=== PATIENT | female | born 1970 | race Caucasian/White ===

== ENCOUNTER → 2017-09-20 | Outpatient (CLI) | payer OTHER ==
[~2017-09-20] MED LIST: ACEBUTCAFT PO; ACET325 PO; ACYC400 PO; ADVACOR; ALBU90OI6 INH; ALPR.5 PO; ALUMAG30SU PO; ASPI81EC PO; ATEN25; ATOR10; AZIT250 PO; Aldactone25 MG; Aldactone50 MG PO; BASAGLAR K100 UNIT/1 SC; BUPR150T2; CIPR500 PO; COMBIVENT RESPIM4 GM INH; CREON DR 12,001 EACH PO; DEXT30SU PO; DIGO.125 PO; DOCU100 PO; DULO30; ENDOCET; ENDOCET PO; ESCI10; FAMO20 PO; FENO145 PO; FENO160; FENO54; FIRST-LANSO3 MG/1 ML PO; FURO20 PO; GLIM4; GUAPHELA PO; HYDACE5 PO; HYDCHL12.5; HYDGUAL120 PO; HYDMOR2 PO; HYDMOR4 PO; HYDPAM25 PO; Hydroxyzine HCl50 MG; IBUP200 PO; IBUP400 PO; INSLI100I SC; INSUASPI SC; INSUASPI SUBQ; INSULANI; INSULANI SC; INSULANI SQ; INSULANI SUBQ; INSULANPEN SC; Keflex500 MG PO; Kristalose20 GM PO; LANS30EC PO; LEVEMIR FL100 UNIT/1 SQ; LEVFLO500 PO; LEVO750 PO; LISI10 PO; LISI20 PO; LISI5 PO; MAGOXI400 PO; METF500; METF500 PO; METF500C; METO10 PO; METO25 PO; METO25ER PO; METO50 PO; METO5A PO; METR500 PO; MILK OF MAGNESIA CON PO; MIRT15 PO; MIRT30 PO; MORP15ER PO; MUPI1NAS; NAPR220; NAPR220 PO; NAPR550 PO; NITR100CA PO; Novolog100 UNIT/1 SC; OMEP10ER; OMEP20ER PO; OMEP40CA12 PO; ONDA4 PO; ONDA4ODT MM; ONDA4ODT PO; ONDA4ODT SL; ONDA8 PO; ONDA8ODT MM; OXYACE5T; OXYACE5T PO; OXYACE7.5T PO; OXYC10ER PO; OXYC10TA19 PO; OXYC1L PO; OXYC1TAB11 PO; OXYC5 PO; PANT20 PO; PANT40; PANT40 PO; PIOG15; POTCHL20ER; PRAV10 PO; PRAV20 PO; PROM25 PO; PROM25S PR; PROTONIX; Prednisone20 MG PO; Q-Tussin100 MG/5 M PO; RANI150 PO; RISE5; ROSU10TA; RXHYDGUAS PO; RXHYDMOR2 PO; RXNAPNA550 PO; RXONDA4ODT MM; RXOXYACE PO; SACC250C PO; SENN187 PO; SPIR25; SPIR50 PO; SUCR1 PO; TRAZ100 PO; TRAZ50 PO; TRESIBA FL100 UNIT/1 SQ; Tamiflu75 MG PO; VENL150ER PO; VENL75ER PO; WARF1 PO; XARELTO20 MG; ZENPEP DR 20,01 EACH PO; Zantac150 MG PO; Zofran Odt4 MG SL; Zofran Odt8 MG SL; [UNRECOGNIZED DRUG - OTHER]; [UNRECOGNIZED DRUG - OTHER]; [UNRECOGNIZED DRUG - REMARK]
[2017-09-20 17:20] LABS: U Amphetamine Screen Not Detected
[2017-09-20 17:21] LABS: U Barbituate Screen Not Detected; U Benzodiazapine Screen Not Detected; U Buprenorphine Screen Not Detected; U Cannabinoids Screen Not Detected; U Cocaine Screen Not Detected; U Methadone Screen Not Detected; U Methamphetamine Screen Not Detected; U Opiates Screen Not Detected; U Oxycodone Screen Not Detected; U Phencyclidine Screen Not Detected; U Propoxyphene Screen Not Detected
== END | disposition home or self-care (01) ==
LOC: LAB 12:30
PROVIDERS: Internal Medicine
DX: Z51.81 Encounter for therapeutic drug level monitoring (principal); Z79.899 Other long term (current) drug therapy

== ENCOUNTER 2018-01-08 14:28 | Emergency (ER) | payer OTHER ==
[~2018-01-08] VITALS: Ht 165.1 cm; Wt 63.5 kg
[~2018-01-08 14:28] MED LIST changes: -Aldactone50 MG PO; -BASAGLAR K100 UNIT/1 SC; -Hydroxyzine HCl50 MG; -Novolog100 UNIT/1 SC
[2018-01-08] MEDS ORDERED: METO100ER PO (14:41)
[2018-01-08] MEDS ORDERED: VENL75ER PO (14:41)
[2018-01-08] MEDS ORDERED: BASAGLAR K100 UNIT/1 SC (14:42)
[2018-01-08 15:06] LABS: BASOPHILS ABSOLUTE AUTO 0.02 K/mm3 (0.00-0.23); BASOPHILS PERCENT AUTO 0 % (0-2); EOSINOPHILS ABSOLUTE AUTO 0.22 K/mm3 (0.00-0.68); EOSINOPHILS PERCENT AUTO 3 % (0-6); Hematocrit 43.4 % (33.0-51.0); Hemoglobin 14.8 g/dL (11.5-16.0); IMMATURE GRAN ABSOLUTE AUTO 0.03 K/mm3 (0.00-0.10); IMMATURE GRAN PERCENT AUTO 0 % (0-1); LYMPHOCYTES ABSOLUTE AUTO 0.97 K/mm3 (0.84-5.20); LYMPHOCYTES PERCENT AUTO 11 % (21-46); MONOCYTES ABSOLUTE AUTO 0.82 K/mm3 (0.16-1.47); MONOCYTES PERCENT AUTO 9 % (4-13); Mean Corpuscular HGB Conc 34.1 g/dL (31.5-36.5); Mean Corpuscular Volume 85 fL (80-100); NEUTROPHILS ABSOLUTE AUTO 6.74 K/mm3 (1.96-9.15); NEUTROPHILS PERCENT AUTO 77 % (41-73); Platelet Count 98 K/mm3 (150-400); RDW Coefficient Variation 13.5 % (11.7-14.2); RDW Standard Deviation 42.2 fL (35.1-46.3); Red Blood Cell Count 5.11 M/mm3 (3.80-5.20)
[2018-01-08 15:33] LABS: Alanine Aminotransfer (ALT/SGP 20 U/L (12-78); Albumin, Blood 3.4 g/dL (3.4-5.0); Albumin/Globulin Ratio 0.8 (0.8-1.8); Alk Phos 124 U/L (50-136); Anion Gap 9 mmol/L (6-16); Aspartate Aminotrans (AST/SGOT 13 U/L (12-37); Blood Urea Nitrogen 16 mg/dL (8-24); Bun/Creatinine Ratio 45.3 (12.0-20.0); CO2, Blood 26 mmol/L (21-32); Calcium, Blood 9.8 mg/dL (8.5-10.1); Chloride, Blood 103 mmol/L (98-108); Creatinine, Blood 0.35 mg/dL (0.40-1.00); Globulin, Blood 4.4 g/dL (2.2-4.0); Glomerular Filtration Rate >60 (60-); Glucose, Blood 306 mg/dL (70-99); Magnesium, Blood 1.5 mg/dL (1.6-2.4); Potassium, Blood 4.2 mmol/L (3.5-5.5); Sodium, Blood 138 mmol/L (136-145); Total Protein, Blood 7.8 g/dL (6.4-8.2); Troponin I <0.015 ng/mL (0.000-0.040)
== END 2018-01-08 16:57 | disposition home or self-care (01) ==
LOC: ER 14:28
PROVIDERS: Emergency Medicine
DX: R07.9 Chest pain, unspecified (principal); E11.43 Type 2 diabetes mellitus with diabetic autonomic (poly)neuropathy; K31.84 Gastroparesis; I10 Essential (primary) hypertension; J45.909 Unspecified asthma, uncomplicated; I48.91 Unspecified atrial fibrillation; D64.9 Anemia, unspecified; Z79.899 Other long term (current) drug therapy; Z79.4 Long term (current) use of insulin
CPT/HCPCS: 36415; 71045; 80053; 83690; 83735; 84484; 85025; 93005; 93010; 96361; 96374; 96375; 99284; J1630; J2405; J7030

== ENCOUNTER 2018-05-25 12:28 | Observation (INO) | payer OTHER ==
[~2018-05-25] VITALS: Ht 165.1 cm; Wt 52.7 kg
[~2018-05-25 12:28] MED LIST changes: +BASAGLAR K100 UNIT/1 SC; +Novolog100 UNIT/1 SC
[2018-05-25 13:22] LABS: BASOPHILS ABSOLUTE AUTO 0.05 K/mm3 (0.00-0.23); BASOPHILS PERCENT AUTO 0 % (0-2); EOSINOPHILS ABSOLUTE AUTO 0.16 K/mm3 (0.00-0.68); EOSINOPHILS PERCENT AUTO 1 % (0-6); Hematocrit 47.5 % (33.0-51.0); Hemoglobin 15.8 g/dL (11.5-16.0); IMMATURE GRAN ABSOLUTE AUTO 0.05 K/mm3 (0.00-0.10); IMMATURE GRAN PERCENT AUTO 0 % (0-1); LYMPHOCYTES ABSOLUTE AUTO 2.62 K/mm3 (0.84-5.20); LYMPHOCYTES PERCENT AUTO 20 % (21-46); MONOCYTES PERCENT AUTO 11 % (4-13); Mean Corpuscular HGB 26.5 pg (26.0-34.0); Mean Corpuscular HGB Conc 33.3 g/dL (31.5-36.5); Mean Corpuscular Volume 80 fL (80-100); Mean Platelet Volume 10.7 fL (9.1-12.4); NEUTROPHILS ABSOLUTE AUTO 9.01 K/mm3 (1.96-9.15); NEUTROPHILS PERCENT AUTO 68 % (41-73); Platelet Count 184 K/mm3 (150-400); RDW Coefficient Variation 14.5 % (11.7-14.2); RDW Standard Deviation 41.7 fL (35.1-46.3); Red Blood Cell Count 5.96 M/mm3 (3.80-5.20); White Blood Cell Count 13.29 K/mm3 (4.00-11.30)
[2018-05-25 13:42] LABS: Alanine Aminotransfer (ALT/SGP 20 U/L (12-78); Albumin, Blood 3.2 g/dL (3.4-5.0); Albumin/Globulin Ratio 0.7 (0.8-1.8); Alk Phos 157 U/L (50-136); Anion Gap 15 mmol/L (6-16); Aspartate Aminotrans (AST/SGOT 14 U/L (12-37); Bilirubin, Total 1.2 mg/dL (0.1-1.0); Blood Urea Nitrogen 22 mg/dL (8-24); CO2, Blood 27 mmol/L (21-32); Calcium, Blood 9.2 mg/dL (8.5-10.1); Chloride, Blood 94 mmol/L (98-108); Creatinine, Blood 0.58 mg/dL (0.40-1.00); Globulin, Blood 4.3 g/dL (2.2-4.0); Glomerular Filtration Rate >60 (60-); Glucose, Blood 352 mg/dL (70-99); Potassium, Blood 3.8 mmol/L (3.5-5.5); Sodium, Blood 136 mmol/L (136-145); Total Protein, Blood 7.5 g/dL (6.4-8.2); Troponin I 0.019 ng/mL (0.000-0.040)
[2018-05-25 15:28] LABS: Free Thyroxine 1.54 ng/dL (0.70-1.60)
[2018-05-25 15:30] LABS: Thyroid Stimulating Hormone 2.31 uIU/mL (0.360-4.800); Triiodothyronine, Free 3.22 pg/mL (2.18-3.98)
[2018-05-25 23:48] LABS: Hematocrit 43.8 % (33.0-51.0); Hemoglobin 14.4 g/dL (11.5-16.0)
[2018-05-25 23:52] LABS: Source, Urine Clean Catch
[2018-05-25 23:55] LABS: Bilirubin, Urine Neg (Neg); Blood, Urine 1+ (Neg); Glucose Qualitative, Urine 4+ (Neg); Ketones, Urine 4+ (Neg); Leukocyte Esterase, Urine Neg (Neg); Nitrite, Urine Neg (Neg); Protein, Urine 2+ (Neg); Specific Gravity, Urine 1.025 (1.003-1.022); Urobilinogen, Urine NORM (Normal)
[2018-05-26 00:01] LABS: International Normalized Ratio 1.28
[2018-05-26 00:02] LABS: Appearance, Urine Clear (Clear); Color, Urine Yellow (P-Yellow)
[2018-05-26 00:03] LABS: Amorphous Light (0-Heavy); Bacteria Mod /hpf; Mucus Light (0-Heavy); Red Blood Cells, Urine 0-2 /hpf (0-2); Squamous Epithelial Cells Mod /hpf (Few); White Blood Cells, Urine Rare /hpf (0-5)
[2018-05-26 00:15] LABS: U Amphetamine Screen Not Detected; U Barbituate Screen Not Detected; U Benzodiazapine Screen DETECTED; U Buprenorphine Screen Not Detected; U Cannabinoids Screen Not Detected; U Cocaine Screen Not Detected; U Methadone Screen Not Detected; U Methamphetamine Screen Not Detected; U Opiates Screen Not Detected; U Oxycodone Screen DETECTED; U Phencyclidine Screen Not Detected; U Propoxyphene Screen Not Detected
== END 2018-05-26 13:42 | disposition home or self-care (01) ==
LOC: ER 12:28 → PCU 12:29
PROVIDERS: Emergency Medicine; Family Medicine; Nurse Practitioner Acute Care
DX: I48.91 Unspecified atrial fibrillation (principal); M25.511 Pain in right shoulder; E11.43 Type 2 diabetes mellitus with diabetic autonomic (poly)neuropathy; K31.84 Gastroparesis; K29.70 Gastritis, unspecified, without bleeding; K92.0 Hematemesis; R19.5 Other fecal abnormalities; D72.829 Elevated white blood cell count, unspecified; Z79.4 Long term (current) use of insulin; Z79.899 Other long term (current) drug therapy; Z88.0 Allergy status to penicillin; Z88.1 Allergy status to other antibiotic agents; Z88.2 Allergy status to sulfonamides; Z88.8 Allergy status to other drugs, medicaments and biological substances
CPT/HCPCS: 36415; 71045; 80053; 81001; 82947; 83036; 83690; 83735; 84439; 84443; 84481; 84484; 85014; 85018; 85025; 85610; 87081; 87086; 93005; 93010; 93279; 93306; 96365; 96366; 96375; 96376; 99285-25; C1751; C9113; G0378; J1815; J2060; J2405; J7030

== ENCOUNTER 2018-06-28 19:10 | Observation (INO) | payer OTHER ==
[~2018-06-28] VITALS: Ht 165.1 cm; Wt 60.4 kg
[2018-06-28 22:19] LABS: BASOPHILS ABSOLUTE AUTO 0.02 K/mm3 (0.00-0.23); BASOPHILS PERCENT AUTO 0 % (0-2); EOSINOPHILS ABSOLUTE AUTO 0.08 K/mm3 (0.00-0.68); EOSINOPHILS PERCENT AUTO 1 % (0-6); Hematocrit 35.5 % (33.0-51.0); Hemoglobin 11.4 g/dL (11.5-16.0); IMMATURE GRAN ABSOLUTE AUTO 0.02 K/mm3 (0.00-0.10); IMMATURE GRAN PERCENT AUTO 0 % (0-1); LYMPHOCYTES ABSOLUTE AUTO 1.27 K/mm3 (0.84-5.20); LYMPHOCYTES PERCENT AUTO 13 % (21-46); MONOCYTES ABSOLUTE AUTO 0.73 K/mm3 (0.16-1.47); MONOCYTES PERCENT AUTO 7 % (4-13); Mean Corpuscular HGB 27.4 pg (26.0-34.0); Mean Corpuscular HGB Conc 32.1 g/dL (31.5-36.5); Mean Corpuscular Volume 85 fL (80-100); Mean Platelet Volume 10.1 fL (9.1-12.4); NEUTROPHILS ABSOLUTE AUTO 7.91 K/mm3 (1.96-9.15); NEUTROPHILS PERCENT AUTO 79 % (41-73); Platelet Count 178 K/mm3 (150-400); RDW Coefficient Variation 16.6 % (11.7-14.2); RDW Standard Deviation 50.5 fL (35.1-46.3); Red Blood Cell Count 4.16 M/mm3 (3.80-5.20); White Blood Cell Count 10.03 K/mm3 (4.00-11.30)
[2018-06-28 22:40] LABS: Alanine Aminotransfer (ALT/SGP 19 U/L (12-78); Albumin/Globulin Ratio 0.5 (0.8-1.8); Alk Phos 157 U/L (50-136); Anion Gap 11 mmol/L (6-16); Aspartate Aminotrans (AST/SGOT 20 U/L (12-37); Bilirubin, Total 0.7 mg/dL (0.1-1.0); Blood Urea Nitrogen 14 mg/dL (8-24); Bun/Creatinine Ratio 32.5 (12.0-20.0); CO2, Blood 31 mmol/L (21-32); Calcium, Blood 7.6 mg/dL (8.5-10.1); Chloride, Blood 93 mmol/L (98-108); Creatinine, Blood 0.43 mg/dL (0.40-1.00); Globulin, Blood 3.8 g/dL (2.2-4.0); Glomerular Filtration Rate >60 (60-); Glucose, Blood 333 mg/dL (70-99); Sodium, Blood 135 mmol/L (136-145); Total Protein, Blood 5.8 g/dL (6.4-8.2); Troponin I 0.023 ng/mL (0.000-0.040)
[2018-06-29 02:54] LABS: U Amphetamine Screen Not Detected; U Barbituate Screen Not Detected; U Benzodiazapine Screen DETECTED; U Buprenorphine Screen Not Detected; U Cannabinoids Screen Not Detected; U Cocaine Screen Not Detected; U Methadone Screen Not Detected; U Methamphetamine Screen Not Detected; U Opiates Screen Not Detected; U Oxycodone Screen DETECTED; U Phencyclidine Screen Not Detected; U Propoxyphene Screen Not Detected
[2018-06-29] MEDS ORDERED: ALPR.5 PO (03:18)
[2018-06-29 06:14] LABS: Magnesium, Blood 1.4 mg/dL (1.6-2.4)
[2018-06-29 06:19] LABS: Anion Gap 10 mmol/L (6-16); Blood Urea Nitrogen 15 mg/dL (8-24); Bun/Creatinine Ratio 36.4 (12.0-20.0); CO2, Blood 31 mmol/L (21-32); Calcium, Blood 7.2 mg/dL (8.5-10.1); Chloride, Blood 95 mmol/L (98-108); Creatinine, Blood 0.41 mg/dL (0.40-1.00); Glomerular Filtration Rate >60 (60-); Glucose, Blood 307 mg/dL (70-99); Potassium, Blood 3.3 mmol/L (3.5-5.5); Sodium, Blood 136 mmol/L (136-145)
[2018-06-30 06:56] LABS: Anion Gap 6 mmol/L (6-16); Blood Urea Nitrogen 13 mg/dL (8-24); Bun/Creatinine Ratio 26.2 (12.0-20.0); CO2, Blood 35 mmol/L (21-32); Calcium, Blood 7.6 mg/dL (8.5-10.1); Chloride, Blood 97 mmol/L (98-108); Glomerular Filtration Rate >60 (60-); Glucose, Blood 106 mg/dL (70-99); Magnesium, Blood 1.7 mg/dL (1.6-2.4); Potassium, Blood 2.7 mmol/L (3.5-5.5); Sodium, Blood 138 mmol/L (136-145)
[2018-07-01 04:51] LABS: BASOPHILS ABSOLUTE AUTO 0.03 K/mm3 (0.00-0.23); BASOPHILS PERCENT AUTO 1 % (0-2); EOSINOPHILS ABSOLUTE AUTO 0.19 K/mm3 (0.00-0.68); EOSINOPHILS PERCENT AUTO 3 % (0-6); Hematocrit 33.2 % (33.0-51.0); Hemoglobin 10.2 g/dL (11.5-16.0); IMMATURE GRAN ABSOLUTE AUTO 0.01 K/mm3 (0.00-0.10); IMMATURE GRAN PERCENT AUTO 0 % (0-1); LYMPHOCYTES ABSOLUTE AUTO 0.91 K/mm3 (0.84-5.20); LYMPHOCYTES PERCENT AUTO 15 % (21-46); MONOCYTES ABSOLUTE AUTO 0.88 K/mm3 (0.16-1.47); MONOCYTES PERCENT AUTO 15 % (4-13); Mean Corpuscular HGB 26.8 pg (26.0-34.0); Mean Corpuscular HGB Conc 30.7 g/dL (31.5-36.5); Mean Corpuscular Volume 87 fL (80-100); Mean Platelet Volume 9.9 fL (9.1-12.4); NEUTROPHILS ABSOLUTE AUTO 4.06 K/mm3 (1.96-9.15); NEUTROPHILS PERCENT AUTO 67 % (41-73); Platelet Count 198 K/mm3 (150-400); RDW Coefficient Variation 16.9 % (11.7-14.2); RDW Standard Deviation 53.5 fL (35.1-46.3); White Blood Cell Count 6.08 K/mm3 (4.00-11.30)
[2018-07-01 06:59] LABS: Alanine Aminotransfer (ALT/SGP 20 U/L (12-78); Albumin, Blood 1.7 g/dL (3.4-5.0); Albumin/Globulin Ratio 0.5 (0.8-1.8); Alk Phos 129 U/L (50-136); Anion Gap 7 mmol/L (6-16); Aspartate Aminotrans (AST/SGOT 34 U/L (12-37); Bilirubin, Total 0.4 mg/dL (0.1-1.0); Blood Urea Nitrogen 13 mg/dL (8-24); Bun/Creatinine Ratio 28.7 (12.0-20.0); CO2, Blood 30 mmol/L (21-32); Calcium, Blood 7.1 mg/dL (8.5-10.1); Chloride, Blood 105 mmol/L (98-108); Creatinine, Blood 0.45 mg/dL (0.40-1.00); Globulin, Blood 3.3 g/dL (2.2-4.0); Glomerular Filtration Rate >60 (60-); Glucose, Blood 62 mg/dL (70-99); Potassium, Blood 3.9 mmol/L (3.5-5.5); Sodium, Blood 142 mmol/L (136-145)
== END 2018-07-01 19:40 | disposition home or self-care (01) ==
LOC: ER 19:10 → MEDS 19:11
PROVIDERS: Emergency Medicine; Hospitalist; Internal Medicine
DX: I48.91 Unspecified atrial fibrillation (principal); E11.9 Type 2 diabetes mellitus without complications; E78.5 Hyperlipidemia, unspecified; K76.0 Fatty (change of) liver, not elsewhere classified; E11.43 Type 2 diabetes mellitus with diabetic autonomic (poly)neuropathy; K31.84 Gastroparesis; J45.20 Mild intermittent asthma, uncomplicated; K21.9 Gastro-esophageal reflux disease without esophagitis; F32.9 Major depressive disorder, single episode, unspecified; F17.210 Nicotine dependence, cigarettes, uncomplicated; E87.6 Hypokalemia; I95.89 Other hypotension; E83.42 Hypomagnesemia; I10 Essential (primary) hypertension; K56.609 Unspecified intestinal obstruction, unspecified as to partial versus complete obstruction; Z79.4 Long term (current) use of insulin; Z88.0 Allergy status to penicillin; Z88.2 Allergy status to sulfonamides; Z88.5 Allergy status to narcotic agent; Z88.8 Allergy status to other drugs, medicaments and biological substances; Z79.899 Other long term (current) drug therapy; Z59.0 Homelessness
CPT/HCPCS: 36415; 74176; 76705; 80048; 80053; 82947; 83735; 84484; 85025; 93005; 93010; 96361; 96365; 96366; 96367; 96372; 96374; 96375; 96376; 99285-25; C1751; C9113; G0378; J1650; J2405; J3010; J3475; J3480; J7030

== ENCOUNTER 2018-07-04 19:58 | Emergency (ER) | payer OTHER ==
[~2018-07-04] VITALS: Ht 165.1 cm; Wt 61.2 kg
[2018-07-04 20:31] LABS: BASOPHILS ABSOLUTE AUTO 0.04 K/mm3 (0.00-0.23); BASOPHILS PERCENT AUTO 0 % (0-2); EOSINOPHILS ABSOLUTE AUTO 0.08 K/mm3 (0.00-0.68); EOSINOPHILS PERCENT AUTO 1 % (0-6); Hematocrit 34.1 % (33.0-51.0); Hemoglobin 10.6 g/dL (11.5-16.0); IMMATURE GRAN ABSOLUTE AUTO 0.04 K/mm3 (0.00-0.10); IMMATURE GRAN PERCENT AUTO 0 % (0-1); LYMPHOCYTES ABSOLUTE AUTO 0.89 K/mm3 (0.84-5.20); LYMPHOCYTES PERCENT AUTO 10 % (21-46); MONOCYTES ABSOLUTE AUTO 0.76 K/mm3 (0.16-1.47); MONOCYTES PERCENT AUTO 8 % (4-13); Mean Corpuscular HGB 26.6 pg (26.0-34.0); Mean Corpuscular HGB Conc 31.1 g/dL (31.5-36.5); Mean Corpuscular Volume 86 fL (80-100); Mean Platelet Volume 9.1 fL (9.1-12.4); NEUTROPHILS ABSOLUTE AUTO 7.52 K/mm3 (1.96-9.15); NEUTROPHILS PERCENT AUTO 81 % (41-73); Platelet Count 142 K/mm3 (150-400); RDW Coefficient Variation 16.4 % (11.7-14.2); Red Blood Cell Count 3.99 M/mm3 (3.80-5.20); White Blood Cell Count 9.33 K/mm3 (4.00-11.30)
[2018-07-04 20:51] LABS: Alanine Aminotransfer (ALT/SGP 25 U/L (12-78); Albumin, Blood 1.8 g/dL (3.4-5.0); Albumin/Globulin Ratio 0.5 (0.8-1.8); Alk Phos 161 U/L (50-136); Anion Gap 9 mmol/L (6-16); Aspartate Aminotrans (AST/SGOT 28 U/L (12-37); Bilirubin, Total 0.5 mg/dL (0.1-1.0); Blood Urea Nitrogen 12 mg/dL (8-24); Bun/Creatinine Ratio 27.1 (12.0-20.0); CO2, Blood 25 mmol/L (21-32); Calcium, Blood 8.1 mg/dL (8.5-10.1); Chloride, Blood 102 mmol/L (98-108); Creatinine, Blood 0.44 mg/dL (0.40-1.00); Globulin, Blood 3.8 g/dL (2.2-4.0); Glomerular Filtration Rate >60 (60-); Glucose, Blood 269 mg/dL (70-99); Sodium, Blood 136 mmol/L (136-145); Total Protein, Blood 5.6 g/dL (6.4-8.2)
== END 2018-07-04 22:55 | disposition home or self-care (01) ==
LOC: ER 19:58
PROVIDERS: Emergency Medicine
DX: R11.2 Nausea with vomiting, unspecified (principal); R60.0 Localized edema; Z88.0 Allergy status to penicillin; Z88.2 Allergy status to sulfonamides; Z88.1 Allergy status to other antibiotic agents; Z91.040 Latex allergy status; Z88.8 Allergy status to other drugs, medicaments and biological substances; Z88.5 Allergy status to narcotic agent; Z79.899 Other long term (current) drug therapy; Z79.4 Long term (current) use of insulin; E11.9 Type 2 diabetes mellitus without complications; E78.5 Hyperlipidemia, unspecified; I10 Essential (primary) hypertension; J45.909 Unspecified asthma, uncomplicated; I48.91 Unspecified atrial fibrillation
CPT/HCPCS: 36415; 71046; 80053; 83690; 83880; 84484; 85025; 96374; 99284-25; J2405; J7030

== ENCOUNTER 2018-07-06 17:52 | Emergency (ER) | payer OTHER ==
[~2018-07-06] VITALS: Ht 160 cm; Wt 77.1 kg
[2018-07-06 19:40] LABS: BASOPHILS ABSOLUTE AUTO 0.01 K/mm3 (0.00-0.23); BASOPHILS PERCENT AUTO 0 % (0-2); EOSINOPHILS ABSOLUTE AUTO 0.11 K/mm3 (0.00-0.68); EOSINOPHILS PERCENT AUTO 2 % (0-6); Hematocrit 34.4 % (33.0-51.0); Hemoglobin 10.6 g/dL (11.5-16.0); IMMATURE GRAN ABSOLUTE AUTO 0.01 K/mm3 (0.00-0.10); IMMATURE GRAN PERCENT AUTO 0 % (0-1); LYMPHOCYTES ABSOLUTE AUTO 0.98 K/mm3 (0.84-5.20); LYMPHOCYTES PERCENT AUTO 17 % (21-46); MONOCYTES ABSOLUTE AUTO 0.63 K/mm3 (0.16-1.47); MONOCYTES PERCENT AUTO 11 % (4-13); Mean Corpuscular HGB 26.2 pg (26.0-34.0); Mean Corpuscular HGB Conc 30.8 g/dL (31.5-36.5); Mean Corpuscular Volume 85 fL (80-100); Mean Platelet Volume 10.3 fL (9.1-12.4); NEUTROPHILS ABSOLUTE AUTO 4.17 K/mm3 (1.96-9.15); NEUTROPHILS PERCENT AUTO 70 % (41-73); Platelet Count 132 K/mm3 (150-400); RDW Standard Deviation 49.9 fL (35.1-46.3); Red Blood Cell Count 4.04 M/mm3 (3.80-5.20); White Blood Cell Count 5.91 K/mm3 (4.00-11.30)
[2018-07-06 19:55] LABS: Alanine Aminotransfer (ALT/SGP 23 U/L (12-78); Albumin, Blood 1.8 g/dL (3.4-5.0); Albumin/Globulin Ratio 0.4 (0.8-1.8); Alk Phos 168 U/L (50-136); Anion Gap 10 mmol/L (6-16); Aspartate Aminotrans (AST/SGOT 24 U/L (12-37); Bilirubin, Total 0.4 mg/dL (0.1-1.0); Blood Urea Nitrogen 10 mg/dL (8-24); Bun/Creatinine Ratio 24.2 (12.0-20.0); CO2, Blood 29 mmol/L (21-32); Calcium, Blood 7.8 mg/dL (8.5-10.1); Chloride, Blood 98 mmol/L (98-108); Creatinine, Blood 0.41 mg/dL (0.40-1.00); Glomerular Filtration Rate >60 (60-); Glucose, Blood 315 mg/dL (70-99); Potassium, Blood 3.2 mmol/L (3.5-5.5); Sodium, Blood 137 mmol/L (136-145); Total Protein, Blood 5.8 g/dL (6.4-8.2)
[2018-07-06 21:17] LABS: Source, Urine Clean Catch
[2018-07-06 21:24] LABS: Appearance, Urine Hazy (Clear); Bilirubin, Urine Neg (Neg); Blood, Urine 1+ (Neg); Color, Urine Yellow (P-Yellow); Glucose Qualitative, Urine 4+ (Neg); Ketones, Urine 1+ (Neg); Leukocyte Esterase, Urine Neg (Neg); Nitrite, Urine Neg (Neg); Protein, Urine Neg (Neg); Urobilinogen, Urine NORM (Normal)
[2018-07-06 21:36] LABS: Amorphous Light (0-Heavy); Bacteria Few /hpf; Red Blood Cells, Urine 0-2 /hpf (0-2); Squamous Epithelial Cells Mod /hpf (Few); White Blood Cells, Urine 0-2 /hpf (0-5)
[2018-07-06] MEDS ORDERED: Aldactone50 MG PO (22:08)
== END 2018-07-06 22:24 | disposition home or self-care (01) ==
LOC: ER 17:52
PROVIDERS: Physician Assistant
DX: R10.84 Generalized abdominal pain (principal); E87.6 Hypokalemia; R60.0 Localized edema; R11.2 Nausea with vomiting, unspecified; E11.9 Type 2 diabetes mellitus without complications; E78.5 Hyperlipidemia, unspecified; I10 Essential (primary) hypertension; J45.909 Unspecified asthma, uncomplicated; I48.91 Unspecified atrial fibrillation; Z88.0 Allergy status to penicillin; Z88.2 Allergy status to sulfonamides; Z88.1 Allergy status to other antibiotic agents; Z91.040 Latex allergy status; Z88.8 Allergy status to other drugs, medicaments and biological substances; Z88.5 Allergy status to narcotic agent; Z79.899 Other long term (current) drug therapy; Z79.4 Long term (current) use of insulin
CPT/HCPCS: 36415; 71045; 80053; 81001; 83690; 85025; 93971; 99284-25

== ENCOUNTER → 2019-02-28 | Outpatient (CLI) | payer OTHER ==
[~2019-02-28] MED LIST changes: +Aldactone50 MG PO; +Hydroxyzine HCl50 MG
== END | disposition home or self-care (01) ==
LOC: LAB SHORT 15:39 → LAB 15:39 → EDSTATUS 02-24 16:20 → LAB FUT 02-24 16:20
DX: E78.5 Hyperlipidemia, unspecified (principal); K76.6 Portal hypertension; I81 Portal vein thrombosis; I48.1 Persistent atrial fibrillation; I10 Essential (primary) hypertension; E11.8 Type 2 diabetes mellitus with unspecified complications
CPT/HCPCS: 82043

== ENCOUNTER 2019-08-19 16:35 | Emergency (ER) | payer OTHER ==
[~2019-08-19] VITALS: Ht 165.1 cm; Wt 58.5 kg
[~2019-08-19 16:35] MED LIST changes: -Hydroxyzine HCl50 MG; +Hydroxyzine HCl50 MG PO
[2019-08-19] MEDS ORDERED: INSULANPEN SC (17:08)
[2019-08-19] MEDS ORDERED: ARIP10 PO (17:10)
[2019-08-19 17:11] LABS: BASOPHILS ABSOLUTE AUTO 0.02 K/mm3 (0.00-0.23); BASOPHILS PERCENT AUTO 1 % (0-2); EOSINOPHILS ABSOLUTE AUTO 0.17 K/mm3 (0.00-0.68); EOSINOPHILS PERCENT AUTO 5 % (0-6); Hematocrit 37.8 % (33.0-51.0); Hemoglobin 12.7 g/dL (11.5-16.0); IMMATURE GRAN ABSOLUTE AUTO 0.01 K/mm3 (0.00-0.10); IMMATURE GRAN PERCENT AUTO 0 % (0-1); LYMPHOCYTES ABSOLUTE AUTO 0.77 K/mm3 (0.84-5.20); LYMPHOCYTES PERCENT AUTO 21 % (21-46); MONOCYTES ABSOLUTE AUTO 0.28 K/mm3 (0.16-1.47); MONOCYTES PERCENT AUTO 8 % (4-13); Mean Corpuscular HGB Conc 33.6 g/dL (31.5-36.5); Mean Corpuscular Volume 86 fL (80-100); NEUTROPHILS ABSOLUTE AUTO 2.37 K/mm3 (1.96-9.15); NEUTROPHILS PERCENT AUTO 65 % (41-73); Platelet Count 73 K/mm3 (150-400); RDW Coefficient Variation 14.8 % (11.7-14.2); RDW Standard Deviation 47.2 fL (35.1-46.3); Red Blood Cell Count 4.38 M/mm3 (3.80-5.20); White Blood Cell Count 3.62 K/mm3 (4.00-11.30)
[2019-08-19] MEDS ORDERED: ZOLP5 PO (17:11)
[2019-08-19] MEDS ORDERED: VENL25 PO (17:11)
[2019-08-19] MEDS ORDERED: BUSP5 PO (17:11)
[2019-08-19 17:23] LABS: Source, Urine Clean Catch
[2019-08-19 17:34] LABS: Bilirubin, Urine Neg (Neg); Blood, Urine 1+ (Neg); Glucose Qualitative, Urine 4+ (Neg); Ketones, Urine 2+ (Neg); Leukocyte Esterase, Urine Neg (Neg); Nitrite, Urine Neg (Neg); Protein, Urine Neg (Neg); Urobilinogen, Urine NORM (Normal)
[2019-08-19 17:40] LABS: Alanine Aminotransfer (ALT/SGP 37 U/L (12-78); Albumin, Blood 3.2 g/dL (3.4-5.0); Albumin/Globulin Ratio 0.9 (0.8-1.8); Alk Phos 146 U/L (50-136); Anion Gap 7 mmol/L (6-16); Aspartate Aminotrans (AST/SGOT 26 U/L (12-37); Bilirubin, Total 1.1 mg/dL (0.1-1.0); Blood Urea Nitrogen 17 mg/dL (8-24); CO2, Blood 25 mmol/L (21-32); Calcium, Blood 8.6 mg/dL (8.5-10.1); Chloride, Blood 105 mmol/L (98-108); Creatinine, Blood 0.44 mg/dL (0.40-1.00); Globulin, Blood 3.6 g/dL (2.2-4.0); Glomerular Filtration Rate >60 (60-); Glucose, Blood 526 mg/dL (70-99); Potassium, Blood 3.8 mmol/L (3.5-5.5); Sodium, Blood 137 mmol/L (136-145); Total Protein, Blood 6.8 g/dL (6.4-8.2)
[2019-08-19 17:43] LABS: Base Excess Venous 0.7 mmol/L; Bicarbonate Venous 25.3 mmol/L (24.0-30.0); PCO2 Venous 34.2 mmHg (38-42); PO2 Venous 173 mmHg (38-42); pH Blood Venous 7.46 (7.34-7.37)
[2019-08-19 17:46] LABS: Beta-hydroxybutyrate 8.6 mg/dL (0.2-2.8)
[2019-08-19 17:48] LABS: Appearance, Urine Clear (Clear); Color, Urine Pale Yellow (P-Yellow)
[2019-08-19 17:49] LABS: Bacteria Rare /hpf; Red Blood Cells, Urine 0-2 /hpf (0-2); Squamous Epithelial Cells Rare /hpf (Few); White Blood Cells, Urine Not Seen /hpf (0-5)
[2019-08-19] MEDS ORDERED: Vibramycin100 MG PO (18:23)
== END 2019-08-19 19:16 | disposition home or self-care (01) ==
LOC: ER 16:35
PROVIDERS: Physician Assistant
DX: E11.65 Type 2 diabetes mellitus with hyperglycemia (principal); L03.012 Cellulitis of left finger; Z88.0 Allergy status to penicillin; Z88.2 Allergy status to sulfonamides; Z88.1 Allergy status to other antibiotic agents; Z88.8 Allergy status to other drugs, medicaments and biological substances; Z91.040 Latex allergy status; Z88.5 Allergy status to narcotic agent; Z88.6 Allergy status to analgesic agent; Z79.4 Long term (current) use of insulin; Z79.899 Other long term (current) drug therapy; E11.9 Type 2 diabetes mellitus without complications; E78.5 Hyperlipidemia, unspecified; I48.91 Unspecified atrial fibrillation; K21.9 Gastro-esophageal reflux disease without esophagitis; G43.909 Migraine, unspecified, not intractable, without status migrainosus; F32.9 Major depressive disorder, single episode, unspecified
CPT/HCPCS: 36415; 80053; 81001; 82010; 82803; 82947; 85025; 93005; 93010; 96360; 99283-25; J1815; J7030

== ENCOUNTER → 2019-09-13 | Outpatient (CLI) | payer OTHER ==
[~2019-09-13] MED LIST changes: +ARIP10 PO; +BUSP5 PO; +VENL25 PO; +Vibramycin100 MG PO; +ZOLP5 PO
[2019-09-13 14:39] LABS: U Amphetamine Screen Not Detected; U Barbituate Screen Not Detected; U Benzodiazapine Screen Not Detected; U Buprenorphine Screen Not Detected; U Cannabinoids Screen Not Detected; U Cocaine Screen Not Detected; U Methadone Screen Not Detected; U Methamphetamine Screen Not Detected; U Opiates Screen Not Detected; U Oxycodone Screen Not Detected; U Phencyclidine Screen Not Detected; U Propoxyphene Screen Not Detected
== END ==
LOC: LAB 12:21 → LAB SHORT 12:21
PROVIDERS: Nurse Practitioner Family
DX: Z51.81 Encounter for therapeutic drug level monitoring (principal); Z79.899 Other long term (current) drug therapy

== ENCOUNTER 2019-10-11 18:30 | Emergency (ER) | payer OTHER ==
[~2019-10-11] VITALS: Ht 162.6 cm; Wt 52.6 kg
[2019-10-11 19:22] LABS: BASOPHILS ABSOLUTE AUTO 0.02 K/mm3 (0.00-0.23); BASOPHILS PERCENT AUTO 0 % (0-2); EOSINOPHILS ABSOLUTE AUTO 0.08 K/mm3 (0.00-0.68); EOSINOPHILS PERCENT AUTO 1 % (0-6); Hematocrit 38.1 % (33.0-51.0); Hemoglobin 13.3 g/dL (11.5-16.0); IMMATURE GRAN ABSOLUTE AUTO 0.02 K/mm3 (0.00-0.10); IMMATURE GRAN PERCENT AUTO 0 % (0-1); LYMPHOCYTES ABSOLUTE AUTO 0.91 K/mm3 (0.84-5.20); LYMPHOCYTES PERCENT AUTO 16 % (21-46); MONOCYTES PERCENT AUTO 9 % (4-13); Mean Corpuscular HGB 30.2 pg (26.0-34.0); Mean Corpuscular HGB Conc 34.9 g/dL (31.5-36.5); Mean Corpuscular Volume 86 fL (80-100); Mean Platelet Volume 9.7 fL (9.1-12.4); NEUTROPHILS ABSOLUTE AUTO 4.35 K/mm3 (1.96-9.15); NEUTROPHILS PERCENT AUTO 74 % (41-73); Platelet Count 118 K/mm3 (150-400); RDW Coefficient Variation 15.2 % (11.7-14.2); RDW Standard Deviation 47.3 fL (35.1-46.3); Red Blood Cell Count 4.41 M/mm3 (3.80-5.20); White Blood Cell Count 5.88 K/mm3 (4.00-11.30)
[2019-10-11 19:51] LABS: Alanine Aminotransfer (ALT/SGP 64 U/L (12-78); Albumin, Blood 2.8 g/dL (3.4-5.0); Albumin/Globulin Ratio 0.8 (0.8-1.8); Alk Phos 150 U/L (50-136); Anion Gap 8 mmol/L (6-16); Aspartate Aminotrans (AST/SGOT 40 U/L (12-37); Bilirubin, Total 0.7 mg/dL (0.1-1.0); Blood Urea Nitrogen 15 mg/dL (8-24); Bun/Creatinine Ratio 36.9 (12.0-20.0); CO2, Blood 23 mmol/L (21-32); Calcium, Blood 8.5 mg/dL (8.5-10.1); Chloride, Blood 102 mmol/L (98-108); Creatinine, Blood 0.41 mg/dL (0.40-1.00); Globulin, Blood 3.6 g/dL (2.2-4.0); Glomerular Filtration Rate >60 (60-); Glucose, Blood 475 mg/dL (70-99); Potassium, Blood 4.3 mmol/L (3.5-5.5); Sodium, Blood 133 mmol/L (136-145); Total Protein, Blood 6.4 g/dL (6.4-8.2); Troponin I <0.015 ng/mL (0.000-0.040)
== END 2019-10-11 22:21 | disposition home or self-care (01) ==
LOC: ER 18:30
PROVIDERS: Physician Assistant
DX: J11.1 Influenza due to unidentified influenza virus with other respiratory manifestations (principal); I10 Essential (primary) hypertension; E11.43 Type 2 diabetes mellitus with diabetic autonomic (poly)neuropathy; K31.84 Gastroparesis; I48.91 Unspecified atrial fibrillation; E78.5 Hyperlipidemia, unspecified; J45.909 Unspecified asthma, uncomplicated; Z88.0 Allergy status to penicillin; Z88.2 Allergy status to sulfonamides; Z88.1 Allergy status to other antibiotic agents; Z91.040 Latex allergy status; Z88.8 Allergy status to other drugs, medicaments and biological substances; Z88.5 Allergy status to narcotic agent; Z79.899 Other long term (current) drug therapy; Z79.4 Long term (current) use of insulin
CPT/HCPCS: 36415; 71046; 80053; 82947; 84484; 85025; 93005; 93010; 96361; 96374; 99284-25; J2405; J7030

== ENCOUNTER 2019-10-29 16:01 | Observation (INO) | payer OTHER ==
[~2019-10-29] VITALS: Ht 162.6 cm; Wt 54.7 kg
[2019-10-29 17:08] LABS: Source, Urine Clean Catch
[2019-10-29] MEDS ORDERED: BASAGLAR K100 UNIT/2 SC (17:11)
[2019-10-29] MEDS ORDERED: MINIPRESS5 MG PO (17:12)
[2019-10-29 17:19] LABS: BASOPHILS ABSOLUTE AUTO 0.02 K/mm3 (0.00-0.23); BASOPHILS PERCENT AUTO 0 % (0-2); EOSINOPHILS ABSOLUTE AUTO 0.06 K/mm3 (0.00-0.68); EOSINOPHILS PERCENT AUTO 1 % (0-6); Hematocrit 41.2 % (33.0-51.0); Hemoglobin 13.4 g/dL (11.5-16.0); IMMATURE GRAN ABSOLUTE AUTO 0.01 K/mm3 (0.00-0.10); IMMATURE GRAN PERCENT AUTO 0 % (0-1); LYMPHOCYTES ABSOLUTE AUTO 0.78 K/mm3 (0.84-5.20); LYMPHOCYTES PERCENT AUTO 16 % (21-46); MONOCYTES ABSOLUTE AUTO 0.42 K/mm3 (0.16-1.47); MONOCYTES PERCENT AUTO 9 % (4-13); Mean Corpuscular HGB 30.1 pg (26.0-34.0); Mean Corpuscular HGB Conc 32.5 g/dL (31.5-36.5); Mean Corpuscular Volume 93 fL (80-100); Mean Platelet Volume 10.6 fL (9.1-12.4); NEUTROPHILS ABSOLUTE AUTO 3.59 K/mm3 (1.96-9.15); NEUTROPHILS PERCENT AUTO 74 % (41-73); RDW Standard Deviation 50.8 fL (35.1-46.3); Red Blood Cell Count 4.45 M/mm3 (3.80-5.20); White Blood Cell Count 4.88 K/mm3 (4.00-11.30)
[2019-10-29 17:20] LABS: Platelet Count 89 K/mm3 (150-400)
[2019-10-29 17:25] LABS: Base Excess Venous -9.6 mmol/L; Bicarbonate Venous 17.8 mmol/L (24.0-30.0); PCO2 Venous 31.5 mmHg (38-42); PO2 Venous 107 mmHg (38-42); pH Blood Venous 7.33 (7.34-7.37)
[2019-10-29 17:31] LABS: Troponin I <0.015 ng/mL (0.000-0.040)
[2019-10-29 17:32] LABS: Bilirubin, Urine Neg (Neg); Blood, Urine 1+ (Neg); Glucose Qualitative, Urine 4+ (Neg); Ketones, Urine 1+ (Neg); Leukocyte Esterase, Urine Neg (Neg); Nitrite, Urine Neg (Neg); Protein, Urine Neg (Neg); Urobilinogen, Urine NORM (Normal)
[2019-10-29 17:33] LABS: Alanine Aminotransfer (ALT/SGP 71 U/L (12-78); Albumin/Globulin Ratio 0.8 (0.8-1.8); Alk Phos 140 U/L (50-136); Anion Gap 14 mmol/L (6-16); Aspartate Aminotrans (AST/SGOT 48 U/L (12-37); Bilirubin, Total 0.8 mg/dL (0.1-1.0); Blood Urea Nitrogen 16 mg/dL (8-24); Bun/Creatinine Ratio 47.8 (12.0-20.0); CO2, Blood 17 mmol/L (21-32); Calcium, Blood 8.6 mg/dL (8.5-10.1); Chloride, Blood 98 mmol/L (98-108); Creatinine, Blood 0.34 mg/dL (0.40-1.00); Globulin, Blood 3.9 g/dL (2.2-4.0); Glomerular Filtration Rate >60 (60-); Potassium, Blood 4.7 mmol/L (3.5-5.5); Sodium, Blood 129 mmol/L (136-145); Total Protein, Blood 6.9 g/dL (6.4-8.2)
[2019-10-29 17:39] LABS: Appearance, Urine Clear (Clear); Color, Urine Yellow (P-Yellow)
[2019-10-29 17:46] LABS: Glucose, Blood 1012 mg/dL (70-99)
[2019-10-29 18:14] LABS: Bacteria Mod /hpf; Squamous Epithelial Cells Few /hpf (Few); White Blood Cells, Urine 0-2 /hpf (0-5)
[2019-10-29] MEDS ORDERED: BUSP5 PO (18:20)
[2019-10-29] MEDS ORDERED: PRAZ2 PO (18:20)
[2019-10-29] MEDS ORDERED: Venlafaxine HC150 MG PO (18:21)
[2019-10-29 18:33] LABS: Beta-hydroxybutyrate 4.3 mg/dL (0.2-2.8)
--- NOTE | 2019-10-29 20:30 | NUR ---
ADMIT: PT TRANSFERRED TO ICU 11 VIA GURNEY WITH HEART MONIOTR ATTACHED AND RN AT BEDSIDE. PT C/O ABD PAIN, BUT NO NAUSEA. STATES ABD PAIN IS CHRONIC. PT A&OX3. LS CLEAR T/O WITH BIOX 99% ON RA. HEART SOUNDS S1 AND S2 WITH S3 MURMUR NOTED. PT HAS A PACER/AICD L CHEST, HR 72 WITH MONITOR SHOWING NSR. SKIN PINK, WARM AND DRY. EDEMA TO BILAT LE'S; 1+ TO RLE, 2+ TO LLE. BILAT VENOUS STATSIS DISCOLORATION TO BILAT LE'S. R PEDAL AND PT PULSE 2+, L PEDAL AND PT 1+. 20G IV R FA WITH INSULIN AT 5UNITS/HR. 22G IV LAC WITH NS BOLUS RUNNING AT 500CC/HR AND KCL 20MEQ IVPB AT 50CC/HR. ABD R/S WITH HYPOACTIVE BT. ABD TENDER TO PALPATION. AMBULATED TO [facility] TO VOID WITH 800CC CLEAR YELLOW URINE OUT.
[2019-10-29] MEDS ORDERED: TYLECOD3 PO (20:57)
[2019-10-29 21:35] LABS: Anion Gap 8 mmol/L (6-16); Blood Urea Nitrogen 11 mg/dL (8-24); CO2, Blood 25 mmol/L (21-32); Calcium, Blood 8.4 mg/dL (8.5-10.1); Chloride, Blood 106 mmol/L (98-108); Creatinine, Blood 0.36 mg/dL (0.40-1.00); Glomerular Filtration Rate >60 (60-); Glucose, Blood 458 mg/dL (70-99); Potassium, Blood 3.7 mmol/L (3.5-5.5); Sodium, Blood 139 mmol/L (136-145)
[2019-10-30 00:55] LABS: Anion Gap 4 mmol/L (6-16); Blood Urea Nitrogen 9 mg/dL (8-24); Bun/Creatinine Ratio 23.3 (12.0-20.0); CO2, Blood 26 mmol/L (21-32); Calcium, Blood 7.6 mg/dL (8.5-10.1); Chloride, Blood 113 mmol/L (98-108); Creatinine, Blood 0.39 mg/dL (0.40-1.00); Glomerular Filtration Rate >60 (60-); Glucose, Blood 332 mg/dL (70-99); Potassium, Blood 4.1 mmol/L (3.5-5.5); Sodium, Blood 143 mmol/L (136-145)
[2019-10-30 04:53] LABS: BASOPHILS ABSOLUTE AUTO 0.01 K/mm3 (0.00-0.23); BASOPHILS PERCENT AUTO 0 % (0-2); EOSINOPHILS ABSOLUTE AUTO 0.08 K/mm3 (0.00-0.68); EOSINOPHILS PERCENT AUTO 2 % (0-6); Hematocrit 30.8 % (33.0-51.0); Hemoglobin 10.6 g/dL (11.5-16.0); IMMATURE GRAN PERCENT AUTO 0 % (0-1); LYMPHOCYTES ABSOLUTE AUTO 0.69 K/mm3 (0.84-5.20); LYMPHOCYTES PERCENT AUTO 21 % (21-46); MONOCYTES ABSOLUTE AUTO 0.34 K/mm3 (0.16-1.47); MONOCYTES PERCENT AUTO 10 % (4-13); Mean Corpuscular HGB 30.2 pg (26.0-34.0); Mean Corpuscular HGB Conc 34.4 g/dL (31.5-36.5); Mean Platelet Volume 10.8 fL (9.1-12.4); NEUTROPHILS ABSOLUTE AUTO 2.23 K/mm3 (1.96-9.15); NEUTROPHILS PERCENT AUTO 67 % (41-73); Platelet Count 54 K/mm3 (150-400); Red Blood Cell Count 3.51 M/mm3 (3.80-5.20); White Blood Cell Count 3.35 K/mm3 (4.00-11.30)
[2019-10-30 04:56] LABS: Mean Corpuscular Volume 88 fL (80-100)
[2019-10-30 05:08] LABS: Anion Gap 4 mmol/L (6-16); Blood Urea Nitrogen 11 mg/dL (8-24); Bun/Creatinine Ratio 26.1 (12.0-20.0); CO2, Blood 23 mmol/L (21-32); Calcium, Blood 7.4 mg/dL (8.5-10.1); Chloride, Blood 116 mmol/L (98-108); Creatinine, Blood 0.42 mg/dL (0.40-1.00); Glomerular Filtration Rate >60 (60-); Glucose, Blood 239 mg/dL (70-99); Potassium, Blood 3.7 mmol/L (3.5-5.5); Sodium, Blood 143 mmol/L (136-145)
--- NOTE | 2019-10-30 06:19 | NUR ---
SHIFT SUMMARY: PT HAS HAD 2 BOUTS OF NAUSEA T/O THE NIGHT AND WAS MEDICATED WITH ZOFRAN. INSULIN GTT AT 4UNITS/HR AND NS AT 150CC/HR. BS 250-280 RANGE AT THIS TIME. VSS
--- NOTE | 2019-10-30 07:15 | NUR ---
BEGINNING OF SHIFT Assumed care at 0700. Bedside report received from Luna ADAMS. Pt on 4 units/hr insulin. Pt reports mild nausea, states it is her baseline due to gastroparesis. Dr Persaud in to see pt at this time. Plan for switch to long acting insulin and discontinue insulin drip.
[2019-10-30 09:25] LABS: Anion Gap 4 mmol/L (6-16); Blood Urea Nitrogen 12 mg/dL (8-24); Bun/Creatinine Ratio 33.3 (12.0-20.0); CO2, Blood 24 mmol/L (21-32); Calcium, Blood 7.5 mg/dL (8.5-10.1); Chloride, Blood 116 mmol/L (98-108); Creatinine, Blood 0.36 mg/dL (0.40-1.00); Glomerular Filtration Rate >60 (60-); Glucose, Blood 281 mg/dL (70-99); Potassium, Blood 3.8 mmol/L (3.5-5.5); Sodium, Blood 144 mmol/L (136-145)
--- NOTE | 2019-10-30 12:17 | NUR ---
CALL PLACED TO DR HEALY Updated provider on pt condition. Pt is now medical floor status without telemetry.
--- NOTE | 2019-10-30 12:37 | NUR ---
TRANSFER Pt assigned to room 357. Telephone report given to Doyle ADAMS. Pt departing via wheelchair accompanied by MINOO Hannah.
--- NOTE | 2019-10-30 19:38 | NUR ---
SHIFT SUMMARY: PATIENT XFR FROM ICU-11 THIS SHIFT. PT A&O; CALM AND COOPERATIVE WITH CARE. NO C/O PAIN OR NAUSEA SINCE ARRIVAL ON MEDICAL FLOOR. CBG AC&HS; POC GLUCOSE 149 AT DINNER; HIGH SS-NO COVERAGE REQUIRED. EXPECTED D/C TO HOME 10/30. REPORT GIVEN TO ONCOMING RN.
--- NOTE | 2019-10-31 04:15 | NUR ---
SUMMARY PT HAS SLEPT T/O SHIFT. PT STATES SHE IS TIRED. PT GLUCOSE HAS BEEN CHECKED ORDERED. PT HAS SOME NOTED SWELLING IN BOTH ARMS THAT HAS IMPROVED SOME DURING SHIFT. PT DENIES SOB OR ABD PAIN. PT CURRENTLY SLEEPING AND BREATHING EASY. CALL LIGHT IN REACH [facility].
[2019-10-31 05:29] LABS: Anion Gap 5 mmol/L (6-16); Blood Urea Nitrogen 13 mg/dL (8-24); Bun/Creatinine Ratio 33.9 (12.0-20.0); CO2, Blood 24 mmol/L (21-32); Calcium, Blood 7.9 mg/dL (8.5-10.1); Chloride, Blood 115 mmol/L (98-108); Creatinine, Blood 0.38 mg/dL (0.40-1.00); Glomerular Filtration Rate >60 (60-); Glucose, Blood 134 mg/dL (70-99); Potassium, Blood 3.6 mmol/L (3.5-5.5); Sodium, Blood 144 mmol/L (136-145)
--- NOTE | 2019-10-31 19:49 | NUR ---
SHIFT SUMMARY: NO ACUTE CHANGES TO REPORT THIS SHIFT. PT A&O; FLAT AFFECT; COOPERATIVE WITH CARE. MEDICATED FOR PAIN PER EMAR. EXPECTED D/C TO HOME 10/31. REPORT GIVEN TO ONCOMING RN.
--- NOTE | 2019-11-01 07:38 | NUR ---
SHIFT SUMMARY PT LARGELY SLEPT THROUGH THE NIGHT. VSS. SHE HAS NO COMPLAINTS OF PAIN OR DISCOMFORT. DAUGHTER IN TO VISIT THIS EVENING. LAST CBG 236. AAOX4, RESP E/U ON ROOM AIR. NO ACUTE CHANGES NOTED. REPORT TO ONCOMING RN.
--- NOTE | 2019-11-01 11:14 | NUR ---
PT QUITE TIRED. LIES DOWN EYES CLOSED MOST OF DAY. C/O NAUSEA. PENDING D/C. SPOKE TO HER RE DRIVING. STATES IS DRIVING SELF. SAYS THINKS MAYBE OKAY TO MAKE IT AT LEAST PART WAY HOME. SPOKE TO CHARGE. [facility] TO PAY FOR CAB TO HOME.
[2019-11-01] MEDS ORDERED: METO25ER PO (11:25)
--- NOTE | 2019-11-01 11:49 | NUR ---
IV REMOVED INTACT X2. PT DO DRESS SELF. PENDING RIDE HOME WITH [facility]. MANOJ TO DO D/C.
== END 2019-11-01 11:37 | disposition home or self-care (01) ==
LOC: ER 16:01 → MEDS 18:42 → ICUW 18:42 → MEDS 10-30 12:40 → ENPENDDIS 11-01 11:00 → MEDS 11-01 11:37
PROVIDERS: Emergency Medicine; Hospitalist; Nurse Practitioner Acute Care; Physician Assistant; ADMIT Internal Medicine
DX: E11.10 Type 2 diabetes mellitus with ketoacidosis without coma (principal); R07.89 Other chest pain; I10 Essential (primary) hypertension; K21.9 Gastro-esophageal reflux disease without esophagitis; F32.9 Major depressive disorder, single episode, unspecified; I48.0 Paroxysmal atrial fibrillation; J45.909 Unspecified asthma, uncomplicated; Z88.1 Allergy status to other antibiotic agents; Z88.8 Allergy status to other drugs, medicaments and biological substances; Z88.0 Allergy status to penicillin; Z88.6 Allergy status to analgesic agent; Z88.2 Allergy status to sulfonamides; Z91.040 Latex allergy status; Z79.4 Long term (current) use of insulin; Z79.899 Other long term (current) drug therapy; Z79.01 Long term (current) use of anticoagulants
CPT/HCPCS: 36415; 71046; 80048; 80053; 81001; 82010; 82803; 82947; 83735; 84484; 85025; 87086; 93005; 93010; 96361; 96365; 96375; 99285-25; A9270; A9270-GY; J1815; J2405; J3480; J7030

== ENCOUNTER → 2019-12-20 | Outpatient (CLI) | payer OTHER ==
[~2019-12-20] MED LIST changes: +BASAGLAR K100 UNIT/2 SC; +CITA20; +MINIPRESS5 MG PO; +PRAZ2 PO; +TYLECOD3 PO; +Venlafaxine HC150 MG PO; +ZOLP10
[2019-12-20 19:49] LABS: U Amphetamine Screen Not Detected; U Barbituate Screen Not Detected; U Benzodiazapine Screen Not Detected; U Buprenorphine Screen Not Detected; U Cannabinoids Screen Not Detected; U Cocaine Screen Not Detected; U Methadone Screen Not Detected; U Methamphetamine Screen Not Detected; U Opiates Screen Not Detected; U Oxycodone Screen Not Detected; U Phencyclidine Screen Not Detected; U Propoxyphene Screen Not Detected
== END | disposition home or self-care (01) ==
LOC: LAB SHORT 17:06 → LAB 17:06
PROVIDERS: Nurse Practitioner Family
DX: Z51.81 Encounter for therapeutic drug level monitoring (principal); Z79.899 Other long term (current) drug therapy

== ENCOUNTER 2020-01-03 17:45 | Inpatient (IN) | payer OTHER ==
[~2020-01-03] VITALS: Ht 162.6 cm; Wt 60.7 kg
[~2020-01-03 17:45] MED LIST changes: -ARIP10 PO; -BASAGLAR K100 UNIT/2 SC; -BUSP5 PO; -Novolog100 UNIT/1 SC; -PRAZ2 PO; -Venlafaxine HC150 MG PO; -ZOLP10
[2020-01-03 18:45] LABS: BASOPHILS ABSOLUTE AUTO 0.02 K/mm3 (0.00-0.23); BASOPHILS PERCENT AUTO 1 % (0-2); EOSINOPHILS ABSOLUTE AUTO 0.12 K/mm3 (0.00-0.68); EOSINOPHILS PERCENT AUTO 3 % (0-6); Hematocrit 36.9 % (33.0-51.0); Hemoglobin 12.5 g/dL (11.5-16.0); IMMATURE GRAN ABSOLUTE AUTO 0.01 K/mm3 (0.00-0.10); IMMATURE GRAN PERCENT AUTO 0 % (0-1); LYMPHOCYTES ABSOLUTE AUTO 0.68 K/mm3 (0.84-5.20); LYMPHOCYTES PERCENT AUTO 19 % (21-46); MONOCYTES ABSOLUTE AUTO 0.33 K/mm3 (0.16-1.47); MONOCYTES PERCENT AUTO 9 % (4-13); Mean Corpuscular HGB 29.3 pg (26.0-34.0); Mean Corpuscular HGB Conc 33.9 g/dL (31.5-36.5); Mean Corpuscular Volume 87 fL (80-100); NEUTROPHILS ABSOLUTE AUTO 2.51 K/mm3 (1.96-9.15); NEUTROPHILS PERCENT AUTO 68 % (41-73); RDW Coefficient Variation 13.2 % (11.7-14.2); RDW Standard Deviation 41.2 fL (35.1-46.3); Red Blood Cell Count 4.26 M/mm3 (3.80-5.20); White Blood Cell Count 3.67 K/mm3 (4.00-11.30)
[2020-01-03 18:46] LABS: Platelet Count 70 K/mm3 (150-400)
[2020-01-03 19:59] LABS: Alanine Aminotransfer (ALT/SGP 58 U/L (12-78); Albumin, Blood 2.7 g/dL (3.4-5.0); Anion Gap 10 mmol/L (6-16); Aspartate Aminotrans (AST/SGOT 54 U/L (12-37); Blood Urea Nitrogen 16 mg/dL (8-24); CO2, Blood 23 mmol/L (21-32); Calcium, Blood 8.1 mg/dL (8.5-10.1); Chloride, Blood 98 mmol/L (98-108); Creatinine, Blood 0.38 mg/dL (0.40-1.00); Glomerular Filtration Rate >60 (60-); Magnesium, Blood 1.9 mg/dL (1.6-2.4); Potassium, Blood 4.2 mmol/L (3.5-5.5); Sodium, Blood 131 mmol/L (136-145)
[2020-01-03 20:04] LABS: Albumin/Globulin Ratio 0.8 (0.8-1.8); Alk Phos 179 U/L (50-136); Bilirubin, Total 0.7 mg/dL (0.1-1.0); Globulin, Blood 3.4 g/dL (2.2-4.0); Glucose, Blood 771 mg/dL (70-99); Total Protein, Blood 6.1 g/dL (6.4-8.2); Troponin I <0.015 ng/mL (0.000-0.040)
[2020-01-03 20:07] LABS: Beta-hydroxybutyrate 6.2 mg/dL (0.2-2.8)
[2020-01-03] MEDS ORDERED: NOVOLOG FL100 UNIT/1 SC (20:38)
[2020-01-03] MEDS ORDERED: ABILIFY MYCITE15 MG PO (20:39)
[2020-01-03] MEDS ORDERED: BUSP10 PO (20:40)
[2020-01-03] MEDS ORDERED: BASAGLAR K100 UNIT/2 SC (20:41)
[2020-01-03] MEDS ORDERED: PRAZ2 PO (20:42)
[2020-01-03] MEDS ORDERED: VENL75ER PO (20:43)
[2020-01-03] MEDS ORDERED: METO25ER PO (20:44)
[2020-01-03] MEDS ORDERED: ZOLP5 PO (20:45)
[2020-01-03] MEDS ORDERED: METFORMIN HCL500 M3 PO (20:47)
[2020-01-03] MEDS ORDERED: PANT20 PO (21:04)
--- NOTE | 2020-01-03 22:53 | NUR ---
2245 PT ADMITTED TO ROOM 336 PER WHEELCHAIR FROM ER; REPORT RECEIVED FROM BRYAN YIP
--- NOTE | 2020-01-04 04:04 | NUR ---
SHIFT SUMMARY: 49 Y/O SLENDER FEMALE RESTED COMFORTABLY ALL SHIFT; PTS CBG WAS 380 BEGINNING OF SHIFT WITH LANTUS 80 UNITS GIVEN WITH SUBSEQUENT CBG 462 AT 0130 (DR WEINBERG NOTIFIED WITH .9NS IV RATE INCREASED TO 125ML/HR; CBG AT 0330 WAS 381 (TRENDING DOWNWARD); C/O RLQ PAIN RATED 9/10 WITH DILAUDID 1MG IVP GIVEN WITH RELIEF FELT; TROPONIN AT 0100 WAS <.015; PT VOICED THAT SHE TENDS EAT POORLY AT HOME AND NOT FOLLOW DIABETIC DIET AT TIMES; BED LOW POSITION WITH CALL LIGHT AT SIDE.
[2020-01-04 07:28] LABS: BASOPHILS ABSOLUTE AUTO 0.01 K/mm3 (0.00-0.23); BASOPHILS PERCENT AUTO 0 % (0-2); EOSINOPHILS ABSOLUTE AUTO 0.13 K/mm3 (0.00-0.68); EOSINOPHILS PERCENT AUTO 5 % (0-6); Hematocrit 34.5 % (33.0-51.0); Hemoglobin 11.9 g/dL (11.5-16.0); IMMATURE GRAN ABSOLUTE AUTO 0.01 K/mm3 (0.00-0.10); IMMATURE GRAN PERCENT AUTO 0 % (0-1); LYMPHOCYTES ABSOLUTE AUTO 0.67 K/mm3 (0.84-5.20); LYMPHOCYTES PERCENT AUTO 26 % (21-46); MONOCYTES ABSOLUTE AUTO 0.29 K/mm3 (0.16-1.47); MONOCYTES PERCENT AUTO 11 % (4-13); Mean Corpuscular HGB 29.8 pg (26.0-34.0); Mean Corpuscular HGB Conc 34.5 g/dL (31.5-36.5); Mean Corpuscular Volume 87 fL (80-100); Mean Platelet Volume 10.3 fL (9.1-12.4); NEUTROPHILS ABSOLUTE AUTO 1.47 K/mm3 (1.96-9.15); NEUTROPHILS PERCENT AUTO 57 % (41-73); Platelet Count 63 K/mm3 (150-400); RDW Coefficient Variation 13.2 % (11.7-14.2); RDW Standard Deviation 41.1 fL (35.1-46.3); Red Blood Cell Count 3.99 M/mm3 (3.80-5.20); White Blood Cell Count 2.58 K/mm3 (4.00-11.30)
[2020-01-04 07:42] LABS: International Normalized Ratio 1.09; Prothrombin Time Results 11.6 Sec (9.7-11.5)
[2020-01-04 07:44] LABS: Magnesium, Blood 1.9 mg/dL (1.6-2.4)
[2020-01-04 07:49] LABS: Alanine Aminotransfer (ALT/SGP 144 U/L (12-78); Albumin, Blood 2.3 g/dL (3.4-5.0); Albumin/Globulin Ratio 0.7 (0.8-1.8); Alk Phos 202 U/L (50-136); Anion Gap 7 mmol/L (6-16); Aspartate Aminotrans (AST/SGOT 252 U/L (12-37); Bilirubin, Total 0.4 mg/dL (0.1-1.0); Blood Urea Nitrogen 11 mg/dL (8-24); Bun/Creatinine Ratio 32.9 (12.0-20.0); CO2, Blood 25 mmol/L (21-32); Calcium, Blood 7.8 mg/dL (8.5-10.1); Chloride, Blood 111 mmol/L (98-108); Creatinine, Blood 0.33 mg/dL (0.40-1.00); Globulin, Blood 3.2 g/dL (2.2-4.0); Glomerular Filtration Rate >60 (60-); Glucose, Blood 272 mg/dL (70-99); Potassium, Blood 3.4 mmol/L (3.5-5.5); Sodium, Blood 143 mmol/L (136-145); Total Protein, Blood 5.5 g/dL (6.4-8.2)
--- NOTE | 2020-01-04 08:20 | NUR ---
SPOKE TO DR JACOBS- PT C/O NOT BEING ABLE TO KEEP HER EYES OPEN. PT HAS BUSBAR FOR ANXIETY HOWEVER THIS CAN CAUSE SOME SEDATION. OK TO HOLD THE DOSE AT THIS TIME DR WILL REVIEW THE PT CHART, MAY NEED TO GIVE LATER.
--- NOTE | 2020-01-04 19:10 | NUR ---
ASSUMED CARE RECEIVED REPORT FROM BRYAN RUIZ. ASSUMED CARE OF PT. RESTING COMFORTABLY AT THIS TIME, NO S/S ACUTE DISTRESS. NOTED. DENIES NEEDS. CALL LIGHT, POSSESSIONS IN REACH, BED IN LOWEST POSITION WITH ALARM ON. WILL CONTINUE TO MONITOR.
--- NOTE | 2020-01-04 19:34 | NUR ---
SHIFT SUMMARY- PT HAS SLEPT THROUGH THE ENTIRE SHIFT. WAKING ONLY FOR MEALS AND EATING MINIMALLY. PT WAS ENCOURAGED BY STAFF TO ATTEMPT TO USE THE BATHROOM AND HAD A DOUBLE XL BM LATE IN THE SHIFT. PT BG SEEMS TO BE BETTER MANAGED LAST BG WAS 115 REQUIREING NO COVERAGE BEFORE DINNER. SPOKE TO DR JACOBS AND BG CHANGED FROM Q2 TO AC HS. PT CURRENTLY SLEEPING BUT DID WAKE FOR BEDSIDE REPORT WITH NIGHT BRYAN KITHCEN.
--- NOTE | 2020-01-04 21:00 | NUR ---
DR. ACRLISLE IN ROOM TO SEE PT. SPOKE TO PT REGARDING PLAN OF CARE AND DX TEST FINDINGS. ORDERS RECEIVED.
--- NOTE | 2020-01-04 23:35 | NUR ---
0012 SPOKE TO EMMY PEREZ REGARDING PT'S ORDER FOR 80 UNITS OF LANTUS. ORDERS RECEIVED.
--- NOTE | 2020-01-05 00:15 | NUR ---
0015 PT CBG OBTAINED, READING 80MG/DL. GIVEN A SNACK OF YOGURT AND MILK WITH CHUCK CRACKERS. WILL CONTINUE TO MONITOR AND REASSESS.
--- NOTE | 2020-01-05 01:53 | NUR ---
0153 PT CBG RECHECKED, UP TO 104 MG/DL. SPOKE TO DR. WEINBERG REGARDING PT'S LOWER CBG LEVELS. ORDERS RECEIVED.
[2020-01-05 04:26] LABS: Hematocrit 36.2 % (33.0-51.0); Hemoglobin 12.1 g/dL (11.5-16.0); Mean Corpuscular HGB 29.7 pg (26.0-34.0); Mean Corpuscular HGB Conc 33.4 g/dL (31.5-36.5); Mean Corpuscular Volume 89 fL (80-100); Mean Platelet Volume 10.7 fL (9.1-12.4); Platelet Count 62 K/mm3 (150-400); RDW Coefficient Variation 13.2 % (11.7-14.2); Red Blood Cell Count 4.07 M/mm3 (3.80-5.20); White Blood Cell Count 3.42 K/mm3 (4.00-11.30)
[2020-01-05 04:48] LABS: Alanine Aminotransfer (ALT/SGP 171 U/L (12-78); Albumin, Blood 2.3 g/dL (3.4-5.0); Albumin/Globulin Ratio 0.7 (0.8-1.8); Alk Phos 222 U/L (50-136); Anion Gap 6 mmol/L (6-16); Aspartate Aminotrans (AST/SGOT 230 U/L (12-37); Bilirubin, Total 0.6 mg/dL (0.1-1.0); Blood Urea Nitrogen 12 mg/dL (8-24); Bun/Creatinine Ratio 36.5 (12.0-20.0); CO2, Blood 25 mmol/L (21-32); Calcium, Blood 8.3 mg/dL (8.5-10.1); Chloride, Blood 112 mmol/L (98-108); Creatinine, Blood 0.33 mg/dL (0.40-1.00); Globulin, Blood 3.3 g/dL (2.2-4.0); Glomerular Filtration Rate >60 (60-); Glucose, Blood 162 mg/dL (70-99); Potassium, Blood 3.8 mmol/L (3.5-5.5); Sodium, Blood 143 mmol/L (136-145); Total Protein, Blood 5.6 g/dL (6.4-8.2)
--- NOTE | 2020-01-05 07:00 | NUR ---
SHIFT SUMMARY PT ASLEEP AT THIS TIME, NO S/S ACUTE DISTRESS NOTED. CBGS STABLE AT THIS POINT, PT ABLE TO EAT SNACKS T/O NIGHT TOLERATED. PT SLEPT T/O NIGHT, AROUSED EASILY. AMBULATED TO BATHROOM WITH SBA, MAKES NEEDS KNOWN APPROPRIATELY. DENIES NEEDS AT THIS TIME. CALL LIGHT, POSSESSIONS IN REACH, BED IN LOWEST POSITION WITH ALARM ON. REPORT GIVEN TO DAY SHIFT RN.
--- NOTE | 2020-01-05 07:23 | NUR ---
ASSUMED CARE OF PT- BEDSIDE REPORT COMPLETED WITH NIGHT BRYAN KITCHEN. PER REPORT PT BG WAS IN THE 140'S NIGHT MD WAS CONTACTED AND LANTUS AMOUNT WAS REDUCED TO 40 FROM 80. PT BG PRIOR TO ADMINISTRATION WAS DOWN TO THE 80'S SO LANTUS WAS HELD AND PT WAS PROVIDED SNACKS, WHICH SHE DID EAT. PT STILL VERY GROGGY THIS MORNING, ABDOMEN APPEARS LESS DISTENDED AND MUCH SOFTER, PER REPORT SHE HAD AN ADDITIONAL LARGE BM LAST NIGHT. PT IS CURRENTLY IN BED SLEEPING WITH HER CALL LIGHT IN REACH. NO S&S OF DISTRESS NOTED ON ROOM AIR RESP E/U.
--- NOTE | 2020-01-05 19:12 | NUR ---
SHIFT SUMMARY- PT ALERT AND ORIENTED TO SELF AND WAKES MORE EASILY TO STAFF VOICES THIS EVENING. PT HAS DENIED THE NEED FOR PAIN MEDICATION AFTER REPOSTIONING AND REST. THREE C/O ABD PAIN THAT LASTED 30 MINUTES OR SO BUT WENT AWAY WITHOUT MEDICATION. PT HAS HAD MULTIPLE LOOSE LIGHT BROWN STOOLS. MAG CITRATE GIVEN THIS MORNING ORDERED WITH THE MIRALAX. PT WAS UNABLE TO DRINK ALL OF THE MAG CITRATE, SHE DRANK HALF. THE STRONG LEMON FLAVOR MADE HER EXPERIENCE NAUSEA. DR CARLISLE AWARE OF THIS. BG HAS REQUIRED COVERAGE 2 OUT OF 3 MEALS TODAY. PT HAS SLEPT T/O THE DAY WAKING ONLY WHEN PROMPTED OR TO USE THE BATHROOM.
--- NOTE | 2020-01-06 00:46 | NUR ---
PT NPO AFTER MIDNIGHT PENDING POSSIBLE SURGERY IN AM.
--- NOTE | 2020-01-06 04:14 | NUR ---
SHIFT SUMMARY: 49 Y/O FEMALE RESTED COMFORTABLY ALL SHIFT; PT ABLE TO TRANSFER AND AMBULATE TO BATHROOM AND BACK WITH GAIT SLOW AND STEADY; PTS GLUCOSE WAS 271 LAST PM WITH ORDERED INSULIN GIVEN AND PATIENT GIVEN H.S. SNACK; PT EDUCATED ON NEED TO TAKE ALL ORDERED MEDS AND FOLLOW DIABETIC DIET WHEN DISCHARGED HOME PATIENT TENDS NOT TAKE MEDS OR EAT PROPERLY WITH [id number] NOTED; DENIES PAIN OR NAUSEA; BED LOW POSITION WITH CALL LIGHT AT SIDE.
[2020-01-06 05:25] LABS: BASOPHILS ABSOLUTE AUTO 0.01 K/mm3 (0.00-0.23); BASOPHILS PERCENT AUTO 0 % (0-2); EOSINOPHILS ABSOLUTE AUTO 0.15 K/mm3 (0.00-0.68); EOSINOPHILS PERCENT AUTO 5 % (0-6); Hematocrit 38.4 % (33.0-51.0); Hemoglobin 12.7 g/dL (11.5-16.0); IMMATURE GRAN ABSOLUTE AUTO 0.01 K/mm3 (0.00-0.10); IMMATURE GRAN PERCENT AUTO 0 % (0-1); LYMPHOCYTES ABSOLUTE AUTO 0.83 K/mm3 (0.84-5.20); LYMPHOCYTES PERCENT AUTO 27 % (21-46); MONOCYTES ABSOLUTE AUTO 0.44 K/mm3 (0.16-1.47); MONOCYTES PERCENT AUTO 14 % (4-13); Mean Corpuscular HGB 29.7 pg (26.0-34.0); Mean Corpuscular HGB Conc 33.1 g/dL (31.5-36.5); Mean Corpuscular Volume 90 fL (80-100); Mean Platelet Volume 10.8 fL (9.1-12.4); NEUTROPHILS ABSOLUTE AUTO 1.67 K/mm3 (1.96-9.15); NEUTROPHILS PERCENT AUTO 54 % (41-73); Platelet Count 63 K/mm3 (150-400); RDW Coefficient Variation 13.4 % (11.7-14.2); RDW Standard Deviation 43.9 fL (35.1-46.3); Red Blood Cell Count 4.28 M/mm3 (3.80-5.20); White Blood Cell Count 3.11 K/mm3 (4.00-11.30)
[2020-01-06 05:38] LABS: International Normalized Ratio 1.12; Prothrombin Time Results 11.9 Sec (9.7-11.5)
[2020-01-06 05:50] LABS: Albumin, Blood 2.3 g/dL (3.4-5.0); Albumin/Globulin Ratio 0.7 (0.8-1.8); Bilirubin, Direct 0.2 mg/dL (0.0-0.3); Bilirubin, Indirect 0.5 mg/dL (0.1-0.7); Bilirubin, Total 0.7 mg/dL (0.1-1.0); Globulin, Blood 3.5 g/dL (2.2-4.0); Total Protein, Blood 5.8 g/dL (6.4-8.2)
[2020-01-06] MEDS ORDERED: LACT10SY PO (11:48)
[2020-01-06] MEDS ORDERED: OXYC5 PO (11:48)
--- NOTE | 2020-01-06 13:39 | NUR ---
D/C NOTE: EDUCATION AND DISCHARGE INSTRUCTIONS GONE OVER WITH PT. PT DENIES ANY ADDITIONAL QUESTIONS. IV REMOVED INTACT. PT CALLED DAUGHTER FOR RIDE HOME. PT TAKEN TO DAUGHTER VIA W/C. DISCHARGED AT 1330.
== END 2020-01-06 13:31 | disposition home health service (06) | DRG 637 ==
LOC: ER 17:45 → MEDS 17:46
PROVIDERS: Emergency Medicine; Internal Medicine; Internal Medicine Gastroenterology; Nurse Practitioner Acute Care; ADMIT Family Medicine
DX: E11.65 Type 2 diabetes mellitus with hyperglycemia (principal); G92 Toxic encephalopathy; E87.1 Hypo-osmolality and hyponatremia; K76.6 Portal hypertension; D61.818 Other pancytopenia; I82.891 Chronic embolism and thrombosis of other specified veins; Z79.4 Long term (current) use of insulin; E87.6 Hypokalemia; K76.0 Fatty (change of) liver, not elsewhere classified; K72.90 Hepatic failure, unspecified without coma; I10 Essential (primary) hypertension; F41.8 Other specified anxiety disorders; Z85.41 Personal history of malignant neoplasm of cervix uteri; E78.5 Hyperlipidemia, unspecified; B00.9 Herpesviral infection, unspecified; I48.0 Paroxysmal atrial fibrillation; D69.6 Thrombocytopenia, unspecified; E86.0 Dehydration; K59.00 Constipation, unspecified
CPT/HCPCS: 36415; 71045; 74176; 80053; 80076; 82010; 82140; 82947; 83690; 83735; 84145; 84484; 85025; 85027; 85610; 93005; 93010; 93971; 96361; 96374; 96375; 97110; 97162; 99285-25; C9113; J1170; J1815; J2405; J7030

== ENCOUNTER 2020-04-25 05:32 | Day surgery (SDC) | payer OTHER ==
[~2020-04-25] VITALS: Ht 162.6 cm; Wt 48.0 kg
[~2020-04-25 05:32] MED LIST changes: +ABILIFY MYCITE15 MG PO; +BASAGLAR K100 UNIT/2 SC; +BUSP10 PO; +DOXY100 PO; +LACT10SY PO; +METFORMIN HCL500 M3 PO; +NOVOLOG FL100 UNIT/1 SC; +PRAZ2 PO
[2020-04-25 07:50] LABS: Glucose, Blood 516 mg/dL (70-99)
--- NOTE | 2020-04-25 08:35 | NUR ---
PT BLOOD SUGER 516. DR CORDON NOTIFIED. ANGIOGRAM CANCELED AND PT TAKEN TO ER FOR POSSIBLE ADMISSION.
== END 2020-04-25 08:52 | disposition home or self-care (01) ==
LOC: MHTC 05:32
PROVIDERS: Internal Medicine Cardiovascular Disease
DX: R07.9 Chest pain, unspecified (principal); Z53.8 Procedure and treatment not carried out for other reasons
CPT/HCPCS: 82947; J1644; J2250; J3010; J7030; J7040

== ENCOUNTER 2020-05-10 15:43 | Emergency (ER) | payer OTHER ==
[~2020-05-10] VITALS: Ht 162.6 cm; Wt 48.1 kg
[2020-05-10 16:21] LABS: BASOPHILS ABSOLUTE AUTO 0.02 K/mm3 (0.00-0.23); BASOPHILS PERCENT AUTO 1 % (0-2); EOSINOPHILS ABSOLUTE AUTO 0.06 K/mm3 (0.00-0.68); EOSINOPHILS PERCENT AUTO 2 % (0-6); Hematocrit 34.7 % (33.0-51.0); IMMATURE GRAN ABSOLUTE AUTO 0.01 K/mm3 (0.00-0.10); IMMATURE GRAN PERCENT AUTO 0 % (0-1); LYMPHOCYTES ABSOLUTE AUTO 0.78 K/mm3 (0.84-5.20); LYMPHOCYTES PERCENT AUTO 25 % (21-46); MONOCYTES ABSOLUTE AUTO 0.28 K/mm3 (0.16-1.47); MONOCYTES PERCENT AUTO 9 % (4-13); Mean Corpuscular HGB 30.6 pg (26.0-34.0); Mean Corpuscular HGB Conc 34.6 g/dL (31.5-36.5); Mean Corpuscular Volume 89 fL (80-100); Mean Platelet Volume 10.1 fL (9.1-12.4); NEUTROPHILS ABSOLUTE AUTO 2.01 K/mm3 (1.96-9.15); NEUTROPHILS PERCENT AUTO 64 % (41-73); Platelet Count 70 K/mm3 (150-400); RDW Coefficient Variation 13.8 % (11.7-14.2); RDW Standard Deviation 44.9 fL (35.1-46.3); Red Blood Cell Count 3.92 M/mm3 (3.80-5.20); White Blood Cell Count 3.16 K/mm3 (4.00-11.30)
[2020-05-10 16:50] LABS: Alanine Aminotransfer (ALT/SGP 80 U/L (12-78); Albumin, Blood 2.2 g/dL (3.4-5.0); Albumin/Globulin Ratio 0.8 (0.8-1.8); Alk Phos 144 U/L (50-136); Anion Gap 5 mmol/L (6-16); Aspartate Aminotrans (AST/SGOT 43 U/L (12-37); Bilirubin, Total 0.8 mg/dL (0.1-1.0); Blood Urea Nitrogen 8 mg/dL (8-24); Bun/Creatinine Ratio 19.3 (12.0-20.0); CO2, Blood 26 mmol/L (21-32); Calcium, Blood 7.5 mg/dL (8.5-10.1); Chloride, Blood 107 mmol/L (98-108); Creatinine, Blood 0.42 mg/dL (0.40-1.00); Globulin, Blood 2.9 g/dL (2.2-4.0); Glomerular Filtration Rate >60 (60-); Glucose, Blood 537 mg/dL (70-99); Potassium, Blood 4.4 mmol/L (3.5-5.5); Sodium, Blood 138 mmol/L (136-145); Total Protein, Blood 5.1 g/dL (6.4-8.2)
[2020-05-10 17:51] LABS: Source, Urine Clean Catch
[2020-05-10 17:56] LABS: Appearance, Urine Hazy (Clear); Bilirubin, Urine Neg (Neg); Blood, Urine 1+ (Neg); Color, Urine Yellow (P-Yellow); Glucose Qualitative, Urine 4+ (Neg); Ketones, Urine Neg (Neg); Leukocyte Esterase, Urine 2+ (Neg); Nitrite, Urine Neg (Neg); Protein, Urine Neg (Neg); Urobilinogen, Urine NORM (Normal)
[2020-05-10 18:02] LABS: Bacteria Many /hpf; Squamous Epithelial Cells Few /hpf (Few); White Blood Cells, Urine TNTC /hpf (0-5)
[2020-05-10] MEDS ORDERED: Macrobid 100 M100 MG PO (18:41)
== END 2020-05-10 19:27 | disposition home or self-care (01) ==
LOC: ER 15:43
PROVIDERS: Physician Assistant
DX: E11.65 Type 2 diabetes mellitus with hyperglycemia (principal); E11.40 Type 2 diabetes mellitus with diabetic neuropathy, unspecified; I10 Essential (primary) hypertension; I48.91 Unspecified atrial fibrillation; E78.5 Hyperlipidemia, unspecified; F32.9 Major depressive disorder, single episode, unspecified; Z88.0 Allergy status to penicillin; Z88.2 Allergy status to sulfonamides; Z88.1 Allergy status to other antibiotic agents; Z91.040 Latex allergy status; Z79.899 Other long term (current) drug therapy; Z79.4 Long term (current) use of insulin; Z88.5 Allergy status to narcotic agent; Z88.6 Allergy status to analgesic agent; Z95.0 Presence of cardiac pacemaker
CPT/HCPCS: 36415; 80053; 81001; 82947; 83690; 83735; 85025; 87077; 87086; 87186; 93005; 93010; 96360; 99284-25; J1815; J7030

== ENCOUNTER 2020-05-14 12:49 | Emergency (ER) | payer OTHER ==
[~2020-05-14] VITALS: Ht 162.6 cm; Wt 52.6 kg
[~2020-05-14 12:49] MED LIST changes: +Macrobid 100 M100 MG PO
[2020-05-14 14:12] LABS: BASOPHILS ABSOLUTE AUTO 0.02 K/mm3 (0.00-0.23); BASOPHILS PERCENT AUTO 1 % (0-2); EOSINOPHILS ABSOLUTE AUTO 0.11 K/mm3 (0.00-0.68); EOSINOPHILS PERCENT AUTO 3 % (0-6); Hematocrit 34.7 % (33.0-51.0); Hemoglobin 11.9 g/dL (11.5-16.0); IMMATURE GRAN ABSOLUTE AUTO 0.01 K/mm3 (0.00-0.10); IMMATURE GRAN PERCENT AUTO 0 % (0-1); LYMPHOCYTES ABSOLUTE AUTO 0.82 K/mm3 (0.84-5.20); LYMPHOCYTES PERCENT AUTO 22 % (21-46); MONOCYTES ABSOLUTE AUTO 0.46 K/mm3 (0.16-1.47); MONOCYTES PERCENT AUTO 13 % (4-13); Mean Corpuscular HGB 30.4 pg (26.0-34.0); Mean Corpuscular HGB Conc 34.3 g/dL (31.5-36.5); Mean Corpuscular Volume 89 fL (80-100); Mean Platelet Volume 9.8 fL (9.1-12.4); NEUTROPHILS ABSOLUTE AUTO 2.26 K/mm3 (1.96-9.15); NEUTROPHILS PERCENT AUTO 61 % (41-73); Platelet Count 92 K/mm3 (150-400); RDW Standard Deviation 45.1 fL (35.1-46.3); Red Blood Cell Count 3.91 M/mm3 (3.80-5.20); White Blood Cell Count 3.68 K/mm3 (4.00-11.30)
[2020-05-14 14:41] LABS: Alanine Aminotransfer (ALT/SGP 137 U/L (12-78); Albumin, Blood 2.2 g/dL (3.4-5.0); Albumin/Globulin Ratio 0.7 (0.8-1.8); Alk Phos 161 U/L (50-136); Anion Gap 4 mmol/L (6-16); Aspartate Aminotrans (AST/SGOT 132 U/L (12-37); Bilirubin, Total 0.7 mg/dL (0.1-1.0); Blood Urea Nitrogen 8 mg/dL (8-24); Bun/Creatinine Ratio 20.6 (12.0-20.0); CO2, Blood 28 mmol/L (21-32); Calcium, Blood 8.3 mg/dL (8.5-10.1); Chloride, Blood 109 mmol/L (98-108); Creatinine, Blood 0.39 mg/dL (0.40-1.00); Glomerular Filtration Rate >60 (60-); Glucose, Blood 330 mg/dL (70-99); Potassium, Blood 4.3 mmol/L (3.5-5.5); Sodium, Blood 141 mmol/L (136-145); Total Protein, Blood 5.2 g/dL (6.4-8.2)
[2020-05-14 18:28] LABS: Source, Urine Clean Catch
[2020-05-14 18:44] LABS: Appearance, Urine Clear (Clear); Bilirubin, Urine Neg (Neg); Blood, Urine 2+ (Neg); Color, Urine Yellow (P-Yellow); Glucose Qualitative, Urine 4+ (Neg); Ketones, Urine Neg (Neg); Leukocyte Esterase, Urine Neg (Neg); Nitrite, Urine Pos (Neg); Protein, Urine 1+ (Neg); Specific Gravity, Urine 1.025 (1.003-1.022); Urobilinogen, Urine NORM (Normal)
[2020-05-14 18:57] LABS: Bacteria Many /hpf; Squamous Epithelial Cells Rare /hpf (Few)
== END 2020-05-14 22:28 | disposition home or self-care (01) ==
LOC: ER 12:49
PROVIDERS: Emergency Medicine
DX: R11.2 Nausea with vomiting, unspecified (principal); R10.9 Unspecified abdominal pain; R53.1 Weakness; R31.9 Hematuria, unspecified; R19.7 Diarrhea, unspecified; E11.43 Type 2 diabetes mellitus with diabetic autonomic (poly)neuropathy; K31.84 Gastroparesis; I10 Essential (primary) hypertension; E78.5 Hyperlipidemia, unspecified; I48.0 Paroxysmal atrial fibrillation; F32.9 Major depressive disorder, single episode, unspecified; E11.40 Type 2 diabetes mellitus with diabetic neuropathy, unspecified; Z88.0 Allergy status to penicillin; Z88.2 Allergy status to sulfonamides; Z88.1 Allergy status to other antibiotic agents; Z88.8 Allergy status to other drugs, medicaments and biological substances; Z88.5 Allergy status to narcotic agent; Z88.4 Allergy status to anesthetic agent; Z79.4 Long term (current) use of insulin; Z79.899 Other long term (current) drug therapy; Z86.718 Personal history of other venous thrombosis and embolism; Z95.0 Presence of cardiac pacemaker
CPT/HCPCS: 36415; 70450; 74177; 80053; 81001; 82140; 82947; 83690; 85025; 87077; 87086; 87147; 87186; 93005; 93010; 96374-59; 96375; 99284-25; J1170; J2405; J7120; Q9967

== ENCOUNTER 2020-05-22 13:24 | Observation (INO) | payer OTHER ==
[~2020-05-22] VITALS: Ht 162.6 cm; Wt 50.4 kg
[~2020-05-22 13:24] MED LIST changes: -ABILIFY MYCITE15 MG PO; -BASAGLAR K100 UNIT/2 SC; -BUSP10 PO; -NOVOLOG FL100 UNIT/1 SC; -PRAZ2 PO
[2020-05-22 14:43] LABS: Source, Urine Clean Catch
[2020-05-22 14:48] LABS: Bilirubin, Urine Neg (Neg); Blood, Urine 1+ (Neg); Glucose Qualitative, Urine 4+ (Neg); Ketones, Urine Neg (Neg); Leukocyte Esterase, Urine Neg (Neg); Nitrite, Urine Neg (Neg); Protein, Urine Neg (Neg); Urobilinogen, Urine NORM (Normal)
[2020-05-22 14:54] LABS: Appearance, Urine Clear (Clear); Color, Urine Yellow (P-Yellow)
[2020-05-22 14:55] LABS: Bacteria Rare /hpf; Red Blood Cells, Urine 0-2 /hpf (0-2); Squamous Epithelial Cells Few /hpf (Few); White Blood Cells, Urine Not Seen /hpf (0-5)
[2020-05-22 15:24] LABS: BASOPHILS ABSOLUTE AUTO 0.02 K/mm3 (0.00-0.23); BASOPHILS PERCENT AUTO 1 % (0-2); EOSINOPHILS ABSOLUTE AUTO 0.06 K/mm3 (0.00-0.68); EOSINOPHILS PERCENT AUTO 2 % (0-6); Hematocrit 35.9 % (33.0-51.0); Hemoglobin 12.1 g/dL (11.5-16.0); IMMATURE GRAN ABSOLUTE AUTO 0.01 K/mm3 (0.00-0.10); IMMATURE GRAN PERCENT AUTO 0 % (0-1); LYMPHOCYTES ABSOLUTE AUTO 0.86 K/mm3 (0.84-5.20); LYMPHOCYTES PERCENT AUTO 24 % (21-46); MONOCYTES ABSOLUTE AUTO 0.34 K/mm3 (0.16-1.47); MONOCYTES PERCENT AUTO 10 % (4-13); Mean Corpuscular HGB 30.1 pg (26.0-34.0); Mean Corpuscular HGB Conc 33.7 g/dL (31.5-36.5); Mean Corpuscular Volume 89 fL (80-100); Mean Platelet Volume 10.3 fL (9.1-12.4); NEUTROPHILS ABSOLUTE AUTO 2.25 K/mm3 (1.96-9.15); NEUTROPHILS PERCENT AUTO 64 % (41-73); Platelet Count 85 K/mm3 (150-400); RDW Coefficient Variation 13.3 % (11.7-14.2); Red Blood Cell Count 4.02 M/mm3 (3.80-5.20); White Blood Cell Count 3.54 K/mm3 (4.00-11.30)
[2020-05-22 15:44] LABS: Alanine Aminotransfer (ALT/SGP 182 U/L (12-78); Albumin, Blood 2.5 g/dL (3.4-5.0); Albumin/Globulin Ratio 0.8 (0.8-1.8); Alk Phos 201 U/L (50-136); Anion Gap 8 mmol/L (6-16); Aspartate Aminotrans (AST/SGOT 124 U/L (12-37); Bilirubin, Total 0.7 mg/dL (0.1-1.0); Blood Urea Nitrogen 16 mg/dL (8-24); Bun/Creatinine Ratio 38.7 (12.0-20.0); CO2, Blood 21 mmol/L (21-32); Calcium, Blood 8.1 mg/dL (8.5-10.1); Chloride, Blood 109 mmol/L (98-108); Creatinine, Blood 0.41 mg/dL (0.40-1.00); Globulin, Blood 3.2 g/dL (2.2-4.0); Glomerular Filtration Rate >60 (60-); Glucose, Blood 677 mg/dL (70-99); Potassium, Blood 4.3 mmol/L (3.5-5.5); Sodium, Blood 138 mmol/L (136-145); Total Protein, Blood 5.7 g/dL (6.4-8.2)
[2020-05-22] MEDS ORDERED: OXYC5 PO (17:52)
[2020-05-22] MEDS ORDERED: BACLOFEN10 M1 PO (17:53)
[2020-05-22] MEDS ORDERED: ABILIFY MYCITE15 MG PO (17:54)
[2020-05-22] MEDS ORDERED: SUMA25 PO (17:54)
[2020-05-22] MEDS ORDERED: CONSTULOSE10 GM/152 PO (17:55)
[2020-05-22] MEDS ORDERED: BASAGLAR K100 UNIT/5 SC (17:57)
[2020-05-22] MEDS ORDERED: HUMALOG KW100 UNIT/1 SC (17:58)
[2020-05-22] MEDS ORDERED: BUSP10 PO (18:44)
[2020-05-22] MEDS ORDERED: PRAZ2 PO (18:45)
[2020-05-22] MEDS ORDERED: Buspirone HCl10 MG PO (18:45)
[2020-05-22] MEDS ORDERED: VENL75ER PO (18:46)
--- NOTE | 2020-05-22 23:38 | NUR ---
PATIENT IS A NEW ADMIT FROM THE ED. ONE ASSIST TRANSFER FROM [facility] TO BED. AXO X 4 AND ON ROOM AIR. CBG 423 AFTER ADMIT. TELEMETRY PLACED AND TECH REPORTS NSR 61. EDEMA BILATERAL LOWER EXTREMITIES. PATIENT REPORTS LEGS PAINFUL. PATIENT ORIENTED TO ROOM AND CALL LIGHT SYSTEM. PATIENT WATCHING TV AND ON PHONE AFTER ADMIT. CALL LIGHT IN REACH.
--- NOTE | 2020-05-23 00:30 | NUR ---
CBG 423 AND 18 UNITS OF HUMALOG GIVEN. CBG Q2 CHECKS. CBG 336 ON RECHECK AND 12 UNITS OF HUMALOG GIVEN.
--- NOTE | 2020-05-23 03:21 | NUR ---
RECHECK CBG AT 336 FROM 336. NO CHANGE.
--- NOTE | 2020-05-23 04:38 | NUR ---
CBG 263 DOWN FROM CBG 336
--- NOTE | 2020-05-23 04:42 | NUR ---
SHIFT SUMMARY PATIENT HAD NO ACUTE CHANGES OBSERVED. CBG 423 ON ADMIT AND DOWN TO CBG 263. AXO X4 AND INDEPENDENT IN THE ROOM. PIV REMAINS INTACT. CLAIM TRAINEE REPORTS NSR 61. NAUSEOUS X ONE AND IV ZOFRAN GIVEN PER EMAR. PATIENT REPORTS IF CBG DROPS APPROX 100 POINTS SHE GET NAUSEOUS AND SWEATS WHICH SHE DID. VSS/AFEBRILE. REPORTED LEG PAIN X ONE AND HOSPITAIST ORDERED IV DILAUDID 0.5 MG X ONE. NPO. CALL LIGHT IN REACH. BED IN LOWEST POSITION. WILL CONTINUE TO MONITOR UNTIL DAY SHIFT NURSE ASSUMES CARE.
[2020-05-23 05:47] LABS: Anion Gap 6 mmol/L (6-16); Blood Urea Nitrogen 15 mg/dL (8-24); Bun/Creatinine Ratio 41.1 (12.0-20.0); CO2, Blood 26 mmol/L (21-32); Calcium, Blood 8.7 mg/dL (8.5-10.1); Chloride, Blood 111 mmol/L (98-108); Creatinine, Blood 0.37 mg/dL (0.40-1.00); Glomerular Filtration Rate >60 (60-); Glucose, Blood 263 mg/dL (70-99); Potassium, Blood 3.2 mmol/L (3.5-5.5); Sodium, Blood 143 mmol/L (136-145)
[2020-05-23] MEDS ORDERED: FURO40 PO (13:29)
[2020-05-23] MEDS ORDERED: POTA10T PO (13:30)
--- NOTE | 2020-05-23 14:55 | NUR ---
PT DISCHARGED PT DISCHARGED WITH A BLOOD SUGAR OF 215. PT EDUCATED ON DC INSTRUCTIONS AND FOLLOW UP APPOINTMENT INFORMATION. NEW PT PACKET FOR [employer] SENT WITH PT. PT VS REVIEWED. PT DENIES FUTHER NEED FOR INSTRUCTION PRIOR TO DC. PT WHEELED OUT BY THIS RN. PICKED UP BY [facility] TO BE TAKEN HOME. PT FAMILY AWARE OF DC PER PT.
== END 2020-05-23 15:57 | disposition home or self-care (01) ==
LOC: ER 13:24 → MEDS 13:25 → ENPENDDIS 05-23 11:34 → MEDS 05-23 15:57
PROVIDERS: Emergency Medicine; ADMIT Internal Medicine
DX: E11.65 Type 2 diabetes mellitus with hyperglycemia (principal); R60.1 Generalized edema; F41.8 Other specified anxiety disorders; K76.0 Fatty (change of) liver, not elsewhere classified; I48.0 Paroxysmal atrial fibrillation; D61.818 Other pancytopenia; I81 Portal vein thrombosis; Z88.1 Allergy status to other antibiotic agents; Z88.5 Allergy status to narcotic agent; Z88.8 Allergy status to other drugs, medicaments and biological substances; Z91.040 Latex allergy status; Z88.0 Allergy status to penicillin; Z88.2 Allergy status to sulfonamides; Z79.4 Long term (current) use of insulin; Z79.899 Other long term (current) drug therapy; J45.20 Mild intermittent asthma, uncomplicated
CPT/HCPCS: 36415; 71045; 80048; 80053; 81001; 82947; 83880; 85025; 96374; 96375; 96376; 99285-25; A9270; A9270-GY; C9113; G0378; J1170; J1815; J1940; J2405

== ENCOUNTER 2020-07-11 15:43 | Emergency (ER) | payer OTHER ==
[~2020-07-11] VITALS: Ht 162.6 cm; Wt 48.1 kg
[~2020-07-11 15:43] MED LIST changes: +ABILIFY MYCITE15 MG PO; +BACLOFEN10 M1 PO; +BASAGLAR K100 UNIT/5 SC; +BUSP10 PO; +Buspirone HCl10 MG PO; +CONSTULOSE10 GM/152 PO; +FURO40 PO; +HUMALOG KW100 UNIT/1 SC; +POTA10T PO; +PRAZ2 PO; +SUMA25 PO
[2020-07-11 16:05] LABS: Source, Urine Clean Catch
[2020-07-11 16:09] LABS: Bilirubin, Urine Neg (Neg); Blood, Urine Neg (Neg); Glucose Qualitative, Urine 4+ (Neg); Ketones, Urine Neg (Neg); Leukocyte Esterase, Urine Neg (Neg); Nitrite, Urine Neg (Neg); Protein, Urine Neg (Neg); Urobilinogen, Urine NORM (Normal); pH, Urine 6.5 (5.0-8.0)
[2020-07-11 16:33] LABS: Appearance, Urine Clear (Clear); Color, Urine Pale Yellow (P-Yellow)
[2020-07-11 16:35] LABS: BASOPHILS ABSOLUTE AUTO 0.02 K/mm3 (0.00-0.23); BASOPHILS PERCENT AUTO 1 % (0-2); EOSINOPHILS ABSOLUTE AUTO 0.08 K/mm3 (0.00-0.68); EOSINOPHILS PERCENT AUTO 3 % (0-6); Hematocrit 38.1 % (33.0-51.0); Hemoglobin 12.8 g/dL (11.5-16.0); IMMATURE GRAN PERCENT AUTO 0 % (0-1); LYMPHOCYTES ABSOLUTE AUTO 0.94 K/mm3 (0.84-5.20); LYMPHOCYTES PERCENT AUTO 29 % (21-46); MONOCYTES ABSOLUTE AUTO 0.33 K/mm3 (0.16-1.47); MONOCYTES PERCENT AUTO 10 % (4-13); Mean Corpuscular HGB 28.3 pg (26.0-34.0); Mean Corpuscular HGB Conc 33.6 g/dL (31.5-36.5); Mean Corpuscular Volume 84 fL (80-100); Mean Platelet Volume 10.9 fL (9.1-12.4); NEUTROPHILS ABSOLUTE AUTO 1.89 K/mm3 (1.96-9.15); NEUTROPHILS PERCENT AUTO 58 % (41-73); Platelet Count 101 K/mm3 (150-400); RDW Coefficient Variation 13.3 % (11.7-14.2); RDW Standard Deviation 40.5 fL (35.1-46.3); Red Blood Cell Count 4.53 M/mm3 (3.80-5.20); White Blood Cell Count 3.26 K/mm3 (4.00-11.30)
[2020-07-11 16:55] LABS: Alanine Aminotransfer (ALT/SGP 175 U/L (12-78); Albumin, Blood 2.7 g/dL (3.4-5.0); Albumin/Globulin Ratio 0.8 (0.8-1.8); Alk Phos 235 U/L (50-136); Anion Gap 7 mmol/L (6-16); Aspartate Aminotrans (AST/SGOT 223 U/L (12-37); Bilirubin, Total 1.1 mg/dL (0.1-1.0); Blood Urea Nitrogen 18 mg/dL (8-24); Bun/Creatinine Ratio 37.5 (12.0-20.0); CO2, Blood 27 mmol/L (21-32); Calcium, Blood 8.4 mg/dL (8.5-10.1); Chloride, Blood 107 mmol/L (98-108); Creatinine, Blood 0.48 mg/dL (0.40-1.00); Globulin, Blood 3.2 g/dL (2.2-4.0); Glomerular Filtration Rate >60 (60-); Glucose, Blood 552 mg/dL (70-99); Potassium, Blood 4.2 mmol/L (3.5-5.5); Sodium, Blood 141 mmol/L (136-145); Total Protein, Blood 5.9 g/dL (6.4-8.2); Troponin I <0.015 ng/mL (0.000-0.040)
[2020-07-11] MEDS ORDERED: SPIRONOLACTONE50 MG PO (20:59)
[2020-07-11] MEDS ORDERED: FUROSEMIDE40 MG PO (20:59)
[2020-07-11] MEDS ORDERED: Dilaudid 2 mg Ta2 MG (20:59)
== END 2020-07-11 23:26 | disposition home or self-care (01) ==
LOC: ER 15:43
PROVIDERS: Emergency Medicine
DX: R53.1 Weakness (principal); Z88.0 Allergy status to penicillin; Z88.2 Allergy status to sulfonamides; Z88.8 Allergy status to other drugs, medicaments and biological substances; Z91.040 Latex allergy status; Z88.1 Allergy status to other antibiotic agents; Z88.5 Allergy status to narcotic agent
CPT/HCPCS: 36415; 80053; 81003; 84484; 85025; 93005; 93010; 96374; 99284-25; J2405

== ENCOUNTER 2020-07-19 15:57 | Emergency (ER) | payer OTHER ==
[~2020-07-19] VITALS: Ht 162.6 cm; Wt 48.5 kg
[~2020-07-19 15:57] MED LIST changes: -BASAGLAR K100 UNIT/5 SC; +Dilaudid 2 mg Ta2 MG; -FURO40 PO; +FUROSEMIDE40 MG PO; -HUMALOG KW100 UNIT/1 SC; -POTA10T PO
[2020-07-19 16:47] LABS: BASOPHILS ABSOLUTE AUTO 0.02 K/mm3 (0.00-0.23); BASOPHILS PERCENT AUTO 1 % (0-2); EOSINOPHILS ABSOLUTE AUTO 0.09 K/mm3 (0.00-0.68); EOSINOPHILS PERCENT AUTO 3 % (0-6); Hematocrit 39.9 % (33.0-51.0); Hemoglobin 13.3 g/dL (11.5-16.0); IMMATURE GRAN ABSOLUTE AUTO 0.01 K/mm3 (0.00-0.10); IMMATURE GRAN PERCENT AUTO 0 % (0-1); LYMPHOCYTES PERCENT AUTO 30 % (21-46); MONOCYTES ABSOLUTE AUTO 0.27 K/mm3 (0.16-1.47); MONOCYTES PERCENT AUTO 10 % (4-13); Mean Corpuscular HGB 28.8 pg (26.0-34.0); Mean Corpuscular HGB Conc 33.3 g/dL (31.5-36.5); Mean Corpuscular Volume 86 fL (80-100); Mean Platelet Volume 10.8 fL (9.1-12.4); NEUTROPHILS ABSOLUTE AUTO 1.46 K/mm3 (1.96-9.15); NEUTROPHILS PERCENT AUTO 55 % (41-73); Platelet Count 81 K/mm3 (150-400); RDW Coefficient Variation 14.2 % (11.7-14.2); RDW Standard Deviation 42.5 fL (35.1-46.3); Red Blood Cell Count 4.62 M/mm3 (3.80-5.20); White Blood Cell Count 2.65 K/mm3 (4.00-11.30)
[2020-07-19 17:03] LABS: Alanine Aminotransfer (ALT/SGP 216 U/L (12-78); Albumin, Blood 2.7 g/dL (3.4-5.0); Albumin/Globulin Ratio 0.8 (0.8-1.8); Alk Phos 226 U/L (50-136); Anion Gap 9 mmol/L (6-16); Aspartate Aminotrans (AST/SGOT 367 U/L (12-37); Bilirubin, Total 1.3 mg/dL (0.1-1.0); Blood Urea Nitrogen 8 mg/dL (8-24); Bun/Creatinine Ratio 16.2 (12.0-20.0); CO2, Blood 25 mmol/L (21-32); Calcium, Blood 8.5 mg/dL (8.5-10.1); Chloride, Blood 105 mmol/L (98-108); Creatinine, Blood 0.49 mg/dL (0.40-1.00); Globulin, Blood 3.2 g/dL (2.2-4.0); Glomerular Filtration Rate >60 (60-); Glucose, Blood 527 mg/dL (70-99); Potassium, Blood 3.3 mmol/L (3.5-5.5); Sodium, Blood 139 mmol/L (136-145); Total Protein, Blood 5.9 g/dL (6.4-8.2)
[2020-07-19 17:20] LABS: BAND PERCENT MAN 2 % (0-8); BASOPHILS ABSOLUTE MAN 0.02 K/mm3 (0.00-0.23); BASOPHILS PERCENT MAN 1 % (0-2); EOSINOPHILS PERCENT MAN 4 % (0-6); LYMPHOCYTES ABSOLUTE MAN 0.68 K/mm3 (0.84-5.20); LYMPHOCYTES PERCENT MAN 26 % (21-46); MONOCYTES ABSOLUTE MAN 0.07 K/mm3 (0.16-1.47); MONOCYTES PERCENT MAN 3 % (4-13); NEUTROPHILS ABSOLUTE MAN 1.74 K/mm3 (1.96-9.15); SEG NEUTROPHILS PERCENT MAN 64 % (41-73); TOTAL CELLS COUNTED 100
[2020-07-19] MEDS ORDERED: PANTOPRAZOLE SO40 M2 PO (20:32)
[2020-07-19] MEDS ORDERED: FURO40 PO (20:32)
[2020-07-19] MEDS ORDERED: POTA10T PO (20:33)
[2020-07-19] MEDS ORDERED: SPIRONOLACTONE50 MG PO (20:33)
[2020-07-19] MEDS ORDERED: BASAGLAR K100 UNIT/6 SC (20:37)
[2020-07-19] MEDS ORDERED: HUMALOG KW100 UNIT/1 SC (20:37)
== END 2020-07-19 21:00 | disposition home or self-care (01) ==
LOC: ER 15:57
PROVIDERS: Physician Assistant
DX: K92.0 Hematemesis (principal); Z79.899 Other long term (current) drug therapy
CPT/HCPCS: 80053; 83690; 85025; 86850; 86900; 86901; 93005; 93010; 96374; 96375; 99285-25; C9113; J1170; J2405

== ENCOUNTER 2020-07-30 17:12 | Observation (INO) | payer OTHER ==
[~2020-07-30] VITALS: Ht 162.6 cm; Wt 49.9 kg
[~2020-07-30 17:12] MED LIST changes: +FURO40 PO; +HUMALOG KW100 UNIT/1 SC; +PANTOPRAZOLE SO40 M2 PO; +POTA10T PO; +SPIRONOLACTONE50 MG PO
[2020-07-30 18:08] LABS: Source, Urine Clean Catch
[2020-07-30 18:15] LABS: BASOPHILS ABSOLUTE AUTO 0.01 K/mm3 (0.00-0.23); BASOPHILS PERCENT AUTO 0 % (0-2); EOSINOPHILS ABSOLUTE AUTO 0.05 K/mm3 (0.00-0.68); EOSINOPHILS PERCENT AUTO 2 % (0-6); Hematocrit 42.4 % (33.0-51.0); Hemoglobin 13.9 g/dL (11.5-16.0); IMMATURE GRAN ABSOLUTE AUTO 0.01 K/mm3 (0.00-0.10); IMMATURE GRAN PERCENT AUTO 0 % (0-1); LYMPHOCYTES ABSOLUTE AUTO 0.66 K/mm3 (0.84-5.20); LYMPHOCYTES PERCENT AUTO 22 % (21-46); MONOCYTES ABSOLUTE AUTO 0.25 K/mm3 (0.16-1.47); MONOCYTES PERCENT AUTO 8 % (4-13); Mean Corpuscular HGB 28.7 pg (26.0-34.0); Mean Corpuscular HGB Conc 32.8 g/dL (31.5-36.5); Mean Corpuscular Volume 88 fL (80-100); Mean Platelet Volume 10.8 fL (9.1-12.4); NEUTROPHILS PERCENT AUTO 67 % (41-73); Platelet Count 88 K/mm3 (150-400); RDW Coefficient Variation 14.8 % (11.7-14.2); RDW Standard Deviation 46.5 fL (35.1-46.3); Red Blood Cell Count 4.84 M/mm3 (3.80-5.20); White Blood Cell Count 2.98 K/mm3 (4.00-11.30)
[2020-07-30 18:19] LABS: Appearance, Urine Clear (Clear); Bilirubin, Urine Neg (Neg); Blood, Urine 3+ (Neg); Glucose Qualitative, Urine 4+ (Neg); Ketones, Urine Neg (Neg); Leukocyte Esterase, Urine Neg (Neg); Nitrite, Urine Neg (Neg); Protein, Urine Neg (Neg); Urobilinogen, Urine NORM (Normal)
[2020-07-30 18:38] LABS: Color, Urine Pale Yellow (P-Yellow)
[2020-07-30 18:39] LABS: Bacteria Rare /hpf; Red Blood Cells, Urine 0-2 /hpf (0-2); Squamous Epithelial Cells Rare /hpf (Few); White Blood Cells, Urine 0-2 /hpf (0-5)
[2020-07-30 18:40] LABS: U Amphetamine Screen Not Detected; U Barbituate Screen Not Detected; U Benzodiazapine Screen Not Detected; U Buprenorphine Screen Not Detected; U Cannabinoids Screen Not Detected; U Cocaine Screen Not Detected; U Methadone Screen Not Detected; U Methamphetamine Screen Not Detected; U Opiates Screen Not Detected; U Oxycodone Screen Not Detected; U Phencyclidine Screen Not Detected; U Propoxyphene Screen Not Detected
[2020-07-30 18:44] LABS: Acetaminophen, Random <2.0 ug/mL (10.0-30.0); Salicylate <1.7 mg/dL (2.8-20.0)
[2020-07-30 19:00] LABS: Alanine Aminotransfer (ALT/SGP 115 U/L (12-78); Albumin, Blood 2.8 g/dL (3.4-5.0); Albumin/Globulin Ratio 0.8 (0.8-1.8); Alk Phos 244 U/L (50-136); Anion Gap 11 mmol/L (6-16); Aspartate Aminotrans (AST/SGOT 80 U/L (12-37); Bilirubin, Total 0.6 mg/dL (0.1-1.0); Blood Urea Nitrogen 12 mg/dL (8-24); CO2, Blood 22 mmol/L (21-32); Calcium, Blood 8.2 mg/dL (8.5-10.1); Chloride, Blood 101 mmol/L (98-108); Creatinine, Blood 0.32 mg/dL (0.40-1.00); Ethanol (Alcohol), Blood, Med <3 mg/dL; Globulin, Blood 3.7 g/dL (2.2-4.0); Glomerular Filtration Rate >60 (60-); Glucose, Blood 986 mg/dL (70-99); Potassium, Blood 3.9 mmol/L (3.5-5.5); Sodium, Blood 134 mmol/L (136-145); Total Protein, Blood 6.5 g/dL (6.4-8.2)
[2020-07-30] MEDS ORDERED: Dilaudid 2 mg Ta2 MG PO (21:28)
[2020-07-30 22:54] LABS: Glucose, Blood 543 mg/dL (70-99)
[2020-07-31] MEDS ORDERED: ABILIFY MYCITE10 MG PO (00:06)
[2020-07-31] MEDS ORDERED: BUSP10 PO (00:08)
[2020-07-31] MEDS ORDERED: MINIPRESS1 MG (00:10)
--- NOTE | 2020-07-31 01:28 | NUR ---
[facility] ORDER OF SEMGLEE 80 UNITS PT TAKES DOSE AT HOME. PT HAS HAD A SIGNIFICANT DROP IN HER BLOOD SUGAR FROM 986 TO 387 AFTER RECEIVING 10 UNITS OF NOVOLOG IN ER. PT IS ALSO NPO AND HAS NOT EATEN SINCE YESTERDAY AFTERNOON 07/30/[address] SALDIVAR CALLED AND NOTIFIED AND TO CLARIFY ORDER. RECEIVED ORDER FOR SEMGLEE 30 UNITS AND TO ADVANCE DIET.
[2020-07-31 04:42] LABS: BASOPHILS ABSOLUTE AUTO 0.02 K/mm3 (0.00-0.23); BASOPHILS PERCENT AUTO 1 % (0-2); EOSINOPHILS ABSOLUTE AUTO 0.11 K/mm3 (0.00-0.68); EOSINOPHILS PERCENT AUTO 4 % (0-6); Hematocrit 31.9 % (33.0-51.0); Hemoglobin 10.7 g/dL (11.5-16.0); IMMATURE GRAN ABSOLUTE AUTO 0.01 K/mm3 (0.00-0.10); IMMATURE GRAN PERCENT AUTO 0 % (0-1); LYMPHOCYTES ABSOLUTE AUTO 0.92 K/mm3 (0.84-5.20); LYMPHOCYTES PERCENT AUTO 32 % (21-46); MONOCYTES ABSOLUTE AUTO 0.33 K/mm3 (0.16-1.47); MONOCYTES PERCENT AUTO 12 % (4-13); Mean Corpuscular HGB 28.2 pg (26.0-34.0); Mean Corpuscular HGB Conc 33.5 g/dL (31.5-36.5); Mean Corpuscular Volume 84 fL (80-100); Mean Platelet Volume 10.1 fL (9.1-12.4); NEUTROPHILS ABSOLUTE AUTO 1.49 K/mm3 (1.96-9.15); NEUTROPHILS PERCENT AUTO 52 % (41-73); Platelet Count 67 K/mm3 (150-400); RDW Coefficient Variation 14.7 % (11.7-14.2); RDW Standard Deviation 44.6 fL (35.1-46.3); Red Blood Cell Count 3.79 M/mm3 (3.80-5.20); White Blood Cell Count 2.88 K/mm3 (4.00-11.30)
[2020-07-31 05:11] LABS: Alanine Aminotransfer (ALT/SGP 70 U/L (12-78); Albumin, Blood 1.8 g/dL (3.4-5.0); Albumin/Globulin Ratio 0.8 (0.8-1.8); Alk Phos 154 U/L (50-136); Aspartate Aminotrans (AST/SGOT 44 U/L (12-37); Bilirubin, Total 0.5 mg/dL (0.1-1.0); Blood Urea Nitrogen 8 mg/dL (8-24); Bun/Creatinine Ratio 35.9 (12.0-20.0); CO2, Blood 27 mmol/L (21-32); Calcium, Blood 7.8 mg/dL (8.5-10.1); Chloride, Blood 116 mmol/L (98-108); Creatinine, Blood 0.22 mg/dL (0.40-1.00); Globulin, Blood 2.3 g/dL (2.2-4.0); Glomerular Filtration Rate >60 (60-); Glucose, Blood 288 mg/dL (70-99); Potassium, Blood 3.6 mmol/L (3.5-5.5)
[2020-07-31 05:13] LABS: Anion Gap 3 mmol/L (6-16); Sodium, Blood 146 mmol/L (136-145); Total Protein, Blood 4.1 g/dL (6.4-8.2)
--- NOTE | 2020-07-31 05:14 | NUR ---
SHIFT SUMMARY PT ER ADMIT THIS SHIFT FOR HYPERGLYCEMIA AND SI. PT BG 986 WHILE IN ER, WAS TREATED WITN INSULIN BY ER STAFF WITH 10 UNITS OF NOVOLOG AND BG TRENDED DOWN TO THE 500'S MAKING HER APPROPRIATE FOR MEDICAL FLOOR ADMISSION. PT BG CONTINUES TO TREND DOWN WITH REPEATED CHECKS AND WITH ADMINISTRATION OF LONG ACTING INSULIN. PT BG 279 THIS AM. PT ON SI PRECAUTIONS FOR ACTIVE SUICIDAL IDEATION. MODERATE PRECAUTIONS. ROOM HAS BEEN MODIFIED FOR SI PER UNIT PROTOCOL. PT HAS REMAINED SAFE AND FREE FROM HARM. SHE HAS CHRONIC ABD PAIN AND NAUSEA. MEDICATED X1 FOR PAIN WITH EFFECT. NPO UPON ADMISSION, ADVANCING DIET TOLERATED PER ORDERS. NO ACUTE CHANGES TO REPORT SINCE ADMISSION. VITALS STABLE, BED IN LOWEST POSITION, CALL LIGHT WITHIN REACH.
[2020-07-31 07:48] LABS: Glucose, Blood 346 mg/dL (70-99)
--- NOTE | 2020-07-31 16:54 | NUR ---
Mary told me she was "too tired to talk" today. I offered prayer and listening. I will remain available.
--- NOTE | 2020-07-31 17:28 | NUR ---
SHIFT SUMMARY- PT HAS BEEN VERY COOPERATIVE WITH CARE; SHE HAS HAD SOME UPS AND DOWNS IN HER EMOTIONS T/O THE DAY. CALLED PASTORAL CARE AND MICHELE CAME TO SEE THE PT. PT SEEMS TO BE VERY SAD ABOUT PAST, PRESENT AND POSSIBLE FUTURE EVENTS PT SCORES MODERATE ON THE SUICIDE RISK SEVERITY SCALE. PLAN IS FOR PT TO DISCHARGE TO IN PSYCH FACILITY. PT AWARE. PT CONVEYED HER DESIRE TO PROVIDE HER DAUGHTER WITH HER EBT CARD BUT DETERMINED IT WOULD BE EASIER FOR ALL INVOLVED IF SHE ASKED HER DAUGHTER TO COME TOMORROW. PT IS CURRENTLY MESSAGING HER DAUGHTER. CELL PHONE IS REMAINING LOCKED UP EXCEPT WITH SUPERVISION. PT IS VERY UNDERSTANDING OF THE CONCERN FOR HER SAFETY AND IS WILLING TO DO ASKED BY STAFF. CALLED DR MCDONOUGH THIS EVENING PT IS ON BID LASIX AND RECIEVING IVF. PT HAS RECIEVED NEARLY 2 L THIS SHIFT. VERBAL ORDER TO DC IVF. PT SL AT THIS TIME.
--- NOTE | 2020-07-31 23:55 | NUR ---
2030 PT ATE H.S. SNACK TWO PUDDINGS.
--- NOTE | 2020-08-01 02:55 | NUR ---
SHIFT SUMMARY: 49 Y/O SLENDER FEMALE RESTED COMFORTABLY ALL SHIFT; PT VERY QUIET AND WITHDRAWN ALL SHIFT; PTS CBG CHECKED Q4H WITH COVERAGE PROVIDED VIA SLIDING SCALE; SUICIDAL PRECAUTIONS MAINTAINED WITH REMOTE CAMERA OBSERVATION; DENIES PAIN OR NAUSEA; BED LOW POSITION WITH CALL LIGHT AT SIDE.
--- NOTE | 2020-08-01 16:24 | NUR ---
CALLED DR MCDONOUGH- PT STILL REMAINS GROGGY. PT WAS VERY SWEATY AND NOTABLY SHAKEY. PRN BBG CHECK SHOWS PG 54 CALLED FOR INSTRUCTIONS. PT EATING CRACKERS AND DRINKING JUICE AND WHOLE MILK. ORDERED 1 FULL AMP D50 IV NOW AND CONTINUE FEEDING THE PT. PLAN IS FOR THE PT TO TRANSFER TO IN PT PSYCH FACILITY.
--- NOTE | 2020-08-01 19:34 | NUR ---
SHIFT SUMMARY- PT ALERT AND ORIENTED THIS EVENING BEDSIDE REPORT COMPLETED WITH NIGHT RN. LAST BG CHECK WAS IN THE 190'S. CALLED REPORT TO IN PT PSYCH FACILITY, PT TO TRANSFER LATER TONIGHT FAMILY IS AWARE. PT STATED SHE IS HAVING SOME ABDOMINAL PAIN (CHRONIC) THIS EVENING AND REQUESTED PAIN MEDICATION AT SHIFT CHANGE NIGHT RN TO MEDICATE. PT AWARE OF PLAN FOR TRANSFER. REPORT GIVEN TO NIGHT RN RADHA ABOUT TRANSFER PLANS. PASSED ON TO NIGHT RN THAT THE IV IS DC'D AT THE TIME OF PT TRANSFER.
--- NOTE | 2020-08-01 20:00 | NUR ---
CALLED DR MCDONOUGH TO CONFIRM THE PT IS TRANSFERING TO IN PSYCH FACILITY TODAY. SHE STATED THE PT HAS BEEN ACCEPTED SHE SPOKE TO THE DR. THIS RN HAS GIVEN REPORT. [place] TRANSFER ORDER IS IN NO FURTHER ORDERS ARE NEEDED. CALLED NIGHT TIME CLOCK INSPECTOR LISA AND SHE IS AWARE OF THE NEED TO ARRANGE TRANSPORT.
--- NOTE | 2020-08-02 00:21 | NUR ---
0015 discharged PT HAS BEEN PICKED UP BY SECURE TRANSPORT AT 0015. MEDS AND VITALS REVIEWED WITH TRANSPORT PRIOR TO DC.
--- NOTE | 2020-08-02 00:40 | NUR ---
08/02/20 Pt was escorted with security gaurjunie to transport vehicle and assisted into car with all belongings. Pt is alert and appropriate, a little sleepy but easily arousable.
--- NOTE | 2020-08-02 03:36 | NUR ---
PT DISCHARGED TO [facility] VIA SECURE TRANSPORT. PT HAD CBG CHECKED PRIOR TO LEAVING AND IT WAS 107. ORANGE JUICE JUICE WAS GIVEN BY SALES/MARKETING. PT WAS ABLE TO TRANSFER FROM ED TO WHEELCHAIR UNASSISTED AND WAS ESCORTED TO TRANSPORT BY SECURITY.
--- NOTE | 2020-08-02 07:15 | NUR ---
After discharge, called asking for more documentation at 0645 on 08/02/2020.
== END 2020-08-02 00:18 | disposition short-term general hospital (02) ==
LOC: ER 17:12 → MEDS 17:13
PROVIDERS: Emergency Medicine; Nurse Practitioner Acute Care; Physician Assistant; ADMIT Internal Medicine
DX: E11.65 Type 2 diabetes mellitus with hyperglycemia (principal); F33.2 Major depressive disorder, recurrent severe without psychotic features; R45.851 Suicidal ideations; E11.40 Type 2 diabetes mellitus with diabetic neuropathy, unspecified; E11.43 Type 2 diabetes mellitus with diabetic autonomic (poly)neuropathy; K31.84 Gastroparesis; E78.5 Hyperlipidemia, unspecified; I10 Essential (primary) hypertension; I48.0 Paroxysmal atrial fibrillation; G43.909 Migraine, unspecified, not intractable, without status migrainosus; K74.60 Unspecified cirrhosis of liver; K21.9 Gastro-esophageal reflux disease without esophagitis; F10.10 Alcohol abuse, uncomplicated; J45.20 Mild intermittent asthma, uncomplicated; D61.818 Other pancytopenia; E43 Unspecified severe protein-calorie malnutrition; Z68.1 Body mass index [BMI] 19.9 or less, adult; Z79.4 Long term (current) use of insulin; Z79.899 Other long term (current) drug therapy; Z88.0 Allergy status to penicillin; Z88.1 Allergy status to other antibiotic agents; Z88.2 Allergy status to sulfonamides; Z88.5 Allergy status to narcotic agent; Z88.8 Allergy status to other drugs, medicaments and biological substances; Z91.040 Latex allergy status; Z23 Encounter for immunization; Y90.0 Blood alcohol level of less than 20 mg/100 ml
CPT/HCPCS: 36415; 80053; 81001; 82947; 83690; 85025; 96361; 96374; 96375; 96376; 99285-25; A9270; A9270-GY; G0378; G0480; J1815; J2405; J3480; J7030; Q3014

== ENCOUNTER 2020-09-24 15:24 | Inpatient (IN) | payer OTHER ==
[~2020-09-24] VITALS: Ht 162.6 cm; Wt 49.9 kg
[~2020-09-24 15:24] MED LIST changes: +ABILIFY MYCITE10 MG PO; +Dilaudid 2 mg Ta2 MG PO; +MINIPRESS1 MG
[2020-09-24 16:37] LABS: BASOPHILS ABSOLUTE AUTO 0.02 K/mm3 (0.00-0.23); BASOPHILS PERCENT AUTO 1 % (0-2); EOSINOPHILS ABSOLUTE AUTO 0.11 K/mm3 (0.00-0.68); EOSINOPHILS PERCENT AUTO 3 % (0-6); Hematocrit 41.8 % (33.0-51.0); Hemoglobin 13.6 g/dL (11.5-16.0); IMMATURE GRAN ABSOLUTE AUTO 0.01 K/mm3 (0.00-0.10); IMMATURE GRAN PERCENT AUTO 0 % (0-1); LYMPHOCYTES ABSOLUTE AUTO 0.87 K/mm3 (0.84-5.20); LYMPHOCYTES PERCENT AUTO 22 % (21-46); MONOCYTES ABSOLUTE AUTO 0.37 K/mm3 (0.16-1.47); MONOCYTES PERCENT AUTO 9 % (4-13); Mean Corpuscular HGB 28.2 pg (26.0-34.0); Mean Corpuscular HGB Conc 32.5 g/dL (31.5-36.5); Mean Corpuscular Volume 87 fL (80-100); Mean Platelet Volume 10.7 fL (9.1-12.4); NEUTROPHILS PERCENT AUTO 65 % (41-73); Platelet Count 107 K/mm3 (150-400); RDW Coefficient Variation 14.1 % (11.7-14.2); RDW Standard Deviation 44.9 fL (35.1-46.3); Red Blood Cell Count 4.82 M/mm3 (3.80-5.20); White Blood Cell Count 3.98 K/mm3 (4.00-11.30)
[2020-09-24 16:51] LABS: International Normalized Ratio 1.12; Prothrombin Time Results 11.9 Sec (9.7-11.5)
[2020-09-24 17:17] LABS: Alanine Aminotransfer (ALT/SGP 93 U/L (12-78); Albumin, Blood 2.8 g/dL (3.4-5.0); Albumin/Globulin Ratio 0.8 (0.8-1.8); Alk Phos 266 U/L (50-136); Anion Gap 10 mmol/L (6-16); Aspartate Aminotrans (AST/SGOT 85 U/L (12-37); Bilirubin, Total 0.7 mg/dL (0.1-1.0); Blood Urea Nitrogen 14 mg/dL (8-24); Bun/Creatinine Ratio 31.3 (12.0-20.0); CO2, Blood 22 mmol/L (21-32); Calcium, Blood 8.2 mg/dL (8.5-10.1); Chloride, Blood 105 mmol/L (98-108); Creatinine, Blood 0.45 mg/dL (0.40-1.00); Globulin, Blood 3.5 g/dL (2.2-4.0); Glomerular Filtration Rate >60 (60-); Glucose, Blood 796 mg/dL (70-99); Sodium, Blood 137 mmol/L (136-145); Total Protein, Blood 6.3 g/dL (6.4-8.2)
[2020-09-24] MEDS ORDERED: GABA300 PO (19:01)
[2020-09-24] MEDS ORDERED: BASAGLAR K100 UNIT/7 SC (19:04)
[2020-09-24 20:24] LABS: Source, Urine Clean Catch
[2020-09-24 20:28] LABS: Appearance, Urine Clear (Clear); Bilirubin, Urine Neg (Neg); Blood, Urine Neg (Neg); Color, Urine Yellow (P-Yellow); Glucose Qualitative, Urine 4+ (Neg); Ketones, Urine Neg (Neg); Leukocyte Esterase, Urine Neg (Neg); Nitrite, Urine Neg (Neg); Protein, Urine Neg (Neg); Urobilinogen, Urine NORM (Normal)
[2020-09-24] MEDS ORDERED: PRAZ2 PO (20:29)
[2020-09-24] MEDS ORDERED: TRAZ50 PO (20:29)
[2020-09-24] MEDS ORDERED: Buspirone HCl15 MG PO (20:29)
[2020-09-24] MEDS ORDERED: Venlafaxine HC150 MG PO (20:30)
[2020-09-24] MEDS ORDERED: XIFAXAN550 MG PO (20:31)
[2020-09-24] MEDS ORDERED: ONDA4ODT SL (20:32)
[2020-09-24] MEDS ORDERED: BUSP5 PO (20:42)
[2020-09-25 02:28] LABS: BASOPHILS ABSOLUTE AUTO 0.02 K/mm3 (0.00-0.23); BASOPHILS PERCENT AUTO 1 % (0-2); EOSINOPHILS ABSOLUTE AUTO 0.17 K/mm3 (0.00-0.68); EOSINOPHILS PERCENT AUTO 6 % (0-6); Hematocrit 33.8 % (33.0-51.0); Hemoglobin 11.5 g/dL (11.5-16.0); IMMATURE GRAN PERCENT AUTO 0 % (0-1); LYMPHOCYTES ABSOLUTE AUTO 0.86 K/mm3 (0.84-5.20); LYMPHOCYTES PERCENT AUTO 28 % (21-46); MONOCYTES ABSOLUTE AUTO 0.36 K/mm3 (0.16-1.47); MONOCYTES PERCENT AUTO 12 % (4-13); Mean Corpuscular HGB 28.7 pg (26.0-34.0); Mean Corpuscular Volume 84 fL (80-100); Mean Platelet Volume 10.5 fL (9.1-12.4); NEUTROPHILS ABSOLUTE AUTO 1.67 K/mm3 (1.96-9.15); NEUTROPHILS PERCENT AUTO 54 % (41-73); Platelet Count 69 K/mm3 (150-400); Red Blood Cell Count 4.01 M/mm3 (3.80-5.20); White Blood Cell Count 3.08 K/mm3 (4.00-11.30)
[2020-09-25 02:45] LABS: Alanine Aminotransfer (ALT/SGP 75 U/L (12-78); Albumin, Blood 2.3 g/dL (3.4-5.0); Albumin/Globulin Ratio 0.8 (0.8-1.8); Alk Phos 204 U/L (50-136); Anion Gap 6 mmol/L (6-16); Aspartate Aminotrans (AST/SGOT 65 U/L (12-37); Bilirubin, Total 0.6 mg/dL (0.1-1.0); Blood Urea Nitrogen 11 mg/dL (8-24); Bun/Creatinine Ratio 34.1 (12.0-20.0); CO2, Blood 25 mmol/L (21-32); Calcium, Blood 7.8 mg/dL (8.5-10.1); Chloride, Blood 114 mmol/L (98-108); Creatinine, Blood 0.32 mg/dL (0.40-1.00); Globulin, Blood 2.8 g/dL (2.2-4.0); Glomerular Filtration Rate >60 (60-); Glucose, Blood 324 mg/dL (70-99); Potassium, Blood 3.5 mmol/L (3.5-5.5); Sodium, Blood 145 mmol/L (136-145); Total Protein, Blood 5.1 g/dL (6.4-8.2)
--- NOTE | 2020-09-25 06:29 | NUR ---
SHIFT SUMMARY PT WAS A NEW ADMIT DURING THE NIGHT, ARRIVING ON THE FLOOR AT 0150. SHE WAS ADMITTED FOR GASTROPARESIS AFTER A FALL AT HOME AND HITTING HER ABD WITH HER ELBOW. PT REPORTED ABD PAIN AND NAUSEA ON ARRIVAL TO THE FLOOR, BUT ALSO REQUESTED FOOD "I HAVENT EATEN ANYTHING ALL DAY". PT WAS GIVEN SNACKS AND WATER WITH NO ISSUE. NO EMESIS NOTED. PT WAS MEDICATED ONCE WITH PRN MORPHINE PER HOSPITALIST DR SALDIVAR FOR ABD PAIN. NO C/O SOB. VITAL SIGNS STABLE. PT CURRENTLY ON NS @ 75 ML/HR, CONTINUOUS PROTONIX AND SANDOSTATIN DRIP. NO OTHER ACUTE CHANGES IN PT CONDITION NOTED. WILL CONTINUE TO MONITOR AND TREAT PER EMAR UNTIL HAND OFF TO DAY SHIFT RN.
[2020-09-25 08:45] LABS: Hematocrit 34.1 % (33.0-51.0); Hemoglobin 11.4 g/dL (11.5-16.0)
[2020-09-25 14:29] LABS: Hemoglobin 12.4 g/dL (11.5-16.0)
--- NOTE | 2020-09-25 18:49 | NUR ---
SHIFT SUMMARY A/O X4 AND TEARFUL AT TIMES DUE TO PAIN AND NAUSEA. PT HAS NOT HAD ANY EMESIS THIS SHIFT. HAD ONE LARGE BM THAT DID NOT CONTAIN ANY BLOOD. PT HAS A COMPLEX PAST MEDICAL/GI HISTORY. TREATED PER EMR FOR PAIN AND NAUSEA X2 THIS SHIFT. PT IS A SBA TO THE BSC. DR. TELLEZ CONSULTED TODAY. VSS; WILL REPORT TO ONCOMING RN.
[2020-09-25 20:48] LABS: Hematocrit 39.1 % (33.0-51.0); Hemoglobin 12.8 g/dL (11.5-16.0)
--- NOTE | 2020-09-25 22:00 | NUR ---
PHYSICIAN NOTIFY SPOT WELDER LINE PROVIDER NOTIFIED EVENING DOSE OF SEMGLEE HELD. CBG 91, CLEAR LIQUID DIET AND NO APPETITE AT THIS TIME. NEW ORDERS TO CHANGE HIGH SS TO MEDIUM.
--- NOTE | 2020-09-26 04:18 | NUR ---
PROGRAM EVALUATION CONSULTANT SUMMARY A/OX4, SBA TO BSC. APPEARED TO SLEEP T/O THE NIGHT. DENIES N/V AT THIS TIME. RAPID COVID ORDERED FOR PROCEDURE TODAY. VSS. NO ACUTE CHANGES NOTED. BED IN LOWEST POSITION WITH CALL LIGHT IN REACH. WILL CONTINUE TO MONITOR AND REPORT TO ONCOMING RN.
[2020-09-26 04:55] LABS: BASOPHILS ABSOLUTE AUTO 0.01 K/mm3 (0.00-0.23); BASOPHILS PERCENT AUTO 0 % (0-2); EOSINOPHILS ABSOLUTE AUTO 0.05 K/mm3 (0.00-0.68); EOSINOPHILS PERCENT AUTO 2 % (0-6); Hematocrit 32.4 % (33.0-51.0); Hemoglobin 10.7 g/dL (11.5-16.0); IMMATURE GRAN PERCENT AUTO 0 % (0-1); LYMPHOCYTES ABSOLUTE AUTO 0.47 K/mm3 (0.84-5.20); LYMPHOCYTES PERCENT AUTO 18 % (21-46); MONOCYTES ABSOLUTE AUTO 0.27 K/mm3 (0.16-1.47); MONOCYTES PERCENT AUTO 11 % (4-13); Mean Corpuscular HGB 28.5 pg (26.0-34.0); Mean Corpuscular Volume 86 fL (80-100); Mean Platelet Volume 10.6 fL (9.1-12.4); NEUTROPHILS ABSOLUTE AUTO 1.75 K/mm3 (1.96-9.15); NEUTROPHILS PERCENT AUTO 69 % (41-73); Platelet Count 61 K/mm3 (150-400); RDW Coefficient Variation 14.1 % (11.7-14.2); Red Blood Cell Count 3.76 M/mm3 (3.80-5.20); White Blood Cell Count 2.55 K/mm3 (4.00-11.30)
[2020-09-26 05:10] LABS: Alanine Aminotransfer (ALT/SGP 62 U/L (12-78); Albumin/Globulin Ratio 0.9 (0.8-1.8); Alk Phos 168 U/L (50-136); Anion Gap 4 mmol/L (6-16); Aspartate Aminotrans (AST/SGOT 46 U/L (12-37); Bilirubin, Total 0.6 mg/dL (0.1-1.0); Blood Urea Nitrogen 9 mg/dL (8-24); Bun/Creatinine Ratio 21.5 (12.0-20.0); CO2, Blood 26 mmol/L (21-32); Calcium, Blood 7.8 mg/dL (8.5-10.1); Chloride, Blood 117 mmol/L (98-108); Creatinine, Blood 0.42 mg/dL (0.40-1.00); Globulin, Blood 2.3 g/dL (2.2-4.0); Glomerular Filtration Rate >60 (60-); Glucose, Blood 57 mg/dL (70-99); Magnesium, Blood 1.8 mg/dL (1.6-2.4); Phosphorus, Blood 3.7 mg/dL (2.5-4.9); Potassium, Blood 3.5 mmol/L (3.5-5.5); Sodium, Blood 147 mmol/L (136-145); Total Protein, Blood 4.3 g/dL (6.4-8.2)
--- NOTE | 2020-09-26 05:42 | NUR ---
PT'S GLUCOSE WAS 57 DURING AM LABS. CURRENTLY ON CLEAR LIQUID DIET. APPLE JUICE WITH SUGAR GIVEN. WILL CONTINUE TO MONITOR
[2020-09-26 06:11] LABS: Influenza A, PCR Negative (NEGATIVE); Influenza B, PCR Negative (NEGATIVE); Resp Syncytial Virus, PCR Negative (NEGATIVE); SARS-Cov-2 (COVID-19) PCR, MMC Negative (NEGATIVE)
--- NOTE | 2020-09-26 12:48 | NUR ---
09/26/20 1248 Rufina Graves History, Chart, Medications and Allergies reviewed before start of procedure.PATIENT DETERMINED TO BE ASA APPROPRIATE FOR PROPOFOL SEDATION PRIOR TO START OF PROCEDURE BY .MONITOR INTACT WITH CONTINUOUS PULSE OXIMETRY AND INTERMITTENT BP.3-LEAD EKG REVIEWED WITH PHYSICIAN PRIOR TO START OF PROCEDURE.O2 VIA N/C INTACT THROUGHOUT SEDATION/PROCEDURE.
--- NOTE | 2020-09-26 16:56 | NUR ---
PT AOX4 AND COOPERATIVE OF CARE. PT HAS BEEN VERY TIRED AND WAS TREATED FOR PAIN PER EMAR. PT ABLE TO BE A ONE PERSON TRANSER TO BEDSIDE COMMODE. PT WAS ABLE TO COMPLETE HER EGD AND TOLERATED WELL. DIET ORDERS WERE ADA TOLERATED PER DR TELLEZ. PT RESTING IN BED AT THIS TIME WILL CONTINUE TO MONITOR.
--- NOTE | 2020-09-27 03:50 | NUR ---
DISC PAD PLATE FILLER SUMMARY A/OX4, SBA TO BSC. C/O PAIN IN ABD, MEDICATED PER EMAR X1. APPETITE APPEARS TO BE IMPROVING. DENIES N/V/D. VSS. NO ACUTE CHANGES AT THIS TIME. BED IN LOWEST POSITION WITH CALL LIGHT IN REACH. WILL CONTINUE TO MONITOR AND REPORT TO ONCOMING RN.
[2020-09-27 05:19] LABS: BASOPHILS ABSOLUTE AUTO 0.02 K/mm3 (0.00-0.23); BASOPHILS PERCENT AUTO 1 % (0-2); EOSINOPHILS ABSOLUTE AUTO 0.11 K/mm3 (0.00-0.68); EOSINOPHILS PERCENT AUTO 4 % (0-6); Hematocrit 32.2 % (33.0-51.0); Hemoglobin 10.7 g/dL (11.5-16.0); IMMATURE GRAN ABSOLUTE AUTO 0.03 K/mm3 (0.00-0.10); IMMATURE GRAN PERCENT AUTO 1 % (0-1); LYMPHOCYTES ABSOLUTE AUTO 0.73 K/mm3 (0.84-5.20); LYMPHOCYTES PERCENT AUTO 27 % (21-46); MONOCYTES ABSOLUTE AUTO 0.32 K/mm3 (0.16-1.47); MONOCYTES PERCENT AUTO 12 % (4-13); Mean Corpuscular HGB 28.2 pg (26.0-34.0); Mean Corpuscular HGB Conc 33.2 g/dL (31.5-36.5); Mean Corpuscular Volume 85 fL (80-100); Mean Platelet Volume 10.2 fL (9.1-12.4); NEUTROPHILS ABSOLUTE AUTO 1.54 K/mm3 (1.96-9.15); NEUTROPHILS PERCENT AUTO 56 % (41-73); Platelet Count 57 K/mm3 (150-400); RDW Coefficient Variation 13.9 % (11.7-14.2); RDW Standard Deviation 42.8 fL (35.1-46.3); White Blood Cell Count 2.75 K/mm3 (4.00-11.30)
[2020-09-27 05:39] LABS: Alanine Aminotransfer (ALT/SGP 50 U/L (12-78); Albumin, Blood 1.8 g/dL (3.4-5.0); Albumin/Globulin Ratio 0.8 (0.8-1.8); Alk Phos 154 U/L (50-136); Anion Gap 4 mmol/L (6-16); Aspartate Aminotrans (AST/SGOT 43 U/L (12-37); Bilirubin, Total 0.4 mg/dL (0.1-1.0); Blood Urea Nitrogen 10 mg/dL (8-24); Bun/Creatinine Ratio 24.4 (12.0-20.0); CO2, Blood 23 mmol/L (21-32); Calcium, Blood 7.4 mg/dL (8.5-10.1); Chloride, Blood 117 mmol/L (98-108); Creatinine, Blood 0.41 mg/dL (0.40-1.00); Globulin, Blood 2.4 g/dL (2.2-4.0); Glomerular Filtration Rate >60 (60-); Glucose, Blood 200 mg/dL (70-99); Magnesium, Blood 1.5 mg/dL (1.6-2.4); Phosphorus, Blood 2.9 mg/dL (2.5-4.9); Sodium, Blood 144 mmol/L (136-145); Thyroid Stimulating Hormone 0.478 uIU/mL (0.360-4.800); Total Protein, Blood 4.2 g/dL (6.4-8.2)
--- NOTE | 2020-09-27 17:19 | NUR ---
SHIFT SUMMARY PT WOKE FOR SHIFT REPORT THIS AM. DENIED NEEDS. NO C/O. PT ADMITTED FOR GASTROPARESIS WITH N/V. RECTAL BLEEDING AND BLOODY EMESIS PER REPORT; NOW RESOLVED. NO N/V OR BLOODY STOOLS TO PRESENT. DR DUCKWORTHTRATE IN TO SEE PT TODAY. NEW ORDERS RECEIVED. DIET TO BE ADVANCED AND PT TO D/C IN AM. IV MORPHINE CHANGED TO PO NORCO. PT MEDICATED X1 TO PRESENT THIS SHIFT FOR PAIN TO ABD AND TAIL BONE. TOLERATING PO INTAKE. UP WALKING HALLS WITH P/T TODAY. PT REMAINS 1P SBA IN RM TO BTHRM OR BSC. A&O, ABLE TO MAKE NEEDS KNOWN. CALL LT IN REACH.
[2020-09-28 05:24] LABS: BASOPHILS ABSOLUTE AUTO 0.02 K/mm3 (0.00-0.23); BASOPHILS PERCENT AUTO 1 % (0-2); EOSINOPHILS ABSOLUTE AUTO 0.11 K/mm3 (0.00-0.68); EOSINOPHILS PERCENT AUTO 4 % (0-6); Hematocrit 33.2 % (33.0-51.0); IMMATURE GRAN PERCENT AUTO 0 % (0-1); LYMPHOCYTES ABSOLUTE AUTO 0.75 K/mm3 (0.84-5.20); LYMPHOCYTES PERCENT AUTO 28 % (21-46); MONOCYTES ABSOLUTE AUTO 0.34 K/mm3 (0.16-1.47); MONOCYTES PERCENT AUTO 13 % (4-13); Mean Corpuscular HGB 28.3 pg (26.0-34.0); Mean Corpuscular HGB Conc 33.1 g/dL (31.5-36.5); Mean Corpuscular Volume 85 fL (80-100); NEUTROPHILS ABSOLUTE AUTO 1.43 K/mm3 (1.96-9.15); NEUTROPHILS PERCENT AUTO 54 % (41-73); Platelet Count 59 K/mm3 (150-400); RDW Coefficient Variation 13.6 % (11.7-14.2); RDW Standard Deviation 42.5 fL (35.1-46.3); Red Blood Cell Count 3.89 M/mm3 (3.80-5.20); White Blood Cell Count 2.65 K/mm3 (4.00-11.30)
[2020-09-28 05:50] LABS: Alanine Aminotransfer (ALT/SGP 47 U/L (12-78); Albumin/Globulin Ratio 0.8 (0.8-1.8); Alk Phos 152 U/L (50-136); Anion Gap 4 mmol/L (6-16); Aspartate Aminotrans (AST/SGOT 32 U/L (12-37); Bilirubin, Total 0.5 mg/dL (0.1-1.0); Blood Urea Nitrogen 11 mg/dL (8-24); Bun/Creatinine Ratio 28.8 (12.0-20.0); CO2, Blood 29 mmol/L (21-32); Calcium, Blood 7.9 mg/dL (8.5-10.1); Chloride, Blood 114 mmol/L (98-108); Creatinine, Blood 0.38 mg/dL (0.40-1.00); Globulin, Blood 2.5 g/dL (2.2-4.0); Glomerular Filtration Rate >60 (60-); Glucose, Blood 125 mg/dL (70-99); Magnesium, Blood 1.8 mg/dL (1.6-2.4); Potassium, Blood 3.8 mmol/L (3.5-5.5); Sodium, Blood 147 mmol/L (136-145); Total Protein, Blood 4.5 g/dL (6.4-8.2)
--- NOTE | 2020-09-28 05:53 | NUR ---
SHIFT SUMMARY PT IS A 50 Y/O FEMALE, ADMITTED FOR GASTROPARESIS. SHE IS A&O X 4, ANXIOUS AT TIMES, SBA TO THE BSC. PT WAS MEDICATED TWICE FOR ABD PAIN WITH PRN HYDROCODONE. NO C/O NAUSEA OR SOB. VITAL SIGNS STABLE. NO BLOODY STOOLS NOTED. PT SLEPT WELL THROUGH THE NIGHT. NO ACUTE CHANGES IN PT CONDITION NOTED. WILL CONTINUE TO MONITOR AND TREAT PER EMAR UNTIL HAND OFF TO DAY SHIFT RN.
[2020-09-28] MEDS ORDERED: BISA10S PR (12:41)
[2020-09-28] MEDS ORDERED: BACL10 PO (12:41)
[2020-09-28] MEDS ORDERED: DOCU100 PO (12:42)
[2020-09-28] MEDS ORDERED: DULCOLAX400 MG/5 M PO (12:42)
[2020-09-28] MEDS ORDERED: HYDR1TAB94 PO (12:42)
[2020-09-28] MEDS ORDERED: PANT40 PO (12:43)
[2020-09-28] MEDS ORDERED: IMITREX50 MG PO (12:43)
[2020-09-28] MEDS ORDERED: SENN187 PO (12:43)
[2020-09-28] MEDS ORDERED: VISBIOME 112.51 EACH PO (12:44)
--- NOTE | 2020-09-28 14:03 | NUR ---
DISCHARGE DISCHARGE MEDICATIONS AND INSTRUCTIONS EXPLAINED TO PATIENT. PATIENT STATED UNDERSTANDING. PATIENT TO SCHEDULE PCP FOLLOW UP ON WEDNESDAY. IV REMOVED WITHOUT DIFFICULTY. BELONGINGS WITH PATIENT. PATIENT TRANSFERED TO [facility] VIA WHEELCHAIR.
[2020-11-14] MEDS ORDERED: PROAIR DIGIHAL90 MCG INH (12:39)
[2020-11-14] MEDS ORDERED: ABILIFY MYCITE15 MG PO (12:39)
[2020-11-14] MEDS ORDERED: BACL10 PO (12:40)
[2020-11-14] MEDS ORDERED: B-12500 MC2 PO (12:41)
[2020-11-14] MEDS ORDERED: DOXY100 PO (12:41)
[2020-11-14] MEDS ORDERED: GABA100 PO (12:42)
[2020-11-14] MEDS ORDERED: LACT10SY PO (12:43)
[2020-11-14] MEDS ORDERED: PERTZYE PO (12:43)
[2020-11-14] MEDS ORDERED: MAGNESIUM OXID500 MG PO (12:44)
[2020-11-14] MEDS ORDERED: NITRO-DUR TOP (12:45)
[2020-11-14] MEDS ORDERED: OXYC5 PO (12:46)
[2020-11-14] MEDS ORDERED: NITRO-DUR TD (12:46)
[2020-11-14] MEDS ORDERED: ONDA4ODT MM (12:46)
[2020-11-14] MEDS ORDERED: RIFA550T2 PO (12:47)
[2020-11-14] MEDS ORDERED: SUMA25 PO (12:48)
[2020-11-14] MEDS ORDERED: ZOMIG2.5 MG (12:49)
== END 2020-09-28 13:50 | disposition home or self-care (01) | DRG 74 ==
LOC: ER 15:24 → MEDS 09-25 01:25
PROVIDERS: Emergency Medicine; Family Medicine; Internal Medicine Gastroenterology; Physician Assistant; ADMIT Internal Medicine
PROC: 0DB68ZX Excision of Stomach, Via Natural or Artificial Opening Endoscopic, Diagnostic (ICD-10-PCS; 2020-09-26)
PROC: 0DBA8ZX Excision of Jejunum, Via Natural or Artificial Opening Endoscopic, Diagnostic (ICD-10-PCS; 2020-09-26)
PROC: 0DB48ZX Excision of Esophagogastric Junction, Via Natural or Artificial Opening Endoscopic, Diagnostic (ICD-10-PCS; principal; 2020-09-26 17:00)
DX: E11.43 Type 2 diabetes mellitus with diabetic autonomic (poly)neuropathy (principal); E44.0 Moderate protein-calorie malnutrition; Z68.1 Body mass index [BMI] 19.9 or less, adult; D61.818 Other pancytopenia; K86.1 Other chronic pancreatitis; K76.6 Portal hypertension; K31.5 Obstruction of duodenum; K55.1 Chronic vascular disorders of intestine; K92.0 Hematemesis; K31.84 Gastroparesis; E11.65 Type 2 diabetes mellitus with hyperglycemia; Z20.822 Contact with and (suspected) exposure to COVID-19; E78.5 Hyperlipidemia, unspecified; K74.60 Unspecified cirrhosis of liver; I10 Essential (primary) hypertension; J45.20 Mild intermittent asthma, uncomplicated; I48.0 Paroxysmal atrial fibrillation; F41.8 Other specified anxiety disorders; K59.09 Other constipation; D63.8 Anemia in other chronic diseases classified elsewhere; G43.909 Migraine, unspecified, not intractable, without status migrainosus; G89.4 Chronic pain syndrome; K44.9 Diaphragmatic hernia without obstruction or gangrene; K22.70 Barrett's esophagus without dysplasia; I86.4 Gastric varices; I49.5 Sick sinus syndrome; M62.81 Muscle weakness (generalized); R25.2 Cramp and spasm; Z95.0 Presence of cardiac pacemaker; Z79.899 Other long term (current) drug therapy; Z79.4 Long term (current) use of insulin; Z79.891 Long term (current) use of opiate analgesic; Z88.0 Allergy status to penicillin; Z88.2 Allergy status to sulfonamides; Z88.8 Allergy status to other drugs, medicaments and biological substances; Z88.5 Allergy status to narcotic agent; Z88.1 Allergy status to other antibiotic agents; Z91.040 Latex allergy status; Z87.11 Personal history of peptic ulcer disease; Z85.41 Personal history of malignant neoplasm of cervix uteri
CPT/HCPCS: 0241U; 36415; 74177; 80053; 81003; 82140; 82947; 83690; 83735; 84100; 84443; 85014; 85018; 85025; 85610; 88305; 88342; 93971; 93975; 96361; 96374-59; 96375; 97110; 97116; 97162; 99285-25; A9270; C9113; J1170; J2270; J2354; J2405; J2704; J7030; J7050; J7120; Q9967

== ENCOUNTER 2020-10-15 18:55 | Emergency (ER) | payer OTHER ==
[~2020-10-15] VITALS: Ht 162.6 cm; Wt 47.6 kg
[~2020-10-15 18:55] MED LIST changes: +BACL10 PO; +BASAGLAR K100 UNIT/7 SC; +BISA10S PR; +BUSP5 PO; +Buspirone HCl15 MG PO; +DULCOLAX400 MG/5 M PO; +GABA300 PO; +HYDR1TAB94 PO; +IMITREX50 MG PO; +VISBIOME 112.51 EACH PO; +Venlafaxine HC150 MG PO; +XIFAXAN550 MG PO
[2020-10-15 20:34] LABS: BASOPHILS ABSOLUTE AUTO 0.03 K/mm3 (0.00-0.23); BASOPHILS PERCENT AUTO 1 % (0-2); EOSINOPHILS ABSOLUTE AUTO 0.15 K/mm3 (0.00-0.68); EOSINOPHILS PERCENT AUTO 3 % (0-6); Hematocrit 35.7 % (33.0-51.0); Hemoglobin 12.7 g/dL (11.5-16.0); IMMATURE GRAN ABSOLUTE AUTO 0.02 K/mm3 (0.00-0.10); IMMATURE GRAN PERCENT AUTO 0 % (0-1); LYMPHOCYTES ABSOLUTE AUTO 1.03 K/mm3 (0.84-5.20); LYMPHOCYTES PERCENT AUTO 20 % (21-46); MONOCYTES ABSOLUTE AUTO 0.57 K/mm3 (0.16-1.47); MONOCYTES PERCENT AUTO 11 % (4-13); Mean Corpuscular HGB 29.1 pg (26.0-34.0); Mean Corpuscular HGB Conc 35.6 g/dL (31.5-36.5); Mean Corpuscular Volume 82 fL (80-100); Mean Platelet Volume 9.8 fL (9.1-12.4); NEUTROPHILS ABSOLUTE AUTO 3.49 K/mm3 (1.96-9.15); NEUTROPHILS PERCENT AUTO 66 % (41-73); Platelet Count 87 K/mm3 (150-400); RDW Coefficient Variation 13.9 % (11.7-14.2); RDW Standard Deviation 40.8 fL (35.1-46.3); Red Blood Cell Count 4.37 M/mm3 (3.80-5.20); White Blood Cell Count 5.29 K/mm3 (4.00-11.30)
[2020-10-15 20:41] LABS: Base Excess Venous -0.5 mmol/L; Bicarbonate Venous 24.2 mmol/L (24.0-30.0); PCO2 Venous 36.3 mmHg (38-42); PO2 Venous 71.5 mmHg (38-42); pH Blood Venous 7.42 (7.34-7.37)
[2020-10-15 20:56] LABS: Alanine Aminotransfer (ALT/SGP 99 U/L (12-78); Albumin, Blood 2.7 g/dL (3.4-5.0); Albumin/Globulin Ratio 0.9 (0.8-1.8); Alk Phos 222 U/L (50-136); Anion Gap 6 mmol/L (6-16); Aspartate Aminotrans (AST/SGOT 55 U/L (12-37); Bilirubin, Total 0.9 mg/dL (0.1-1.0); Blood Urea Nitrogen 11 mg/dL (8-24); Bun/Creatinine Ratio 31.6 (12.0-20.0); CO2, Blood 25 mmol/L (21-32); Calcium, Blood 8.2 mg/dL (8.5-10.1); Chloride, Blood 104 mmol/L (98-108); Creatinine, Blood 0.35 mg/dL (0.40-1.00); Globulin, Blood 3.1 g/dL (2.2-4.0); Glomerular Filtration Rate >60 (60-); Glucose, Blood 565 mg/dL (70-99); Potassium, Blood 4.1 mmol/L (3.5-5.5); Sodium, Blood 135 mmol/L (136-145); Total Protein, Blood 5.8 g/dL (6.4-8.2)
[2020-10-15] MEDS ORDERED: Levaquin750 MG PO (23:04)
[2020-11-14] MEDS ORDERED: ABILIFY MYCITE15 MG PO (12:39)
[2020-11-14] MEDS ORDERED: PROAIR DIGIHAL90 MCG INH (12:39)
[2020-11-14] MEDS ORDERED: BACL10 PO (12:40)
[2020-11-14] MEDS ORDERED: DOXY100 PO (12:41)
[2020-11-14] MEDS ORDERED: B-12500 MC2 PO (12:41)
[2020-11-14] MEDS ORDERED: GABA100 PO (12:42)
[2020-11-14] MEDS ORDERED: PERTZYE PO (12:43)
[2020-11-14] MEDS ORDERED: LACT10SY PO (12:43)
[2020-11-14] MEDS ORDERED: MAGNESIUM OXID500 MG PO (12:44)
[2020-11-14] MEDS ORDERED: NITRO-DUR TOP (12:45)
[2020-11-14] MEDS ORDERED: NITRO-DUR TD (12:46)
[2020-11-14] MEDS ORDERED: ONDA4ODT MM (12:46)
[2020-11-14] MEDS ORDERED: OXYC5 PO (12:46)
[2020-11-14] MEDS ORDERED: RIFA550T2 PO (12:47)
[2020-11-14] MEDS ORDERED: SUMA25 PO (12:48)
[2020-11-14] MEDS ORDERED: ZOMIG2.5 MG (12:49)
== END 2020-10-15 23:29 | disposition home or self-care (01) ==
LOC: ER 18:55
PROVIDERS: Emergency Medicine
DX: J18.9 Pneumonia, unspecified organism (principal); E11.9 Type 2 diabetes mellitus without complications; E78.5 Hyperlipidemia, unspecified; I10 Essential (primary) hypertension; E11.40 Type 2 diabetes mellitus with diabetic neuropathy, unspecified; Z79.4 Long term (current) use of insulin; Z88.0 Allergy status to penicillin; Z88.2 Allergy status to sulfonamides; Z91.040 Latex allergy status; Z79.899 Other long term (current) drug therapy; Z86.718 Personal history of other venous thrombosis and embolism
CPT/HCPCS: 80053; 82803; 85025; 93005; 93010; 96361; 96374; 96375; 99285-25; A9270; J2270; J2405; J7030

== ENCOUNTER 2020-10-28 19:11 | Emergency (ER) | payer OTHER ==
[~2020-10-28] VITALS: Ht 162.6 cm; Wt 48.1 kg
[~2020-10-28 19:11] MED LIST changes: +Levaquin750 MG PO
[2020-10-28 20:51] LABS: BASOPHILS ABSOLUTE AUTO 0.02 K/mm3 (0.00-0.23); BASOPHILS PERCENT AUTO 0 % (0-2); EOSINOPHILS ABSOLUTE AUTO 0.06 K/mm3 (0.00-0.68); EOSINOPHILS PERCENT AUTO 1 % (0-6); Hematocrit 36.8 % (33.0-51.0); Hemoglobin 12.5 g/dL (11.5-16.0); IMMATURE GRAN ABSOLUTE AUTO 0.01 K/mm3 (0.00-0.10); IMMATURE GRAN PERCENT AUTO 0 % (0-1); LYMPHOCYTES ABSOLUTE AUTO 0.91 K/mm3 (0.84-5.20); LYMPHOCYTES PERCENT AUTO 18 % (21-46); MONOCYTES ABSOLUTE AUTO 0.39 K/mm3 (0.16-1.47); MONOCYTES PERCENT AUTO 8 % (4-13); Mean Corpuscular HGB 28.9 pg (26.0-34.0); Mean Corpuscular Volume 85 fL (80-100); Mean Platelet Volume 10.3 fL (9.1-12.4); NEUTROPHILS PERCENT AUTO 72 % (41-73); Platelet Count 132 K/mm3 (150-400); RDW Coefficient Variation 14.4 % (11.7-14.2); RDW Standard Deviation 44.9 fL (35.1-46.3); Red Blood Cell Count 4.32 M/mm3 (3.80-5.20); White Blood Cell Count 4.99 K/mm3 (4.00-11.30)
[2020-10-28 21:08] LABS: Troponin I <0.015 ng/mL (0.000-0.040)
[2020-10-28 21:10] LABS: Alanine Aminotransfer (ALT/SGP 102 U/L (12-78); Albumin, Blood 2.5 g/dL (3.4-5.0); Albumin/Globulin Ratio 0.9 (0.8-1.8); Alk Phos 214 U/L (50-136); Anion Gap 8 mmol/L (6-16); Aspartate Aminotrans (AST/SGOT 91 U/L (12-37); Bilirubin, Total 0.6 mg/dL (0.1-1.0); Blood Urea Nitrogen 13 mg/dL (8-24); CO2, Blood 21 mmol/L (21-32); Calcium, Blood 7.5 mg/dL (8.5-10.1); Chloride, Blood 105 mmol/L (98-108); Creatinine, Blood 0.34 mg/dL (0.40-1.00); Globulin, Blood 2.9 g/dL (2.2-4.0); Glomerular Filtration Rate >60 (60-); Glucose, Blood 727 mg/dL (70-99); Potassium, Blood 4.3 mmol/L (3.5-5.5); Sodium, Blood 134 mmol/L (136-145); Total Protein, Blood 5.4 g/dL (6.4-8.2)
[2020-11-14] MEDS ORDERED: PROAIR DIGIHAL90 MCG INH (12:39)
[2020-11-14] MEDS ORDERED: ABILIFY MYCITE15 MG PO (12:39)
[2020-11-14] MEDS ORDERED: BACL10 PO (12:40)
[2020-11-14] MEDS ORDERED: B-12500 MC2 PO (12:41)
[2020-11-14] MEDS ORDERED: DOXY100 PO (12:41)
[2020-11-14] MEDS ORDERED: GABA100 PO (12:42)
[2020-11-14] MEDS ORDERED: PERTZYE PO (12:43)
[2020-11-14] MEDS ORDERED: LACT10SY PO (12:43)
[2020-11-14] MEDS ORDERED: MAGNESIUM OXID500 MG PO (12:44)
[2020-11-14] MEDS ORDERED: NITRO-DUR TOP (12:45)
[2020-11-14] MEDS ORDERED: ONDA4ODT MM (12:46)
[2020-11-14] MEDS ORDERED: NITRO-DUR TD (12:46)
[2020-11-14] MEDS ORDERED: OXYC5 PO (12:46)
[2020-11-14] MEDS ORDERED: RIFA550T2 PO (12:47)
[2020-11-14] MEDS ORDERED: SUMA25 PO (12:48)
[2020-11-14] MEDS ORDERED: ZOMIG2.5 MG (12:49)
== END 2020-10-29 02:21 | disposition home or self-care (01) ==
LOC: ER 19:11
PROVIDERS: Emergency Medicine
DX: R55 Syncope and collapse (principal); R07.9 Chest pain, unspecified; E11.65 Type 2 diabetes mellitus with hyperglycemia
CPT/HCPCS: 36415; 71045; 71260; 80053; 82947; 83690; 83880; 84484; 85025; 93005; 93010; 96361; 96374; 99285-25; A9270; J1815; J7030; Q9967

== ENCOUNTER 2020-11-11 16:18 | Observation (INO) | payer OTHER ==
[~2020-11-11] VITALS: Ht 162.6 cm; Wt 56.5 kg
[2020-11-11 17:21] LABS: BASOPHILS ABSOLUTE AUTO 0.03 K/mm3 (0.00-0.23); BASOPHILS PERCENT AUTO 1 % (0-2); EOSINOPHILS PERCENT AUTO 2 % (0-6); Hematocrit 36.4 % (33.0-51.0); Hemoglobin 12.7 g/dL (11.5-16.0); IMMATURE GRAN ABSOLUTE AUTO 0.01 K/mm3 (0.00-0.10); IMMATURE GRAN PERCENT AUTO 0 % (0-1); LYMPHOCYTES ABSOLUTE AUTO 0.87 K/mm3 (0.84-5.20); LYMPHOCYTES PERCENT AUTO 18 % (21-46); MONOCYTES ABSOLUTE AUTO 0.42 K/mm3 (0.16-1.47); MONOCYTES PERCENT AUTO 9 % (4-13); Mean Corpuscular HGB 28.6 pg (26.0-34.0); Mean Corpuscular HGB Conc 34.9 g/dL (31.5-36.5); Mean Corpuscular Volume 82 fL (80-100); Mean Platelet Volume 10.6 fL (9.1-12.4); NEUTROPHILS ABSOLUTE AUTO 3.33 K/mm3 (1.96-9.15); NEUTROPHILS PERCENT AUTO 70 % (41-73); Platelet Count 103 K/mm3 (150-400); RDW Coefficient Variation 14.6 % (11.7-14.2); RDW Standard Deviation 43.2 fL (35.1-46.3); Red Blood Cell Count 4.44 M/mm3 (3.80-5.20); White Blood Cell Count 4.76 K/mm3 (4.00-11.30)
[2020-11-11 17:44] LABS: Alanine Aminotransfer (ALT/SGP 117 U/L (12-78); Albumin, Blood 2.2 g/dL (3.4-5.0); Albumin/Globulin Ratio 0.8 (0.8-1.8); Alk Phos 207 U/L (50-136); Anion Gap 9 mmol/L (6-16); Aspartate Aminotrans (AST/SGOT 88 U/L (12-37); Bilirubin, Total 0.7 mg/dL (0.1-1.0); Blood Urea Nitrogen 9 mg/dL (8-24); Bun/Creatinine Ratio 22.9 (12.0-20.0); CO2, Blood 22 mmol/L (21-32); Calcium, Blood 7.8 mg/dL (8.5-10.1); Chloride, Blood 104 mmol/L (98-108); Creatinine, Blood 0.39 mg/dL (0.40-1.00); Globulin, Blood 2.9 g/dL (2.2-4.0); Glomerular Filtration Rate >60 (60-); Glucose, Blood 708 mg/dL (70-99); Potassium, Blood 3.9 mmol/L (3.5-5.5); Sodium, Blood 135 mmol/L (136-145); Total Protein, Blood 5.1 g/dL (6.4-8.2)
--- NOTE | 2020-11-12 01:45 | NUR ---
ADMISSION: PATIENT IS RECIEVED VIA STRETCHER FROM ER. ABLE TO AMB. WITH SBA TO THE BED. PATIENT IS ORIENTED TO ROOM AND CALL CORDOBA. RATING PAIN IN ABD. 9/10.
[2020-11-12 05:22] LABS: BASOPHILS ABSOLUTE AUTO 0.02 K/mm3 (0.00-0.23); BASOPHILS PERCENT AUTO 0 % (0-2); EOSINOPHILS ABSOLUTE AUTO 0.16 K/mm3 (0.00-0.68); EOSINOPHILS PERCENT AUTO 3 % (0-6); Hematocrit 35.5 % (33.0-51.0); Hemoglobin 12.6 g/dL (11.5-16.0); IMMATURE GRAN ABSOLUTE AUTO 0.01 K/mm3 (0.00-0.10); IMMATURE GRAN PERCENT AUTO 0 % (0-1); LYMPHOCYTES ABSOLUTE AUTO 0.93 K/mm3 (0.84-5.20); LYMPHOCYTES PERCENT AUTO 15 % (21-46); MONOCYTES PERCENT AUTO 8 % (4-13); Mean Corpuscular HGB Conc 35.5 g/dL (31.5-36.5); Mean Corpuscular Volume 82 fL (80-100); Mean Platelet Volume 10.4 fL (9.1-12.4); NEUTROPHILS ABSOLUTE AUTO 4.65 K/mm3 (1.96-9.15); NEUTROPHILS PERCENT AUTO 74 % (41-73); Platelet Count 89 K/mm3 (150-400); RDW Coefficient Variation 14.5 % (11.7-14.2); RDW Standard Deviation 42.3 fL (35.1-46.3); Red Blood Cell Count 4.35 M/mm3 (3.80-5.20); White Blood Cell Count 6.27 K/mm3 (4.00-11.30)
[2020-11-12 05:29] LABS: International Normalized Ratio 1.07; Prothrombin Time Results 11.4 Sec (9.7-11.5)
[2020-11-12 06:02] LABS: Alanine Aminotransfer (ALT/SGP 106 U/L (12-78); Albumin/Globulin Ratio 0.7 (0.8-1.8); Alk Phos 181 U/L (50-136); Anion Gap 8 mmol/L (6-16); Aspartate Aminotrans (AST/SGOT 64 U/L (12-37); Bilirubin, Total 0.8 mg/dL (0.1-1.0); Blood Urea Nitrogen 8 mg/dL (8-24); Bun/Creatinine Ratio 27.3 (12.0-20.0); CO2, Blood 24 mmol/L (21-32); Chloride, Blood 109 mmol/L (98-108); Creatinine, Blood 0.29 mg/dL (0.40-1.00); Globulin, Blood 2.7 g/dL (2.2-4.0); Glomerular Filtration Rate >60 (60-); Glucose, Blood 226 mg/dL (70-99); Potassium, Blood 3.3 mmol/L (3.5-5.5); Sodium, Blood 141 mmol/L (136-145); Total Protein, Blood 4.7 g/dL (6.4-8.2)
--- NOTE | 2020-11-12 06:26 | NUR ---
SHIFT SUMMARY: A&OX4, VSS, NPO FOR US TODAY. RREPORTED HEAD ACHE AND ABD. PAIN UPON ARRIVAL TO THE UNIT. DR SALDIVAR IS CALL FOR IV PAIN MEDICATION DUR TO NPO STATUS. FENTANYL 25-50 MCQ IS OBTAINED AND 50 MCG WAS GIVEN WITH GOOD EFFECT. IMETREX WAS GIVEN FOR HEADACHE WITH GOOD EFFECT. BLOOD GLUCOSE AT 0400 WAS 246, DR SALDIVAR WAS NOTIFIED AND ORDER TO HOLD COVERAGE WAS OBTAINED.
--- NOTE | 2020-11-12 17:44 | NUR ---
Mary is a 50 year old woman who appears older than her stated age. She is pleasant and cooperative with this visit, lying back in hospital bed. She states her general pain is a 4 at this time. She came into the ED with pain, nausea and vomiting. She is currently here with: has portal vein thrombosis, abdominal distention, lower extremity edema, hx DM, pancreatitis, DVT. She talked about her life leading up to the [facility]. She states she has been homeless, and had multiple surgeries while homeless last year. Because of this, her daughter is now letting her stay in her home with he boyfried. Mary talks about "being tired of being tired all the time", but does not want to discuss future plans at this time, beyond returning home to her daughter and son-in-laws home. Hoping to make more of a connection at next visit.
--- NOTE | 2020-11-12 19:13 | NUR ---
SHIFT SUMMARY: NO ACUTE CHAGNES TO REPORT THIS SHIFT. PT A&O; FLAT; CALM AND COOPERATIVE WITH CARE. MEDICATED FOR ABD PAIN & NAUSEA PER EMAR. ABD ULTRASOUND THIS SHIFT; SMALL VOLUME ASCITES; PT REGULARLY GETS FLUID TAP Q WEEK. DIET ADVANCED THIS SHIFT; PT TOLERATING WELL. REPORT GIVEN TO ONCOMING RN.
--- NOTE | 2020-11-13 00:37 | NUR ---
ENDOCRINE: PATIENT IS NPO, BLOOD GLUCOSE WAS 89. NS IS INFUSING AT 75ML/HR. CALL IS PLACED TO DR SALDIVAR START HYPOGLYCEMIA PROTOCOL ORDERS AND GIVE A 1/2 AMP OF DEXTROSE NOW.
[2020-11-13 05:22] LABS: BASOPHILS ABSOLUTE AUTO 0.02 K/mm3 (0.00-0.23); BASOPHILS PERCENT AUTO 1 % (0-2); EOSINOPHILS ABSOLUTE AUTO 0.11 K/mm3 (0.00-0.68); EOSINOPHILS PERCENT AUTO 3 % (0-6); Hematocrit 34.1 % (33.0-51.0); Hemoglobin 11.9 g/dL (11.5-16.0); IMMATURE GRAN ABSOLUTE AUTO 0.01 K/mm3 (0.00-0.10); IMMATURE GRAN PERCENT AUTO 0 % (0-1); LYMPHOCYTES ABSOLUTE AUTO 0.85 K/mm3 (0.84-5.20); LYMPHOCYTES PERCENT AUTO 20 % (21-46); MONOCYTES ABSOLUTE AUTO 0.36 K/mm3 (0.16-1.47); MONOCYTES PERCENT AUTO 9 % (4-13); Mean Corpuscular HGB 28.6 pg (26.0-34.0); Mean Corpuscular HGB Conc 34.9 g/dL (31.5-36.5); Mean Corpuscular Volume 82 fL (80-100); Mean Platelet Volume 10.2 fL (9.1-12.4); NEUTROPHILS ABSOLUTE AUTO 2.84 K/mm3 (1.96-9.15); NEUTROPHILS PERCENT AUTO 68 % (41-73); Platelet Count 103 K/mm3 (150-400); RDW Coefficient Variation 14.8 % (11.7-14.2); RDW Standard Deviation 43.3 fL (35.1-46.3); Red Blood Cell Count 4.16 M/mm3 (3.80-5.20); White Blood Cell Count 4.19 K/mm3 (4.00-11.30)
[2020-11-13 05:42] LABS: Alanine Aminotransfer (ALT/SGP 81 U/L (12-78); Albumin, Blood 1.8 g/dL (3.4-5.0); Albumin/Globulin Ratio 0.7 (0.8-1.8); Alk Phos 156 U/L (50-136); Anion Gap 3 mmol/L (6-16); Aspartate Aminotrans (AST/SGOT 46 U/L (12-37); Bilirubin, Total 0.6 mg/dL (0.1-1.0); Blood Urea Nitrogen 10 mg/dL (8-24); CO2, Blood 28 mmol/L (21-32); Calcium, Blood 8.1 mg/dL (8.5-10.1); Chloride, Blood 109 mmol/L (98-108); Creatinine, Blood 0.36 mg/dL (0.40-1.00); Globulin, Blood 2.7 g/dL (2.2-4.0); Glomerular Filtration Rate >60 (60-); Glucose, Blood 177 mg/dL (70-99); Potassium, Blood 4.1 mmol/L (3.5-5.5); Sodium, Blood 140 mmol/L (136-145); Total Protein, Blood 4.5 g/dL (6.4-8.2)
--- NOTE | 2020-11-13 07:37 | NUR ---
SHIFT SUMMARY: PATIENT IS TOLERATING DIET WELL. ATE 100% OF DINNER AND HS SNACK. BLOOD GLUCOSE AT 2000 WAS 297, LONG ACTING AND COVERAGE PER SCALE WAS GIVEN. PATIENT ASKE FOR ANOTHER SNACK. EDUCATION WAS GIVEN ON RELATIONSHIP OF DIET AND BLOOD GLUCOSE LEVELS. BLOOD GLUCOSE AT 0400 WAS 192. PATIENT REPORTS ABD. PAIN 8-9/10. IV MORPHINE WAS GIVEN X1 WITH GOOD EFFECT, PATIENT SLEPT WELL THROUGH THE NIGHT.
--- NOTE | 2020-11-13 11:41 | NUR ---
PT STATES FEELS NOT PREPARED TO GO HOME, STATES FEELS LEGS QUITE WEAK, AND ABD SWELLING NOT IMPROVED. CALLED DR MCDONOUGH. HOLD D/CHG FOR FEW HOURS. PT/OT EVAL AND TREAT. ADVISE STATUS
[2020-11-13] MEDS ORDERED: PROP10 PO (11:57)
[2020-11-13] MEDS ORDERED: SPIR25 PO (11:58)
[2020-11-13] MEDS ORDERED: FURO40 PO (11:58)
--- NOTE | 2020-11-13 12:27 | NUR ---
DISCUSSED D/C AND PT/OT POSS DELAY. DR WILL WAIT FOR RESULT. D/C MORPHINE PENDING D/C TO HOME
--- NOTE | 2020-11-13 15:18 | NUR ---
PT AND OT DISCUSSED PLAN. RECOMMENDATION IS HOME WITH C. PT STATES DAMIEN DOES NOT WANT ANY ADDL PERSONS TO HOUSE. PT REFUSING ASSISTANCE. CALLED DR MCDONOUGH. SHE OKAY DISCHARGING WITHOUT HHC. ALTHOUGH PT SOME HESITANT ABOUT LEAVING. STATES MIGHT FEEL BETTER STAYING ADDITIONAL DAY. DR DHALIWAL PT STABLE AND SAFE TO D/C. PT TO BE DISCHARGED. DISCHARGE REVIEWED WITH PT. SHE VERBALIZED UNDERSTANDING MEDS AND INST. PT WAS HANDED PHYSICAL RX FOR NARCOTICS. IV PULLED INTACT. NO TELE. PT WHEELED TO DOOR AT 5806
[2020-11-14] MEDS ORDERED: PROAIR DIGIHAL90 MCG INH (12:39)
[2020-11-14] MEDS ORDERED: ABILIFY MYCITE15 MG PO (12:39)
[2020-11-14] MEDS ORDERED: BACL10 PO (12:40)
[2020-11-14] MEDS ORDERED: B-12500 MC2 PO (12:41)
[2020-11-14] MEDS ORDERED: DOXY100 PO (12:41)
[2020-11-14] MEDS ORDERED: GABA100 PO (12:42)
[2020-11-14] MEDS ORDERED: PERTZYE PO (12:43)
[2020-11-14] MEDS ORDERED: LACT10SY PO (12:43)
[2020-11-14] MEDS ORDERED: MAGNESIUM OXID500 MG PO (12:44)
[2020-11-14] MEDS ORDERED: NITRO-DUR TOP (12:45)
[2020-11-14] MEDS ORDERED: NITRO-DUR TD (12:46)
[2020-11-14] MEDS ORDERED: ONDA4ODT MM (12:46)
[2020-11-14] MEDS ORDERED: OXYC5 PO (12:46)
[2020-11-14] MEDS ORDERED: RIFA550T2 PO (12:47)
[2020-11-14] MEDS ORDERED: SUMA25 PO (12:48)
[2020-11-14] MEDS ORDERED: ZOMIG2.5 MG (12:49)
== END 2020-11-13 15:16 | disposition home or self-care (01) ==
LOC: ER 16:18 → ERHOLD 16:19 → MEDS 16:19
PROVIDERS: Family Medicine; Nurse Practitioner Acute Care; Physician Assistant; ADMIT Internal Medicine
DX: I81 Portal vein thrombosis (principal); R60.0 Localized edema; K76.6 Portal hypertension; I85.00 Esophageal varices without bleeding; K74.60 Unspecified cirrhosis of liver; B37.3 Candidiasis of vulva and vagina; I10 Essential (primary) hypertension; E11.43 Type 2 diabetes mellitus with diabetic autonomic (poly)neuropathy; K31.84 Gastroparesis; J45.20 Mild intermittent asthma, uncomplicated; I48.0 Paroxysmal atrial fibrillation; G43.909 Migraine, unspecified, not intractable, without status migrainosus; E11.65 Type 2 diabetes mellitus with hyperglycemia; F41.8 Other specified anxiety disorders; K21.9 Gastro-esophageal reflux disease without esophagitis; Z79.4 Long term (current) use of insulin; Z88.5 Allergy status to narcotic agent; Z88.0 Allergy status to penicillin; Z88.2 Allergy status to sulfonamides; Z88.8 Allergy status to other drugs, medicaments and biological substances; Z88.6 Allergy status to analgesic agent; Z88.1 Allergy status to other antibiotic agents; Z91.040 Latex allergy status; Z85.41 Personal history of malignant neoplasm of cervix uteri; Z86.718 Personal history of other venous thrombosis and embolism; Z95.0 Presence of cardiac pacemaker; Z96.89 Presence of other specified functional implants
CPT/HCPCS: 36415; 76705; 80053; 82947; 83690; 85025; 85610; 85730; 93306; 93970; 93975; 96374; 96375; 96376; 97116; 97161; 97165; 97530; 97535; 99285-25; A9270; G0378; J1815; J2270; J2405; J3010

== ENCOUNTER 2020-11-22 05:46 | Day surgery (SDC) | payer OTHER ==
[~2020-11-22] VITALS: Ht 162.6 cm; Wt 56.9 kg
[~2020-11-22 05:46] MED LIST changes: +B-12500 MC2 PO; +GABA100 PO; +MAGNESIUM OXID500 MG PO; +NITRO-DUR TD; +NITRO-DUR TOP; +PERTZYE PO; +PROAIR DIGIHAL90 MCG INH; +PROP10 PO; +RIFA550T2 PO; +SPIR25 PO; +ZOMIG2.5 MG
[2020-11-22] MEDS ORDERED: Percocet 5-3251 EACH PO (06:51)
--- NOTE | 2020-11-22 07:44 | NUR ---
11/22/20 0744 [facility] FOR [facility] SEDATION FOR ANESTHESIA.
--- NOTE | 2020-11-22 10:12 | NUR ---
DISCHARGE SUMMARY PT A&OX4, VSS, DEISY PO H2O, Patient up to Ambulate independently. Gait steady. Discharge instructions reviewed with patient. Patient verbalizes understanding. Copy given to patient to take home. TAKEN OUT BY WC WITH VOLUNTEER TO MEET TRANSPORT FOR RIDE HOME. IV DC'D.
== END 2020-11-22 10:02 | disposition home or self-care (01) ==
LOC: ORSCMMR 05:46 → ORD 07:30 → ORSCMMR 07:30
PROVIDERS: Internal Medicine Gastroenterology
PROC: 0DB58ZX Excision of Esophagus, Via Natural or Artificial Opening Endoscopic, Diagnostic (ICD-10-PCS; principal; 2020-11-22 07:30)
DX: K22.70 Barrett's esophagus without dysplasia (principal); K21.9 Gastro-esophageal reflux disease without esophagitis; R10.13 Epigastric pain; K31.5 Obstruction of duodenum; K44.9 Diaphragmatic hernia without obstruction or gangrene; I48.91 Unspecified atrial fibrillation; Z79.01 Long term (current) use of anticoagulants; Z95.0 Presence of cardiac pacemaker; I10 Essential (primary) hypertension; N18.9 Chronic kidney disease, unspecified; E11.9 Type 2 diabetes mellitus without complications; Z79.4 Long term (current) use of insulin; Z79.899 Other long term (current) drug therapy
CPT/HCPCS: 82947; 88305; 88312; J2704; J7120

== ENCOUNTER 2020-12-04 10:22 | Emergency (ER) | payer OTHER ==
[~2020-12-04] VITALS: Ht 162.6 cm; Wt 50.8 kg
[~2020-12-04 10:22] MED LIST changes: +BASAGLAR K100 UNIT/8 SC; +NOVOLOG FL100 UNIT/3; +Percocet 5-3251 EACH PO; +TOPROL XL25 MG PO
[2020-12-04 11:10] LABS: BASOPHILS ABSOLUTE AUTO 0.02 K/mm3 (0.00-0.23); BASOPHILS PERCENT AUTO 1 % (0-2); EOSINOPHILS ABSOLUTE AUTO 0.06 K/mm3 (0.00-0.68); EOSINOPHILS PERCENT AUTO 2 % (0-6); Hematocrit 33.5 % (33.0-51.0); Hemoglobin 11.4 g/dL (11.5-16.0); IMMATURE GRAN ABSOLUTE AUTO 0.01 K/mm3 (0.00-0.10); IMMATURE GRAN PERCENT AUTO 0 % (0-1); LYMPHOCYTES ABSOLUTE AUTO 0.65 K/mm3 (0.84-5.20); LYMPHOCYTES PERCENT AUTO 19 % (21-46); MONOCYTES ABSOLUTE AUTO 0.48 K/mm3 (0.16-1.47); MONOCYTES PERCENT AUTO 14 % (4-13); Mean Corpuscular HGB 28.4 pg (26.0-34.0); Mean Corpuscular Volume 84 fL (80-100); Mean Platelet Volume 10.1 fL (9.1-12.4); NEUTROPHILS ABSOLUTE AUTO 2.22 K/mm3 (1.96-9.15); NEUTROPHILS PERCENT AUTO 65 % (41-73); Platelet Count 116 K/mm3 (150-400); RDW Standard Deviation 45.9 fL (35.1-46.3); Red Blood Cell Count 4.01 M/mm3 (3.80-5.20); White Blood Cell Count 3.44 K/mm3 (4.00-11.30)
[2020-12-04 11:26] LABS: International Normalized Ratio 1.1; Prothrombin Time Results 11.7 Sec (9.7-11.5)
[2020-12-04 11:38] LABS: Alanine Aminotransfer (ALT/SGP 88 U/L (12-78); Albumin/Globulin Ratio 0.6 (0.8-1.8); Alk Phos 208 U/L (50-136); Anion Gap 6 mmol/L (6-16); Aspartate Aminotrans (AST/SGOT 84 U/L (12-37); Bilirubin, Total 0.6 mg/dL (0.1-1.0); Blood Urea Nitrogen 10 mg/dL (8-24); Bun/Creatinine Ratio 23.3 (12.0-20.0); CO2, Blood 28 mmol/L (21-32); Calcium, Blood 7.8 mg/dL (8.5-10.1); Chloride, Blood 103 mmol/L (98-108); Creatinine, Blood 0.43 mg/dL (0.40-1.00); Globulin, Blood 3.2 g/dL (2.2-4.0); Glomerular Filtration Rate >60 (60-); Glucose, Blood 650 mg/dL (70-99); Sodium, Blood 137 mmol/L (136-145); Total Protein, Blood 5.2 g/dL (6.4-8.2)
[2020-12-04 12:45] LABS: Automated BF WBC Count 0.092 K/mm3 (0-999); Body Fluid WBC Count 92 /mm3 (0-999)
[2020-12-04 13:07] LABS: RBC Count, Body Fluid 115 /mm3 (0-0)
[2020-12-04 13:36] LABS: Color, Body Fluid L Yellow (None-Yellow); Total Cell Count, Body Fluid 100
[2020-12-04 13:37] LABS: Appearance, Body Fluid Hazy (Clear)
== END 2020-12-04 15:35 | disposition home or self-care (01) ==
LOC: ER 10:22
PROVIDERS: Emergency Medicine
DX: K76.9 Liver disease, unspecified (principal); R18.8 Other ascites; E11.65 Type 2 diabetes mellitus with hyperglycemia; E11.40 Type 2 diabetes mellitus with diabetic neuropathy, unspecified; Z86.718 Personal history of other venous thrombosis and embolism; Z88.0 Allergy status to penicillin; Z88.2 Allergy status to sulfonamides; Z91.040 Latex allergy status; Z88.1 Allergy status to other antibiotic agents; Z88.8 Allergy status to other drugs, medicaments and biological substances; Z88.5 Allergy status to narcotic agent; Z79.4 Long term (current) use of insulin; Z79.899 Other long term (current) drug therapy
CPT/HCPCS: 36415; 49083; 80053; 82947; 85025; 85610; 87070; 87205; 89051; 96374; 99284-25; A9270; J1815; J2405

== ENCOUNTER 2020-12-06 14:51 | Day surgery (SDC) | payer OTHER ==
[~2020-12-06 14:51] MED LIST changes: -BASAGLAR K100 UNIT/8 SC; -NOVOLOG FL100 UNIT/3; -TOPROL XL25 MG PO
== END 2020-12-06 23:01 | disposition home or self-care (01) ==
LOC: US 14:51
DX: R18.8 Other ascites (principal)
CPT/HCPCS: 49083

== ENCOUNTER 2020-12-13 00:28 | Day surgery (SDC) | payer OTHER | END 2020-12-13 12:00 | disposition home or self-care (01) | LOC: US 00:28 → ATC 00:28 → US 10:00 → EDSTATUS 10:00 → ATC 12:00 | DX: R18.8 Other ascites (principal); K22.70 Barrett's esophagus without dysplasia; K75.81 Nonalcoholic steatohepatitis (NASH); K21.9 Gastro-esophageal reflux disease without esophagitis; R10.13 Epigastric pain; K31.5 Obstruction of duodenum; K44.9 Diaphragmatic hernia without obstruction or gangrene; I48.0 Paroxysmal atrial fibrillation; K76.6 Portal hypertension; E11.65 Type 2 diabetes mellitus with hyperglycemia; I10 Essential (primary) hypertension; K74.60 Unspecified cirrhosis of liver; B37.3 Candidiasis of vulva and vagina; E11.43 Type 2 diabetes mellitus with diabetic autonomic (poly)neuropathy; K31.84 Gastroparesis; J45.20 Mild intermittent asthma, uncomplicated; G43.909 Migraine, unspecified, not intractable, without status migrainosus; D61.818 Other pancytopenia; Z79.01 Long term (current) use of anticoagulants; Z95.0 Presence of cardiac pacemaker; Z79.4 Long term (current) use of insulin; Z79.899 Other long term (current) drug therapy | CPT/HCPCS: 49083; 96365; P9046 ==

== ENCOUNTER 2020-12-18 14:34 | Day surgery (SDC) | payer OTHER ==
[~2020-12-18 14:34] MED LIST changes: +BASAGLAR K100 UNIT/8 SC; +NOVOLOG FL100 UNIT/3; +TOPROL XL25 MG PO
== END 2020-12-18 22:50 | disposition home or self-care (01) ==
LOC: US 14:34
DX: R18.8 Other ascites (principal)
CPT/HCPCS: 49083

== ENCOUNTER 2020-12-25 01:08 | Day surgery (SDC) | payer OTHER ==
--- NOTE | 2020-12-25 16:29 | NUR ---
PT ARRIVES TO [facility]. NO US PARACENTESIS TODAY. PT HAD A PARACENTESIS AT [facility] IN [facility] ER LAST EVENING. SPOKE WITH DR. REYNA WHO STATES PT IS NOT TO GET ALBUMIN TODAY. NEXT PARACENTESIS IN NO LONGER THAN 1 WEEK. SPOKE WITH [employer] STAFF, THEY WILL HAVE MOST OFFICE CALL TO SCHEDULE MORE US APPOINTMENTS FOR [facility]. [facility] UPDATED AND WILL CONTACT MOST OFFICE IN A COUPLE DAYS IF SHE DOESN'T HERE FROM THEM FIRST.
== END 2020-12-25 23:26 | disposition home or self-care (01) ==
LOC: US 01:08 → ATC 01:08 → US 15:00 → ATC 23:26
DX: R18.8 Other ascites (principal); K75.81 Nonalcoholic steatohepatitis (NASH); K22.70 Barrett's esophagus without dysplasia; D61.818 Other pancytopenia; K83.1 Obstruction of bile duct; K86.1 Other chronic pancreatitis; K52.9 Noninfective gastroenteritis and colitis, unspecified; K55.059 Acute (reversible) ischemia of intestine, part and extent unspecified; I81 Portal vein thrombosis; R16.1 Splenomegaly, not elsewhere classified; M85.80 Other specified disorders of bone density and structure, unspecified site; E44.1 Mild protein-calorie malnutrition; I48.19 Other persistent atrial fibrillation; K21.9 Gastro-esophageal reflux disease without esophagitis; E11.43 Type 2 diabetes mellitus with diabetic autonomic (poly)neuropathy; E11.42 Type 2 diabetes mellitus with diabetic polyneuropathy; E11.00 Type 2 diabetes mellitus with hyperosmolarity without nonketotic hyperglycemic-hyperosmolar coma (NKHHC); E11.65 Type 2 diabetes mellitus with hyperglycemia; K31.84 Gastroparesis; I82.622 Acute embolism and thrombosis of deep veins of left upper extremity; E78.1 Pure hyperglyceridemia; J45.909 Unspecified asthma, uncomplicated; Z79.4 Long term (current) use of insulin; Z93.1 Gastrostomy status; Z79.01 Long term (current) use of anticoagulants; Z95.0 Presence of cardiac pacemaker
CPT/HCPCS: 76705

== ENCOUNTER 2021-01-01 14:23 | Day surgery (SDC) | payer OTHER ==
[~2021-01-01 14:23] MED LIST changes: -BASAGLAR K100 UNIT/8 SC; -NOVOLOG FL100 UNIT/3; -TOPROL XL25 MG PO
== END 2021-01-01 23:14 | disposition home or self-care (01) ==
LOC: US 14:23
DX: R18.8 Other ascites (principal)
CPT/HCPCS: 49083

== ENCOUNTER 2021-01-07 20:00 | Inpatient (IN) | payer OTHER ==
[~2021-01-07] VITALS: Ht 162.6 cm; Wt 63.5 kg
[2021-01-07 21:05] LABS: Base Excess Venous 0.7 mmol/L; Bicarbonate Venous 25.1 mmol/L (24.0-30.0); PCO2 Venous 37.1 mmHg (38-42); PO2 Venous 154 mmHg (38-42); pH Blood Venous 7.44 (7.34-7.37)
[2021-01-07 21:06] LABS: Hematocrit 36.2 % (33.0-51.0); Mean Corpuscular HGB 27.1 pg (26.0-34.0); Mean Corpuscular HGB Conc 33.1 g/dL (31.5-36.5); Mean Corpuscular Volume 82 fL (80-100); Mean Platelet Volume 10.4 fL (9.1-12.4); Platelet Count 123 K/mm3 (150-400); RDW Coefficient Variation 14.2 % (11.7-14.2); RDW Standard Deviation 42.3 fL (35.1-46.3); Red Blood Cell Count 4.42 M/mm3 (3.80-5.20); White Blood Cell Count 10.18 K/mm3 (4.00-11.30)
[2021-01-07 21:23] LABS: Alanine Aminotransfer (ALT/SGP 24 U/L (12-78); Albumin, Blood 1.2 g/dL (3.4-5.0); Albumin/Globulin Ratio 0.3 (0.8-1.8); Alk Phos 200 U/L (50-136); Anion Gap 5 mmol/L (6-16); Aspartate Aminotrans (AST/SGOT 19 U/L (12-37); Bilirubin, Total 0.5 mg/dL (0.1-1.0); Blood Urea Nitrogen 15 mg/dL (8-24); Bun/Creatinine Ratio 36.7 (12.0-20.0); CO2, Blood 25 mmol/L (21-32); Calcium, Blood 7.4 mg/dL (8.5-10.1); Chloride, Blood 101 mmol/L (98-108); Creatinine, Blood 0.41 mg/dL (0.40-1.00); Globulin, Blood 4.4 g/dL (2.2-4.0); Glomerular Filtration Rate >60 (60-); Glucose, Blood 505 mg/dL (70-99); Potassium, Blood 4.5 mmol/L (3.5-5.5); Sodium, Blood 131 mmol/L (136-145); Total Protein, Blood 5.6 g/dL (6.4-8.2)
[2021-01-07 21:28] LABS: Source, Urine Clean Catch
[2021-01-07 21:30] LABS: Bilirubin, Urine Neg (Neg); Blood, Urine 1+ (Neg); Glucose Qualitative, Urine 4+ (Neg); Ketones, Urine Neg (Neg); Leukocyte Esterase, Urine Neg (Neg); Nitrite, Urine Neg (Neg); Protein, Urine Neg (Neg); Urobilinogen, Urine NORM (Normal); pH, Urine 6.5 (5.0-8.0)
[2021-01-07 21:33] LABS: BAND PERCENT MAN 16 % (0-8); BASOPHILS PERCENT MAN 0 % (0-2); EOSINOPHILS PERCENT MAN 2 % (0-6); LYMPHOCYTES PERCENT MAN 2 % (21-46); MONOCYTES PERCENT MAN 2 % (4-13); NEUTROPHILS ABSOLUTE MAN 9.56 K/mm3 (1.96-9.15); SEG NEUTROPHILS PERCENT MAN 78 % (41-73); TOTAL CELLS COUNTED 100
[2021-01-07 21:56] LABS: Appearance, Urine Hazy (Clear); Color, Urine Yellow (P-Yellow)
[2021-01-07 21:57] LABS: Bacteria Not Seen /hpf; Red Blood Cells, Urine Not Seen /hpf (0-2); Squamous Epithelial Cells Not Seen /hpf (Few); White Blood Cells, Urine Rare /hpf (0-5); Yeast/Fungi Urine Many /hpf
[2021-01-07] MEDS ORDERED: FURO80 PO ×2 (22:10→23:21)
[2021-01-07] MEDS ORDERED: METO5 PO (22:11)
[2021-01-07] MEDS ORDERED: OXYC5 PO (22:12)
[2021-01-07] MEDS ORDERED: SPIR25 PO (22:15)
[2021-01-07] MEDS ORDERED: VENLAFAXINE HC225 MG PO (22:16)
[2021-01-07] MEDS ORDERED: BASAGLAR K100 UNIT/8 SC (22:16)
[2021-01-07] MEDS ORDERED: NOVOLOG FL100 UNIT/3 SC (22:17)
[2021-01-07 23:00] LABS: Calcium, Ionized (POC) 1.08 mmol/L (1.10-1.46); Chloride (POC) 96 mmol/L (98-108); Creatinine (POC) 0.3 mg/dL (0.6-1.0); Glucose (ISTAT POC) 443 mg/dL (70-99); Hemoglobin (POC) 8.8 g/dL (12.0-16.0); Potassium (POC) 4.4 mmol/L (3.5-5.5); Sodium (POC) 130 mmol/L (135-148); Total CO2 (POC) 25 mmol/L (21-32)
[2021-01-07] MEDS ORDERED: PRAZ2 PO (23:25)
[2021-01-07] MEDS ORDERED: Buspirone HCl15 MG PO (23:25)
[2021-01-07] MEDS ORDERED: TRAZ50 PO (23:26)
[2021-01-07] MEDS ORDERED: BUSPIRONE HCL5 M2 PO (23:27)
[2021-01-07] MEDS ORDERED: PANT20 PO (23:29)
[2021-01-07] MEDS ORDERED: TOPROL XL25 MG PO (23:29)
[2021-01-07 23:52] LABS: SARS-Cov-2 (COVID-19) PCR, MMC NEGATIVE (NEGATIVE)
--- NOTE | 2021-01-08 00:55 | NUR ---
PT ARRIVES TO ICU 10 VIA [facility], SEE PAPER CHARTING FOR [facility]
--- NOTE | 2021-01-08 02:55 | NUR ---
PT DOES RESPOND TO LOUDLY STATED NAME, MINIMALLY FOLLOWS COMMANDS AND THEN APPEARS TO RETURN TO SLEEP, OPA REMOVED AND PT MAINTAINS AIRWAY, COUGH AND SWALLOW REFLEX ARE CONTINUED TO BE OBSERVED HOWEVER NO GAG WITH OPA IN PLACE. PT DOES CONTINUE TO MAINTAIN AIRWAY ON REMOVAL AND IS ABLE TO STATE THAT SHE IS IN [facility]. WILL CONT TO MONITOR.
[2021-01-08 06:23] LABS: Automated BF WBC Count 0.461 K/mm3 (0-999); Body Fluid WBC Count 461 /mm3 (0-999)
[2021-01-08 06:39] LABS: RBC Count, Body Fluid 146 /mm3 (0-0); Total Cell Count, Body Fluid 100
[2021-01-08 06:41] LABS: Appearance, Body Fluid Hazy (Clear); Color, Body Fluid No color (None-Yellow)
[2021-01-08 06:52] LABS: Hematocrit 26.8 % (33.0-51.0); Hemoglobin 8.7 g/dL (11.5-16.0); Mean Corpuscular HGB 27.1 pg (26.0-34.0); Mean Corpuscular HGB Conc 32.5 g/dL (31.5-36.5); Mean Corpuscular Volume 84 fL (80-100); Mean Platelet Volume 9.7 fL (9.1-12.4); Platelet Count 118 K/mm3 (150-400); RDW Coefficient Variation 14.1 % (11.7-14.2); RDW Standard Deviation 43.4 fL (35.1-46.3); Red Blood Cell Count 3.21 M/mm3 (3.80-5.20); White Blood Cell Count 10.42 K/mm3 (4.00-11.30)
[2021-01-08 06:57] LABS: BAND PERCENT MAN 27 % (0-8); SEG NEUTROPHILS PERCENT MAN 69 % (41-73)
[2021-01-08 06:58] LABS: LYMPHOCYTES PERCENT MAN 1 % (21-46)
[2021-01-08 07:04] LABS: Alanine Aminotransfer (ALT/SGP 24 U/L (12-78); Albumin, Blood 1.2 g/dL (3.4-5.0); Albumin/Globulin Ratio 0.3 (0.8-1.8); Alk Phos 184 U/L (50-136); Anion Gap 7 mmol/L (6-16); Aspartate Aminotrans (AST/SGOT 39 U/L (12-37); Bilirubin, Total 0.5 mg/dL (0.1-1.0); Blood Urea Nitrogen 14 mg/dL (8-24); Bun/Creatinine Ratio 33.3 (12.0-20.0); CO2, Blood 23 mmol/L (21-32); Calcium, Blood 6.9 mg/dL (8.5-10.1); Chloride, Blood 102 mmol/L (98-108); Creatinine, Blood 0.42 mg/dL (0.40-1.00); Globulin, Blood 3.5 g/dL (2.2-4.0); Glomerular Filtration Rate >60 (60-); Glucose, Blood 354 mg/dL (70-99); Potassium, Blood 4.3 mmol/L (3.5-5.5); Sodium, Blood 132 mmol/L (136-145); Total Protein, Blood 4.7 g/dL (6.4-8.2)
--- NOTE | 2021-01-08 07:55 | NUR ---
PT NEW ADMIT THIS SHIFT FROM ER TO OR FOR PERFED BOWEL, DR CADENA SUTURED PERFORATION AND PT IS PLANNED TO BE ICU OVERNOC FOR MONITORING. PT MENTATION HAS IMPROVED, SHE DOES REQUEST REPOSITIONING ON INCREASED AWARENESS R/T "MY TAILBONE HURTS" SHE HAS MAINTAINED SATS WELL WITH OXYGEN TITRATED DOWN SHIFT PROGRESSED, TOLERATING NASAL CANNULA AT 3 L/MIN LUNGS REMAIN CLEAR. PT DOES STATE THAT THERE ARE NO CHANGES TO HER MEDICAL HISTORY SINCE PREV ADMIT IN OCTOBER. HYPOACTIVE BOWEL TONES CONTINUE, ABD TENDER TO PALP, LAPRASCOPIC INCISIONS WITH WOUND GLUE WITH SOME SMALL AMOUNT OF BRUISING HOWEVER NO REDNESS, SWELLING, OR DRAINAGE. COCCYX REDDENED HOWEVER DOES JENNIE, PLAN IS FOR MEPILEX SACRAL PROTECTOR FOR PREVENTION OF SHEARING INJURY WITH REPOSITIONING.
--- NOTE | 2021-01-08 08:20 | NUR ---
ASSESSMENT- PT AWAKE, ALERT, COOPERATIVE. ABLE TO ANSWER QUESTIONS. C/O ABDOMINAL PAIN, RATES 9.5 ON SCALE. REPOSITIONED, RX GIVEN WITH IMPROVEMENT-NOW ABLE TO REST, NO GRIMACING. COLOR PALE, SKIN CLAMMY, WET. BATH DONE. REDDENED COCCYX-DRESSING ON. REPOSITIONING TO REDUCE PRESSURE. LUNGS WITH RHONCHI AND EXP WHEEZES THROUGHOUT. DENIES SOB. SATURATIONS STABLE WITH NASAL CANNULA. ABDOMEN LARGE, SOFT WITH BOWEL SOUNDS. C/O HUNGER AND NAUSEA. RX GIVEN, ORAL CARE DONE. PUNCTURE SITES ABDOMEN DI. UO VIA GARZON. EDEMATOUS-ANASARCA, ESPECIALLY FEET AND LABIA. SCDS ON. NS AT 100 CC/HR VIA PIV LAC INTACT. RIGHT PIV PAINFUL, NO BLOOD RETURN-SITE D/C. ABLE TO USE CALL LIGHT.
--- NOTE | 2021-01-08 08:40 | NUR ---
PHYSICIAN- DR. HEALY, DR REYNA HERE-UPDATED.
--- NOTE | 2021-01-08 09:00 | NUR ---
SOCIAL SITUATION- PT STATES ONLY ABLE TO TAKE MEDICATION "IF THEY ARE ON THE BED FOR ME". STATES MEDICATIONS ARE SCATTERED THROUGHOUT HER ROOM AND SHE CANNOT MANAGE THEM SO DOES NOT CONSISTENTLY TAKE THEM. PT STATES [facility] (A RELATIVE) WILL NOT LET HER RETURN HOME UNLESS SHE IS INDEPENDENT AND CAN CARE FOR HERSELF. DIRECTOR ADVANCED PIA ADAMS HERE. UPDATE TO DR. REYNA
--- NOTE | 2021-01-08 10:16 | NUR ---
DR. CADENA HERE-UDPATED. OK FOR CLEAR LIQUIDS, INCENTIVE SPIROMETER. STATES OK FOR TRANSFER IF HOSPITALIST AGREE. VSS. TEACHING WITH PT REGARDING C/DB AND INCENTIVE SPIROMETER-ABLE TO RETURN DEMONSTRATE
--- NOTE | 2021-01-08 10:45 | NUR ---
GAVE PATIENT INCENTIVE SPIROMETER (IS). REVIEWED USE OF IS. INSTUCTED PATIENT TO SPLINT ABD WHILE COUGHING AND DEEP BREATHING. WHILE USING IS PATIENT BEGAN TO CRY. PATIENT STATED THAT SHE HAS NO HOME TO GO TO BECAUSE [facility] DOES NOT WANT HER TO RETURN UNLESS SHE IS FULLY INDEPENDENT. PATIENT STATED THAT [facility] STATED THAT NO ONE HAS TIME TO HELP HER ON AND OFF THE TOILET. PATIENT STATED SHE LIVES WITH DAUGHTERS, BUT THAT DAUGHTERS ARE BUSY CARING FOR CHILDREN. 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 PATIENT STATED THAT DAUGHTERS DO NOT COOK FOR HER. LISTEND TO PATIENT CRY AND EXPRESS CONCERNS. PROVIDED EMOTIONAL SUPPORT.
--- NOTE | 2021-01-08 11:33 | NUR ---
PT DRAINING CLEAR YELLOW FLUID FROM PARACENTESIS SITE-DRAINAGE BAG PLACED TO SITE. REPOSITIONED. GOOD EFFORT WITH INCENTIVE SPIROMETER. DOES MOVE VERY SLOWLY, DECONDITIONED, GENERALIZED WEAKNESS
--- NOTE | 2021-01-08 11:47 | NUR ---
UPDATE TO DR. REYNA. KEEP ICU STATUS TODAY. NO PARACENTESIS TODAY
--- NOTE | 2021-01-08 12:51 | NUR ---
COLLECTION BAG WITH YELLOW FLUID. PT AWAKE, ALERT, TEARFUL AT TIMES, TALKATIVE ABOUT HER HOME SITUATION. TAKING CLEAR LIQUIDS.
--- NOTE | 2021-01-08 14:24 | NUR ---
CALLED DR. MONTILLA WITH POSITIVE BLOOD CULTURE AND LOW URINE OUTPUT. WILL REVIEW.
--- NOTE | 2021-01-08 15:34 | NUR ---
DR. MONTILLA HERE-UPDATED. BLADDER SCAN < 40 CC FLUID OVER BLADDER. UO MINIMAL VIA GARZON. FLUID BOLUS STARTED. LABS DRAWN. POWER GLIDE PLACED BY RIOS ADAMS RIGHT UPPER ARM INTACT.
[2021-01-08 15:55] LABS: Anion Gap 6 mmol/L (6-16); Blood Urea Nitrogen 14 mg/dL (8-24); Bun/Creatinine Ratio 34.7 (12.0-20.0); CO2, Blood 21 mmol/L (21-32); Calcium, Blood 6.5 mg/dL (8.5-10.1); Chloride, Blood 107 mmol/L (98-108); Glomerular Filtration Rate >60 (60-); Glucose, Blood 223 mg/dL (70-99); Sodium, Blood 134 mmol/L (136-145)
--- NOTE | 2021-01-08 17:30 | NUR ---
DR. CADENA HERE-UDPATED. UO 20 CC. ALBUMIN ORDERED. DRAINING FROM PARACENTESIS SITE. ABLE TO MOVE MORE IN BED, ENCOURAGED TO MOVE SELF. GOOD APPETITE, ADVANCED TO FULL LIQUID. NO NAUSEA. BOLUS INFUSED. REPOSITIONED.
--- NOTE | 2021-01-08 18:50 | NUR ---
PT YELLING OUT, DISTRESSED, AGITATED. REASSURANCE INEFFECTIVE. ATIVAN GIVEN, NOW SLEEPING, HEARTRATE 120'S, RESP RATE 36 BPM, OXYGEN NASAL CANNULA ON FOR LOW SATURATIONS WITH IMPROVEMENT TO 94%. POSITIONED WITH HOB, BED ALARM, FALL RISK.
--- NOTE | 2021-01-08 22:22 | NUR ---
CARE ASSUMPTION PT A/OX4, CALM, TEARFUL AT TIMES. VSS. MON SR 70S. SPO2 >90% ON RA. PT PAIN LEVEL AT A 7/10. PT RECEIVED PAIN MED PER EMAR AND LEVEL STAYED AT 7/10. GARZON OUTPUT CONTINUES TO BE MINIMAL. SURGICAL SITES ARE WITHIN NORMAL LIMITS. L ABD SITE HAS NO REDDNESS AND WOUND GLUE IS INTACT. R ABD SITE HAS OSTOMY BAG IN PLACE TO COLLECT SMALL CLEAR DRAINAGE FROM PARACENTESIS.
--- NOTE | 2021-01-09 04:33 | NUR ---
SHIFT SUMMARY PT A/0 X4. PT CALM AND TEARFUL. VSS. SPO2 >90% ON RA. MONITOR SB TO SR HR 50S-60S. LOW URINE OUTPUT T/O SHIFT. R ABD PARACENTESIS SITE WITH CLEAR DRAINAGE THIS SHIFT. L ABD SURGICAL SITES WITH NO REDNESS AND WOUND GLUE IN PLACE. NO ACUTE EVENTS THIS SHIFT. WILL CONTINUE TO MONITOR AND PROVIDE CARE UNTIL HAND OFF WITH DAY SHIFT.
[2021-01-09 04:56] LABS: Hematocrit 26.5 % (33.0-51.0); Hemoglobin 8.5 g/dL (11.5-16.0); Mean Corpuscular HGB 26.7 pg (26.0-34.0); Mean Corpuscular HGB Conc 32.1 g/dL (31.5-36.5); Mean Corpuscular Volume 83 fL (80-100); Mean Platelet Volume 10.1 fL (9.1-12.4); Platelet Count 129 K/mm3 (150-400); RDW Standard Deviation 42.5 fL (35.1-46.3); Red Blood Cell Count 3.18 M/mm3 (3.80-5.20); White Blood Cell Count 9.85 K/mm3 (4.00-11.30)
[2021-01-09 05:13] LABS: Albumin, Blood 1.6 g/dL (3.4-5.0); Anion Gap 6 mmol/L (6-16); Blood Urea Nitrogen 19 mg/dL (8-24); Bun/Creatinine Ratio 37.9 (12.0-20.0); CO2, Blood 22 mmol/L (21-32); Calcium, Blood 6.9 mg/dL (8.5-10.1); Chloride, Blood 102 mmol/L (98-108); Glomerular Filtration Rate >60 (60-); Glucose, Blood 469 mg/dL (70-99); Phosphorus, Blood 2.8 mg/dL (2.5-4.9); Potassium, Blood 5.4 mmol/L (3.5-5.5); Sodium, Blood 130 mmol/L (136-145)
[2021-01-09 06:14] LABS: BAND PERCENT MAN 5 % (0-8); BASOPHILS PERCENT MAN 0 % (0-2); EOSINOPHILS PERCENT MAN 0 % (0-6); LYMPHOCYTES ABSOLUTE MAN 0.09 K/mm3 (0.84-5.20); LYMPHOCYTES PERCENT MAN 1 % (21-46); MONOCYTES ABSOLUTE MAN 0.29 K/mm3 (0.16-1.47); MONOCYTES PERCENT MAN 3 % (4-13); NEUTROPHILS ABSOLUTE MAN 9.45 K/mm3 (1.96-9.15); SEG NEUTROPHILS PERCENT MAN 91 % (41-73); TOTAL CELLS COUNTED 100
--- NOTE | 2021-01-09 08:39 | NUR ---
ASSUMED CARE REOPRT FROM CATINA/MEGAN RN AT 0700. PT RESTING IN BED. A&OX4. ANSWERS QUESTIONS APPROPRIATELY, FOLLOWS COMMANDS. STATES PAIN 7/10, GENERALIZED ABD PAIN. ABD DISTENDED, SOFT, TENDER THROUGHOUT. HYPERACTIVE BT X 4. LAP INCISIONS C/D. NO DRAINAGE NOTED. PUNCTURE SITE FROM PARACENTESIS TO RIGHT ABD DRAINING SEROUS FLUID, OSTOMY BAG IN PLACE. EDEMA TO ALL EXTREMITIES, 4+. PT ABLE TO SHIFT AND REPOSITION SELF IN BED. TOLERATING CLEAR LIQUID DIET WELL. SOUP AND OATMEAL OK'D BY DR REYNA. GARZON PATENT, DRAINING CLOUDY YELLOW URINE TO GRAVITY. BP STABLE. STATUS CHANGED TO JOHN c TELE THIS AM. WILL CONTINUE TO MONITOR.
--- NOTE | 2021-01-09 12:55 | NUR ---
TRANSFER TO SURGICAL c TELE. REPORT TO DEVANTE ADAMS. PT TOLERATING PO WELL. NO BM, HYPERACTIVE BT. CONTINUES TO HAVE SEROUS DRAINAGE FROM PUNCTURE SITE TO RIGHT ABD. ABLE TO STAND AT BEDSIDE c PT. REPOSITIONS SELF IN BED. VSS. ALL BELONGINGS c PT.
[2021-01-09 13:10] LABS: Glucose, Blood 511 mg/dL (70-99)
--- NOTE | 2021-01-09 13:10 | NUR ---
ARRIVAL TO SURGICAL UNIT PT ARRIVES & IS TRANSFERRED VIA 4 PERSON ASSIST TO BED. ALERT & ORIENTED. LUNGS CLEAR BUT DIM IN BASES. ABD DISTENDED W/ LAP SITES THAT HAVE WOUND GLUE. REPORTS TOLERATING DIET WELL. OSTOMY APPLIANCE OVER AN AREA PUTTING OUT CLEAR LQ.
[2021-01-09 15:18] LABS: Anion Gap 6 mmol/L (6-16); Blood Urea Nitrogen 18 mg/dL (8-24); Bun/Creatinine Ratio 34.5 (12.0-20.0); CO2, Blood 23 mmol/L (21-32); Calcium, Blood 7.5 mg/dL (8.5-10.1); Chloride, Blood 102 mmol/L (98-108); Creatinine, Blood 0.52 mg/dL (0.40-1.00); Glomerular Filtration Rate >60 (60-); Glucose, Blood 477 mg/dL (70-99); Potassium, Blood 5.1 mmol/L (3.5-5.5); Sodium, Blood 131 mmol/L (136-145)
--- NOTE | 2021-01-09 17:47 | NUR ---
SHIFT SUMMARY SINCE ARRIVAL TO UNIT PT HAS BEEN PLEASANT. WORKED WELL W/ OT. PAIN MANAGED. EATING WELL.
--- NOTE | 2021-01-09 21:23 | NUR ---
PT AGREES TO STUDENT PARTICIPATING IN CARE
--- NOTE | 2021-01-09 22:58 | NUR ---
HYPERGLYCEMIA ELEVATED BLOOD SUGARS CONTINUE THIS PM, MD AWARE PER DAY SHIFT RN + ORDERS PER DAY SHIFT MD. WILL CONTINUE TO MONITOR.
--- NOTE | 2021-01-10 04:49 | NUR ---
SHIFT SUMMARY: POD#3 BOWEL PERF/EXPLORATORY LAP PT IS A&OX4 DEPRESSED AFFECT WITH GOOD EYE CONTACT, TELE NS T/O SHIFT, 3 SITES W/GLUE C/D/I, PARACENTSIS PUNCTURE SITE DRAINING CLEAR YELLOW WITH OSTOMY DRESSING, GARZON DRAIING CLEAR YELLOW AND MEDPLEX DRESSING TO COXYX AREA C/D/I. PT HAS 3/4+ PITTING EDEMA TO EXTREMITIES W/ABDOMINAL ASCITES,LUNGS ARE CLEAR IN UPPER LOBES DIMINISHED IN THE LOWER W/O CRACKLES.ORIENTATED TO ROOM HOB ELEVATED @30 CALL LIGHT WITHIN REACH.
[2021-01-10 06:50] LABS: BASOPHILS ABSOLUTE AUTO 0.01 K/mm3 (0.00-0.23); BASOPHILS PERCENT AUTO 0 % (0-2); EOSINOPHILS ABSOLUTE AUTO 0.09 K/mm3 (0.00-0.68); EOSINOPHILS PERCENT AUTO 1 % (0-6); Hematocrit 28.9 % (33.0-51.0); Hemoglobin 9.4 g/dL (11.5-16.0); IMMATURE GRAN ABSOLUTE AUTO 0.14 K/mm3 (0.00-0.10); IMMATURE GRAN PERCENT AUTO 2 % (0-1); LYMPHOCYTES ABSOLUTE AUTO 0.35 K/mm3 (0.84-5.20); LYMPHOCYTES PERCENT AUTO 5 % (21-46); MONOCYTES ABSOLUTE AUTO 0.35 K/mm3 (0.16-1.47); MONOCYTES PERCENT AUTO 5 % (4-13); Mean Corpuscular HGB 26.6 pg (26.0-34.0); Mean Corpuscular HGB Conc 32.5 g/dL (31.5-36.5); Mean Corpuscular Volume 82 fL (80-100); Mean Platelet Volume 9.3 fL (9.1-12.4); NEUTROPHILS ABSOLUTE AUTO 6.26 K/mm3 (1.96-9.15); NEUTROPHILS PERCENT AUTO 87 % (41-73); Platelet Count 165 K/mm3 (150-400); RDW Coefficient Variation 14.1 % (11.7-14.2); RDW Standard Deviation 41.7 fL (35.1-46.3); Red Blood Cell Count 3.53 M/mm3 (3.80-5.20)
[2021-01-10 07:14] LABS: Anion Gap 4 mmol/L (6-16); Blood Urea Nitrogen 16 mg/dL (8-24); Bun/Creatinine Ratio 34.9 (12.0-20.0); CO2, Blood 25 mmol/L (21-32); Calcium, Blood 7.1 mg/dL (8.5-10.1); Chloride, Blood 105 mmol/L (98-108); Creatinine, Blood 0.46 mg/dL (0.40-1.00); Glomerular Filtration Rate >60 (60-); Glucose, Blood 345 mg/dL (70-99); Potassium, Blood 4.7 mmol/L (3.5-5.5); Sodium, Blood 134 mmol/L (136-145)
--- NOTE | 2021-01-10 18:47 | NUR ---
SHIFT SUMMARY PT A/OX4 AND PLEASANT; BUT PAINFUL TODAY. VERY EDEMATOUS ALL OVER. ABD VERY TENDER AND MEDICATED PER EMR FOR PAIN. LABIA VERY SWOLLEN AND GARZON LEFT IN AT THIS TIME FOR THAT REASON. MEPILEX ON COCCYX. PT HAD SEVERAL SOFT BM'S TODAY. VSS. WILL REPORT TO STEVAN ADAMS.
--- NOTE | 2021-01-11 05:08 | NUR ---
SUMMARY PT PAIN TX PER EMAR W/ RELIEF. PT HAS BEEN RESTING WELL. PT CONTINUES TO HAVE NOTED EDEMA T/OUT. PT CONTINUES TO HAVE NOTED LOOSE STOOL. PERICENTISIS SITE HAS NOTED DRAINAGE. PT REPOSITIONED FREQUENTLY. PT KURT AREA IS NOTABLY SWOLLEN. PT ABD DISTENSION HAS INCREASED DURING SHIFT. GARZON CATH DRAINING TO GRAVITY. CALL LIGHT IN REACH.
--- NOTE | 2021-01-11 16:25 | NUR ---
SHIFT SUMMARY PT A/O X4 AND COOPERATIVE WITH CARE BUT VERY TEARFUL. PT REPORTS PAIN AND DISCOMFORT IN ABD. TREATED PER EMR FOR PAIN. PT EXPRESSED CONCERN OVER CURRENT PAIN CONTROL REGIMEN AND PHYSICIAN NOTIFIED. SMALL AMOUNT OF DRAINAGE NOTED AT THE PUNCTURE SITE. SIGNIFICANT EDEMA NOTED T/O THE BODY. ABD SEEMS MORE DISTENDED ANYWAYS AND ORBITAL EDEMA NOTED. WAS ABLE TO STAND WITH PHYSICAL THERAPY TODAY. VSS.
--- NOTE | 2021-01-12 06:19 | NUR ---
SHIFT SUMMARY LYING IN SEMI FOWLERS WITH EYES OPEN AFTER BEING REPOSITIONED FOR COMFORT. PAIN BETTER MANAGED WITH PO OXY AT HOME DOSE PER EMAR. ANASARCA REMAINS UNCHANGED SINCE START OF SHIFT. NO FURTHER CHANGES NOTED THIS SHIFT. RIGHT UPPER ARM POWERGLIDE WITH TKO IVF FLUSHES WITH EASE. BLOOD DRAWN FROM POWERGLIDE SENT TO LAB. HAS BEEN ABLE TO MANAGE SIPS OF WATER, BITES OF APPLE SAUCE AND PUDDING. GARZON CATH DRAINING CLEAR YELLOW URINE TO GRAVITY. DENIES FURTHER NEEDS OR WANTS AT THIS TIME. SAFETY MEASURES IN PLACE. WILL CONTINUE TO MONITOR AND ADDRESS CHANGES AND NEEDS THEY OCCUR. WILL GIVE HAND OFF TO ONCOMING SHIFT USING SBAR DURING BEDSIDE REPORT.
[2021-01-12 07:04] LABS: Anion Gap 3 mmol/L (6-16); Blood Urea Nitrogen 6 mg/dL (8-24); Bun/Creatinine Ratio 13.2 (12.0-20.0); CO2, Blood 28 mmol/L (21-32); Calcium, Blood 6.8 mg/dL (8.5-10.1); Chloride, Blood 111 mmol/L (98-108); Creatinine, Blood 0.46 mg/dL (0.40-1.00); Glomerular Filtration Rate >60 (60-); Glucose, Blood 128 mg/dL (70-99); Potassium, Blood 3.7 mmol/L (3.5-5.5); Sodium, Blood 142 mmol/L (136-145)
--- NOTE | 2021-01-12 18:27 | NUR ---
SHIFT SUMMARY PT AXO, PLEASANT AND COOPERATIVE WITH CARE THOUGH WEEPY AT TIMES WHEN ASKING FOR PAIN MEDICATION. MEDICATED PER EMAR THOUGH WHEN PATIENT HAD NO OTHER OPTIONS FOR PAIN CONTROL, SHE UTILIZED NON-PHARM INTERVENTIONS SUCH K-PAD TO ABDOMEN AND SHE REPORTED GREATER RELIEF. REPOSITIONING ENCOURAGED BUT PATIENT RETURNED TO HER BACK. MEPILEX TO COCCYX, PT REPORTS SORE BOTTOM. 1800 ML CLEAR YELLOW URINE OUT THIS SHIFT. PT ORBITAL SWELLING DECREASING. PT HAD ONE INCONTINENT BM THIS SHIFT. NO OTHER CHANGES. BED IN LOW POSITION, CALL LIGHT WITHIN REACH.
[2021-01-13 05:29] LABS: BASOPHILS ABSOLUTE AUTO 0.02 K/mm3 (0.00-0.23); BASOPHILS PERCENT AUTO 0 % (0-2); EOSINOPHILS ABSOLUTE AUTO 0.11 K/mm3 (0.00-0.68); EOSINOPHILS PERCENT AUTO 2 % (0-6); Hematocrit 29.8 % (33.0-51.0); Hemoglobin 9.5 g/dL (11.5-16.0); IMMATURE GRAN ABSOLUTE AUTO 0.31 K/mm3 (0.00-0.10); IMMATURE GRAN PERCENT AUTO 4 % (0-1); LYMPHOCYTES ABSOLUTE AUTO 0.62 K/mm3 (0.84-5.20); LYMPHOCYTES PERCENT AUTO 9 % (21-46); MONOCYTES ABSOLUTE AUTO 0.64 K/mm3 (0.16-1.47); MONOCYTES PERCENT AUTO 9 % (4-13); Mean Corpuscular HGB Conc 31.9 g/dL (31.5-36.5); Mean Corpuscular Volume 85 fL (80-100); Mean Platelet Volume 9.4 fL (9.1-12.4); NEUTROPHILS ABSOLUTE AUTO 5.41 K/mm3 (1.96-9.15); NEUTROPHILS PERCENT AUTO 76 % (41-73); Platelet Count 227 K/mm3 (150-400); RDW Coefficient Variation 14.6 % (11.7-14.2); RDW Standard Deviation 44.9 fL (35.1-46.3); Red Blood Cell Count 3.52 M/mm3 (3.80-5.20); White Blood Cell Count 7.11 K/mm3 (4.00-11.30)
[2021-01-13 05:50] LABS: Anion Gap 2 mmol/L (6-16); Blood Urea Nitrogen 7 mg/dL (8-24); Bun/Creatinine Ratio 12.9 (12.0-20.0); CO2, Blood 29 mmol/L (21-32); Calcium, Blood 7.1 mg/dL (8.5-10.1); Chloride, Blood 107 mmol/L (98-108); Creatinine, Blood 0.54 mg/dL (0.40-1.00); Glomerular Filtration Rate >60 (60-); Glucose, Blood 161 mg/dL (70-99); Potassium, Blood 4.4 mmol/L (3.5-5.5); Sodium, Blood 138 mmol/L (136-145)
--- NOTE | 2021-01-13 06:55 | NUR ---
SUMMARY PT NEEDS MUCH ENC FOR REPOSITIONING, PULMONARY TOILET.PT NEEDS HELP WITH MOTIVATION. HAS REQUESTED AND RECEIVED BOTH IV AND PO PAIN MEDS TONIGHT WITH VERBAL ADEQUATE EFFECT.
--- NOTE | 2021-01-13 12:19 | NUR ---
PT REFUSING LOVENOX INJECTIONS SHE STATES THEY "CAUSE TO MUCH BRUISING AND PAIN" ALSO REFUSING SCD'S DUE TO PAIN IN BLE R/T SWELLING. PT EDUCATED ON DVT PROPHYLAXIS, PT VERBALIZED UNDERSTANDING. DR REYNA NOTIFIED
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
--- NOTE | 2021-01-13 19:05 | NUR ---
SHIFT SUMMARY PT CONTINUED TO HAVE ABD/BLE PAIN T/O SHIFT, MEDICATED PER EMAR. PT DID WORK WITH PT/OT, STOOD AT SIDE OF BED AND SAT UP ON SIDE OF BED FOR LUNCH, TOLERATED WELL. RYANN HAMPTON'D, PT INCONTINENT OF URINE/STOOL, ATTENDS IN PLACE.INCREASED PO INTAKE T/O SHIFT. SCANT AMT SEROUS DRAINAGE OUT IN OSTOMY BAG FROM DRAIN SITE. PLAN TO DC TO SNF.
--- NOTE | 2021-01-14 04:35 | NUR ---
SHIFT SUMMARY PT IS A/O X4. Q2 TURN AND ATTENS CHECK/CHANGE OVERNIGHT. PT HAS EDEMA BLE AND IN ABD. LAP SITES X3 ON ABD WITH WOUND GLUE AND NO DRAINAGE. OSTOMY BAG IS IN PLACE AT PUNCTURE SITE; NO DRAINAGE OVERNIGHT. PT IS HAVING LARGE INCONTINENT VOIDS. PAIN MANAGED WITH OXYCODONE AND MORPHINE 2MG PER EMAR. NO ACUTE CHANGES THIS SHIFT. PT RESTING IN BED AT THIS TIME.
[2021-01-14 04:49] LABS: BASOPHILS ABSOLUTE AUTO 0.04 K/mm3 (0.00-0.23); BASOPHILS PERCENT AUTO 0 % (0-2); EOSINOPHILS PERCENT AUTO 2 % (0-6); Hemoglobin 9.7 g/dL (11.5-16.0); IMMATURE GRAN ABSOLUTE AUTO 0.39 K/mm3 (0.00-0.10); IMMATURE GRAN PERCENT AUTO 4 % (0-1); LYMPHOCYTES ABSOLUTE AUTO 1.58 K/mm3 (0.84-5.20); LYMPHOCYTES PERCENT AUTO 15 % (21-46); MONOCYTES ABSOLUTE AUTO 1.11 K/mm3 (0.16-1.47); MONOCYTES PERCENT AUTO 11 % (4-13); Mean Corpuscular HGB 26.6 pg (26.0-34.0); Mean Corpuscular HGB Conc 31.3 g/dL (31.5-36.5); Mean Corpuscular Volume 85 fL (80-100); NEUTROPHILS ABSOLUTE AUTO 7.02 K/mm3 (1.96-9.15); NEUTROPHILS PERCENT AUTO 68 % (41-73); Platelet Count 304 K/mm3 (150-400); RDW Coefficient Variation 14.6 % (11.7-14.2); RDW Standard Deviation 45.4 fL (35.1-46.3); Red Blood Cell Count 3.65 M/mm3 (3.80-5.20); White Blood Cell Count 10.34 K/mm3 (4.00-11.30)
[2021-01-14 05:13] LABS: Anion Gap 4 mmol/L (6-16); Blood Urea Nitrogen 8 mg/dL (8-24); Bun/Creatinine Ratio 15.9 (12.0-20.0); CO2, Blood 27 mmol/L (21-32); Calcium, Blood 7.5 mg/dL (8.5-10.1); Chloride, Blood 106 mmol/L (98-108); Glomerular Filtration Rate >60 (60-); Glucose, Blood 56 mg/dL (70-99); Potassium, Blood 3.9 mmol/L (3.5-5.5); Sodium, Blood 137 mmol/L (136-145)
--- NOTE | 2021-01-14 05:46 | NUR ---
GLUCOSE 56 WITH MORNING LABS. PT IS ALERT, ASYMPTOMATIC. GIVEN APPLE JUICE AND PUDDING.
--- NOTE | 2021-01-14 17:17 | NUR ---
SHIFT SUMMARY PT VITAL SIGNS STABLE THROUGHOUT THE SHIFT, COVERAGE NOT INDICATED FOR INSULIN. VOIDING AND STOOLING WELL. PT REPORTS PAIN 6-7/10 PAIN AND BEING TREATED PER EMAR FOR PAIN. WORKED WITH PHYSICAL THERAPY TODAY, PLAN FOR SNF WHEN A BED BECOMES AVAILABLE. ANTIBIOTICS DISCONTINUED PER ORDER. WILL REPORT TO ONCOMING RN.
--- NOTE | 2021-01-15 04:37 | NUR ---
SHIFT SUMMARY A/OX4. VSS ON RA. SR ON TELE. DENIES CP. C/O ABDOMINAL PAIN, MANAGED WELL W/ IV MORPHINE. BLOOD SUGAR AT 101, PT REFUSED SEMGLEE W/ 2100 MEDS. INCONTINENT OF URINE. REPOSTIONED Q2HR. SLEEPING B/W CARE.
[2021-01-15 04:58] LABS: Anion Gap 2 mmol/L (6-16); Blood Urea Nitrogen 9 mg/dL (8-24); Bun/Creatinine Ratio 14.8 (12.0-20.0); CO2, Blood 31 mmol/L (21-32); Chloride, Blood 103 mmol/L (98-108); Creatinine, Blood 0.61 mg/dL (0.40-1.00); Glomerular Filtration Rate >60 (60-); Glucose, Blood 232 mg/dL (70-99); Potassium, Blood 4.4 mmol/L (3.5-5.5); Sodium, Blood 136 mmol/L (136-145)
--- NOTE | 2021-01-15 17:54 | NUR ---
RECTAL PROLAPSE: AT ABOUT 1010 THIS RN RECEIVED A CALL FROM FRENCH SUAREZ, UPON ENTERING ROOM PT IS STANDING IN FRONT OF THE TOILET. PT HAD HAD BLOODY BM WITH LARGE FORMED STOOL AND WHAT APPEARED TO BE RECTAL PROLAPSE. PT HELPED TO BED AND VS TAKEN WHICH WERE WNL, PT DENIED DIZZINESS. PT DENIES HX OF PROLAPSE. PT REPORTS SMALL AMT PAIN AT RECTUM. DR. CADENA NOTIFIED OF THIS AT 1018. SEE NEW ORDERS.
--- NOTE | 2021-01-15 18:04 | NUR ---
SUMMARY: PT IS POD8 FOR LAPAROSCOPY WITH PERF BOWEL REPAIR. SEE PREVIOUS NOTE, OTHERWISE NO ACUTE CHANGE TODAY. VSS, A/0. TELE WNL. OLD PARACENTESIS SITE COVERED WITH GAUZE, CDI. MIDLINE LAP SITE DRAINING SMALL AMT OF SEROUS FLUID DUE TO ASCITES, COVERED WITH GAUZE. DR. CADENA MADE AWARE. OTHERWISE SURGICAL SITES WNL, CDI. PT TO HAVE PARACENTESIS TOMORROW MORNING. PT HAS REFUSED SCD'S AND LOVENOX TODAY, DR. MONTILLA IS AWARE. PT REPORTS THAT LEGS ARE TOO PAINFUL TO HAVE SCD'S AND THAT LOVENOX CAUSES "TOO MUCH BRUISING". PT ABD PAINFUL, MEDICATED PER EMAR. PT WORKED WITH THERAPY TODAY, WEAKNESS WITH MOBILITY, UP WITH SBA AND FWW. NO ACUTE SAFETY CONCERNS AT THIS TIME, WILL CTM AND REPORT TO NOC RN
--- NOTE | 2021-01-16 05:08 | NUR ---
SHIFT SUMMARY LYING IN SEMI FOWLERS WITH EYES CLOSED. HAS RESTED OFF AND ON THIS SHIFT. ANASARKA HAS IMPROVED FROM LAST TIME NURSING CARED FOR PT. RIGHT UPPER ARM SL POWERGLIDE REMAINS PATENT, PT STATES THAT IT IS UNCOMFORTABLE AT TIMES. STATES NO ONE HAS BEEN ABLE TO DRAW FROM IT FOR A FEW DAYS. HAS PATENT SL PIV TO LEFT AC. INCONTINENT OF BOWEL AND BLADDER, WEARS ATTENDS. COMPLETED LINEN AND GOWN CHANGE COMPLETED X2 THIS SHIFT. UNABLE TO GET US GUIDED PARACENTISIS YESTERDAY., IS SCHEDULED FOR TODAY. DENIES FURTHER NEEDS OR WANTS AT THIS TIME. SAFETY MEASURES IN PLACE. WILL CONTINUE TO MONITOR AND ADDRESS CHANGES AND NEEDS THEY OCCUR. WILL GIVE HAND OFF TO ONCOMING SHIFT USING SBAR DURING BEDSIDE REPORT.
--- NOTE | 2021-01-16 10:05 | NUR ---
PT TO IMAGING FOR PARACENTESIS AT 0955
--- NOTE | 2021-01-16 13:04 | NUR ---
PT BACK FROM PARACENTESIS AT ABOUT 1130
--- NOTE | 2021-01-16 16:10 | NUR ---
MIDLINE LAP SITE DRAINING LARGE AMT OF CLEAR FLUID FOLLOWING PARACENTESIS. DR. CADENA AWARE AND TO SUTURE LAP SITE TONIGHT AFTER CLINIC. SITE STABLE CURRENTLY, EXUDRY DRESSING PLACED AND SECURED WITH TAPE. WILL CTM
--- NOTE | 2021-01-16 16:13 | NUR ---
SUMMARY: NO ACUTE CHANGE TODAY. VSS, A/O. PT REPORTS DECREASED PAIN FOLLOWING PARACENTESIS, 2.3 L DRAINED. OXYCODONE 5MG Q4 SEEMS TO BE MANAGING PAIN WELL. THIS RN DISCUSSED THE NEED TO TAPER OFF MORPHINE USE. NO RECTAL PROLAPSE NOTED TODAY, PT REPORTS BM'S ARE SOFT. PT ABLE TO MOVE ABOUT ROOM WELL WITH SBA AND FWW. THERAPY ATTEMPTED TO SEE PT, BUT PT WAS DRAINING LARGE AMT FLUID FROM LAP SITE. THERAPY PLANS TO SEE PT TOMORROW. AWAITING PLACEMENT AT SNF, NO ACUTE CONCERNS.
--- NOTE | 2021-01-17 04:34 | NUR ---
SHIFT SUMMARY LYING IN SEMI FOWLERS WITH EYES OPEN, HAS NOT RESTED WELL THIS SHIFT. RIGHT UPPER ARM SL POWERGLIDE REMAINS PATENT, PT STATES THAT IT IS STILL UNCOMFORTABLE AT TIMES. HAS PATENT SL PIV TO LEFT AC. HAS GOTTEN OOB AND AMBULATED TO COMMODE TO URINATE WITH FWW/GB AMD SBA. DENIES FURTHER NEEDS OR WANTS AT THIS TIME. SAFETY MEASURES IN PLACE. WILL CONTINUE TO MONITOR AND ADDRESS CHANGES AND NEEDS THEY OCCUR. WILL GIVE HAND OFF TO ONCOMING SHIFT USING SBAR DURING BEDSIDE REPORT.
[2021-01-17 05:24] LABS: Alanine Aminotransfer (ALT/SGP 12 U/L (12-78); Albumin, Blood 1.4 g/dL (3.4-5.0); Albumin/Globulin Ratio 0.4 (0.8-1.8); Alk Phos 168 U/L (50-136); Anion Gap 3 mmol/L (6-16); Aspartate Aminotrans (AST/SGOT 23 U/L (12-37); Bilirubin, Total 0.2 mg/dL (0.1-1.0); Blood Urea Nitrogen 10 mg/dL (8-24); Bun/Creatinine Ratio 17.3 (12.0-20.0); CO2, Blood 30 mmol/L (21-32); Calcium, Blood 7.4 mg/dL (8.5-10.1); Chloride, Blood 102 mmol/L (98-108); Creatinine, Blood 0.58 mg/dL (0.40-1.00); Globulin, Blood 3.4 g/dL (2.2-4.0); Glomerular Filtration Rate >60 (60-); Glucose, Blood 236 mg/dL (70-99); Sodium, Blood 135 mmol/L (136-145); Total Protein, Blood 4.8 g/dL (6.4-8.2)
--- NOTE | 2021-01-17 11:39 | NUR ---
DR MCDONOUGH AND DR REYNA IN TO SEE PT.
--- NOTE | 2021-01-17 14:16 | NUR ---
PHIL ADAMS, ASSUMING CARE OF PT. REPORT GIVEN.
--- NOTE | 2021-01-17 17:21 | NUR ---
PT SITTING UP ON EDGE OF THE BED REPORTED NAUSEA REQ BRANDANSTEVEN STATED WITH HER LOW BS THAT SHE GETS NAUSEA WILL ALSO HOLD HER 10 UNITS OF INSULIN WITH MEAL PO PAIN MEDS ALSO GIVEN PER PT REQ
--- NOTE | 2021-01-17 18:05 | NUR ---
ASKED PT AGAIN IF SHE WOULD LIKE TO BE CHECKED FOR HER SUGAR STILL WORKING ON EATING HER MEAL WILL CONT TO HOLD THE INSULIN
--- NOTE | 2021-01-18 05:23 | NUR ---
SHIFT SUMMARY PT IS A/O X4, SBA UP TO BSC WITH FWW. PAIN MANAGED WITH OXY X1 Q4 OVERNIGHT. TOLERATING PO INTAKE, VOIDING, AND HAVING BM'S. CBG HAS BEEN ELEVATED OVERNIGHT. PT DID REFUSE HUMALOG BUT TOOK SEMGLEE WITH NOC MEDS. NO ACUTE CHANGES THIS SHIFT. PT RESTING, CALL LIGHT IN REACH.
--- NOTE | 2021-01-18 18:09 | NUR ---
SHIFT SUMMARY PATIENT ALERT AND ORIENTED THROUGHOUT SHIFT. TOLERATING ADA DIET AND FLUIDS. BG COVERED WITH SS INSULIN. PAIN CONTROLLED WITH PO PAIN MEDS. MODERATE ABD PAIN, LAP SITES X3 PLUS PUNCTURE WOUND SITE FROM PARACENTESIS. AMBULATING WELL WITH PHYSICAL THERAPY. PLANNING TO DISCHARGE TO SNF WHEN BED AVAILABLE.
--- NOTE | 2021-01-19 06:16 | NUR ---
A/OX4. VSS ON RA. DENIES SOB, CP, N/V. ABDOMINAL PAIN MANAGED WELL W/ ROXICODONE. PT APPEARS RESTING B/W CARE, DECLINED MELATONIN. UP TO BSC W/ FWW. USING CALL LIGHT TO MAKE NEEDS KNOWN.
--- NOTE | 2021-01-19 09:49 | NUR ---
PHYSICIAN IN TO SEE PATIENT. PATIENT BLOOD SUGAR HIGH THIS AM. PT ADMITS TO HAVE BEEN SNACKING T/O THE NIGHT. WITH MEAL INSULIN DOSE CHANGED. 5 UNITS GIVEN TO EQUAL TOTAL OF 10 UNITS THIS AM. PT REMINDED TO HAVE SUGAR FREE SNACKS.
--- NOTE | 2021-01-19 15:51 | NUR ---
PT HAS BEEN RUNNING LOW GRADE FEVERS THIS SHIFT, LAST 100.3. PT GIVEN SPIROMETRY AND ENCOURAGED TO USE.
--- NOTE | 2021-01-19 18:34 | NUR ---
PT HAS BEEN STABLE THIS SHIFT. PT HAS BEEN OUT OF BED WITH MIN ASSIST. VOIDING WELL ON COMMODE. HAD LARGE BM TODAY. PT HAS SWELLING TO BLE AND BUE. ASCITES NOTED ON ABDOMEN. PT REPORTS HIGH LEVELS OF PAIN. PAIN MEDS EFFECTIVE. PT HAS LAP SITES X3 WITH NO ACTIVE DRAINAGE. PT HAS HAD HIGH BLOOD SUGARS, MODIFIED DIET AND CHANGED INSULIN THIS SHIFT WEITH IMPROVEMENT. PT AWAITING SNF PLACEMENT.
--- NOTE | 2021-01-20 04:58 | NUR ---
PATIENT A/OX4. VSS ON RA. LOW GRADE FEVER AT 99.6 EARLY AM, INCENTIVE SPIROMETER ENCOURAGED. TEARFUL THIS EVENING WHEN DECLINED EXTRA SNACKS W/ SUGAR. PT ALSO UPSET OVER NOT HAVING BUSBAR AND PROTONIX NOT SCHEDULED. AS400 ANALYST ORDERED 1X DOSE OF ATIVAN AND IV PROTONIX FOR UPSET STOMACH. MEDS EFFECTIVE. OXYCODONE GIVEN FOR ABDOMINAL AND LEG PAIN. REPOSTIONED Q2HR. UP TO BSC W/ FWW, DECLINED GAIT BELT. USING CALL LIGHT TO MAKE NEEDS KNOWN.
--- NOTE | 2021-01-20 08:03 | NUR ---
LOW BLOOD GLUCOSE BLOOD GLUCOSE OF 65. PT ASYMPTOMATIC. SHE WAS TREATED PER PROTOCOL. DR. REYNA NOTIFIED AND BASE DOSE OF 10 UNITS HUMALOG HELD FOR BREAKFAST, PLAN FOR REASSESSMENT AT LUNCH TIME PER DR. REYNA.
--- NOTE | 2021-01-20 15:53 | NUR ---
LOW BLOOD GLUCOSE DR. REYNA CONTACTED REGARDING LOW BLOOD GLUCOSE. PT REPORTED FEELING SHAKEY AND HOT BUT IS ALERT AND ORIENTED. BLOOD GLUCOSE WAS CHECKED AT FOUND TO BE 42. PT WAS TREATED WITH 8OZ APPLE JUICE PER PROTOCOL. PLAN TO HOLD SLINDING SCAL AT DINNER AND TO HOLD HUMALOG TID WITH MEALS IF BLOOD GLUCOSE IS <[address] REYNA. HUMALOG TID WITH MEALS DECREASED FROM [address] REYNA. WILL CONTINUE TO MONITOR.
--- NOTE | 2021-01-20 17:24 | NUR ---
SHIFT SUMMARY PT HAS BEEN A SBA WHEN OOB TODAY. PT CONTINUES TO RATE PAIN AT 7-9/10, ALTHOUGH SHE IS ABLE TO SLEEP AND APPEARS COMFORTABLE BETWEEN DOSES OF PAIN MEDICATION. PT HAS HAD LOW BLOOD GLUCOSE X2 (SEE NOTE). VSS. WILL MONITOR UNTIL REPORT TO NOC RN.
--- NOTE | 2021-01-20 17:44 | NUR ---
ASSUMED CARE OF PT FROM PEBBLES Riggs RN. PT REPORTED "DON'T FEEL GOOD" STATING FEELS LIKE "I'M GOING IN AND OUT" AND PAIN "EVERYWHERE". CHECKED CBG, REC'D READING OF 97. ENCOURAGED PT TO DRINK MILK AND EAT DINNER. PROVIDED K PAD FOR COMFORT. CALL LIGHT IN REACH.
--- NOTE | 2021-01-21 00:04 | NUR ---
INITIAL HS CBG 94,HELD HS DAVON AND PT HAD SNACK INCLUDING MILK AND CHUCK CRACKERS.NOW CBG 149.NOTIFIED DR SALDIVAR.
--- NOTE | 2021-01-21 06:39 | NUR ---
SUMMARY PT HS RECENTLY HAD LOW GRADE TEMPS. TONIGHT PT REACHED 101.0 HOWEVER, HAD HEATING PAD ON,HEAT TURNED UP IN ROOM AND EXTRA BLANKETS ON. WHEN ALL OF THESE THINGS CORRECTED, PT TEMP 100.2. ENC PULMONARY TOILET AND REPOSITIONING.
[2021-01-21 08:46] LABS: BASOPHILS ABSOLUTE AUTO 0.01 K/mm3 (0.00-0.23); BASOPHILS PERCENT AUTO 0 % (0-2); EOSINOPHILS ABSOLUTE AUTO 0.01 K/mm3 (0.00-0.68); EOSINOPHILS PERCENT AUTO 0 % (0-6); Hematocrit 24.7 % (33.0-51.0); Hemoglobin 7.9 g/dL (11.5-16.0); IMMATURE GRAN PERCENT AUTO 0 % (0-1); LYMPHOCYTES ABSOLUTE AUTO 0.72 K/mm3 (0.84-5.20); LYMPHOCYTES PERCENT AUTO 32 % (21-46); MONOCYTES ABSOLUTE AUTO 0.34 K/mm3 (0.16-1.47); MONOCYTES PERCENT AUTO 15 % (4-13); Mean Corpuscular HGB 26.7 pg (26.0-34.0); Mean Corpuscular Volume 83 fL (80-100); Mean Platelet Volume 10.1 fL (9.1-12.4); NEUTROPHILS ABSOLUTE AUTO 1.18 K/mm3 (1.96-9.15); NEUTROPHILS PERCENT AUTO 52 % (41-73); Platelet Count 98 K/mm3 (150-400); RDW Coefficient Variation 15.1 % (11.7-14.2); RDW Standard Deviation 45.2 fL (35.1-46.3); Red Blood Cell Count 2.96 M/mm3 (3.80-5.20); White Blood Cell Count 2.26 K/mm3 (4.00-11.30)
[2021-01-21 09:00] LABS: Anion Gap 2 mmol/L (6-16); Blood Urea Nitrogen 13 mg/dL (8-24); Bun/Creatinine Ratio 23.7 (12.0-20.0); CO2, Blood 31 mmol/L (21-32); Calcium, Blood 7.1 mg/dL (8.5-10.1); Chloride, Blood 100 mmol/L (98-108); Creatinine, Blood 0.55 mg/dL (0.40-1.00); Glomerular Filtration Rate >60 (60-); Glucose, Blood 184 mg/dL (70-99); Sodium, Blood 133 mmol/L (136-145)
[2021-01-21 11:48] LABS: Source, Urine Clean Catch
[2021-01-21 11:52] LABS: Bilirubin, Urine Neg (Neg); Blood, Urine Neg (Neg); Glucose Qualitative, Urine Neg (Neg); Ketones, Urine Neg (Neg); Leukocyte Esterase, Urine Neg (Neg); Nitrite, Urine Neg (Neg); Protein, Urine Neg (Neg); Urobilinogen, Urine NORM (Normal)
[2021-01-21 11:55] LABS: Appearance, Urine Clear (Clear); Color, Urine Yellow (P-Yellow)
--- NOTE | 2021-01-21 15:49 | NUR ---
US IN TO SEE PT.
--- NOTE | 2021-01-21 17:33 | NUR ---
SHIFT SUMMARY: POD14 LAP PERF VISCUS REPAIR. A&OX4. PT EXPERIENCING LOW-GRADE FEVER BEGINNING OF SHIFT, GIVEN PRN ACETAMIPHEN PER EMAR. AFEBRILE REMAINDER OF SHIFT. REPORTED MIGRAINE, GIVEN IMITREX PRN PER EMAR. PAIN MEDS PRN PER EMAR. CBG'S STABLE T/O SHIFT. TOLLERATING ADA DIET. SBA W/FWW WHEN AMBULATING TO BATHROOM. PT HAD 4 BM. CONGESTIVE COUGH NOTED TOWARDS END OF SHIFT. PT RESTING IN HOSPITAL BED. CALL LIGHT IN REACH.
[2021-01-22 05:10] LABS: BASOPHILS ABSOLUTE AUTO 0.01 K/mm3 (0.00-0.23); BASOPHILS PERCENT AUTO 1 % (0-2); EOSINOPHILS ABSOLUTE AUTO 0.01 K/mm3 (0.00-0.68); EOSINOPHILS PERCENT AUTO 1 % (0-6); Hematocrit 23.7 % (33.0-51.0); Hemoglobin 7.5 g/dL (11.5-16.0); IMMATURE GRAN ABSOLUTE AUTO 0.01 K/mm3 (0.00-0.10); IMMATURE GRAN PERCENT AUTO 1 % (0-1); LYMPHOCYTES ABSOLUTE AUTO 0.52 K/mm3 (0.84-5.20); LYMPHOCYTES PERCENT AUTO 35 % (21-46); MONOCYTES ABSOLUTE AUTO 0.22 K/mm3 (0.16-1.47); MONOCYTES PERCENT AUTO 15 % (4-13); Mean Corpuscular HGB 26.8 pg (26.0-34.0); Mean Corpuscular HGB Conc 31.6 g/dL (31.5-36.5); Mean Corpuscular Volume 85 fL (80-100); Mean Platelet Volume 9.2 fL (9.1-12.4); NEUTROPHILS PERCENT AUTO 48 % (41-73); Platelet Count 82 K/mm3 (150-400); RDW Coefficient Variation 14.8 % (11.7-14.2); RDW Standard Deviation 45.7 fL (35.1-46.3); White Blood Cell Count 1.47 K/mm3 (4.00-11.30)
[2021-01-22 05:32] LABS: Albumin, Blood 1.5 g/dL (3.4-5.0); Anion Gap 2 mmol/L (6-16); Blood Urea Nitrogen 15 mg/dL (8-24); Bun/Creatinine Ratio 27.3 (12.0-20.0); CO2, Blood 30 mmol/L (21-32); Chloride, Blood 103 mmol/L (98-108); Creatinine, Blood 0.55 mg/dL (0.40-1.00); Glomerular Filtration Rate >60 (60-); Glucose, Blood 217 mg/dL (70-99); Phosphorus, Blood 3.6 mg/dL (2.5-4.9); Potassium, Blood 4.1 mmol/L (3.5-5.5); Sodium, Blood 135 mmol/L (136-145)
--- NOTE | 2021-01-22 06:46 | NUR ---
PT REMANED AFEBRILE T/O NIGHT; OTHER VSS. INCISIONS CDI. NO CHANGES TO EDEMA, BLE ELEVATED IN BED. NOC INSULIN HELD PER PT REQ R/T CBG 109, BLOOD SUGAR ELEVATED THIS AM, ALTHOUGH PT DID HAVE SEVERAL SNACKS DURING NIGHT, REP FEAR BS WOULD BE LOW IN THE AM IS NO SNACKS. PT HAVING LOOSE BM, RECTAL PROLAPSE NOTED THIS AM. PAIN MGD PER EMAR. PT UP W/FWW+SBA, IS WEAK, BUT REP STRENGTH/TOLERANCE IMPROVING.
[2021-01-22 07:56] LABS: Hematocrit 23.4 % (33.0-51.0); Hemoglobin 7.5 g/dL (11.5-16.0); Mean Corpuscular HGB 26.9 pg (26.0-34.0); Mean Corpuscular HGB Conc 32.1 g/dL (31.5-36.5); Mean Corpuscular Volume 84 fL (80-100); Mean Platelet Volume 10.3 fL (9.1-12.4); Platelet Count 82 K/mm3 (150-400); RDW Coefficient Variation 14.9 % (11.7-14.2); RDW Standard Deviation 45.1 fL (35.1-46.3); Red Blood Cell Count 2.79 M/mm3 (3.80-5.20); White Blood Cell Count 1.54 K/mm3 (4.00-11.30)
[2021-01-22 08:47] LABS: BAND PERCENT MAN 3 % (0-8); BASOPHILS PERCENT MAN 0 % (0-2); EOSINOPHILS ABSOLUTE MAN 0.01 K/mm3 (0.00-0.68); EOSINOPHILS PERCENT MAN 1 % (0-6); LYMPHOCYTES ABSOLUTE MAN 0.56 K/mm3 (0.84-5.20); LYMPHOCYTES PERCENT MAN 37 % (21-46); MONOCYTES PERCENT MAN 7 % (4-13); NEUTROPHILS ABSOLUTE MAN 0.84 K/mm3 (1.96-9.15); SEG NEUTROPHILS PERCENT MAN 52 % (41-73); TOTAL CELLS COUNTED 100
[2021-01-22 10:10] LABS: Albumin, Blood 1.5 g/dL (3.4-5.0)
--- NOTE | 2021-01-22 14:06 | NUR ---
pt transported via gurney to ct for paracentesis
--- NOTE | 2021-01-22 14:44 | NUR ---
PT RETURNED TO ROOM FROM PROCEDURE AT APPROX 1435.
[2021-01-22 15:15] LABS: Automated BF WBC Count 0.183 K/mm3 (0-999); Body Fluid WBC Count 183 /mm3 (0-999)
[2021-01-22 15:28] LABS: Glucose, Body Fluid 259 mg/dL; Lactate Dehydrogenase, Body Fl 64 U/L
[2021-01-22 15:34] LABS: pH, Body Fluid 7.9
[2021-01-22 15:42] LABS: Protein, Body Fluid 1.4 g/dL
[2021-01-22 15:43] LABS: RBC Count, Body Fluid 827 /mm3 (0-0)
[2021-01-22 15:44] LABS: Albumin, Body Fluid 0.5 g/dL
[2021-01-22 15:46] LABS: Triglycerides, Body Fluid 61 mg/dL
[2021-01-22 15:49] LABS: Total Cell Count, Body Fluid 100
[2021-01-22 15:50] LABS: Appearance, Body Fluid Hazy (Clear); Color, Body Fluid L Yellow (None-Yellow)
--- NOTE | 2021-01-22 18:14 | NUR ---
SHIFT SUMMARY PT REPORTS THAT EDEMA IS IMPROVING. PER DR ORDER SHORT ACTING INSULIN HAS BEEN TITRATED TO ONLY BE GIVEN PER SLIDING SCALE, LONG ACTING STILL THE SAME AT THIS TIME. PT REPORTS NO NAUSEA/VOMITING. SEVERAL LOOSE BOWEL MOVEMENTS, VOIDING WELL. B/P HAS BEEN ON THE LOWER SIDE TODAY, AND ALDACTONE WAS HELD THIS AM DUE TO LOW B/P, BUT WAS GIVEN THIS AFTERNOON. PT BEING TREATED FOR PAIN PER EMAR, AND ALSO BEING TREATED FOR MIGRAINE PER EMAR. PT WENT FOR PARACENTESIS TODAY FOR DIAGNOSTICS, SITE COVERED WITH BANDAGE WITH SCANT AMOUNT OF RED DRAINAGE. PTS MOBILITY IS IMPROVING AND SHE WAS ABLE TO GET THE THE BATHROOM SEVERAL TIMES TODAY. WILL REPORT TO ONCOMING RN.
[2021-01-23 04:58] LABS: BASOPHILS ABSOLUTE AUTO 0.01 K/mm3 (0.00-0.23); BASOPHILS PERCENT AUTO 1 % (0-2); EOSINOPHILS ABSOLUTE AUTO 0.03 K/mm3 (0.00-0.68); EOSINOPHILS PERCENT AUTO 2 % (0-6); Hematocrit 24.7 % (33.0-51.0); IMMATURE GRAN ABSOLUTE AUTO 0.01 K/mm3 (0.00-0.10); IMMATURE GRAN PERCENT AUTO 1 % (0-1); LYMPHOCYTES ABSOLUTE AUTO 0.68 K/mm3 (0.84-5.20); LYMPHOCYTES PERCENT AUTO 45 % (21-46); MONOCYTES ABSOLUTE AUTO 0.14 K/mm3 (0.16-1.47); MONOCYTES PERCENT AUTO 9 % (4-13); Mean Corpuscular HGB 26.9 pg (26.0-34.0); Mean Corpuscular HGB Conc 32.4 g/dL (31.5-36.5); Mean Corpuscular Volume 83 fL (80-100); Mean Platelet Volume 10.3 fL (9.1-12.4); NEUTROPHILS ABSOLUTE AUTO 0.63 K/mm3 (1.96-9.15); NEUTROPHILS PERCENT AUTO 42 % (41-73); Platelet Count 78 K/mm3 (150-400); RDW Coefficient Variation 14.7 % (11.7-14.2); RDW Standard Deviation 44.9 fL (35.1-46.3); Red Blood Cell Count 2.97 M/mm3 (3.80-5.20)
[2021-01-23 05:11] LABS: Anion Gap 3 mmol/L (6-16); Blood Urea Nitrogen 12 mg/dL (8-24); Bun/Creatinine Ratio 23.7 (12.0-20.0); CO2, Blood 29 mmol/L (21-32); Calcium, Blood 7.2 mg/dL (8.5-10.1); Chloride, Blood 106 mmol/L (98-108); Creatinine, Blood 0.51 mg/dL (0.40-1.00); Glomerular Filtration Rate >60 (60-); Glucose, Blood 82 mg/dL (70-99); Potassium, Blood 3.7 mmol/L (3.5-5.5); Sodium, Blood 138 mmol/L (136-145)
--- NOTE | 2021-01-23 07:53 | NUR ---
SHIFT SUMMARY: TONJA IS A&OX4. VSS, NO ACUTE EVENTS OVERNIGHT. SHE IS TOLERATING PO INTAKE WELL AND CONTINUES TO REQUEST SNACKS FREQUENTLY. APPROPRIATE BLOOD SUGAR RANGE AND CONTROL EDUCATION PROVIDED WELL THE IMPORTANCE OF BLOOD SUGAR CONTROL IN THE SETTING OF INFECTION; PT VERBALIZED UNDERSTANDING. SHE IS A STANDBY ASSIST TO THE BATHROOM. SHE HAS COMPLAINED OF A HEADACHE FOR WHICH IMITREX HAS NOT BEEN EFFECTIVE. SHE REPORTS MINIMAL PAIN CONTROL WITH ONE TABLET OF OXYCODONE. SHE IS ABLE TO MAKE HER NEEDS KNOWN. SHE IS LYING IN BED WITH THE CALL LIGHT IN REACH, REPORT GIVEN TO DAY SHIFT RN.
--- NOTE | 2021-01-23 08:42 | NUR ---
SPOKE WITH PROVIDER REGARDING BP AND CBG. PER PROVIDER, HOLD ZAROXOLYN THIS AM, GIVE ALDACTONE AND LASIX. ALSO ORDER OBTAINED FOR IV FLUIDS. PER PROVIDER, CHECK CBG AT 1000 AND GIVE SEMGLEE IF CBG IS OVER 110.
--- NOTE | 2021-01-23 10:29 | NUR ---
PT HYPOTENSIVE, STATES SHE FEELS LIGHTHEADED. SEE VS. DIURETICS HELD AT THIS TIME. IVF STARTED. DISCUSSED WITH BREEDER HEN SERVICE TECHNICIAN.
--- NOTE | 2021-01-23 10:55 | NUR ---
DR. ARNAV REYNA NOTIFIED OF BP'S IN 80'S. PROVIDER ORDERED FOR ALDACTONE AND LASIX TO BE GIVEN DESPITE CURRENT BP.
--- NOTE | 2021-01-23 14:30 | NUR ---
PT HAS BEEN A/O X4. SBA WITH FWW UP TO BATHROOM. PT HAS BEEN VOIDING AND HAD LARGE BM THIS AFTERNOON. TOLERATING PO INTAKE W/O NAUSEA. PT DOES C/O HEADACHE AND IS RECEIVING IMITREX PRN PER ORDER. IV FLUIDS INFUSING X1L PER ORDER. BP HAS BEEN IN 80'S-90'S MOST OF THE DAY; PROVIDER AWARE. PT IS RESTING IN BED AT THIS TIME, CALL LIGHT IN REACH. REPORT GIVEN TO BRYAN BARROS.
--- NOTE | 2021-01-23 14:35 | NUR ---
ASSUMED CARE OF PATIENT. PT EATING CRACKERS, [facility] CONTINUES TO HAVE A MIGRAINE- AWAITING ARRIVAL OF IMITREX FROM PHARMACY
--- NOTE | 2021-01-23 17:21 | NUR ---
SUMMARY PT REPORTS MIGRAINE HEADACHE HAS LESSENED AFTER IMITREX GIVEN. PT AMBULATES TO RESTROOM INDEPENDENTLY. PT REPORTS FEELING HUNGRY ALL DAY AND IS FREQUENTLY REQUESTING SNACKS. PT TELLS ME SHE DOES NOT FOLLOW ANY DIETARY RESTRICTIONS AT HOME
--- NOTE | 2021-01-24 04:12 | NUR ---
SHIFT SUMMARY: PT S/P LAP REPAIR WITH COLOTOMY SECOND TO A BOWEL PERFORATION. LAP SITES C/D/I WITH BANDAIDS IN PLACE. PAIN BEING MANAGED WITH 2 CHLOÉ PER EMAR. PT CONTINUES TO C/O OF HEADACHE AND MEDICATED WITH IMITREX. PT SBA TO BATHROOM W/FWW. PT HAD A SMALL BM THIS SHIFT. REPORTS PASSING FLATUS. DENIES N/V AND TOLERATING PO. PT REMAINS HYPOTENSIVE. PROVIDER AWARE. PT GIVEN SCHEDULED DIURETICS PER ORDERS PT HAS PITTING EDEMA T/O. AWAITING SNF PLACEMENT.
--- NOTE | 2021-01-24 08:17 | NUR ---
AFTER PATIENT'S BLOOD SUGAR CAME BACK 30. THE SURVEILLANCE OPERATOR AND THIS NURSE CAME AND GAVE HER ORANGE JUICE WITH CRACKERS. SHE DENIED SYMPTOMS OF HYPOGLYCEMIA. SHE IS ALERT AND ORIENTED X4. PATIENT IS CURRENTLY EATING BREAKFAST AT BEDSIDE. WILL CHECK BLOOD SUGAR AGAIN AFTER BREAKFAST. CALL LIGHT WITHIN REACH.
--- NOTE | 2021-01-24 09:49 | NUR ---
CHECKED PATIENTS GLUCOSE AFTER BREAKFAST AND WAS IN THE 80'S. PATIENT REPORTS FEELING GOOD AND IS CONTINUING TO EAT SNACKS. WILL CONTINUE TO MONITOR BLOOD GLUCOSE. CALL LIGHT WITHIN REACH.
--- NOTE | 2021-01-24 14:51 | NUR ---
SHIFT SUMMARY: PARACENTESIS POD 8 PATIENT IS ALERT AND ORIENTED X4. VS ARE WNL AND IS ON RA. PAIN IS MANAGED WITH 2 TABS OF OXY'S AND HAS RECIEVED METAMUCIL FOR INTERMITTENT MIGRAINES. HER ABD HAS OLD SCARS FROM FIRST SURGERY ON THE . THEY ARE D/C/I. SHE DENIES NUMBNESS AND TINGLING IN ALL EXTREMITIES. SHE IS TOLERATING PO INTAKE AND IS VOIDING. SHE HAS BEEN WORKING WITH PT/OT TODAY AND HAS EVEN WALKED THE HALLS. PATIENT IS CURRENTLY LAYING IN BED RESTING. CALL LIGHT WITHIN REACH. THE PLAN IS TO CONTINUE TO WORK WITH PT/OT AND BE DISCHARGED TO A SNF WHEN AVAILABLE.
--- NOTE | 2021-01-25 05:08 | NUR ---
SHIFT SUMMARY POD9 PARACENTESIS. PT AOX4. AMBULATING WITH SBA, INDEPENDENTLY MOVING AROUND WITH WALKER. PT REPORTS ABD AND LEG PAIN. PAIN MANAGED WITH 2 OXY. PT REPORTS MIGRAINE, ADMINSTERED IMITREX X1. PT REPORTS CHRONIC N/T ON BLE. BLE REMAIN SWOLLEN AND RED. TOLERATING PO. DENIES N/V. VOIDING WITHOUT COMPLAINS. PT HAD A MED BOWEL MOV'T. PT SLEPT GOOD T/O THE NIGHT. CALL LIGHT WITHIN REACH. WILL PROVIDE REPORT TO ONCOMING NURSE.
--- NOTE | 2021-01-25 15:33 | NUR ---
SUMMARY: NO ACUTE CHANGE TODAY. VSS, A/O. PT INDEP IN ROOM WITH FWW. SURGICAL SITES WNL. PT HAVING BM'S AND PASSING GAS, VOIDING AND TOLERATING DIET. PT REPORTS FATIGUE AND PAIN IN LEGS AFTER AMBULATING IN THE HALLS, MEDICATION GIVEN. LEGS ARE SWOLLEN AND RED WITH BASELINE N/T. PT IS DECONDITIONED. AWAITING SNF PLACEMENT, NO SAFETY CONCERNS AT THIS TIME.
--- NOTE | 2021-01-26 05:56 | NUR ---
SHIFT SUMMARY POD19 BOWEL PERF REPAIR, A/O X4, VSS, CRITICAL LOW GLUCOSE AT HS CBG CHECK, TREATED W/ APPLE JUICE AND 1 VIAL D50 PER ORDER, 1 HR RECHECK AT 187, PER DR NOTES PT GOAL GLUCOSE IS 120-180, RECHECK THIS AM @ 88, PT APPEARS STABLE AT TIME OF RECHECK OTHER THAN BEING GROGGY WHICH WAS SIMILAR TO HOW SHE PRESENTED AT TIME OF CRITICAL LOW. AMBULATING, VOIDING, BM'S, PAIN WELL MANAGED (SEE EMAR). NO OTHER ACUTE EVENTS THIS SHIFT, WILL CTM AND REPORT TO DAY RN.
[2021-01-26 08:45] LABS: BASOPHILS PERCENT AUTO 0 % (0-2); EOSINOPHILS PERCENT AUTO 0 % (0-6); Hematocrit 26.3 % (33.0-51.0); Hemoglobin 8.4 g/dL (11.5-16.0); IMMATURE GRAN ABSOLUTE AUTO 0.01 K/mm3 (0.00-0.10); IMMATURE GRAN PERCENT AUTO 0 % (0-1); LYMPHOCYTES ABSOLUTE AUTO 0.66 K/mm3 (0.84-5.20); LYMPHOCYTES PERCENT AUTO 24 % (21-46); MONOCYTES ABSOLUTE AUTO 0.16 K/mm3 (0.16-1.47); MONOCYTES PERCENT AUTO 6 % (4-13); Mean Corpuscular HGB 26.3 pg (26.0-34.0); Mean Corpuscular HGB Conc 31.9 g/dL (31.5-36.5); Mean Corpuscular Volume 82 fL (80-100); Mean Platelet Volume 11.3 fL (9.1-12.4); NEUTROPHILS ABSOLUTE AUTO 1.98 K/mm3 (1.96-9.15); NEUTROPHILS PERCENT AUTO 70 % (41-73); Platelet Count 57 K/mm3 (150-400); RDW Coefficient Variation 15.1 % (11.7-14.2); RDW Standard Deviation 45.2 fL (35.1-46.3); Red Blood Cell Count 3.19 M/mm3 (3.80-5.20); White Blood Cell Count 2.81 K/mm3 (4.00-11.30)
[2021-01-26 08:55] LABS: Albumin, Blood 1.9 g/dL (3.4-5.0); Anion Gap 4 mmol/L (6-16); Blood Urea Nitrogen 12 mg/dL (8-24); Bun/Creatinine Ratio 21.8 (12.0-20.0); CO2, Blood 31 mmol/L (21-32); Calcium, Blood 7.4 mg/dL (8.5-10.1); Chloride, Blood 103 mmol/L (98-108); Creatinine, Blood 0.55 mg/dL (0.40-1.00); Glomerular Filtration Rate >60 (60-); Glucose, Blood 107 mg/dL (70-99); Phosphorus, Blood 3.6 mg/dL (2.5-4.9); Sodium, Blood 138 mmol/L (136-145)
--- NOTE | 2021-01-26 13:20 | NUR ---
HELD MEALTIME 3 UNITS OF HUMALOG. PT HAS NOT EATEN 50% OF MEAL AND REPORTED TO SN "KEEP DOZING OFF." CBG PRIOR TO MEAL 73. CALL LIGHT IN REACH.
--- NOTE | 2021-01-26 17:37 | NUR ---
SHIFT SUMMARY POD 18 FOR PERFORATED VISCUS REPAIR. A&OX4. UTILIZES 1 PERSON ASSIST W/ GAITBELT AND FWW FOR TRANSFERS AND AMBULATION. CBG'S DID NOT REQUIRE SLIDING SCALE COVERAGE. HELD LUNCH MEAL COVERAGE DUE TO PT EATING LESS THAN 50% PER ORDERS. PT CURRENTLY EATING DINNER. PT WITHDRAWN AND SLEEPING THROUGHOUT SHIFT. REPORTS OF HEADACHE TREATED W/IMITREX PER EMAR. PAIN TREATED PRN PER EMAR. CALL LIGHT WITHIN REACH.
--- NOTE | 2021-01-26 18:44 | NUR ---
CBG 39 PT FOUND TO BE VERY LETHARGIC, SLOW TO ANSWER AND FOLLOW DIRECTIONS. CBG RECHECKED AND FOUND TO BE 39. PROVIDED APPLE JUICE THAT PT DRANK W/A LOT OF COACHING. CALLED DR MONTILLA AND OBTAINED ORDERS. 5O ML D5O GIVEN PER ORDERS. PT SITTING UP ON SIDE OF BED, EATING HOT CHOCOLATE. PT HAS TEMP OF 102.2. ACETAMINOPHEN BEING ADMINISTERED PER ORDERS. THERMOSTAT TURNED DOWN. PLAN TO RECHECK CBG IN 15 MINUTES.
--- NOTE | 2021-01-27 01:55 | NUR ---
GLUCOSE PT HS CBG WAS LOW, EDUCATED AND ENCOURAGED PT TO DRINK SWEETENED JUICE AND EAT SOMETHING W/ PROTEIN IN IT TO HELP BALANCE HER GLUCOSE LEVELS, PT REFUSED. RECHECKED CBG AND FOUND TO STILL BE LOW BUT NOT CRITICAL, REINFORCED EDUCATION ABOUT MAINTAINING SAFE GLUCOSE LEVELS, INCLUDED POSSIBILITY OF AN ADDITIONAL DOSE OF D50 IN WHICH PT AGREED TO DRINK SOME MORE JUICE AND EAT SOME SNACKS W/ PROTEIN IN IT, WILL RECHECK CBG AND ASSESS NEEDS AT THAT TIME
--- NOTE | 2021-01-27 05:41 | NUR ---
SHIFT SUMMARY POD20 LAP BOWEL PERF REPAIR, ORIENTED X4, ALERT BUT APPEARS GROGGY, CBG LOW AT START OF SHIFT, RECHECKS SHOW INCREASED TO TARGET LEVEL PER DR NOTES THOUGH PT DROPS AGAIN AT NEXT CHECK WHEN SHE STARTS APPEARING LESS ALERT THAN PRIOR ROUNDING, PT EDUCATED ON IMPORTANCE OF PROPER GLUCOSE CONTROL AND REGULATION (SEE NURSES NOTES). WILL RECHECK BEFORE END OF SHIFT AND ADDRESS ACCORDINGLY. PT AMBULATING/VOIDING/MULTIPLE BM'S, PAIN WELL MANAGED PER EMAR. NO OTHER EVENTS THIS SHIFT. CALL LIGHT IN REACH, WILL CTM AND REPORT TO ONCOMING DAY RN.
--- NOTE | 2021-01-27 06:12 | NUR ---
GLUCOSE PT GLUCOSE CHECK TO ENSURE IT WENT UP AFTER HER LAST SNACK, CURRENTLY @ 83. PT APPEARS TO BE A BIT MORE ALERT COMPARED TO WHEN IT WAS LOW, WILL CONTINUE TO MONITOR PT CONDITION.
--- NOTE | 2021-01-27 10:13 | NUR ---
SPOKE WITH PROVIDER REGARDING BLOOD GLUCOSE. AM SEMGLEE CHANGED TO 25 UNITS. PROVIDER ALSO ORDERED ULTRASOUND FOR LLE FOR DVT RULE OUT. NEW ORDER FOR PODIATRY CONSULT R/T FOOT PAIN AND TENDERNESS.
--- NOTE | 2021-01-27 10:28 | NUR ---
PODIATRY CONSULT LICENSED PSYCHOLOGIST MANAGER NOT IN OFFICE UNTIL January. OFFICE CALLED, MESSAGE LEFT. PROVIDER NOTIFIED.
--- NOTE | 2021-01-27 11:53 | NUR ---
PT UP TO BATHROOM, HAD SOME BLOOD IN URINE. CALL PLACED TO HOSPITALIST; MESSAGE LEFT. NO SIGNS OF ACTIVE BLEEDING AT THIS TIME.
--- NOTE | 2021-01-27 12:36 | NUR ---
SPOKE WITH PROVIDER ABOUT BLOOD IN URINE. ORDER FOR UA WITH CULTURE OBTAINED.
[2021-01-27 13:41] LABS: Source, Urine Clean Catch
[2021-01-27 13:46] LABS: Bilirubin, Urine Neg (Neg); Blood, Urine 1+ (Neg); Glucose Qualitative, Urine 2+ (Neg); Ketones, Urine Neg (Neg); Leukocyte Esterase, Urine Neg (Neg); Nitrite, Urine Neg (Neg); Protein, Urine Neg (Neg); Urobilinogen, Urine NORM (Normal)
[2021-01-27 13:53] LABS: Color, Urine Yellow (P-Yellow)
[2021-01-27 13:54] LABS: Appearance, Urine Hazy (Clear)
[2021-01-27 13:55] LABS: Bacteria Many /hpf; Red Blood Cells, Urine Not Seen /hpf (0-2); Squamous Epithelial Cells Few /hpf (Few); White Blood Cells, Urine 0-2 /hpf (0-5)
--- NOTE | 2021-01-27 15:15 | NUR ---
DR. HEALY AT BEDSIDE TO EVALUATE PT.
--- NOTE | 2021-01-27 16:22 | NUR ---
SHIFT SUMMARY PT HAS BEEN A/O X4, SBA UP TO BATHROOM. HAVING MULT BM'S AND VOIDING. TOLERATING PO INTAKE W/O NAUSEA; HAS HAD LOW PO INTAKE THIS SHIFT. PT HAD SHOWER TODAY. PAIN MANAGED WITH PO PAIN MED PER ORDERS. PT IS RESTING IN BED AT THIS TIME, CALL LIGHT IN REACH.
[2021-01-28 05:01] LABS: BASOPHILS PERCENT AUTO 0 % (0-2); EOSINOPHILS ABSOLUTE AUTO 0.01 K/mm3 (0.00-0.68); EOSINOPHILS PERCENT AUTO 1 % (0-6); Hematocrit 27.5 % (33.0-51.0); Hemoglobin 8.6 g/dL (11.5-16.0); IMMATURE GRAN ABSOLUTE AUTO 0.02 K/mm3 (0.00-0.10); IMMATURE GRAN PERCENT AUTO 1 % (0-1); LYMPHOCYTES ABSOLUTE AUTO 0.25 K/mm3 (0.84-5.20); LYMPHOCYTES PERCENT AUTO 12 % (21-46); MONOCYTES ABSOLUTE AUTO 0.25 K/mm3 (0.16-1.47); MONOCYTES PERCENT AUTO 12 % (4-13); Mean Corpuscular HGB 26.2 pg (26.0-34.0); Mean Corpuscular HGB Conc 31.3 g/dL (31.5-36.5); Mean Corpuscular Volume 84 fL (80-100); Mean Platelet Volume 10.1 fL (9.1-12.4); NEUTROPHILS ABSOLUTE AUTO 1.59 K/mm3 (1.96-9.15); NEUTROPHILS PERCENT AUTO 75 % (41-73); Platelet Count 76 K/mm3 (150-400); RDW Coefficient Variation 14.8 % (11.7-14.2); RDW Standard Deviation 45.1 fL (35.1-46.3); Red Blood Cell Count 3.28 M/mm3 (3.80-5.20); White Blood Cell Count 2.12 K/mm3 (4.00-11.30)
[2021-01-28 05:15] LABS: Anion Gap 3 mmol/L (6-16); Blood Urea Nitrogen 11 mg/dL (8-24); Bun/Creatinine Ratio 20.2 (12.0-20.0); CO2, Blood 30 mmol/L (21-32); Calcium, Blood 7.5 mg/dL (8.5-10.1); Chloride, Blood 100 mmol/L (98-108); Creatinine, Blood 0.54 mg/dL (0.40-1.00); Glomerular Filtration Rate >60 (60-); Glucose, Blood 74 mg/dL (70-99); Potassium, Blood 3.5 mmol/L (3.5-5.5); Sodium, Blood 133 mmol/L (136-145)
--- NOTE | 2021-01-28 05:39 | NUR ---
A/OX4. TMAX AT 99.6c. PT DECLINED TYLENOL. ENCOURAGED TO USE INCENTIVE SPIROMETER. PT C/O OF NONPRODUCTIVE, CONGESTED COUGH THAT STARTED A WEEK AGO. DENIES SOB. PT C/O ABDOMINAL AND FOOT PAIN, OXYCDONE GIVEN W/ GOOD EFFECT AROUND THE CLOCK. PT ELEVATED FEET PART OF NIGHT. SLEEPING B/W CARE. USING CALL LIGHT TO MAKE NEEDS K NOWN.
--- NOTE | 2021-01-28 10:13 | NUR ---
PT'S CBG CHECKED AT THIS TIME, RESULT OF 62. PT IS DROWSY, NEEDING REMINDERS TO TAKE BITES OF FOOD AND SIP ON LIQUIDS. PROVIDER NOTIFIED. PER PROVIDER, CHECK CBG Q3 TODAY AND ONLY GIVE 8 UNITS OF SEMGLEE THIS AM.
--- NOTE | 2021-01-28 12:48 | NUR ---
SPOKE WITH PROVIDER REGARDING ORAL TEMP OF 102.5. ORDER GIVEN FOR BLOOD CULTURES.
--- NOTE | 2021-01-28 17:54 | NUR ---
SHIFT SUMMARY PT VOIDING AND STOOLING WELL. PT HAS HAD ELEVATED TEMPURATURES TODAY HIGHEST BEING 102.5 ORALLY. OTHER VITAL SIGNS HAVE BEEN STABLE. CBG WERE LOW THIS MORNING AND INSULIN WAS ADJUSTED PER PROVIDER. XRAY FOR CHEST AND L LEG WERE DONE TODAY AND PROVIDER AWARE. PT STARTED ON LEVOQUIN PER DR ORDER FOR POTENTIAL INFECTION. SHE HAD POWERGLIDE PLACED IN L UPPER ARM. BLOOD CULTURES WERE ALSO DRAWN TODAY. PT LETHARGIC THIS AM DUE TO LOW CBGS. PROVIDER ORDERED THAT CBG CHECK BE DONE Q3H. WILL REPORT TO ONCOMING RN.
--- NOTE | 2021-01-28 18:30 | NUR ---
Spiritual care note: I attempted to meet with Ms. Schwartz to offer advanced care planning information. She was far too groggy for an in-depth conversation. She did tell me that her dtr knows "what to do." She appears quite frail. I will remaina available.
--- NOTE | 2021-01-29 02:55 | NUR ---
A/OX4. PT FEBRILE, TYLENOL GIVEN. IMITREX GIVEN FOR MIGRAINE. ABDOMINAL AND FEET PAIN MANAGED WELL W/ OXYCODONE. PT DENIES SOB. UNABLE TO DEEP BREATHE- INCENTIVE SPIROMETER REACHING 750 MAX. NONPRODUCTIVE, CONGESTED COUGH NOTED. PT UP TO TOILET W/ FWW. BP SOFT, SYSTOLIC BP IN 90S. PT DENIES CP. C/O MILD DIZZINESS W/ AMBULATING, FLUIDS ENCOURAGED. BP MONITORED CLOSELY. ADDIE ACTING INSULIN HELD PER PT REQUEST. SUGAR CHECKED Q3HR PER ORDER. SLEEPING B/W CARE. USING CALL LIGHT TO MAKE NEEDS KNOWN.
[2021-01-29 05:13] LABS: BASOPHILS PERCENT AUTO 0 % (0-2); EOSINOPHILS ABSOLUTE AUTO 0.02 K/mm3 (0.00-0.68); EOSINOPHILS PERCENT AUTO 1 % (0-6); Hematocrit 24.7 % (33.0-51.0); IMMATURE GRAN ABSOLUTE AUTO 0.01 K/mm3 (0.00-0.10); IMMATURE GRAN PERCENT AUTO 1 % (0-1); LYMPHOCYTES ABSOLUTE AUTO 0.44 K/mm3 (0.84-5.20); LYMPHOCYTES PERCENT AUTO 24 % (21-46); MONOCYTES ABSOLUTE AUTO 0.21 K/mm3 (0.16-1.47); MONOCYTES PERCENT AUTO 11 % (4-13); Mean Corpuscular HGB 26.4 pg (26.0-34.0); Mean Corpuscular HGB Conc 32.4 g/dL (31.5-36.5); Mean Corpuscular Volume 82 fL (80-100); Mean Platelet Volume 9.9 fL (9.1-12.4); NEUTROPHILS ABSOLUTE AUTO 1.19 K/mm3 (1.96-9.15); NEUTROPHILS PERCENT AUTO 64 % (41-73); Platelet Count 87 K/mm3 (150-400); RDW Standard Deviation 44.4 fL (35.1-46.3); RETICULOCYTE COUNT PERCENT 0.53 % (0.50-2.50); Red Blood Cell Count 3.03 M/mm3 (3.80-5.20); White Blood Cell Count 1.87 K/mm3 (4.00-11.30)
[2021-01-29 05:52] LABS: Alanine Aminotransfer (ALT/SGP 22 U/L (12-78); Albumin, Blood 1.6 g/dL (3.4-5.0); Albumin/Globulin Ratio 0.4 (0.8-1.8); Alk Phos 134 U/L (50-136); Anion Gap 4 mmol/L (6-16); Aspartate Aminotrans (AST/SGOT 31 U/L (12-37); Bilirubin, Total 0.2 mg/dL (0.1-1.0); Blood Urea Nitrogen 13 mg/dL (8-24); CO2, Blood 30 mmol/L (21-32); Calcium, Blood 7.3 mg/dL (8.5-10.1); Chloride, Blood 96 mmol/L (98-108); Creatinine, Blood 0.54 mg/dL (0.40-1.00); Glomerular Filtration Rate >60 (60-); Glucose, Blood 219 mg/dL (70-99); Iron Serum 10 ug/dL (50-170); Percent Saturation 4.9 % (15.0-50.0); Potassium, Blood 4.1 mmol/L (3.5-5.5); Sodium, Blood 130 mmol/L (136-145); Total Iron Binding Capacity 203 ug/dL (250-450); Total Protein, Blood 5.6 g/dL (6.4-8.2)
--- NOTE | 2021-01-29 07:17 | NUR ---
pt req pain meds po oxy given 2 tab pt stated that she has not felt well past two days due to fever discussed with pt using is/tcdb and went over the cxray with her
--- NOTE | 2021-01-29 11:00 | NUR ---
pt sitting up on the edge of the bed meds given as sched pt eating a late breakfast talked with ema for hematology consult
[2021-01-30 06:48] LABS: BASOPHILS PERCENT AUTO 0 % (0-2); EOSINOPHILS ABSOLUTE AUTO 0.01 K/mm3 (0.00-0.68); EOSINOPHILS PERCENT AUTO 1 % (0-6); Hemoglobin 8.1 g/dL (11.5-16.0); IMMATURE GRAN ABSOLUTE AUTO 0.01 K/mm3 (0.00-0.10); IMMATURE GRAN PERCENT AUTO 1 % (0-1); LYMPHOCYTES ABSOLUTE AUTO 0.55 K/mm3 (0.84-5.20); LYMPHOCYTES PERCENT AUTO 33 % (21-46); MONOCYTES PERCENT AUTO 12 % (4-13); Mean Corpuscular HGB 26.4 pg (26.0-34.0); Mean Corpuscular HGB Conc 32.4 g/dL (31.5-36.5); Mean Corpuscular Volume 81 fL (80-100); Mean Platelet Volume 10.1 fL (9.1-12.4); NEUTROPHILS ABSOLUTE AUTO 0.88 K/mm3 (1.96-9.15); NEUTROPHILS PERCENT AUTO 53 % (41-73); Platelet Count 93 K/mm3 (150-400); RDW Coefficient Variation 14.9 % (11.7-14.2); RDW Standard Deviation 44.3 fL (35.1-46.3); Red Blood Cell Count 3.07 M/mm3 (3.80-5.20); White Blood Cell Count 1.65 K/mm3 (4.00-11.30)
[2021-01-30 07:03] LABS: Anion Gap 4 mmol/L (6-16); Blood Urea Nitrogen 11 mg/dL (8-24); Bun/Creatinine Ratio 23.2 (12.0-20.0); CO2, Blood 30 mmol/L (21-32); Calcium, Blood 7.4 mg/dL (8.5-10.1); Chloride, Blood 97 mmol/L (98-108); Creatinine, Blood 0.47 mg/dL (0.40-1.00); Glomerular Filtration Rate >60 (60-); Glucose, Blood 280 mg/dL (70-99); Sodium, Blood 131 mmol/L (136-145)
--- NOTE | 2021-01-30 07:19 | NUR ---
SUMMARY PT GROGGY WITH REQUESTS FOR PAIN MEDS TONIGHT.W/A FOR MEDS ENC PULMONARY TOILET.CONT MONITORING BLOOD SUGARS.
--- NOTE | 2021-01-30 18:13 | NUR ---
SUMMARY: NO ACUTE CHANGE TODAY. VSS, A/O, PT APPEARED DEPRESSED TODAY. PT VOICED CONCERNS ABOUT SNF PLACEMENT AND BECAME TEARFUL. THERAPEUTIC COMMUNICATION USED. PT IS INDEP IN ROOM. HAS HAD SEVERAL UNMEASURED VOIDS AND BM'S. CONTINUES TO C/O PAIN IN LEGS AND ABD. MEDICATED PER EMAR. ENCOURAGED ELEVATION OF LEGS. I.S. ALSO ENCOURAGED, PT APPEARS UNMOTIVATED AND TIRED. IV ABX GIVEN. SNF PLACEMENT IS RECOMMENDED. SUTURES AT ABD LAP SITES REMOVED PER ORDER, SITES WNL. WILL CTM AND REPORT TO NOC RN.
[2021-01-31 05:19] LABS: BASOPHILS PERCENT AUTO 0 % (0-2); EOSINOPHILS ABSOLUTE AUTO 0.02 K/mm3 (0.00-0.68); EOSINOPHILS PERCENT AUTO 1 % (0-6); Hemoglobin 8.5 g/dL (11.5-16.0); IMMATURE GRAN ABSOLUTE AUTO 0.02 K/mm3 (0.00-0.10); IMMATURE GRAN PERCENT AUTO 1 % (0-1); LYMPHOCYTES ABSOLUTE AUTO 0.56 K/mm3 (0.84-5.20); LYMPHOCYTES PERCENT AUTO 39 % (21-46); MONOCYTES ABSOLUTE AUTO 0.22 K/mm3 (0.16-1.47); MONOCYTES PERCENT AUTO 15 % (4-13); Mean Corpuscular HGB 25.5 pg (26.0-34.0); Mean Corpuscular HGB Conc 31.5 g/dL (31.5-36.5); Mean Corpuscular Volume 81 fL (80-100); NEUTROPHILS ABSOLUTE AUTO 0.61 K/mm3 (1.96-9.15); NEUTROPHILS PERCENT AUTO 43 % (41-73); Platelet Count 113 K/mm3 (150-400); RDW Coefficient Variation 14.8 % (11.7-14.2); RDW Standard Deviation 43.5 fL (35.1-46.3); Red Blood Cell Count 3.33 M/mm3 (3.80-5.20); White Blood Cell Count 1.43 K/mm3 (4.00-11.30)
[2021-01-31 05:46] LABS: Alanine Aminotransfer (ALT/SGP 21 U/L (12-78); Albumin, Blood 1.8 g/dL (3.4-5.0); Albumin/Globulin Ratio 0.4 (0.8-1.8); Alk Phos 146 U/L (50-136); Anion Gap 2 mmol/L (6-16); Aspartate Aminotrans (AST/SGOT 25 U/L (12-37); Bilirubin, Total 0.2 mg/dL (0.1-1.0); Blood Urea Nitrogen 10 mg/dL (8-24); Bun/Creatinine Ratio 19.7 (12.0-20.0); CO2, Blood 32 mmol/L (21-32); Calcium, Blood 7.5 mg/dL (8.5-10.1); Chloride, Blood 101 mmol/L (98-108); Creatinine, Blood 0.51 mg/dL (0.40-1.00); Globulin, Blood 4.2 g/dL (2.2-4.0); Glomerular Filtration Rate >60 (60-); Glucose, Blood 198 mg/dL (70-99); Sodium, Blood 135 mmol/L (136-145)
--- NOTE | 2021-01-31 08:06 | NUR ---
SUMMARY LAB GLUCOSE 198 THIS AM.PT SLEPT OFF AND ON TONIGHT. AMBULATION STRONGER EACH SHIFT.
[2021-01-31 09:11] LABS: HIV SCREEN 4TH GENERATION WRFX Non Reactive (Non Reactive)
--- NOTE | 2021-01-31 15:15 | NUR ---
SHIFT SUMMARY: PATIENT IS ALERT AND ORIENTED X4. VS ARE WNL AND IS ON RA. PAIN IS MANAGED WITH PO CHLOÉ. PATIENT DENIES SOB. PATIENT HAS WALKED AROUND WITH PT TODAY. PATIENT IS VOIDING, TOLERATING PO INTAKE, AND HAVING BM'S. SHE USES A FWW WITH GAIT BELT WHEN MOVING. ENCOURAGING MORE AMBULATION AND FLUIDS. POWERGLIDE ISN'T WORKING AT THIS TIME BUT THIS NURSE IS WAITING FOR A CERTIFIED NURSE TO COME AND POSSIBLY PUT IN A NEW ON. PATIENT IS CURRENTLY SITTING IN THE CHAIR. CALL LIGHT WITHIN REACH. ENCOURAGING INCENTIVE SPIROMETER USE AND AMBULATION.
[2021-02-01 05:09] LABS: BASOPHILS PERCENT AUTO 0 % (0-2); EOSINOPHILS ABSOLUTE AUTO 0.03 K/mm3 (0.00-0.68); EOSINOPHILS PERCENT AUTO 2 % (0-6); Hematocrit 29.5 % (33.0-51.0); Hemoglobin 9.2 g/dL (11.5-16.0); IMMATURE GRAN ABSOLUTE AUTO 0.05 K/mm3 (0.00-0.10); IMMATURE GRAN PERCENT AUTO 3 % (0-1); LYMPHOCYTES ABSOLUTE AUTO 0.61 K/mm3 (0.84-5.20); LYMPHOCYTES PERCENT AUTO 31 % (21-46); MONOCYTES ABSOLUTE AUTO 0.24 K/mm3 (0.16-1.47); MONOCYTES PERCENT AUTO 12 % (4-13); Mean Corpuscular HGB 25.9 pg (26.0-34.0); Mean Corpuscular HGB Conc 31.2 g/dL (31.5-36.5); Mean Corpuscular Volume 83 fL (80-100); Mean Platelet Volume 10.5 fL (9.1-12.4); NEUTROPHILS ABSOLUTE AUTO 1.05 K/mm3 (1.96-9.15); NEUTROPHILS PERCENT AUTO 53 % (41-73); Platelet Count 135 K/mm3 (150-400); RDW Coefficient Variation 14.7 % (11.7-14.2); RDW Standard Deviation 45.1 fL (35.1-46.3); Red Blood Cell Count 3.55 M/mm3 (3.80-5.20); White Blood Cell Count 1.98 K/mm3 (4.00-11.30)
[2021-02-01 05:35] LABS: Anion Gap 2 mmol/L (6-16); Blood Urea Nitrogen 9 mg/dL (8-24); Bun/Creatinine Ratio 17.4 (12.0-20.0); CO2, Blood 32 mmol/L (21-32); Calcium, Blood 7.6 mg/dL (8.5-10.1); Chloride, Blood 102 mmol/L (98-108); Creatinine, Blood 0.52 mg/dL (0.40-1.00); Glomerular Filtration Rate >60 (60-); Glucose, Blood 148 mg/dL (70-99); Potassium, Blood 3.9 mmol/L (3.5-5.5); Sodium, Blood 136 mmol/L (136-145)
--- NOTE | 2021-02-01 07:44 | NUR ---
SHIFT SUMMARY NO ACUTE CHANGES OVERNIGHT. SLEPT GOOD LAS NIGHT. AMBULATING INDEPENDENTLY. ENC USE I/S. REPORTS PAIN, PAIN MANAGED WITH 2 OXY AND IMITREX FOR MIGRAINE. ABD LAP SITES REMAIN DRY, INTACT AND APPEARS HEALING. ABD STILL MILD DISTENDED. BLE SWELLING STILL NOTED. VOIDING ADEQUATELY. CBG MONITORED. PT TENDS TO REQUEST FOR SNACKS FREQUENTLY, PROVIDE EDUCATION WITH DM2, CONTROLLING WITH DIET. CALL LIGHT WITHIN REACH. WILL PROVIDE REPORT TO ONCOMING NURSE.
--- NOTE | 2021-02-01 17:56 | NUR ---
SHIFT SUMMARY PT HAS DONE WELL T/O SHIFT. PT DENIES SOB OR CP, AMBULATING INDEPENDENTLY IN HALLWAY AND ROOM WITH NO INCREASED WOB. PAIN MANAGED PER EMAR.
--- NOTE | 2021-02-02 05:28 | NUR ---
SHIFT SUMMARY PT RESTED WELL THIS NOC SHIFT. AAOX4. INDEPENDENT IN ROOM + AMBULATING IN HALLS X2 THIS SHIFT. GOOD PO INTAKE + URINE OUTPUT. CONTINUE TO ENCOURAGE + EDUCATE REGARDING ADA DIET. NO ACUTE CHNAGES OVER NIGHT. PT CURRENTLY SITTING UP IN BED WITH CALL LIGHT IN REACH.
[2021-02-02 09:37] LABS: BASOPHILS PERCENT AUTO 0 % (0-2); EOSINOPHILS ABSOLUTE AUTO 0.05 K/mm3 (0.00-0.68); EOSINOPHILS PERCENT AUTO 3 % (0-6); Hematocrit 28.1 % (33.0-51.0); Hemoglobin 8.6 g/dL (11.5-16.0); IMMATURE GRAN ABSOLUTE AUTO 0.05 K/mm3 (0.00-0.10); IMMATURE GRAN PERCENT AUTO 3 % (0-1); LYMPHOCYTES ABSOLUTE AUTO 0.71 K/mm3 (0.84-5.20); LYMPHOCYTES PERCENT AUTO 36 % (21-46); MONOCYTES ABSOLUTE AUTO 0.19 K/mm3 (0.16-1.47); MONOCYTES PERCENT AUTO 10 % (4-13); Mean Corpuscular HGB 25.6 pg (26.0-34.0); Mean Corpuscular HGB Conc 30.6 g/dL (31.5-36.5); Mean Corpuscular Volume 84 fL (80-100); Mean Platelet Volume 10.1 fL (9.1-12.4); NEUTROPHILS ABSOLUTE AUTO 0.96 K/mm3 (1.96-9.15); NEUTROPHILS PERCENT AUTO 49 % (41-73); Platelet Count 128 K/mm3 (150-400); RDW Standard Deviation 45.6 fL (35.1-46.3); Red Blood Cell Count 3.36 M/mm3 (3.80-5.20); White Blood Cell Count 1.96 K/mm3 (4.00-11.30)
[2021-02-02 09:46] LABS: Anion Gap 1 mmol/L (6-16); Blood Urea Nitrogen 11 mg/dL (8-24); Bun/Creatinine Ratio 23.8 (12.0-20.0); CO2, Blood 31 mmol/L (21-32); Calcium, Blood 7.8 mg/dL (8.5-10.1); Chloride, Blood 107 mmol/L (98-108); Creatinine, Blood 0.46 mg/dL (0.40-1.00); Glomerular Filtration Rate >60 (60-); Glucose, Blood 223 mg/dL (70-99); Potassium, Blood 4.1 mmol/L (3.5-5.5); Sodium, Blood 139 mmol/L (136-145)
--- NOTE | 2021-02-02 14:23 | NUR ---
ASSUMED CARE AT 1400. PT WALKING HALLWAY.
--- NOTE | 2021-02-02 17:25 | NUR ---
SHIFT SUMMARY ASSUMED CARE FROM BRYAN KWAN, THIS AFTERNOON. PT HAS BEEN A/O X4, IND IN ROOM, AMBULATING HALLWAYS. REPORTS VOIDING AND HAVING BM'S. PAIN MANAGED WITH OXY X2 PRN. PT EATING DINNER AT THIS TIME, CALL LIGHT IN REACH.
--- NOTE | 2021-02-02 19:18 | NUR ---
RECEIVED REPORT AND ASSMED CARE OF PT. HE IS AWAKE AND ALERT, SITTING UP IN BED ASKING ABOUT STARTING MEDICATION FOR DEPRESSION. HE STATES THAT HE HAS TAKEN SOMETHING IN THE PAST, BUT DOES NOT KNOW WHAT IT WAS, STATES THAT HIS IS WELL VERSED IN HIS MEDICATIONS.
--- NOTE | 2021-02-02 20:24 | NUR ---
1903: ASSUMED CARE OF PT FROM DAY SHIFT RN. PT SITTING UP IN BED AND GIVEN FRESH ICE WATER. PT REQUEST SMALL PEPSI LATER AND RN ADVISES POSSIBILITY WITH FURTHER DISCUSSION AFTER HS CBG CHECK AND MEDICATIONS; PT AGREEABLE TO PLAN. PT DEMONSTRATES INCENTIVE SPIROMETER USE X5 FOR RN WITH DRY NONPRODUCTIVE COUGH. CALL LIGHT IN REACH.
--- NOTE | 2021-02-02 21:52 | NUR ---
2132: PT HAS CONTINUOUS MOIST COUGH AFTER AMBULATING TO BATHROOM AND BACK INDEPENDENTLY. SCANT THIN YELLOW SPUTUM PRODUCTION. GIVEN SMALL YOGURT AND CHUCK CRACKERS FOR HS SNACK. PT STATES PROBIOTIC CAPSULE IS EASIEST TAKEN OPENED AND PUT IN PUDDING OR YOGURT; RN AGREEABLE TO YOGURT FOR MEDICATION AND SNACKS. CALL LIGHT IN REACH, PT SITTING ON SIDE OF BED.
--- NOTE | 2021-02-03 04:56 | NUR ---
SUMMARY: PT UP IND MULTIPLE TIMES IN ROOM USING FWW FOR BRP AND AMBULATES IN [place]; DENIES DIZZINESS WITH MOVEMENT OR AMBULATION. TOLERATING PO INTAKE OF FLUIDS AND SNACKS IN MODERATION WITH ADA DIET SUGGESTIONS FROM RN. VOIDING AND HAS 2 BM THIS SHIFT WITHOUT DIFFICULTY. GENERALIZED PAIN WELL CONTROLLED WITH 10MG ROXICODONE AT BEDTIME. ABD DISTENTION MILD AND SOFT TO TOUCH.
[2021-02-03 08:05] LABS: BASOPHILS PERCENT AUTO 0 % (0-2); EOSINOPHILS ABSOLUTE AUTO 0.06 K/mm3 (0.00-0.68); EOSINOPHILS PERCENT AUTO 2 % (0-6); Hematocrit 25.4 % (33.0-51.0); IMMATURE GRAN ABSOLUTE AUTO 0.09 K/mm3 (0.00-0.10); IMMATURE GRAN PERCENT AUTO 3 % (0-1); LYMPHOCYTES PERCENT AUTO 25 % (21-46); MONOCYTES ABSOLUTE AUTO 0.28 K/mm3 (0.16-1.47); MONOCYTES PERCENT AUTO 10 % (4-13); Mean Corpuscular HGB 26.1 pg (26.0-34.0); Mean Corpuscular HGB Conc 31.5 g/dL (31.5-36.5); Mean Corpuscular Volume 83 fL (80-100); Mean Platelet Volume 10.2 fL (9.1-12.4); NEUTROPHILS ABSOLUTE AUTO 1.64 K/mm3 (1.96-9.15); NEUTROPHILS PERCENT AUTO 59 % (41-73); Platelet Count 128 K/mm3 (150-400); RDW Coefficient Variation 14.8 % (11.7-14.2); RDW Standard Deviation 44.6 fL (35.1-46.3); Red Blood Cell Count 3.06 M/mm3 (3.80-5.20); White Blood Cell Count 2.77 K/mm3 (4.00-11.30)
[2021-02-03 08:23] LABS: Anion Gap 3 mmol/L (6-16); Blood Urea Nitrogen 10 mg/dL (8-24); Bun/Creatinine Ratio 23.6 (12.0-20.0); CO2, Blood 29 mmol/L (21-32); Calcium, Blood 7.5 mg/dL (8.5-10.1); Chloride, Blood 107 mmol/L (98-108); Creatinine, Blood 0.42 mg/dL (0.40-1.00); Glomerular Filtration Rate >60 (60-); Glucose, Blood 176 mg/dL (70-99); Sodium, Blood 139 mmol/L (136-145)
--- NOTE | 2021-02-03 15:15 | NUR ---
AMBULATING IN [place] W/THERAPY
--- NOTE | 2021-02-03 17:15 | NUR ---
SUMMARY NO ACUTE CHANGES T/O SHIFT. PT INDEPENDENT IN ROOM. WORKED W/THERAPY. MEDICATED PER ORDERS FOR PAIN. CALL LIGHT IN REACH.
--- NOTE | 2021-02-03 18:51 | NUR ---
report given to oncoming shift.
[2021-02-04 04:30] LABS: BASOPHILS ABSOLUTE AUTO 0.01 K/mm3 (0.00-0.23); BASOPHILS PERCENT AUTO 0 % (0-2); EOSINOPHILS ABSOLUTE AUTO 0.05 K/mm3 (0.00-0.68); EOSINOPHILS PERCENT AUTO 2 % (0-6); Hematocrit 25.7 % (33.0-51.0); Hemoglobin 7.9 g/dL (11.5-16.0); IMMATURE GRAN ABSOLUTE AUTO 0.08 K/mm3 (0.00-0.10); IMMATURE GRAN PERCENT AUTO 3 % (0-1); LYMPHOCYTES ABSOLUTE AUTO 0.72 K/mm3 (0.84-5.20); LYMPHOCYTES PERCENT AUTO 25 % (21-46); MONOCYTES ABSOLUTE AUTO 0.26 K/mm3 (0.16-1.47); MONOCYTES PERCENT AUTO 9 % (4-13); Mean Corpuscular HGB 25.2 pg (26.0-34.0); Mean Corpuscular HGB Conc 30.7 g/dL (31.5-36.5); Mean Corpuscular Volume 82 fL (80-100); Mean Platelet Volume 9.9 fL (9.1-12.4); NEUTROPHILS ABSOLUTE AUTO 1.75 K/mm3 (1.96-9.15); NEUTROPHILS PERCENT AUTO 61 % (41-73); Platelet Count 126 K/mm3 (150-400); RDW Coefficient Variation 14.9 % (11.7-14.2); RDW Standard Deviation 43.8 fL (35.1-46.3); Red Blood Cell Count 3.14 M/mm3 (3.80-5.20); White Blood Cell Count 2.87 K/mm3 (4.00-11.30)
[2021-02-04 04:52] LABS: Albumin, Blood 1.7 g/dL (3.4-5.0); Anion Gap 4 mmol/L (6-16); Blood Urea Nitrogen 10 mg/dL (8-24); Bun/Creatinine Ratio 18.6 (12.0-20.0); CO2, Blood 27 mmol/L (21-32); Calcium, Blood 7.5 mg/dL (8.5-10.1); Chloride, Blood 107 mmol/L (98-108); Creatinine, Blood 0.54 mg/dL (0.40-1.00); Glomerular Filtration Rate >60 (60-); Glucose, Blood 276 mg/dL (70-99); Phosphorus, Blood 3.9 mg/dL (2.5-4.9); Potassium, Blood 4.6 mmol/L (3.5-5.5); Sodium, Blood 138 mmol/L (136-145)
--- NOTE | 2021-02-04 16:58 | NUR ---
SUMMARY NO ACUTE CHANGES T/O SHIFT. PT INDEPENDENT IN ROOM AND AMBULATING IN HALLWAY W/FWW. MEDICATED PER ORDERS FOR PAIN. HAD INCONTINENT BM. TOLERATING DIET. CALL LIGHT IN REACH.
[2021-02-05 04:42] LABS: BASOPHILS PERCENT AUTO 0 % (0-2); EOSINOPHILS ABSOLUTE AUTO 0.06 K/mm3 (0.00-0.68); EOSINOPHILS PERCENT AUTO 2 % (0-6); Hematocrit 26.9 % (33.0-51.0); Hemoglobin 8.6 g/dL (11.5-16.0); IMMATURE GRAN ABSOLUTE AUTO 0.06 K/mm3 (0.00-0.10); IMMATURE GRAN PERCENT AUTO 2 % (0-1); LYMPHOCYTES ABSOLUTE AUTO 0.75 K/mm3 (0.84-5.20); LYMPHOCYTES PERCENT AUTO 19 % (21-46); MONOCYTES ABSOLUTE AUTO 0.31 K/mm3 (0.16-1.47); MONOCYTES PERCENT AUTO 8 % (4-13); Mean Corpuscular HGB 26.2 pg (26.0-34.0); Mean Corpuscular Volume 82 fL (80-100); Mean Platelet Volume 10.5 fL (9.1-12.4); NEUTROPHILS PERCENT AUTO 70 % (41-73); Platelet Count 158 K/mm3 (150-400); RDW Coefficient Variation 14.8 % (11.7-14.2); RDW Standard Deviation 43.8 fL (35.1-46.3); Red Blood Cell Count 3.28 M/mm3 (3.80-5.20); White Blood Cell Count 3.88 K/mm3 (4.00-11.30)
[2021-02-05 04:57] LABS: Albumin, Blood 1.9 g/dL (3.4-5.0); Anion Gap 3 mmol/L (6-16); Blood Urea Nitrogen 9 mg/dL (8-24); Bun/Creatinine Ratio 16.9 (12.0-20.0); CO2, Blood 29 mmol/L (21-32); Calcium, Blood 7.9 mg/dL (8.5-10.1); Chloride, Blood 107 mmol/L (98-108); Creatinine, Blood 0.53 mg/dL (0.40-1.00); Glomerular Filtration Rate >60 (60-); Glucose, Blood 132 mg/dL (70-99); Potassium, Blood 4.6 mmol/L (3.5-5.5); Sodium, Blood 139 mmol/L (136-145)
--- NOTE | 2021-02-05 06:30 | NUR ---
SHIFT SUMMARY LYING IN SEMI FOWLERS WITH EYES CLOSED. HAS BEEN UP AND DOWN ALL NIGHT WITH C/O DIARRHEA. SHE STATES THAT IT HAD BEEN DOING BETTER AND WAS ACTUALLY FORMED. BGL AT HS WAS 90, PT DEFERED TO TAKE HER SEMGLEE LATER AFTER CONSUMING SNACKS TO HELP MAINTAIN HER BGL. AFTER MN HER BGL WAS CHECKED AGAIN AND IT WAS 163. HS SEMGLEE WAS GIVEN PER MD ORDERS. NO IV ACCESS PER MD ORDERS. SHE IS INDEPENDENT IN THE ROOM, AMBULATES WITH FWW. PAIN MANAGED PER EMAR. DENEIS FURTHER NEEDS OR WANTS AT THIS TIME. SAFETY MEASURES IN PLACE. WILL CONTINUE TO MONITOR AND ADDRESS NEEDS THEY ARISE. WILL GIVE HAND OFF TO ONCOMING SHIFT USING SBAR DURING BEDSIDE REPORT.
--- NOTE | 2021-02-05 08:55 | NUR ---
meds given as sched pt eating breakfast pain meds given
--- NOTE | 2021-02-05 11:20 | NUR ---
dr campbell by to see pt
--- NOTE | 2021-02-05 13:11 | NUR ---
PT DONE EATING MEAL 3 UNITS ONLY GIVEN PER MEAL NO S/S COVERAGE MEDS GIVEN PER REQ FOR PAIN ALSO GAVE NEW INC DOSEAGE ON NEURONTIN 300 MG DISCUSSED WITH PT TO LET ME KNOW IF IT HELPS FOR THE PAIN
--- NOTE | 2021-02-05 14:44 | NUR ---
SS CALLED RE [facility] INTERVIEW WILL BE WITH THE ROUSTABOUT CREW PERFECTO AND HER DAUGHTER PITO ON WEDNESDAY AT 1300
--- NOTE | 2021-02-05 17:53 | NUR ---
BS 75 PT EATING FOOD EARLIER HAD A SNACK AND PEPSI
--- NOTE | 2021-02-06 05:24 | NUR ---
A/OX4. VSS ON RA. DENIES SOB/CP. PAIN MANAED WELL W/ OXYCODONE. BLOOD SUGAR AT 51 DURING RANDOM SPOT CHECK, ORANGE JUICE AND CRACKERS GIVEN. RECHECK BLOOD SUGAR AT 118. BLE EXTREMITIES ELEVATED ON PILLOWS ALL NIGHT. ZOFRAN GIVEN FOR NAUSEA W/ GOOD EFFECT. PT INDEPENDENT IN ROOM. USING CALL LIGHT TO MAKE NEEDS KNOWN.
--- NOTE | 2021-02-06 18:56 | NUR ---
SHIFT SUMMARY NO ACUTE CHANGES THIS SHIFT. PT TO HAVE MEETING TOMORROW WITH [facility]. C/O ABD PAIN AND TREATED PER EMR. ABD ULTRASOUND DONE TODAY. PT IND IN ROOM AND SLEPT FOR THE MAJORITY OF THE SHIFT. VSS
--- NOTE | 2021-02-07 05:08 | NUR ---
A/OX4. VSS ON RA. DENIES SOB AND CP. C/O ABDOMINAL AND FOOT PAIN, OXYCODONE GIVEN AND EFFECTIVE. EVENING SIMGLEE HELD. PT FREQUENTLY REQUESTING UNHEALTHY SNACKS, DM2 EDUCATION PROVIDED. PT SLEEPING B/W CARE. USING CALL LIGHT TO MAKE NEEDS KNOWN.
--- NOTE | 2021-02-07 17:04 | NUR ---
SHIFT SUMMARY NO ACUTE CHANGES THIS SHIFT. PT SEEMS TO BE IN GOOD SPIRITS TODAY. MEDICATED FOR PAIN PER EMR ORDERS. AMBULATING IND IN THE ROOM AND PERFORMING MORE ADL'S. WORKED WITH P.T. AND O.T. TODAY. [facility] CAME AND INTERVIEWED THE PATIENT. IT IS LIKELY THAT THEY WILL ACCEPT HER AND SHE CAN POSSIBLY MOVE IN MID NEXT WEEK. VSS.
[2021-02-07 22:55] LABS: Source, Urine Clean Catch
[2021-02-07 23:04] LABS: Bilirubin, Urine Neg (Neg); Blood, Urine Neg (Neg); Glucose Qualitative, Urine Neg (Neg); Ketones, Urine Neg (Neg); Leukocyte Esterase, Urine Neg (Neg); Nitrite, Urine Neg (Neg); Protein, Urine Neg (Neg); Urobilinogen, Urine NORM (Normal)
[2021-02-07 23:06] LABS: Appearance, Urine Clear (Clear); Color, Urine Yellow (P-Yellow)
--- NOTE | 2021-02-08 08:30 | NUR ---
SUMMARY NO ACUTE CHANGES.REQUIRED REINSTRUCT ON DIABETIC DIET .
--- NOTE | 2021-02-08 18:47 | NUR ---
SUMMARY: NO CHANGE TODAY. CBG LEVELS ARE BETTER. PT C/O ABD AND LEG PAIN, MEDICATED PER EMAR. ABLE TO TAKE WALK IN HALLS INDEPENDENTLY. NO CONCERNS, AWAITING [facility] PLACEMENT.
--- NOTE | 2021-02-09 06:16 | NUR ---
SHIFT SUMMARY LYING IN SEMI FOWLERS WITH EYES OPEN. HAS BEEN OOB TO COMMODE X2 WITH SOFT FORMED BM. NO IV ACCESS PER MD ORDERS. INDEPENDENT IN THE ROOM, AMBULATES WITH FWW. PAIN MANAGED PER EMAR. DENIES FURTHER NEEDS OR WANTS AT THIS TIME. SAFETY MEASURES IN PLACE. WILL CONTINUE TO MONITOR AND ADDRESS NEEDS THEY ARISE. WILL GIVE HAND OFF TO ONCOMING SHIFT USING SBAR DURING BEDSIDE REPORT.
--- NOTE | 2021-02-09 18:15 | NUR ---
PT HAS BEEN STABLE THIS SHIFT. PT HAS BEEN AMBULATING HALLWAYS INDEP. PAIN CONTROLLED WITH PRN MEDICATIONS. BLOOD SUGARS HAVE BEEN WELL CONTROLLED. PT DEISY DIET WELL AND WORKS WELL WITH STAFF TO PICK APPROPRIATE SNACKS AND LIMIT EXTRA SUGARS AND CARBS. PT VOIDING WELL. BM TODAY. PT DID OWN WASH UP IN SINK THIS MORNING , DECLINED SHOWER. LAP INCISIONS TO ABDOMEN HEALING. PT HAS SWELLING TO BLE WITH SKIN DISCOLORATION THAT HAS REMAINED STABLE T/O SHIFT. PT USES CALL LIGHT APPROPRIATELY NEEDED. PLAN FOR [facility] PLACEMENT AT DISCHARGE.
--- NOTE | 2021-02-10 04:31 | NUR ---
MOTOR BUILDER ASSEMBLER SUMMARY PT IS AXO X4 BUT HAS FLAT WITHDRAWN AFFECT. PT HAS C/O NCREASING PAIN IN ABDOMEN AND HAS REQUESTED PAIN MEDICATED X2 THIS SHIFT W LITTLE RELIEF. PT HAS BEEN AWAKE MOST OF SHIFT REQUESTING SNACKS THROUGHOUT THE SHIFT, CBG AT 2100 WAS 127 HOWEVER PT REQUESTED THAT HER BLOOD GLUCOSE BE CHECKED MID SHIFT SHE SAID SHE FELT "LOW". SPOT CHECK CBG SHOWED BLOOD GLUCOSE OF 160. BLOOD PRESSURES REMAIN SOFT 90'S/50'S. PT AFEBRILE THIS SHIFT W PEAK TEMP AT 98.8. PT CONTINUES TO HAVE WET COUGH, PT ENCOURAGED TO DEEP BREATH AND USE IS. PT IS INDEPENDENT IN RM AMBULATING WELL W FWW. PT HAD SOFT-BROWN BM THIS SHIFT. WILL REPORT TO ONCOMING RN.
--- NOTE | 2021-02-10 17:48 | NUR ---
SHIFT SUMMARY AA0X4, PT HAS BEEN IND IN ROOM. UP WALKING HALLS WELL, NO WEAKNESS. PAIN MANAGED PER EMAR. TOLERATING WELL. PT VOIDING AND REPORTS PASSING GAS/BM. TENDERNESS TO ABDOMEN ON PALPATION, PT REPORTS NORMAL WHEN SWELLING IN ABD INCREASES. EATING FREQUENTLY THIS AM. PLAN WILL BE TO DISCHARGE ON THE TO [facility].
--- NOTE | 2021-02-11 04:18 | NUR ---
SHIFT SUMMARY: TONJA IS A&OX4. VSS, NO ACUTE EVENTS OVERNIGHT. HER BLOOD SUGAR REMAINS ELEVATED. SHE WAS ENCOURAGED TO EAT THE ITEMS ON HER DIET, SHE CONTINUES TO REQUEST FOODS NOT CONSISTENT WITH CONSISTENT CARBOHYDRATES SUCH CHUCK CRACKERS AND MILK. SHE WAS EDUCATED ON THE IMPORTANCE OF GOOD BLOOD SUGAR CONTROL, AGAIN. SHE IS TOLERATING PO INTAKE WELL, URINATING WITHOUT DIFFICULTY, AND INDEPENDENT IN THE ROOM. SHE IS LYING IN BED WITH THE CALL LIGHT IN REACH. WILL REPORT TO DAY SHIFT RN.
--- NOTE | 2021-02-12 05:17 | NUR ---
SHIFT SUMMARY A/OX3, SBA WITH FWW. C/O PAIN TO BLE AND ABD, MEDICATED PER EMAR. BLE CONTINUE TO BE RED, SWOLLEN AND WARM TO THE TOUCH. VSS, NO ACUTE CHANGES AT THIS TIME. PLAN IS TO D/C TO [facility] FOLLOWING TELEPHONE ASSESSMENT TODAY. BED IN LOWEST POSITION WITH CALL LIGHT IN REACH. WILL CONTINUE TO MONITOR AND REPORT TO ONCOMING RN.
--- NOTE | 2021-02-12 18:22 | NUR ---
SUMMARY: NO CHANGE TODAY. VSS, A/O. AMBUALTING IN HALLS INDEPENDENTLY. MEDICATED FOR PAIN PER EMAR. SPOKE WITH MEMO PALACIO ANDROID ARCHITECT. PLAN IS FOR DC TO [facility] ON WEDNESDAY. PT IS AWARE. WILL CTM AND REPORT TO STEVAN RN.
--- NOTE | 2021-02-12 20:30 | NUR ---
PT CALLED FOR PAIN MED AND I WAS IN ANOTHER ROOM CALLING PHYSICIAN.I ASKED O AND M SUPERVISOR TO ADVISE HER OF THIS AND THAT I WOULD BE THERE SOON POSSIBLE.WHEN I ENTERED ROOM, PT WAS ASLEEP.I ADVISED O AND M SUPERVISOR THAT I WOULD MEDICATE PT WHEN SHE WAKES.
--- NOTE | 2021-02-12 21:09 | NUR ---
PT AWAKE.CALLED FOR PAIN MED. UPSET THAT I DID NOT WAKE HER FOR PAIN MEDS.I ADVISED THAT IS NOT THE USUAL TO WAKE PT FOR PRN MED AND HAD PLANS TO GIVE WHEN SHE WOKE OR AT LATEST,IF SHE NEEDED WOKE FOR CBG AND INSULIN.I ADVISED IF SHE REQUESTS TO BE WOKE FOR MEDS WHEN SHE HAS CALLED FOR THEM AND NURSE NOTES PT TO BE SLEEPING WHEN THEY ENTER ROOM, THEN I WILL NOTE IN CHART AND PASS THIS INFO IN REPORT WELL.PT ALSO C/O THAT SHE WAS NOT GIVEN DRINKS THAT SHE REQUESTED OF POLICE AIDE.PT ASKED TO HAVE A GLASS OF REGULAR COKE PRODUCT SHE STATES DR REYNA DOES NOT WANT HER TO DRINK DIET SODA.PT ALSO REQUESTED MILK.I ADVISED PT SHE WAS EATING SUGARY SNACKS OUT OF VENDING MACHINES DURING SHIFT CHANGE,I HAVE ALREADY POSTPONED CBG SLIGHTLY TO GET A MORE ACCURATE IDEA OF WHAT HER SUGARS ARE DOING,AND DO NOT WANT HER TAKING SUGARY DRINKS,OR SNACKS THIS CLOSE TO CBG FOR SAFETY RELATED TO INSULIN COVERAGE ORDERS AND GENERAL CARE OF HER DIABETES.PT VERB UNDERSTANDING.PT NOW REQUESTED ICE WATER.I BROUGHT ICE WATER AND PAIN MEDS WERE GIVEN IN ADDITION TO ROUTINE MEDS WITH PLANS TO RETURN FOR REPOSITIONING AND CBG,DIABETIC CARE.I TOLD PT AFTER WE HAVE OBTAINED CBG, THEN WE CAN DISCUSS FURTHER HER WISHES AND SAFTEY IN REGARDS TO HS SNACKS.
--- NOTE | 2021-02-12 23:24 | NUR ---
CBG BASIILA 77.HELD ROUTINE SEMGLEE AND COVERAGE IS NOT FOR HS. PT EATNG SNACK NOW,AND WILL F/U WITH [facility] EARLY AM FOR SAFETY.
--- NOTE | 2021-02-13 18:40 | NUR ---
SUMMARY NO ACUTE CHANGES T/O SHIFT. COVERED CBGS PER ORDERS. MEDICATED PER ORDERS FOR PAIN. INDEPENDENT IN ROOM. CALL LIGHT IN REACH.
--- NOTE | 2021-02-14 06:41 | NUR ---
SUMMARY PT INDEPENDANT WITH WALKER.TOLERATES PO AND VOIDING WITHOUT DIFF. PT IRRITABLE WHEN STAFF DOES NOT AGREE TO REGULAR SUGARED DIET DUE TO CBGS AND DX OF DIABETES EVEN THOUGH STAFF OFFER ACCEPTABLE ALTERNATIVES.PT VERB HER DISPLEASURE WITH THIS.DISCUSSED EACH SHIFT WITH PT IMPORTANCE OF COMPLIANCE WITH DIET AND DIABETIC CARE.ALSO PT SITS ON EDGE OF BED WTIH BARE FEET AND PICKS AT FEET WITH UNGLOVED HANDS.THIS IS SECOND DAY I HAVE SEEN PT DO THIS AND HAVE DISCUSSED WITH PT RISKS OF INFECTION BOTH TO HANDS AND FEET DUE TO THE THICKENED APPEARANCE OF HER TOENAILS AND POSSIBLE HX OF FUNGUS AND PARITICULARLY WITH HER DIABETES, THE RISK OF OPEN AREAS TO SKIN BECOMING INFECTED.AGAIN PT VERB HER DISPLEASURE WITH MY ATTEMPT TO EDUCATE HER FOR SAFETY AND GENERAL HYGIENE/HEALTH.
--- NOTE | 2021-02-14 08:29 | NUR ---
PATIENT HAD A BLOOD SUGAR OF 35 THIS MORNING. SHE DIDN'T REPORT SYMPTOMS AT THIS TIME. SHE IS ALERT AND ORIENTED X4. PATIENT WAS GIVEN APPLE JUICE AND SOME CRACKERS TO HELP BRING HER SUGARS UP. SHE IS ABLE TO HANDLE HER PO INTAKE. WILL RE-CHECK HER BLOOD SUGARS AFTER SHE FINISHES BREAKFAST.
--- NOTE | 2021-02-14 10:09 | NUR ---
THIS NURSE RE-CHECKED PATIENTS BLOOD GLUCOSE AND WAS 139. PATIENT IS ALERT AND ORIENTED X4. VS ARE WNL. SHE WAS ABLE TO FINISH HER BREAKFAST 100%. CALL LIGHT WITHIN REACH. WILL CONTINUE TO MONITOR BLOOD GLUCOSE.
--- NOTE | 2021-02-14 16:15 | NUR ---
SHIFT SUMMARY: ASCITES PATIENT IS ALERT AND ORIENTED X4. VS ARE WNL AND IS ON RA. PAIN IS MANAGED WITH 2 CHLOÉ'S. SHE IS AMBULATING IN THE HALLWAYS WITH GAIT BELT AND FWW A SBA. PATIENT IS TOLERATING PO INTAKE AND IS VOIDING/HAVING BM'S/PASSING GAS. SHE CALLS APPROPRIATELY. CALL LIGHT WITHIN REACH. PATIENT IS CURRENTLY LAYING IN BED WATCHING TV. THE PLAN IS TO BE DISCHARGED TO [facility] ONCE APPROVED. DISCHARGE [facility] IS AWAITING APPROVAL.
--- NOTE | 2021-02-15 03:41 | NUR ---
SHIFT SUMMARY NO ACUTE CHANGES OVERNIGHT. PT HAS BEEN DEMANDING SNACKS FREQUENTLY. EXPLAINED AND EDUCATED ABOUT DIABETIC DIET. TOLERATING PO INTAKE DENIES N/V. PT EXPRESSED SOME FRUSTRATIONS WITH HER DIET. PT AOX4. VSS. CBG T/O SHIFT AT 296 AND 255. PT HAS BEEN WALKING INSIDE HER ROOM. PT REPORTS CHRONIC PAIN, PAIN MANAGED WITH 2 CHLOÉ TWICE T/O SHIFT. CALL LIGHT WITHIN REACH. WILL PROVIDE REPORT TO ONCOMIN NURSE. PLAN: AWAITING FOR PLACEMENT TO [facility].
[2021-02-15 12:06] LABS: Anion Gap 3 mmol/L (6-16); Blood Urea Nitrogen 18 mg/dL (8-24); CO2, Blood 27 mmol/L (21-32); Calcium, Blood 7.7 mg/dL (8.5-10.1); Chloride, Blood 109 mmol/L (98-108); Creatinine, Blood 0.49 mg/dL (0.40-1.00); Glomerular Filtration Rate >60 (60-); Glucose, Blood 249 mg/dL (70-99); Potassium, Blood 4.4 mmol/L (3.5-5.5); Sodium, Blood 139 mmol/L (136-145)
--- NOTE | 2021-02-15 18:08 | NUR ---
SHIFT SUMMARY PT A&OX4, VSS, DEISY PO, AMBULATED IN ROOM TO BRP/BED/HALLWAY, PAIN MANAGED WITH 10 MG OXY, CBGS REQUIRED COVERAGE EXCEPT LATE AFTERNOON WHEN PT BLOOD SUGAR WAS LOW, SNACK GIVEN. VOIDING WELL. WILL REPORT TO ONCOMING NOC RN.
--- NOTE | 2021-02-16 04:20 | NUR ---
SHIFT SUMMARY NO ACUTE CHANGES OVERNIGHT. PT AMBULATING IN THE HALLWAY ONCE. VSS. CBG LAST NIGHT WAS 355 (2028) AND 134 (232) THIS MORNING. PT HAD A TURKEY MEAT AND A SLICE OF CHEESE IN BETWEEN. SHE ALSO REQUESTED FOR SOME SNACK AT 232. VSS. PROVIDE EDUCATION ABOUT DIABETIC MANAGEMENT. PT DENIES N/V. ABD PAIN MANAGED WITH 2 TAB OF OXY BEFORE BED. CALL LIGHT WITHIN REACH. WILL PROVIDE REPORT TO ONCOMING NURSE.
--- NOTE | 2021-02-16 15:36 | NUR ---
SHIFT SUMMARY PT A&OX4, VSS, CBGS AC/HS, UNSTABLE DM2. ABD INCISIONS WOOL GROWER D/I HEALING WELL. PAIN MANAGED WITH 10 MG OXY PRN. DEISY PO, DISCUSSED EATING 3 MEALS/DAY W/O SNACKING. AMBULATES INDEPENDENT W/FWW TO BRP, UP IN ROOM, REPOSITIONS SELF WELL IN BED. VOIDING WELL, BM TODAY. WILL REPORT TO NEXT RN.
--- NOTE | 2021-02-16 19:40 | NUR ---
RECEIVED REPORT AND ASSUMED CARE OF PT. SHE IS SITTING AT THE BEDSIDE READING A MAGAZINE. REPORTS PAIN 04/08, WILL MEDICATE PER OCT. SHE REQUESTED MILK, DISCUSSED BLOOD SUGAR CONTROL, WILL MONITOR AND TREAT PER ORDERS. CALL LIGHT IN REACH. GABBY.
--- NOTE | 2021-02-17 05:47 | NUR ---
SHIFT SUMMARY: TONJA IS A&OX4. VSS, NO ACUTE EVENTS OVERNIGHT. SHE CONTINUES TO REQUEST MULTIPLE SNACKS DURING THE NIGHT, DIABETIC DIET EDUCATION PROVIDED. PT BECAME TEARFUL STATING THAT SHE WAS "SO SICK" OF THE PROVIDED DIABETIC SNACKS. SHE IS INDEPENDENT IN THE ROOM, USES THE CALL LIGHT APPROPRIATELY. SHE REPORTS MINIMAL PAIN CONTROL WITH TWO TABLETS OF ROXICODONE. SHE IS URINATING WITHOUT DIFFICULTY. SHE IS LYING IN BED WITH THE CALL LIGHT IN REACH.
[2021-02-17] MEDS ORDERED: FURO20 PO ×2 (14:21→14:23)
[2021-02-17] MEDS ORDERED: INSULANPEN SC ×2 (14:26→16:03)
[2021-02-17] MEDS ORDERED: Acetaminophen650 M1 PO (14:30)
[2021-02-17] MEDS ORDERED: FERSU300 PO (14:31)
[2021-02-17] MEDS ORDERED: GABA400 PO (14:32)
[2021-02-17] MEDS ORDERED: ONDA4 PO (14:34)
[2021-02-17] MEDS ORDERED: PSYSENPA PO (14:37)
[2021-02-17] MEDS ORDERED: ALDACTONE25 MG PO (14:38)
[2021-02-17] MEDS ORDERED: VISBIOME 112.51 EACH PO (14:41)
[2021-02-17] MEDS ORDERED: NOVOLIN N100 UNIT/2 SC (14:53)
[2021-02-17] MEDS ORDERED: HUMALOG KW100 UNIT/1 SC (15:07)
--- NOTE | 2021-02-17 17:13 | NUR ---
called prescriptions into [facility] per pt request.
--- NOTE | 2021-02-17 18:27 | NUR ---
DISCHARGED CALLED PRESCRIPTIONS INTO [facility] PER PT REQUEST. REVIEWED DC INSTRUCTIONS W/PT; VERBALIZED UNDERSTANDING. PT LEFT UNIT IN WC, ACCOMPANIED BY TRANSPORT W/POSSESSIONS AND DC PAPERWORK IN HAND.
== END 2021-02-17 18:15 | disposition home health service (06) | DRG 853 ==
LOC: ER 20:00 → SURS 22:14 → ICUW 22:14 → SURS 01-09 13:05
PROVIDERS: Emergency Medicine; Family Medicine; Hospitalist; Internal Medicine; Student in an Organized Health Care Education/Training Program; Surgery; ADMIT Family Medicine
PROC: 0W9G3ZX Drainage of Peritoneal Cavity, Percutaneous Approach, Diagnostic (ICD-10-PCS; 2021-01-07)
PROC: 0DQH4ZZ Repair Cecum, Percutaneous Endoscopic Approach (ICD-10-PCS; principal; 2021-01-07 21:00)
PROC: 0W9G3ZZ Drainage of Peritoneal Cavity, Percutaneous Approach (ICD-10-PCS; 2021-01-16)
PROC: 0W9G3ZX Drainage of Peritoneal Cavity, Percutaneous Approach, Diagnostic (ICD-10-PCS; 2021-01-22)
DX: A41.9 Sepsis, unspecified organism (principal); E43 Unspecified severe protein-calorie malnutrition; J18.9 Pneumonia, unspecified organism; K65.2 Spontaneous bacterial peritonitis; K91.71 Accidental puncture and laceration of a digestive system organ or structure during a digestive system procedure; R18.8 Other ascites; D61.818 Other pancytopenia; K76.6 Portal hypertension; E87.1 Hypo-osmolality and hyponatremia; N39.0 Urinary tract infection, site not specified; N17.9 Acute kidney failure, unspecified; Z20.822 Contact with and (suspected) exposure to COVID-19; E11.65 Type 2 diabetes mellitus with hyperglycemia; I95.9 Hypotension, unspecified; D69.6 Thrombocytopenia, unspecified; K74.60 Unspecified cirrhosis of liver; Z68.25 Body mass index [BMI] 25.0-25.9, adult; R00.1 Bradycardia, unspecified; I48.0 Paroxysmal atrial fibrillation; K62.3 Rectal prolapse; E78.5 Hyperlipidemia, unspecified; J45.909 Unspecified asthma, uncomplicated; B96.1 Klebsiella pneumoniae [K. pneumoniae] as the cause of diseases classified elsewhere; R31.9 Hematuria, unspecified; B96.89 Other specified bacterial agents as the cause of diseases classified elsewhere; B95.4 Other streptococcus as the cause of diseases classified elsewhere; R22.42 Localized swelling, mass and lump, left lower limb; E11.649 Type 2 diabetes mellitus with hypoglycemia without coma; E83.51 Hypocalcemia; R51.9 Headache, unspecified; R65.20 Severe sepsis without septic shock; E11.43 Type 2 diabetes mellitus with diabetic autonomic (poly)neuropathy; F32.9 Major depressive disorder, single episode, unspecified; K31.84 Gastroparesis; E11.42 Type 2 diabetes mellitus with diabetic polyneuropathy; Z79.4 Long term (current) use of insulin; Z90.49 Acquired absence of other specified parts of digestive tract; Z98.890 Other specified postprocedural states; Z95.0 Presence of cardiac pacemaker; Z90.710 Acquired absence of both cervix and uterus; Z88.2 Allergy status to sulfonamides; Z88.1 Allergy status to other antibiotic agents; Z88.8 Allergy status to other drugs, medicaments and biological substances; Z88.0 Allergy status to penicillin; Z88.5 Allergy status to narcotic agent; Z91.040 Latex allergy status; Z85.41 Personal history of malignant neoplasm of cervix uteri; Y95 Nosocomial condition
CPT/HCPCS: 36415; 49083; 71046; 73590; 76700; 76705; 80047; 80048; 80053; 80069; 81001; 81003; 82040; 82042; 82607; 82746; 82803; 82945; 82947; 83540; 83550; 83605; 83615; 83690; 83735; 83986; 84145; 84157; 84478; 85007; 85014; 85025; 85027; 85045; 85060; 85730; 87040; 87070; 87075; 87077; 87086; 87186; 87205; 87389; 88108; 89051; 92610; 93005; 93010; 93970; 93971; 94762; 96365-59; 96375-59; 96376-59; 97110; 97116; 97162; 97166; 97530; 97535; 97535-CO; 99285-25; A9270; C1751; C9113; J0744; J1100; J1170; J1650; J1815; J1940; J1956; J2060; J2250; J2270; J2370; J2405; J2704; J3010; J7030; J7040; P9045; P9046; U0004

== ENCOUNTER 2021-06-09 12:16 | Inpatient (IN) | payer OTHER ==
[~2021-06-09] VITALS: Ht 162.6 cm; Wt 41.4 kg
[~2021-06-09 12:16] MED LIST changes: +ALDACTONE25 MG PO; +Acetaminophen650 M1 PO; +BASAGLAR K100 UNIT/8 SC; +BUSPIRONE HCL5 M2 PO; +FERSU300 PO; +FURO80 PO; +GABA400 PO; +METO5 PO; +NOVOLIN N100 UNIT/2 SC; +NOVOLOG FL100 UNIT/3 SC; +PSYSENPA PO; +TOPROL XL25 MG PO; +VENLAFAXINE HC225 MG PO
[2021-06-09 13:29] LABS: BASOPHILS ABSOLUTE AUTO 0.04 K/mm3 (0.00-0.23); BASOPHILS PERCENT AUTO 1 % (0-2); EOSINOPHILS ABSOLUTE AUTO 0.08 K/mm3 (0.00-0.68); EOSINOPHILS PERCENT AUTO 2 % (0-6); Hematocrit 41.4 % (33.0-51.0); Hemoglobin 13.5 g/dL (11.5-16.0); IMMATURE GRAN ABSOLUTE AUTO 0.02 K/mm3 (0.00-0.10); IMMATURE GRAN PERCENT AUTO 1 % (0-1); LYMPHOCYTES ABSOLUTE AUTO 0.87 K/mm3 (0.84-5.20); LYMPHOCYTES PERCENT AUTO 25 % (21-46); MONOCYTES ABSOLUTE AUTO 0.27 K/mm3 (0.16-1.47); MONOCYTES PERCENT AUTO 8 % (4-13); Mean Corpuscular HGB Conc 32.6 g/dL (31.5-36.5); Mean Corpuscular Volume 86 fL (80-100); NEUTROPHILS ABSOLUTE AUTO 2.27 K/mm3 (1.96-9.15); NEUTROPHILS PERCENT AUTO 64 % (41-73); RDW Coefficient Variation 14.9 % (11.7-14.2); RDW Standard Deviation 46.7 fL (35.1-46.3); Red Blood Cell Count 4.83 M/mm3 (3.80-5.20); White Blood Cell Count 3.55 K/mm3 (4.00-11.30)
[2021-06-09 13:41] LABS: Alanine Aminotransfer (ALT/SGP 159 U/L (12-78); Albumin, Blood 2.5 g/dL (3.4-5.0); Albumin/Globulin Ratio 0.7 (0.8-1.8); Alk Phos 257 U/L (50-136); Anion Gap 12 mmol/L (6-16); Aspartate Aminotrans (AST/SGOT 406 U/L (12-37); Bilirubin, Total 0.9 mg/dL (0.1-1.0); Blood Urea Nitrogen 16 mg/dL (8-24); Bun/Creatinine Ratio 38.7 (12.0-20.0); CO2, Blood 18 mmol/L (21-32); Calcium, Blood 8.2 mg/dL (8.5-10.1); Chloride, Blood 104 mmol/L (98-108); Creatinine, Blood 0.41 mg/dL (0.40-1.00); Globulin, Blood 3.6 g/dL (2.2-4.0); Glomerular Filtration Rate >60 (60-); Glucose, Blood 887 mg/dL (70-99); Potassium, Blood 4.1 mmol/L (3.5-5.5); Sodium, Blood 134 mmol/L (136-145); Total Protein, Blood 6.1 g/dL (6.4-8.2)
[2021-06-09 13:56] LABS: Mean Platelet Volume 10.9 fL (9.1-12.4); Platelet Count 81 K/mm3 (150-400)
[2021-06-09 16:00] LABS: Source, Urine Clean Catch
[2021-06-09 16:11] LABS: Appearance, Urine Clear (Clear); Bilirubin, Urine Neg (Neg); Blood, Urine 3+ (Neg); Color, Urine Yellow (P-Yellow); Glucose Qualitative, Urine 4+ (Neg); Ketones, Urine Neg (Neg); Leukocyte Esterase, Urine Neg (Neg); Nitrite, Urine Neg (Neg); Protein, Urine Neg (Neg); Urobilinogen, Urine NORM (Normal)
[2021-06-09 16:19] LABS: White Blood Cells, Urine 0-2 /hpf (0-5)
[2021-06-09 16:20] LABS: Bacteria Rare /hpf; Squamous Epithelial Cells Few /hpf (Few); Yeast/Fungi Urine Rare /hpf
[2021-06-09 16:48] LABS: SARS-Cov-2 (COVID-19) PCR, MMC NEGATIVE (NEGATIVE)
[2021-06-09] MEDS ORDERED: REMERON PO (17:51)
[2021-06-09] MEDS ORDERED: PRAZ2 PO (17:51)
[2021-06-09] MEDS ORDERED: VENLAFAXINE HC225 MG PO (17:52)
[2021-06-09] MEDS ORDERED: GABAPENTIN600 MG PO (17:52)
[2021-06-09] MEDS ORDERED: TRAZ50 PO (17:52)
[2021-06-09] MEDS ORDERED: Buspirone HCl15 MG PO (17:52)
[2021-06-09] MEDS ORDERED: KLOR-CON 1010 ME4 PO (17:53)
[2021-06-09] MEDS ORDERED: FUROSEMIDE20 MG PO (17:53)
[2021-06-09] MEDS ORDERED: INSULIN LI100 UNIT/6 SC (17:54)
[2021-06-09] MEDS ORDERED: SEMGLEE PE100 UNIT/1 SC (17:54)
[2021-06-09] MEDS ORDERED: FURO20 PO (17:54)
--- NOTE | 2021-06-09 18:34 | NUR ---
ADMIT PT ARRIVED TO ICU 15 VIA ER BED AT 1800. PT IS AWAKE AND ALERT, BUT DROWSEY. PT ANSWERS QUESTIONS APPROPRIATELY. FORGETFUL AT TIMES. VITAL SIGNS STABLE. IV'S SALINE LOCKED. PT APPEARS FRAIL AND MALNOURISHED. WILL CONTINUE TO MONITOR AND REPORT OFF TO ONCOMING RN.
[2021-06-09 19:07] LABS: Source, Urine Catheter
[2021-06-09 19:17] LABS: Appearance, Urine Hazy (Clear); Bilirubin, Urine Neg (Neg); Blood, Urine 2+ (Neg); Color, Urine Yellow (P-Yellow); Glucose Qualitative, Urine 4+ (Neg); Ketones, Urine Neg (Neg); Leukocyte Esterase, Urine Neg (Neg); Nitrite, Urine Neg (Neg); Protein, Urine 1+ (Neg); Urobilinogen, Urine NORM (Normal)
[2021-06-09 19:27] LABS: Bacteria Rare /hpf; Squamous Epithelial Cells Rare /hpf (Few); White Blood Cells, Urine 0-2 /hpf (0-5)
[2021-06-09 19:28] LABS: Amorphous Light (0-Heavy)
--- NOTE | 2021-06-09 19:30 | NUR ---
ASSUMED CARE PATIENT LYING IN BED COVERING FACE W/ HANDS. NO FAMILY AT BEDSIDE; PERSONAL CLOTHING SET IN CHAIR BESIDE BED. PATIENT TRACKS SOUND UPON ENTERING ROOM, BUT DOES NOT MAKE COVNERSATION W/ STAFF. INSULIN GTT AT BEDSIDE BUT NOT RUNNING AT THIS TIME DUE TO BLOOD SUGAR DECREASING FROM 800'S TO 300'S.
[2021-06-09 21:01] LABS: Hematocrit 35.1 % (33.0-51.0); Hemoglobin 12.3 g/dL (11.5-16.0); Mean Corpuscular HGB 28.3 pg (26.0-34.0); Mean Platelet Volume 10.2 fL (9.1-12.4); Platelet Count 113 K/mm3 (150-400); RDW Coefficient Variation 14.8 % (11.7-14.2); RDW Standard Deviation 43.1 fL (35.1-46.3); Red Blood Cell Count 4.35 M/mm3 (3.80-5.20)
[2021-06-09 21:02] LABS: Mean Corpuscular Volume 81 fL (80-100)
[2021-06-09 21:16] LABS: Anion Gap 6 mmol/L (6-16); Blood Urea Nitrogen 11 mg/dL (8-24); Bun/Creatinine Ratio 25.6 (12.0-20.0); CO2, Blood 24 mmol/L (21-32); Calcium, Blood 7.9 mg/dL (8.5-10.1); Chloride, Blood 110 mmol/L (98-108); Creatinine, Blood 0.43 mg/dL (0.40-1.00); Glomerular Filtration Rate >60 (60-); Glucose, Blood 276 mg/dL (70-99); Potassium, Blood 3.3 mmol/L (3.5-5.5); Sodium, Blood 140 mmol/L (136-145)
[2021-06-09 23:56] LABS: Stool Occult Blood Guaiac 1 Neg (Neg)
[2021-06-10 03:58] LABS: Hematocrit 32.8 % (33.0-51.0); Hemoglobin 11.4 g/dL (11.5-16.0); Mean Corpuscular HGB 27.9 pg (26.0-34.0); Mean Corpuscular HGB Conc 34.8 g/dL (31.5-36.5); Mean Corpuscular Volume 80 fL (80-100); Mean Platelet Volume 10.2 fL (9.1-12.4); Platelet Count 81 K/mm3 (150-400); RDW Coefficient Variation 14.6 % (11.7-14.2); RDW Standard Deviation 42.9 fL (35.1-46.3); Red Blood Cell Count 4.08 M/mm3 (3.80-5.20); White Blood Cell Count 3.54 K/mm3 (4.00-11.30)
[2021-06-10 04:25] LABS: Alanine Aminotransfer (ALT/SGP 108 U/L (12-78); Albumin, Blood 2.1 g/dL (3.4-5.0); Albumin/Globulin Ratio 0.8 (0.8-1.8); Alk Phos 202 U/L (50-136); Anion Gap 2 mmol/L (6-16); Aspartate Aminotrans (AST/SGOT 95 U/L (12-37); Bilirubin, Total 0.9 mg/dL (0.1-1.0); Blood Urea Nitrogen 11 mg/dL (8-24); Bun/Creatinine Ratio 24.9 (12.0-20.0); CO2, Blood 26 mmol/L (21-32); Calcium, Blood 7.7 mg/dL (8.5-10.1); Chloride, Blood 118 mmol/L (98-108); Creatinine, Blood 0.44 mg/dL (0.40-1.00); Globulin, Blood 2.7 g/dL (2.2-4.0); Glomerular Filtration Rate >60 (60-); Glucose, Blood 226 mg/dL (70-99); Magnesium, Blood 1.8 mg/dL (1.6-2.4); Phosphorus, Blood 2.9 mg/dL (2.5-4.9); Potassium, Blood 3.8 mmol/L (3.5-5.5); Sodium, Blood 146 mmol/L (136-145); Total Protein, Blood 4.8 g/dL (6.4-8.2)
--- NOTE | 2021-06-10 06:40 | NUR ---
SHIFT SUMMARY PATIENT SLEPT THROUGHOUT SHIFT, REPOSITIONING SELF FREQUENTLY FROM SIDE TO SIDE. PATIENT IS INCONTINENT OF STOOL AND DOES NOT NOTIFY STAFF TO NEEDS; FREQUENT ATTENDS CHECKS REQUIRED. PATIENT IS CONFUSED AND BELIEVES THE YEAR IS 1988. AT ONE POINT SHE DID STATE THAT SHE IS AT [facility], BUT LATER WHEN REASSESSED SHE WOULD NOT ANSWER THE QUESTIONS AND INSTEAD WOULD REPEAT "1988". GARZON REMAINED PATENT AND DRAINED OUT OVER 2L URINE. INSULIN GTT NOT STARTED DUE TO BLOOD GLUCOSE CONTINUING TO LOWER W/ FLUID INF. GLUCOSE STAYED IN 200'S. ORDERS FOR CBG CHANGED TO Q2H W/ AC LOW SLIDING SCALE HUMALOG.
--- NOTE | 2021-06-10 17:15 | NUR ---
TRANSFER FROM ICU 50 Y F TRANSFERRED FROM ICU WITH ADMIT DX OF HYPEROSMOLAR, AND HYPERGLYCEMIA. REPORT RECIEVED FROM [facility]. PT ARRIVED VIA W/C AND WAS A SBA TRANSFER TO BED. PT APPEARS VERY FRAILE AND WEEK. PT HAS HX OF DM, CIRRHOSIS, CKD, A-FIB, RECTAL LAND UTERINE PROLAPSE. PT REPORTEDLY LIVES AT HOME WITH HER DAUGHTERS. PT WAS ORIENTED TO ROOM, CALL LIGHT SYSTEM, PHONE AND FALL PRECAUTIONS. PT RESTING IN BED, CALL LIGHT IN REACH
--- NOTE | 2021-06-10 18:58 | NUR ---
PCP- AT [facility], PAIN MGMT- CHUY PENNY AT [facility] PAIN MGMT
[2021-06-11 04:40] LABS: Hematocrit 34.2 % (33.0-51.0); Hemoglobin 11.7 g/dL (11.5-16.0); Mean Corpuscular HGB 27.9 pg (26.0-34.0); Mean Corpuscular HGB Conc 34.2 g/dL (31.5-36.5); Mean Corpuscular Volume 81 fL (80-100); Mean Platelet Volume 10.3 fL (9.1-12.4); Platelet Count 59 K/mm3 (150-400); RDW Coefficient Variation 14.8 % (11.7-14.2); RDW Standard Deviation 42.9 fL (35.1-46.3); White Blood Cell Count 2.23 K/mm3 (4.00-11.30)
--- NOTE | 2021-06-11 04:48 | NUR ---
PT SLETP THROUGH THE NIGHT WITH INTERRUPTION. MEDICATED FOR NAUSEA AND PAIN. ONE EPISODE OF LARGE BROWN SOFT STOOL. ABD DISCOMFORT WITH FOOD BUT NO VOMITTING. ADLS PROVIDED. MEDS GIVEN. CALL LIGHT WITHIN REACH. BED ALARM EXIT ON.
[2021-06-11 05:01] LABS: Anion Gap 7 mmol/L (6-16); Blood Urea Nitrogen 6 mg/dL (8-24); Bun/Creatinine Ratio 16.5 (12.0-20.0); CO2, Blood 20 mmol/L (21-32); Calcium, Blood 7.7 mg/dL (8.5-10.1); Chloride, Blood 113 mmol/L (98-108); Creatinine, Blood 0.36 mg/dL (0.40-1.00); Glomerular Filtration Rate >60 (60-); Glucose, Blood 326 mg/dL (70-99); Magnesium, Blood 1.6 mg/dL (1.6-2.4); Potassium, Blood 3.2 mmol/L (3.5-5.5); Sodium, Blood 140 mmol/L (136-145)
[2021-06-11] MEDS ORDERED: LACT10SY PO (11:25)
--- NOTE | 2021-06-11 15:22 | NUR ---
Discharge Summary, The patient is A/OX4 to person, place, time and event. The patient was pleasent and cooperative with care. The patient did ask some of the same questions to the nurse and provider about not remembering how she came to the hospital and the nurse explained that her condition could cause memory and cognitive defficits. The patient stated she understood. The patient was able to use the BSC and get dressed without assistance. The patient called her daughter and the daughter was waiting for her to be discharged. The patient was given verbal and written discharge instruction about medications and when to follow up with her PCP or seek medical attention. The patient gave verbal understanding of the orders. She was escorted off the floor in a wheelchair to the front of the hospital and was helped into the daughters car.
== END 2021-06-11 13:39 | disposition home health service (06) | DRG 638 ==
LOC: ER 12:16 → ICUW 16:51 → MEDS 06-10 17:15
PROVIDERS: Emergency Medicine; Physician Assistant; ADMIT Internal Medicine
DX: E11.00 Type 2 diabetes mellitus with hyperosmolarity without nonketotic hyperglycemic-hyperosmolar coma (NKHHC) (principal); D61.818 Other pancytopenia; E46 Unspecified protein-calorie malnutrition; Z68.1 Body mass index [BMI] 19.9 or less, adult; N13.30 Unspecified hydronephrosis; Z20.822 Contact with and (suspected) exposure to COVID-19; E78.5 Hyperlipidemia, unspecified; I10 Essential (primary) hypertension; K74.60 Unspecified cirrhosis of liver; F32.A Depression, unspecified; E11.42 Type 2 diabetes mellitus with diabetic polyneuropathy; I48.0 Paroxysmal atrial fibrillation; G43.909 Migraine, unspecified, not intractable, without status migrainosus; J45.20 Mild intermittent asthma, uncomplicated; Z88.0 Allergy status to penicillin; Z79.4 Long term (current) use of insulin; Z79.899 Other long term (current) drug therapy; Z91.040 Latex allergy status; Z88.1 Allergy status to other antibiotic agents; Z88.2 Allergy status to sulfonamides; Z88.8 Allergy status to other drugs, medicaments and biological substances; Z86.718 Personal history of other venous thrombosis and embolism; Z90.710 Acquired absence of both cervix and uterus; Z90.49 Acquired absence of other specified parts of digestive tract; Z95.0 Presence of cardiac pacemaker; Z98.890 Other specified postprocedural states; Z85.41 Personal history of malignant neoplasm of cervix uteri; Z90.722 Acquired absence of ovaries, bilateral
CPT/HCPCS: 36415; 51702; 71046; 74177; 80048; 80053; 81001; 82140; 82272; 82947; 83036; 83605; 83735; 84100; 84443; 85025; 85027; 87040; 96361; 96374; 97166; 97535; 99285-25; A9270; J1815; J1956; J2405; J7030; Q9967; U0004

== ENCOUNTER 2021-07-02 18:32 | Emergency (ER) | payer OTHER ==
[~2021-07-02] VITALS: Ht 162.6 cm; Wt 38.6 kg
[~2021-07-02 18:32] MED LIST changes: +FUROSEMIDE20 MG PO; +GABAPENTIN600 MG PO; +INSULIN LI100 UNIT/6 SC; +KLOR-CON 1010 ME4 PO; +REMERON PO; +SEMGLEE PE100 UNIT/1 SC
[2021-07-02 19:16] LABS: BASOPHILS ABSOLUTE AUTO 0.02 K/mm3 (0.00-0.23); BASOPHILS PERCENT AUTO 1 % (0-2); EOSINOPHILS ABSOLUTE AUTO 0.13 K/mm3 (0.00-0.68); EOSINOPHILS PERCENT AUTO 4 % (0-6); Hemoglobin 11.9 g/dL (11.5-16.0); IMMATURE GRAN ABSOLUTE AUTO 0.01 K/mm3 (0.00-0.10); IMMATURE GRAN PERCENT AUTO 0 % (0-1); LYMPHOCYTES ABSOLUTE AUTO 0.72 K/mm3 (0.84-5.20); LYMPHOCYTES PERCENT AUTO 20 % (21-46); MONOCYTES ABSOLUTE AUTO 0.33 K/mm3 (0.16-1.47); MONOCYTES PERCENT AUTO 9 % (4-13); Mean Corpuscular HGB 28.1 pg (26.0-34.0); Mean Corpuscular HGB Conc 33.1 g/dL (31.5-36.5); Mean Corpuscular Volume 85 fL (80-100); Mean Platelet Volume 10.3 fL (9.1-12.4); NEUTROPHILS ABSOLUTE AUTO 2.49 K/mm3 (1.96-9.15); NEUTROPHILS PERCENT AUTO 67 % (41-73); Platelet Count 129 K/mm3 (150-400); RDW Standard Deviation 42.8 fL (35.1-46.3); Red Blood Cell Count 4.24 M/mm3 (3.80-5.20)
[2021-07-02 19:46] LABS: Alanine Aminotransfer (ALT/SGP 83 U/L (12-78); Albumin, Blood 2.2 g/dL (3.4-5.0); Albumin/Globulin Ratio 0.7 (0.8-1.8); Alk Phos 189 U/L (50-136); Anion Gap 6 mmol/L (6-16); Aspartate Aminotrans (AST/SGOT 52 U/L (12-37); Bilirubin, Total 0.5 mg/dL (0.1-1.0); Blood Urea Nitrogen 11 mg/dL (8-24); Bun/Creatinine Ratio 25.6 (12.0-20.0); CO2, Blood 26 mmol/L (21-32); Calcium, Blood 7.8 mg/dL (8.5-10.1); Chloride, Blood 102 mmol/L (98-108); Creatinine, Blood 0.43 mg/dL (0.40-1.00); Globulin, Blood 3.3 g/dL (2.2-4.0); Glomerular Filtration Rate >60 (60-); Glucose, Blood 596 mg/dL (70-99); Potassium, Blood 3.8 mmol/L (3.5-5.5); Sodium, Blood 134 mmol/L (136-145); Total Protein, Blood 5.5 g/dL (6.4-8.2)
== END 2021-07-02 23:48 | disposition home or self-care (01) ==
LOC: ER 18:32
PROVIDERS: Physician Assistant
DX: K52.9 Noninfective gastroenteritis and colitis, unspecified (principal); K64.4 Residual hemorrhoidal skin tags; E11.65 Type 2 diabetes mellitus with hyperglycemia; E78.5 Hyperlipidemia, unspecified; I10 Essential (primary) hypertension; G43.909 Migraine, unspecified, not intractable, without status migrainosus; Z88.0 Allergy status to penicillin; Z88.2 Allergy status to sulfonamides; Z88.1 Allergy status to other antibiotic agents; Z88.8 Allergy status to other drugs, medicaments and biological substances; Z79.899 Other long term (current) drug therapy
CPT/HCPCS: 36415; 74177; 80053; 83735; 85025; 86850; 86900; 86901; 96374; 99284-25; J1815; J3010; J7030; Q9967

== ENCOUNTER 2021-08-04 20:50 | Observation (INO) | payer OTHER ==
[~2021-08-04] VITALS: Ht 162.6 cm; Wt 38.6 kg
[2021-08-04 23:09] LABS: Alanine Aminotransfer (ALT/SGP 113 U/L (12-78); Albumin, Blood 2.1 g/dL (3.4-5.0); Albumin/Globulin Ratio 0.7 (0.8-1.8); Alk Phos 235 U/L (50-136); Anion Gap 6 mmol/L (6-16); Aspartate Aminotrans (AST/SGOT 99 U/L (12-37); Bilirubin, Total 0.5 mg/dL (0.1-1.0); Blood Urea Nitrogen 14 mg/dL (8-24); Bun/Creatinine Ratio 25.2 (12.0-20.0); CO2, Blood 25 mmol/L (21-32); Calcium, Blood 7.4 mg/dL (8.5-10.1); Chloride, Blood 105 mmol/L (98-108); Creatinine, Blood 0.56 mg/dL (0.40-1.00); Globulin, Blood 2.9 g/dL (2.2-4.0); Glomerular Filtration Rate >60 (60-); Glucose, Blood 766 mg/dL (70-99); Potassium, Blood 4.8 mmol/L (3.5-5.5); Sodium, Blood 136 mmol/L (136-145)
[2021-08-05 00:19] LABS: Source, Urine Catheter
[2021-08-05 00:21] LABS: Bilirubin, Urine Neg (Neg); Blood, Urine 1+ (Neg); Glucose Qualitative, Urine 4+ (Neg); Ketones, Urine Neg (Neg); Leukocyte Esterase, Urine Neg (Neg); Nitrite, Urine Neg (Neg); Protein, Urine Neg (Neg); Urobilinogen, Urine NORM (Normal)
[2021-08-05 00:25] LABS: Appearance, Urine Clear (Clear); Color, Urine Yellow (P-Yellow)
[2021-08-05 00:36] LABS: U Amphetamine Screen Not Detected; U Barbituate Screen Not Detected; U Benzodiazapine Screen Not Detected; U Buprenorphine Screen Not Detected; U Cannabinoids Screen Not Detected; U Cocaine Screen Not Detected; U Methadone Screen Not Detected; U Methamphetamine Screen Not Detected; U Opiates Screen Not Detected; U Oxycodone Screen DETECTED; U Phencyclidine Screen Not Detected; U Propoxyphene Screen Not Detected
[2021-08-05 00:38] LABS: Bacteria Not Seen /hpf; Red Blood Cells, Urine 0-2 /hpf (0-2); Squamous Epithelial Cells Rare /hpf (Few); White Blood Cells, Urine Rare /hpf (0-5)
[2021-08-05 00:51] LABS: BASOPHILS ABSOLUTE AUTO 0.03 K/mm3 (0.00-0.23); BASOPHILS PERCENT AUTO 1 % (0-2); EOSINOPHILS ABSOLUTE AUTO 0.09 K/mm3 (0.00-0.68); EOSINOPHILS PERCENT AUTO 2 % (0-6); Hematocrit 36.1 % (33.0-51.0); Hemoglobin 12.2 g/dL (11.5-16.0); IMMATURE GRAN ABSOLUTE AUTO 0.01 K/mm3 (0.00-0.10); IMMATURE GRAN PERCENT AUTO 0 % (0-1); LYMPHOCYTES PERCENT AUTO 21 % (21-46); MONOCYTES ABSOLUTE AUTO 0.45 K/mm3 (0.16-1.47); MONOCYTES PERCENT AUTO 10 % (4-13); Mean Corpuscular HGB 27.5 pg (26.0-34.0); Mean Corpuscular HGB Conc 33.8 g/dL (31.5-36.5); Mean Corpuscular Volume 82 fL (80-100); Mean Platelet Volume 10.5 fL (9.1-12.4); NEUTROPHILS ABSOLUTE AUTO 2.88 K/mm3 (1.96-9.15); NEUTROPHILS PERCENT AUTO 66 % (41-73); Platelet Count 101 K/mm3 (150-400); RDW Coefficient Variation 14.9 % (11.7-14.2); Red Blood Cell Count 4.43 M/mm3 (3.80-5.20); White Blood Cell Count 4.36 K/mm3 (4.00-11.30)
[2021-08-05 01:02] LABS: International Normalized Ratio 1.17; Prothrombin Time Results 12.2 Sec (9.7-11.5)
[2021-08-05 01:11] LABS: Acetaminophen, Random 3.8 ug/mL (10.0-30.0); Ethanol (Alcohol), Blood, Med <3 mg/dL; Salicylate <1.7 mg/dL (2.8-20.0)
[2021-08-05 06:36] LABS: Free Thyroxine 0.93 ng/dL (0.70-1.60)
[2021-08-05 07:17] LABS: Influenza A, PCR NEGATIVE (NEGATIVE); Influenza B, PCR NEGATIVE (NEGATIVE); Resp Syncytial Virus, PCR NEGATIVE (NEGATIVE); SARS-Cov-2 (COVID-19) PCR, MMC NEGATIVE (NEGATIVE)
== END 2021-08-07 19:31 ==
LOC: ER 20:50 → EOR 20:51
PROVIDERS: Physician Assistant; ADMIT Student in an Organized Health Care Education/Training Program
DX: F33.3 Major depressive disorder, recurrent, severe with psychotic symptoms (principal); F41.9 Anxiety disorder, unspecified; F43.10 Post-traumatic stress disorder, unspecified; R19.7 Diarrhea, unspecified; E78.5 Hyperlipidemia, unspecified; I10 Essential (primary) hypertension; K85.90 Acute pancreatitis without necrosis or infection, unspecified; E11.43 Type 2 diabetes mellitus with diabetic autonomic (poly)neuropathy; K31.84 Gastroparesis; I48.0 Paroxysmal atrial fibrillation; Z91.14 Patient's other noncompliance with medication regimen; Z20.822 Contact with and (suspected) exposure to COVID-19
CPT/HCPCS: 0241U; 36415; 71045; 80053; 81001; 82140; 82947; 83690; 84439; 84443; 85025; 85610; 93005; 93010; 99285-25; A9270; G0378; G0480; J1815; J2405; J7030; Q3014

== ENCOUNTER 2021-09-16 17:01 | Emergency (ER) | payer OTHER ==
[~2021-09-16] VITALS: Ht 162.6 cm; Wt 47.2 kg
[2021-09-16 18:28] LABS: BASOPHILS ABSOLUTE AUTO 0.01 K/mm3 (0.00-0.23); BASOPHILS PERCENT AUTO 0 % (0-2); EOSINOPHILS PERCENT AUTO 3 % (0-6); Hematocrit 31.7 % (33.0-51.0); Hemoglobin 10.5 g/dL (11.5-16.0); IMMATURE GRAN ABSOLUTE AUTO 0.01 K/mm3 (0.00-0.10); IMMATURE GRAN PERCENT AUTO 0 % (0-1); LYMPHOCYTES ABSOLUTE AUTO 0.56 K/mm3 (0.84-5.20); LYMPHOCYTES PERCENT AUTO 16 % (21-46); MONOCYTES ABSOLUTE AUTO 0.32 K/mm3 (0.16-1.47); MONOCYTES PERCENT AUTO 9 % (4-13); Mean Corpuscular HGB 27.1 pg (26.0-34.0); Mean Corpuscular HGB Conc 33.1 g/dL (31.5-36.5); Mean Corpuscular Volume 82 fL (80-100); Mean Platelet Volume 10.8 fL (9.1-12.4); NEUTROPHILS ABSOLUTE AUTO 2.55 K/mm3 (1.96-9.15); NEUTROPHILS PERCENT AUTO 72 % (41-73); Platelet Count 72 K/mm3 (150-400); RDW Coefficient Variation 14.8 % (11.7-14.2); RDW Standard Deviation 43.8 fL (35.1-46.3); Red Blood Cell Count 3.88 M/mm3 (3.80-5.20); White Blood Cell Count 3.55 K/mm3 (4.00-11.30)
[2021-09-16 18:46] LABS: Alanine Aminotransfer (ALT/SGP 124 U/L (12-78); Albumin, Blood 2.1 g/dL (3.4-5.0); Albumin/Globulin Ratio 0.7 (0.8-1.8); Alk Phos 161 U/L (50-136); Anion Gap 8 mmol/L (6-16); Aspartate Aminotrans (AST/SGOT 85 U/L (12-37); Bilirubin, Total 0.5 mg/dL (0.1-1.0); Blood Urea Nitrogen 13 mg/dL (8-24); Bun/Creatinine Ratio 40.5 (12.0-20.0); CO2, Blood 24 mmol/L (21-32); Calcium, Blood 7.5 mg/dL (8.5-10.1); Chloride, Blood 108 mmol/L (98-108); Creatinine, Blood 0.32 mg/dL (0.40-1.00); Globulin, Blood 2.9 g/dL (2.2-4.0); Glomerular Filtration Rate >60 (60-); Glucose, Blood 478 mg/dL (70-99); Potassium, Blood 4.8 mmol/L (3.5-5.5); Sodium, Blood 140 mmol/L (136-145)
[2021-09-16 19:52] LABS: Source, Urine Clean Catch
[2021-09-16 19:56] LABS: Bilirubin, Urine Neg (Neg); Blood, Urine 1+ (Neg); Glucose Qualitative, Urine 4+ (Neg); Ketones, Urine Neg (Neg); Leukocyte Esterase, Urine Neg (Neg); Nitrite, Urine Neg (Neg); Protein, Urine Neg (Neg); Urobilinogen, Urine NORM (Normal)
[2021-09-16 20:05] LABS: Appearance, Urine Clear (Clear); Color, Urine Pale Yellow (P-Yellow)
[2021-09-16 20:06] LABS: Bacteria Rare /hpf; Mucus Light (0-Heavy); Squamous Epithelial Cells Rare /hpf (Few); White Blood Cells, Urine 0-2 /hpf (0-5)
[2021-09-16] MEDS ORDERED: FURO40 PO (20:51)
== END 2021-09-16 23:08 | disposition home or self-care (01) ==
LOC: ER 17:01
PROVIDERS: Physician Assistant
DX: R19.7 Diarrhea, unspecified (principal); R10.9 Unspecified abdominal pain; E11.9 Type 2 diabetes mellitus without complications; I10 Essential (primary) hypertension; G43.909 Migraine, unspecified, not intractable, without status migrainosus; Z79.899 Other long term (current) drug therapy; Z88.0 Allergy status to penicillin; Z88.2 Allergy status to sulfonamides; Z88.1 Allergy status to other antibiotic agents; Z88.8 Allergy status to other drugs, medicaments and biological substances
CPT/HCPCS: 36415; 80053; 81001; 82140; 83690; 85025; 93005; 93010; 99284

== ENCOUNTER 2022-01-11 15:12 | Emergency (ER) | payer OTHER ==
[~2022-01-11] VITALS: Ht 165.1 cm; Wt 49.0 kg
[2022-01-11 16:15] LABS: BASOPHILS ABSOLUTE AUTO 0.01 K/mm3 (0.00-0.23); BASOPHILS PERCENT AUTO 0 % (0-2); EOSINOPHILS ABSOLUTE AUTO 0.03 K/mm3 (0.00-0.68); EOSINOPHILS PERCENT AUTO 1 % (0-6); Hematocrit 32.7 % (33.0-51.0); Hemoglobin 10.2 g/dL (11.5-16.0); IMMATURE GRAN ABSOLUTE AUTO 0.01 K/mm3 (0.00-0.10); IMMATURE GRAN PERCENT AUTO 0 % (0-1); LYMPHOCYTES ABSOLUTE AUTO 0.41 K/mm3 (0.84-5.20); LYMPHOCYTES PERCENT AUTO 12 % (21-46); MONOCYTES ABSOLUTE AUTO 0.36 K/mm3 (0.16-1.47); MONOCYTES PERCENT AUTO 11 % (4-13); Mean Corpuscular HGB 24.8 pg (26.0-34.0); Mean Corpuscular HGB Conc 31.2 g/dL (31.5-36.5); Mean Corpuscular Volume 80 fL (80-100); Mean Platelet Volume 11.2 fL (9.1-12.4); NEUTROPHILS ABSOLUTE AUTO 2.54 K/mm3 (1.96-9.15); NEUTROPHILS PERCENT AUTO 76 % (41-73); Platelet Count 75 K/mm3 (150-400); RDW Standard Deviation 43.4 fL (35.1-46.3); Red Blood Cell Count 4.11 M/mm3 (3.80-5.20); White Blood Cell Count 3.36 K/mm3 (4.00-11.30)
[2022-01-11 17:14] LABS: Albumin, Blood 1.9 g/dL (3.4-5.0); Albumin/Globulin Ratio 0.6 (0.8-1.8); Bilirubin, Total 0.3 mg/dL (0.1-1.0); Bun/Creatinine Ratio 23.2 (12.0-20.0); Calcium, Blood 7.5 mg/dL (8.5-10.1); Creatinine, Blood 0.39 mg/dL (0.40-1.00); Globulin, Blood 3.2 g/dL (2.2-4.0); Potassium, Blood 5.2 mmol/L (3.5-5.5); Total Protein, Blood 5.1 g/dL (6.4-8.2)
[2022-01-11 19:48] LABS: Base Excess Venous -0.9 mmol/L; Bicarbonate Venous 23.7 mmol/L (24.0-30.0); PCO2 Venous 37.1 mmHg (38-42); PO2 Venous 85.7 mmHg (38-42); pH Blood Venous 7.41 (7.34-7.37)
[2022-01-11] MEDS ORDERED: DICY20 PO (21:58)
== END 2022-01-11 21:50 | disposition home or self-care (01) ==
LOC: ER 15:12
PROVIDERS: Emergency Medicine; Student in an Organized Health Care Education/Training Program
DX: K62.3 Rectal prolapse (principal); K52.9 Noninfective gastroenteritis and colitis, unspecified; E11.42 Type 2 diabetes mellitus with diabetic polyneuropathy; E78.5 Hyperlipidemia, unspecified; I10 Essential (primary) hypertension; I48.0 Paroxysmal atrial fibrillation; F32.A Depression, unspecified; J45.20 Mild intermittent asthma, uncomplicated; Z86.718 Personal history of other venous thrombosis and embolism; Z79.4 Long term (current) use of insulin; Z79.899 Other long term (current) drug therapy; Z88.0 Allergy status to penicillin; Z88.2 Allergy status to sulfonamides; Z88.6 Allergy status to analgesic agent; Z88.1 Allergy status to other antibiotic agents; Z91.040 Latex allergy status; Z95.0 Presence of cardiac pacemaker
CPT/HCPCS: 36415; 74177; 80053; 82010; 82803; 82947; 83735; 85025; 86850; 86900; 86901; A9270; J1815; J2270; J7030; Q9967

== ENCOUNTER 2022-02-06 13:56 | Emergency (ER) | payer OTHER ==
[~2022-02-06] VITALS: Ht 162.6 cm; Wt 55.8 kg
[~2022-02-06 13:56] MED LIST changes: +DICY20 PO
[2022-02-06 15:34] LABS: BASOPHILS ABSOLUTE AUTO 0.02 K/mm3 (0.00-0.23); BASOPHILS PERCENT AUTO 0 % (0-2); EOSINOPHILS PERCENT AUTO 2 % (0-6); Hematocrit 37.6 % (33.0-51.0); Hemoglobin 12.2 g/dL (11.5-16.0); IMMATURE GRAN ABSOLUTE AUTO 0.01 K/mm3 (0.00-0.10); IMMATURE GRAN PERCENT AUTO 0 % (0-1); LYMPHOCYTES ABSOLUTE AUTO 0.72 K/mm3 (0.84-5.20); LYMPHOCYTES PERCENT AUTO 15 % (21-46); MONOCYTES ABSOLUTE AUTO 0.41 K/mm3 (0.16-1.47); MONOCYTES PERCENT AUTO 8 % (4-13); Mean Corpuscular HGB 24.5 pg (26.0-34.0); Mean Corpuscular HGB Conc 32.4 g/dL (31.5-36.5); Mean Corpuscular Volume 76 fL (80-100); Mean Platelet Volume 10.1 fL (9.1-12.4); NEUTROPHILS ABSOLUTE AUTO 3.69 K/mm3 (1.96-9.15); NEUTROPHILS PERCENT AUTO 75 % (41-73); Platelet Count 139 K/mm3 (150-400); RDW Coefficient Variation 15.6 % (11.7-14.2); RDW Standard Deviation 41.8 fL (35.1-46.3); Red Blood Cell Count 4.97 M/mm3 (3.80-5.20); White Blood Cell Count 4.95 K/mm3 (4.00-11.30)
[2022-02-06 15:59] LABS: Albumin, Blood 2.1 g/dL (3.4-5.0); Albumin/Globulin Ratio 0.6 (0.8-1.8); Bilirubin, Total 0.3 mg/dL (0.1-1.0); Bun/Creatinine Ratio 16.2 (12.0-20.0); Calcium, Blood 8.2 mg/dL (8.5-10.1); Creatinine, Blood 0.43 mg/dL (0.40-1.00); Globulin, Blood 3.7 g/dL (2.2-4.0); Potassium, Blood 3.5 mmol/L (3.5-5.5); Total Protein, Blood 5.8 g/dL (6.4-8.2)
== END 2022-02-06 21:15 | disposition home or self-care (01) ==
LOC: ER 13:56
PROVIDERS: Physician Assistant
DX: R60.0 Localized edema (principal); E11.65 Type 2 diabetes mellitus with hyperglycemia; K76.9 Liver disease, unspecified; E78.5 Hyperlipidemia, unspecified; J45.20 Mild intermittent asthma, uncomplicated; I48.0 Paroxysmal atrial fibrillation; Z86.718 Personal history of other venous thrombosis and embolism; E11.42 Type 2 diabetes mellitus with diabetic polyneuropathy; Z95.0 Presence of cardiac pacemaker; Z88.5 Allergy status to narcotic agent; Z88.0 Allergy status to penicillin; Z88.2 Allergy status to sulfonamides; Z88.8 Allergy status to other drugs, medicaments and biological substances; Z88.6 Allergy status to analgesic agent; Z88.1 Allergy status to other antibiotic agents; Z91.040 Latex allergy status; Z79.899 Other long term (current) drug therapy
CPT/HCPCS: 36415; 80053; 82947; 83690; 85025; J1940

== ENCOUNTER 2022-02-11 23:33 | Observation (INO) | payer OTHER ==
[~2022-02-11] VITALS: Ht 165.1 cm; Wt 57.0 kg
[~2022-02-11 23:33] MED LIST changes: +Mirtazapine45 M1 PO; -REMERON PO; +SEMGLEE (Y100 UNIT/1 SC
[2022-02-12 00:04] LABS: BASOPHILS ABSOLUTE AUTO 0.02 K/mm3 (0.00-0.23); BASOPHILS PERCENT AUTO 0 % (0-2); EOSINOPHILS ABSOLUTE AUTO 0.11 K/mm3 (0.00-0.68); EOSINOPHILS PERCENT AUTO 2 % (0-6); Hematocrit 35.6 % (33.0-51.0); Hemoglobin 11.4 g/dL (11.5-16.0); IMMATURE GRAN ABSOLUTE AUTO 0.01 K/mm3 (0.00-0.10); IMMATURE GRAN PERCENT AUTO 0 % (0-1); LYMPHOCYTES ABSOLUTE AUTO 0.65 K/mm3 (0.84-5.20); LYMPHOCYTES PERCENT AUTO 12 % (21-46); MONOCYTES ABSOLUTE AUTO 0.48 K/mm3 (0.16-1.47); MONOCYTES PERCENT AUTO 9 % (4-13); Mean Corpuscular HGB 24.5 pg (26.0-34.0); Mean Corpuscular Volume 76 fL (80-100); Mean Platelet Volume 9.4 fL (9.1-12.4); NEUTROPHILS ABSOLUTE AUTO 4.08 K/mm3 (1.96-9.15); NEUTROPHILS PERCENT AUTO 76 % (41-73); Platelet Count 129 K/mm3 (150-400); RDW Coefficient Variation 15.6 % (11.7-14.2); RDW Standard Deviation 42.6 fL (35.1-46.3); Red Blood Cell Count 4.66 M/mm3 (3.80-5.20); White Blood Cell Count 5.35 K/mm3 (4.00-11.30)
[2022-02-12 00:27] LABS: Acetaminophen, Random <2.0 ug/mL (10.0-30.0); Alanine Aminotransfer (ALT/SGP 68 U/L (12-78); Albumin, Blood 1.9 g/dL (3.4-5.0); Albumin/Globulin Ratio 0.5 (0.8-1.8); Alk Phos 284 U/L (50-136); Anion Gap 8 mmol/L (6-16); Aspartate Aminotrans (AST/SGOT 23 U/L (12-37); Bilirubin, Total 0.4 mg/dL (0.1-1.0); Blood Urea Nitrogen 14 mg/dL (8-24); Bun/Creatinine Ratio 34.1 (12.0-20.0); CO2, Blood 24 mmol/L (21-32); Calcium, Blood 8.1 mg/dL (8.5-10.1); Chloride, Blood 106 mmol/L (98-108); Creatinine, Blood 0.41 mg/dL (0.40-1.00); Ethanol (Alcohol), Blood, Med <3 mg/dL; Globulin, Blood 3.8 g/dL (2.2-4.0); Glomerular Filtration Rate 119 (60-); Glucose, Blood 580 mg/dL (70-99); Potassium, Blood 4.5 mmol/L (3.5-5.5); Salicylate <1.7 mg/dL (2.8-20.0); Sodium, Blood 138 mmol/L (136-145); Total Protein, Blood 5.7 g/dL (6.4-8.2)
[2022-02-12 01:04] LABS: Influenza A, PCR NEGATIVE (NEGATIVE); Influenza B, PCR NEGATIVE (NEGATIVE); Resp Syncytial Virus, PCR NEGATIVE (NEGATIVE); SARS-Cov-2 (COVID-19) PCR, MMC NEGATIVE (NEGATIVE)
[2022-02-12 01:28] LABS: Source, Urine Clean Catch
[2022-02-12 01:29] LABS: Bilirubin, Urine Neg (Neg); Blood, Urine 5+ (Neg); Glucose Qualitative, Urine 4+ (Neg); Ketones, Urine Neg (Neg); Leukocyte Esterase, Urine 3+ (Neg); Nitrite, Urine Pos (Neg); Protein, Urine 2+ (Neg); Urobilinogen, Urine NORM (Normal)
[2022-02-12 01:31] LABS: Appearance, Urine Cloudy (Clear); Color, Urine Yellow (P-Yellow)
[2022-02-12 01:35] LABS: Bacteria Many /hpf; Squamous Epithelial Cells Few /hpf (Few); White Blood Cells, Urine TNTC /hpf (0-5)
[2022-02-12 01:44] LABS: U Amphetamine Screen Not Detected; U Barbituate Screen Not Detected; U Benzodiazapine Screen Not Detected; U Buprenorphine Screen Not Detected; U Cannabinoids Screen Not Detected; U Cocaine Screen Not Detected; U Methadone Screen Not Detected; U Methamphetamine Screen Not Detected; U Opiates Screen Not Detected; U Oxycodone Screen DETECTED; U Phencyclidine Screen Not Detected; U Propoxyphene Screen Not Detected
[2022-02-12 05:06] LABS: BASOPHILS ABSOLUTE AUTO 0.02 K/mm3 (0.00-0.23); BASOPHILS PERCENT AUTO 0 % (0-2); EOSINOPHILS ABSOLUTE AUTO 0.13 K/mm3 (0.00-0.68); EOSINOPHILS PERCENT AUTO 3 % (0-6); Hematocrit 34.1 % (33.0-51.0); Hemoglobin 10.8 g/dL (11.5-16.0); IMMATURE GRAN ABSOLUTE AUTO 0.01 K/mm3 (0.00-0.10); IMMATURE GRAN PERCENT AUTO 0 % (0-1); LYMPHOCYTES ABSOLUTE AUTO 0.65 K/mm3 (0.84-5.20); LYMPHOCYTES PERCENT AUTO 13 % (21-46); MONOCYTES ABSOLUTE AUTO 0.55 K/mm3 (0.16-1.47); MONOCYTES PERCENT AUTO 11 % (4-13); Mean Corpuscular HGB 24.5 pg (26.0-34.0); Mean Corpuscular HGB Conc 31.7 g/dL (31.5-36.5); Mean Corpuscular Volume 78 fL (80-100); Mean Platelet Volume 9.8 fL (9.1-12.4); NEUTROPHILS ABSOLUTE AUTO 3.53 K/mm3 (1.96-9.15); NEUTROPHILS PERCENT AUTO 72 % (41-73); Platelet Count 117 K/mm3 (150-400); RDW Coefficient Variation 15.7 % (11.7-14.2); RDW Standard Deviation 43.9 fL (35.1-46.3); White Blood Cell Count 4.89 K/mm3 (4.00-11.30)
[2022-02-12 05:26] LABS: Albumin, Blood 1.7 g/dL (3.4-5.0); Albumin/Globulin Ratio 0.5 (0.8-1.8); Bilirubin, Total 0.4 mg/dL (0.1-1.0); Calcium, Blood 8.2 mg/dL (8.5-10.1); Creatinine, Blood 0.42 mg/dL (0.40-1.00); Globulin, Blood 3.4 g/dL (2.2-4.0); Potassium, Blood 4.3 mmol/L (3.5-5.5); Total Protein, Blood 5.1 g/dL (6.4-8.2)
--- NOTE | 2022-02-12 06:38 | NUR ---
SHIFT SUMMARY: PATIENT ARRIVED BY GURNEY WITH IV NS RUNNING 75 MLS/HR AT 0600. BRYAN PADILLA SITTER AT BEDSIDE. PATIENT AMBULATED SELF TO BED AND COMPLAINED OF COLD. PATIENT VERY PALE AND WEAK. ADMISSION ASSESSMENT NOT COMPLETE. TOOK VS AND ADMISSION HX. PATIENT LETHARGIC AND FALLING ASLEEP. ROOM MEDICATED AND SITTER GIVEN WRAY TO THE BATHROOM. WILL REPORT TO ONCOMING RN.
--- NOTE | 2022-02-12 08:07 | NUR ---
WHEN ASKED IS SHE HAS PREPARED ANYTHING TO KILL HERSELF, SHE STATES " I HAVE IT ALL IN MY CAR". WHEN ASKED IS SHE HAS A PLAN TO KILL HERSELF SHE STATES "NOT WHILE I'M IN HERE."
[2022-02-12 13:48] LABS: Adenovirus F 40/41 Not Detected (NOT DETECT); Astrovirus Not Detected (NOT DETECT); Campylobacter Sp Not Detected (NOT DETECT); Cryptosporidium Not Detected (NOT DETECT); Cyclospora Cayetanensis Not Detected (NOT DETECT); E. Coli O157 Not Detected (NOT DETECT); Entamoeba Histolytica Not Detected (NOT DETECT); Enteroaggregative E. coli-EAEC Not Detected (NOT DETECT); Enteropathogenic E. coli-EPEC Not Detected (NOT DETECT); Enterotoxigenic E. coli-ETEC Not Detected (NOT DETECT); Giardia Lamblia Not Detected (NOT DETECT); Norovirus GI/GII Not Detected (NOT DETECT); Plesiomonas Shigelloides Not Detected (NOT DETECT); Rotavirus A Not Detected (NOT DETECT); Salmonella Sp Not Detected (NOT DETECT); Sapovirus Not Detected (NOT DETECT); Shiga Toxin-prod E. coli-STEC Not Detected (NOT DETECT); Shigella/Enteroin E. coli-EIEC Not Detected (NOT DETECT); Vibrio Cholerae Not Detected (NOT DETECT); Vibrio Sp Not Detected (NOT DETECT); Yersinia Enterocolitica Not Detected (NOT DETECT)
--- NOTE | 2022-02-12 16:22 | NUR ---
PATIENT IS ALERT AND ORIENTED AND COOPERATIVE WITH CARE. 1:1 SITTER IN THE ROOM. PATIENT CALLS APPROPIRATLY. CONTINENT/INCONTINENT OF BOWEL AND BLADDER. ATTENDS IN PLACE. SBA TO THE BATHROOM WITH FWW. DR. GRAYSON CONSULTED, HAS NOT SEEN THE PAIENT AT THIS TIME. BLOOD GLUCOSE CHECKS AC&HS. PATIENT'S DAUGHTER CALLED FOR AN UPDATE THIS MORNING. PATIENT HAS A GOOD APPETITE. WILL CONTINUE TO MONITOR
--- NOTE | 2022-02-13 05:24 | NUR ---
SHIFT SUMMARY NO ACUTE CHANGES THIS SHIFT. VSS. 1:1 SITTER PRESENT PATIENT REMAINS IN HIGH SI PRECAUTIONS. PT ANSWERS TO [place] [employer] SCALE THAT IF SHE WAS NOT IN THE HOSPITAL THAT SHE WOULD BE ACTIVELY TRYING TO KILL HERSELF VIA PILLS, THE SAME WAY SHE ATTEMPTED PREHOSPITAL. PT IN SR. ALERT. ACITES PRESENT. RECTAL PROLAPSE PRESENT, PT WITH MULTIPLE BM'S THIS SHIFT TO WHICH PT STATES IS BASELINE. PT TOLERATED INCREASED PSYCH MEDS THIS SHIFT BUT HAS BEEN DROWSY, PT CONTINUES TO ASK FOR MORE SLEEP MEDS LEADING TO THIS RN BELEIVING PT IS SUBTLEY TRYING TO "GO TO SLEEP AND NOT WAKE UP", THE PATIENT DESCRIBES IN CONVERSATION. MD NOT CALLED REGARDING PT'S REQUEST SHE FALLS ASLEEP AFTER ASKING. OTHERWISE, PT UP TO BSC MULTIPLE TIMES THIS SHIFT. NOT IMPULSIVE.
--- NOTE | 2022-02-13 10:53 | NUR ---
UPON ASSESSMENT THIS MORNING PT ADMITTED TO [facility] THOUGHTS TO END LIFE AND HAS MADE PLANS BY "GOING HOME AND TAKING ALL HER PILLS". THERAPUTIC COMMUNICATION USED. PT CONTINUES ON 1:1 MONITORING, AFFECT IS FLAT. PT DID SIT UP AND EAT SOME BREAKFAST. DROWSY, BUT AWOKE TO VOICE AND ORIENTED. VSS. ENVIRONMENTAL ASSESSMENT COMPLETED, SEE CHARTING. BATHROOM LOCKED, WILL CTM.
--- NOTE | 2022-02-13 13:16 | NUR ---
DR. ECHEVERRIA MADE AWARE OF PT DIARREHA LAST NIGHT, NO NEED FOR STOOL SAMPLE AT THIS TIME. PT STOOL MORE FORMED SO FAR TODAY, WILL CTM
--- NOTE | 2022-02-13 17:04 | NUR ---
REPORT GIVEN TO MEDICAL FLOOR RN, PT TO TRANSFER WITH BANKRUPTCY PROCESSOR AND 1:1 SITTER TO ROOM 345 SHORTLY
--- NOTE | 2022-02-13 18:39 | NUR ---
PT DAUGHTER, VALENCIA CALLED AT THIS TIME AND GIVEN AND UPDATE ON PT STATUS.
--- NOTE | 2022-02-13 18:53 | NUR ---
TRANSFER NOTE PT WAS TRANSFERED TO MEDICAL FLOOR FROM PCU THIS AROUND 5PM THIS EVENING. SITTER AT HER BEDSIDE. SHE WAS SITTING UP ON THE EDGE OF THE BED, DENIED C/O PAIN AT TIME OF TRANSFER. BED LOW, SHORT CALL LIGHT AVAILABLE. BATHROOM LOCKED.
--- NOTE | 2022-02-13 20:50 | NUR ---
SI THOUGHTS PT STATES TONIGHT THAT SHE FREQUENTLY THINKS OF ENDING HER LIFE. STATES EVEN IN HOSPITAL SHE WANTS TO TAKE ALL HER PSYCH MEDS TO END HER LIFE. HOWEVER CANT SINCE MEDS ARE PASSED BY STAFF. STATES AT HOME SHE WOULD WAIT UNTIL DAUGHTER WENT TO SLEEP THEN TAKE ALL MEDS & NOT WAKE UP. PT CURRENTLY ON 1:1 VISUAL SUPERVISION jerrica BOLANOS IN RM. WILL MONITOR.
--- NOTE | 2022-02-14 04:56 | NUR ---
SHIFT SUMMARY AOX4. STILL HAS SI THOUGHTS & PLAN "TO TAKE A BUNCH OF PSYCH MEDS." 1:1 SITTER IN . VSS. REPORTS 9/10 PAIN IN LEGS & ABD, MEDICATED 1X c 5MG OXYCODONE BEFORE SEEING PT HAS A NO NARCOTIC CONTRACT. REPORTS ABD TENDERNESS TO PALPATION. ABD VERY DISTENDED. RECTAL PROLAPSE HAD SMALL AMOUNT BLOODY/RED DRAINAGE. HS CBG @192. AWAITING INPATIENT PSYCH PLACEMENT. CALL LIGHT IN REACH, WILL MONITOR.
--- NOTE | 2022-02-14 12:17 | NUR ---
RN NOTE DR ECHEVERRIA CALLED PT ORDERED OXY 5MG PO AND THERE IS A PAPER RECORD IN HER CHART DATED 07/2020 STATING THAT PT SHOULD NOT GET NARCOTICS OR ULTRAM. DR ECHEVERRIA CONFIRMED THAT SHE DOES GET OXY AT HOME AND THAT IT HAS RECENTLY BEEN FILLED, AND CONFIRMED THAT SHE CAN RECIEVE OXY.
--- NOTE | 2022-02-14 15:32 | NUR ---
RN NOTE MS BANGURA IS ORIENTATEDX4. QUIET, RESPONDS TO QUESTIONS APPROPRIATELY, SOMEWHAT FLAT AFFECT. SHE SAID THAT SHE HAS A SUICIDAL PLAN, SAME PREVIOUSLY STATED, AND WOULD CARRY IT OUT IF SHE COULD. SHE SAID THAT SHE HAS PREVIOUSLY HAD INPATIENT PSYCH CARE AND FOUND IT HELPFUL, AND TOLD ME THAT THAT IS HER PLAN AT THIS TIME. SHE SAID THAT SHE LIVES IN A VAN WITH NO AMMENITIES MOST NIGHTS. NO C/O SOB ON RA. C/O PAIN TO HER LEGS AND ABDOMEN. OXY GIVEN WHICH SHE SAID DOESN'T HELP MUCH. ABDOMINAL ASCITES WITH ACTIVE BOWEL SOUNDS. RECTAL PROLAPSE PRESENT. JERKS/TWITCHING OBSERVED AFTER SHE HAD STOOD TO USE BSC. SHE SAID SHE'S BEEN HAVING THEM ON AND OFF FOR ABOUT A YEAR. C/O BURNING WITH URINATION THIS AM, BUT AT 1300 WHEN SHE USED BSC DENIED DYSURIA. 1 PERSON ASSIST TO TRANSFER, UNSTEADY WEAK GAIT. BED LOW, SHORT CALL LIGHT ON WALL, SITTER AT BEDSIDE.
--- NOTE | 2022-02-14 18:25 | NUR ---
SHIFT SUMMARY PLEASE SEE RN NOTE FROM [id number]. NO MAJOR CHANGES SINCE LAST NOTE. HER DAUGHTER VALENCIA CALLED FOR AN UPDATE AND PT GAVE ME VERBAL PERMISSION TO UPDATE HER. PT SAID SHE TAKES BACLOFEN FOR TWITCHING AT HOME AND REQUESTING SAME.
--- NOTE | 2022-02-15 04:44 | NUR ---
SHIFT SUMMARY NO ACUTE CHANGES THIS SHIFT. AOX4. VSS. REPORTS PAIN IN BLE/ABD, MEDICATED 1X c 5MG OXYCODONE & PT SLEPT WELL T/O NIGHT. REPORTS NO CHANGS TO SI THOUGHTS OR PLANS, STATES SHE STILL FEEL LIKE TAKING ALL HER HOME PSYCH MEDS. DEPRESSED, TEARFUL-STATES SHE'S HAVING A ROUGH NIGHT R/T PAIN & DEPRESSION. SHAKY, TREMBLY WHEN WORKED UP. ABLE TO REST SOUNDLY T/O NIGHT ONCE HS MEDS TAKEN. 1:1 SITTER IN . WILL MONITOR.
--- NOTE | 2022-02-15 14:27 | NUR ---
RN NOTE PT REQUESTING BACLOFEN 10MG TID PRN. SHE SAID HER DAUGHTER CHECKED HER PRESCRIPTION AND THIS IS THE DOSAGE. DR ECHEVERRIA CALLED WHO CHECKED THROUGH HER NOTES AND FOUND AN OLD PRESCRIPTION FOR SAME. TO FOR BACLOFEN 10MG PO TID PRN, READ BACK, ENTERED IN [employer].
--- NOTE | 2022-02-15 17:00 | NUR ---
SHIFT SUMMARY MS BANGURA IS OX4, QUIET, WITHDRAWN DISPOSITION. COOPERATIVE WITH CARE. HERE FOR SI WITH 1:1 SITTER WITH PT AT ALL TIMES. PT SAID SHE HAS A PLAN AND WOULD CARRY IT OUT GIVEN THE OPPORTUNITY. C/O PAIN "ALL OVER" AND THAT OXY 5MG DOES NOT HELP PAIN, BUT AGREED TO TAKE IT. SHE WAS INFORMED THAT MD DOES NOT WANT TO INCREASE THE DOSE OF HER OXY. GIVEN BACLOFEN THAT SHE SAID HELPS HER MUSCLE TWITCHING. UPSET AND ANXIOUS EARLIER BUT DOES SEEM TO CALM. RECTAL PROLAPSE, PT SAID SHE IS AWAITING SURGERY, ABDOMINAL ASCITES - FIRM AND TENDER. LEG EDEMA, TIGHT SHINY SKIN. PT GIVES PERMISSION TO SPEAK WITH HER DAUGHTER JASON IF SHE CALLS. BED LOW, CALL LIGHT IN REACH.
--- NOTE | 2022-02-16 04:33 | NUR ---
SHIFT SUMMARY NO ACUTE CHANGES THIS SHIFT. AOX4. VSS. REPORTS SAME SI PLAN & CONTINUED THOUGHTS OF ENDING HER LIFE. 1:1 SITTER IN RM. REPORTS "TWITCHING/SHAKY," HOWEVER THIS NURSE NOTICES THE SHAKINESS OCCURS WHEN PT IS UPSET, TEARFUL & THEN ENDS ONCE PT IS CALM. REPORTS PAIN ALLOVER BODY, MEDICATED 1X c 5MG OXYCODONE.HS CBG @243. AWAITING INPATIENT PSYCH PLACEMENT.
--- NOTE | 2022-02-16 16:59 | NUR ---
SHIFT SUMMARY PT REMAINS ON MODERATE SI PRECAUTIONS. SITTER IN ROOM. PT COOPERATIVE AND CALM T/O SHIFT. THIS AFTERNOON, SHE HAS C/O DIZZINESS. VS REVIEWED. PT ENCOURAGED TO DRINK MORE WATER THIS AFTERNOON. MEDICATED FOR PAIN ONCE SO FAR THIS SHIFT. AWAITING PLACEMENT IN INPT PSYCH PER DR. RIGGS. NO OTHER ACUTE CHANGES IN ASSESSMENT AT THIS TIME.
--- NOTE | 2022-02-16 18:04 | NUR ---
PT C/O DIZZINESS PT COMPLAINTS OF DIZZINESS RELAYED TO DR. ECHEVERRIA. BP REMAINS STABLE AT 116/82. PT ALSO COMPLAINING OF NAUSEA & CHILLLS. TEMP 98 F. ZOFRAN ORDERED.
--- NOTE | 2022-02-17 01:51 | NUR ---
[facility] IN [place] CALLED FOR AN UPDATE ON PT. PT IS CURRENTLY ON THEIR WAITLIST.
[2022-02-17] MEDS ORDERED: CREON DR 3,0001 EACH PO (03:31)
[2022-02-17] MEDS ORDERED: ONDA4ODT MM (03:34)
[2022-02-17] MEDS ORDERED: BUMETANIDE2 M6 PO (03:36)
--- NOTE | 2022-02-17 04:22 | NUR ---
SHIFT SUMMARY NO ACUTE CHANGES THIS SHIFT. VSS. REPORTS PAIN IN BILAT LEGS & ABD, MEDICATED 1X c 5MG OXYCODONE, PT ABLE TO REST COMFORTABLE T/O NIGHT. PT STATES SHE STILL HAS SI THOUGHTS & PLAN TO TAKE ALL PSYCH MEDS & NOT WAKE UP. 1:1 SITTER IN . AWAITING INPATIENT PSYCH. TOLERATED PO INTAKE WITHOUT N/V. CALL LIGHT IN REACH, WILL MONITOR.
--- NOTE | 2022-02-17 06:28 | NUR ---
DIZZINESS PT REPORTS "I DONT FEEL GOOD." PT UP TO USE BSC & WHILE SITTING ON BSC STATES SHE FEELS NAUSEATED, HAS A 7/10 HEADACHE IN BACK OF NECK & STATES "THE ROOM IS SPINNING." MEDICATED c ZOFRAN, 5MG OXYCODONE & PROTONIX. PT HAD VERY SOFT/LOOSE BM WITH UNDIGESTED PILLS & FOOD. ONCE BACK IN BED PT STATES SHE IS LESS DIZZY WHILE LYING DOWN. WILL PASS INFO TO ONCOMING NURSE & MONITOR PT.
[2022-02-17 12:31] LABS: Albumin, Blood 1.7 g/dL (3.4-5.0); Albumin/Globulin Ratio 0.6 (0.8-1.8); Bilirubin, Total 0.2 mg/dL (0.1-1.0); Bun/Creatinine Ratio 17.7 (12.0-20.0); Calcium, Blood 7.7 mg/dL (8.5-10.1); Creatinine, Blood 0.51 mg/dL (0.40-1.00); Globulin, Blood 2.9 g/dL (2.2-4.0); Potassium, Blood 4.5 mmol/L (3.5-5.5); Total Protein, Blood 4.6 g/dL (6.4-8.2)
--- NOTE | 2022-02-17 16:22 | NUR ---
SHIFT SUMMARY PT AxOx4. PLEASANT AND COOPERATIVE WITH CARE, BUT NOTABLY WITHDRAWN DURING COMMUNICATION. PT ON 2MD HOLD FOR SI. PT CONFIRMS THOUGHTS AND PLANS OF SI THIS SHIFT. 1:1 SITTER IN ROOM. SAFETY PRECAUTIONS IN PLACE DECREASING PATIENT'S RISK OF SELF HARM. PT EXPRESSED SHE IS FEELING UNWELL OR "BLAH" THIS SHIFT. PT REPORTS DIZZINESS UPON STANDING, AND PAIN IN BODY. PT HAVING FREQUENT LOOSE STOOLS AND FREQUENT URINATION. PT HAS ALSO BEEN NAPPING FOR MUCH OF THE DAY. VITALS SHOWED ELEVATED TEMPERATURE THIS AFTERNOON. PT CURRENTLY RESTING IN BED WATCHING TV. PT MEDICATED FOR BODY ACHES AND DENIES ANY NEEDS AT THIS TIME. SITTER IN ROOM.
--- NOTE | 2022-02-18 04:26 | NUR ---
SHIFT SUMMARY A/OX4, DEPRESSED/WITHDRAWN AFFECT. HIGH SI PRECAUTIONS IN PLACE WITH 1:1 SITTER. C/O BLE PAIN, MEDICATED PER EMAR. 1P ASSIST TO BSC. SLEPT T/O THE NIGHT. VSS, NO ACUTE CHANGES AT THIS TIME. BED IN LOWEST POSITION WITH CALL LIGHT IN REACH. WILL CONTINUE TO MONITOR AND REPORT TO ONCOMING RN.
--- NOTE | 2022-02-18 18:07 | NUR ---
SHIFT SUMMARY: PTN A&O X3, CALM AND OOPERATIVE WITH CARE. PTN CONTINUES TO REPORT SI, FLAT AFFECT, RESTED UNTIL AFTER LUNCH, THEN SITTING UP AT BEDSIDE COLORING. PAIN THIS SHIFT TO BLE AND NECK, THEN AFTERNOON ABDOMEN. PAIN MEDICATION GIVEN PER EMAR. PTN ASSISTED TO BSC AFTER INCONTINENT OF STOOL X2, STOOL SOFT AND SEMI-FORMED. PTN WITH PROLAPSED BOWEL. SKIN ASSESS WNL. LUNG SOUNDS DIMINISHED. AWAITING IN-PATIENT PSYCH UNIT. PT AND OT ORDERED.
--- NOTE | 2022-02-19 04:35 | NUR ---
SHIFT SUMMARY A/OX4, DEPRESSED/WITHDRAWN AFFECT. C/O CHRONIC ABD AND BLE PAIN, MEDICATED PER EMAR. DENIES SOB. 1P ASSIST TO BSC. SI PRECAUTIONS IN PLACE WITH 1:1 SITTER IN ROOM. VSS, NO ACUTE CHANGES AT THIS TIME. BED IN LOWEST POSITION WITH CALL LIGHT IN REACH. WILL CONTINUE TO MONITOR AND REPORT TO ONCOMING RN.
--- NOTE | 2022-02-19 16:39 | NUR ---
PATIENT CONTINUES TO REPORT THOUGHTS OF SUICIDE AND STILL BELEIVES SHE WOULD END HER LIFE IF SHE LEFT THIS HOSPITAL. 1:1 SITTER AT BEDSIDE AT ALL TIMES. A/OX4, AMBULATING WITH FWW AND SBA TO RESTROOM. WITHDRAWN, BUT DOES MAKE NEEDS KNOWN. VSS, ON RA. BLOOD SUGARS ACHS, BEEN IN THE 300'S THIS SHIFT. SKIN INTACT. TOLERATING ADA DIET. REPORTS PAIN IN LEGS AND ABDOMEN. OXYCODONE AND BACLOFEN USED TO TREAT. PATIENT IS AWAITING PLACEMENT AT AN INPATIENT PSYCH FACILITY.
--- NOTE | 2022-02-20 07:27 | NUR ---
PT WITH CONTINUED THOUGHTS OF SUICIDE. PT STATES THAT ONCE SHE IS HOME SHE PLANS TO TAKE ALL HER NIGHT MEDICATIONS SHE HAS. PT WITH SITTER 24HRS CONTINOUSLY. BP 94/63 ON RECHECK 98/62 PT SLEEPING AND ASYMPTOMATIC. PER NO INTERVENTION AT THIS TIME CONTINUE TO MONITOR.
--- NOTE | 2022-02-20 11:50 | NUR ---
Mid shift summary A/Ox4, flat affect and quite withdrawn; eating well however. Answering questions appropriately. Still has a suicide plan in place which is to take all psyche and sleeping meds at home. Appropriate behavior. Mostly sleeping. Medicated for 8/10 spine and lower extremity pain with little effect. Quite edematous in lower extremeties extending up to abdomen, distended abdomen from ascites. Ambulating with sitter to bathroom, continent. 1:1 sitter at bedside.
[2022-02-20 15:12] LABS: Influenza A, PCR NEGATIVE (NEGATIVE); Influenza B, PCR NEGATIVE (NEGATIVE); Resp Syncytial Virus, PCR NEGATIVE (NEGATIVE); SARS-Cov-2 (COVID-19) PCR, MMC NEGATIVE (NEGATIVE)
--- NOTE | 2022-02-20 17:06 | NUR ---
AFTERNOON SHIFT SUMMARY- PT COOPERATIVE AND EAGERLY AWAITING PLACEMENT TO SYNC UNIT. PT C/O OF PAIN TREATED PER EMAR. PT DISCUSSED PLAN OF TRANSFER WITH DAUGHTER DURING SHIFT. PT FLAT AFFECT. VSS. SITTER ON WATCH WITH SI PROTOCAL IN PLACE. PT RESTING IN ROOM NOW SITTING ON SIDE OF BED.
--- NOTE | 2022-02-21 06:12 | NUR ---
PT A/0X4, WITH NO NEW EVENTS OVERNIGHT. BILAT FEET NOTED TO BE VERY COOL TO TOUCH, EDEMA +2 SKING THIGHT AND PEDAL PULSE PRESENT VIA DOPPLER. PT WITH CONTINUED THOUGHTS OF SUICIDE WITH SAME PLAN OF OVERDOSING ON NIGHT TIME PILLS SOON SHE IS HOME. 1:1 SITTER AT BEDSIDE T/O SHIFT. AWAITING TRANSFER TO [facility] IN [place].
--- NOTE | 2022-02-21 16:10 | NUR ---
PT CAN MAKE NEEDS KNOWN. INDEPENDENT WITH SITTER FOR SI OBSERVATION. COOPERATING WITH MEDICATION AND CARE. PRN PAIN MED GIVEN FOR STATED PAIN. NO ACUTE CHANGES. BED IN LOWEST POSITION.
--- NOTE | 2022-02-22 05:54 | NUR ---
PT A/OX4 CONTINUES WITH SUICIDE IDEATION AND PLAN TO OD ON NIGHT MEDICATIONS. 1:1 SITTER T/O SHIFT. FEET WITH EDEMA +2 VERY THIGHT AND COOL. PEDAL PULSES VIA DOPPLER. NO NEW COMPLAINS.
[2022-02-22 11:31] LABS: Influenza A, PCR NEGATIVE (NEGATIVE); Influenza B, PCR NEGATIVE (NEGATIVE); Resp Syncytial Virus, PCR NEGATIVE (NEGATIVE); SARS-Cov-2 (COVID-19) PCR, MMC NEGATIVE (NEGATIVE)
--- NOTE | 2022-02-23 05:30 | NUR ---
PT OVERNIGHT WITH NO NEW COMPLAINS. REMAINS WITH 1:1 SITTER FOR SI. PT STILL EXPRESSING DESIRE TO OD ON NIGHT MEDICATIONS WHEN AT HOME. PER REPORT PT TO TRANSFER TODAY TO [facility] IN [place]. BG NOTED 282 AT HS, ALEJANDRO BOOTH NOTIFIED WITH NO NEW ORDERS.
[2022-02-23] MEDS ORDERED: FURO40 PO (11:22)
[2022-02-23] MEDS ORDERED: Buspirone HCl15 MG PO (11:29)
[2022-02-23] MEDS ORDERED: GABA800 PO (11:29)
[2022-02-23] MEDS ORDERED: PANT40 PO (11:30)
[2022-02-23] MEDS ORDERED: VENL75ER PO (11:30)
--- NOTE | 2022-02-23 12:32 | NUR ---
TRANSFER OF PT TO [facility] PT TRANSPORTED TO [facility] PT PSYCH FACILITY. PERSONAL BELONGINGS GATHERED AND TRANSPORTED ALONG WITH PT BY TRANSPORTATION DRIVERS TO [facility] VIA WHEELCHAIR. REPORT CALLED TO FACILTY. PAPERWORK PACKET GIVEN TO EXPRESSIVE MUSIC THERAPIST.
== END 2022-02-23 12:23 ==
LOC: ER 23:33 → PCU 23:34 → EOR 23:34 → PCU 02-12 06:01 → MEDS 02-13 17:16
PROVIDERS: Internal Medicine; ADMIT Emergency Medicine
DX: F33.3 Major depressive disorder, recurrent, severe with psychotic symptoms (principal); R45.851 Suicidal ideations; E11.43 Type 2 diabetes mellitus with diabetic autonomic (poly)neuropathy; E11.65 Type 2 diabetes mellitus with hyperglycemia; E11.40 Type 2 diabetes mellitus with diabetic neuropathy, unspecified; K52.9 Noninfective gastroenteritis and colitis, unspecified; E78.5 Hyperlipidemia, unspecified; K74.60 Unspecified cirrhosis of liver; I10 Essential (primary) hypertension; J45.20 Mild intermittent asthma, uncomplicated; K31.84 Gastroparesis; G43.909 Migraine, unspecified, not intractable, without status migrainosus; N39.0 Urinary tract infection, site not specified; E88.09 Other disorders of plasma-protein metabolism, not elsewhere classified; R60.1 Generalized edema; K86.1 Other chronic pancreatitis; E43 Unspecified severe protein-calorie malnutrition; K76.6 Portal hypertension; Z88.0 Allergy status to penicillin; Z95.0 Presence of cardiac pacemaker; Z79.4 Long term (current) use of insulin; Z88.2 Allergy status to sulfonamides; Z88.8 Allergy status to other drugs, medicaments and biological substances; Z20.822 Contact with and (suspected) exposure to COVID-19
CPT/HCPCS: 0241U; 36415; 80053; 81001; 82947; 83036; 85025; 87086; 87507; 93005; 93010; 96374; 97110; 97116; 97162; 97165; 97530; 97535; 99285-25; A9270; G0480; J0696; J1650; J1815; J2405; J7030; P9046

== ENCOUNTER 2022-07-08 12:26 | Inpatient (IN) | payer OTHER ==
[~2022-07-08] VITALS: Ht 165.1 cm; Wt 49.0 kg
[~2022-07-08 12:26] MED LIST changes: +BUMETANIDE2 M6 PO; +CREON DR 3,0001 EACH PO; +GABA800 PO; +Venlafaxine HC225 MG PO
[2022-07-08 13:20] LABS: Source, Urine Clean Catch
[2022-07-08 13:29] LABS: BASOPHILS ABSOLUTE AUTO 0.02 K/mm3 (0.00-0.23); BASOPHILS PERCENT AUTO 1 % (0-2); EOSINOPHILS ABSOLUTE AUTO 0.11 K/mm3 (0.00-0.68); EOSINOPHILS PERCENT AUTO 3 % (0-6); Hematocrit 33.5 % (33.0-51.0); Hemoglobin 11.1 g/dL (11.5-16.0); IMMATURE GRAN ABSOLUTE AUTO 0.01 K/mm3 (0.00-0.10); IMMATURE GRAN PERCENT AUTO 0 % (0-1); LYMPHOCYTES ABSOLUTE AUTO 0.71 K/mm3 (0.84-5.20); LYMPHOCYTES PERCENT AUTO 21 % (21-46); MONOCYTES ABSOLUTE AUTO 0.37 K/mm3 (0.16-1.47); MONOCYTES PERCENT AUTO 11 % (4-13); Mean Corpuscular HGB 24.6 pg (26.0-34.0); Mean Corpuscular HGB Conc 33.1 g/dL (31.5-36.5); Mean Corpuscular Volume 74 fL (80-100); Mean Platelet Volume 10.5 fL (9.1-12.4); NEUTROPHILS ABSOLUTE AUTO 2.16 K/mm3 (1.96-9.15); NEUTROPHILS PERCENT AUTO 64 % (41-73); Platelet Count 76 K/mm3 (150-400); RDW Coefficient Variation 15.8 % (11.7-14.2); RDW Standard Deviation 41.2 fL (35.1-46.3); Red Blood Cell Count 4.52 M/mm3 (3.80-5.20); White Blood Cell Count 3.38 K/mm3 (4.00-11.30)
[2022-07-08 13:52] LABS: Bilirubin, Urine Neg (Neg); Blood, Urine 2+ (Neg); Glucose Qualitative, Urine 4+ (Neg); Ketones, Urine Neg (Neg); Leukocyte Esterase, Urine 3+ (Neg); Nitrite, Urine Pos (Neg); Protein, Urine 2+ (Neg); Specific Gravity, Urine 1.015 (1.003-1.022); Urobilinogen, Urine NORM (Normal)
[2022-07-08 14:03] LABS: Alanine Aminotransfer (ALT/SGP 60 U/L (12-78); Albumin, Blood 2.4 g/dL (3.4-5.0); Albumin/Globulin Ratio 0.8 (0.8-1.8); Alk Phos 205 U/L (50-136); Anion Gap 8 mmol/L (6-16); Aspartate Aminotrans (AST/SGOT 34 U/L (12-37); Bilirubin, Total 0.5 mg/dL (0.1-1.0); Blood Urea Nitrogen 19 mg/dL (8-24); Bun/Creatinine Ratio 62.1 (12.0-20.0); CO2, Blood 24 mmol/L (21-32); Calcium, Blood 7.3 mg/dL (8.5-10.1); Chloride, Blood 103 mmol/L (98-108); Creatinine, Blood 0.31 mg/dL (0.40-1.00); Globulin, Blood 3.2 g/dL (2.2-4.0); Glomerular Filtration Rate 127 (60-); Glucose, Blood 779 mg/dL (70-99); Potassium, Blood 4.7 mmol/L (3.5-5.5); Sodium, Blood 135 mmol/L (136-145); Total Protein, Blood 5.6 g/dL (6.4-8.2)
[2022-07-08 14:07] LABS: Appearance, Urine Hazy (Clear); Color, Urine Yellow (P-Yellow)
[2022-07-08 14:08] LABS: Bacteria Many /hpf; Squamous Epithelial Cells Rare /hpf (Few); White Blood Cells, Urine TNTC /hpf (0-5)
[2022-07-08 14:14] LABS: Beta-hydroxybutyrate 1.6 mg/dL (0.2-2.8)
[2022-07-08 15:20] LABS: Influenza A, PCR NEGATIVE (NEGATIVE); Influenza B, PCR NEGATIVE (NEGATIVE); Resp Syncytial Virus, PCR NEGATIVE (NEGATIVE); SARS-Cov-2 (COVID-19) PCR, MMC NEGATIVE (NEGATIVE)
[2022-07-08 15:51] LABS: U Amphetamine Screen Not Detected; U Barbituate Screen Not Detected; U Benzodiazapine Screen Not Detected; U Buprenorphine Screen Not Detected; U Cannabinoids Screen Not Detected; U Cocaine Screen Not Detected; U Methadone Screen Not Detected; U Methamphetamine Screen Not Detected; U Opiates Screen Not Detected; U Oxycodone Screen DETECTED; U Phencyclidine Screen Not Detected; U Propoxyphene Screen Not Detected
[2022-07-08 16:40] LABS: Glucose, Blood 555 mg/dL (70-99)
--- NOTE | 2022-07-08 17:17 | NUR ---
PT ADMITTED TO ICU FROM ER AT 1700 FOR UTI/HHS. PT AWAKE AND ORIENTED. PROFOUNDLY WEAK, AND SEVERELY CACHECTIC. PT MEDICATED PRIOR TO ADMIT W OXY FOR CHRONIC "ALL OVER PAIN" 06/08. PT ABLE TO USE COMMODE PRIOR TO GETTING INTO BED. PT HAS SEVERE PROLAPSED RECTUM. STOOL IS MITTAL/WHITE. 500CC BOLUS INFUSED, NS NOW AT 100CC/HR. LAB BS 555. DR WADSWORTH CALLED AND GIVEN UPDATE. LONG ACTING ORDERED TO BE GIVEN NOW FOLLOWED BY S/S INSULIN. VSS.
--- NOTE | 2022-07-08 18:38 | NUR ---
PT'S DAUGHTER CALLED AND UPDATED PER PT REQUEST. PT'S DAUGHTER HAD CONCERNS THAT HER MOM WAS SUICIDAL AGAIN. PT QUESTIONED AND ADMITTED THAT SHE HAS SUICIDAL IDEATIONS. PT STATES IF SHE HAD HER PILLS SHE WOULD TAKE THEM NOW TO END HER LIFE, PT ALSO STATES IF SHE COLD THINK OF A WAY TO KILL HERSELF IN THE HOSPITAL SHE MIGHT ACT ON IT. SECURITY [facility]OVER NOTIFIED, IMMEDIATELY. DR WADSWORTH CALLED AND NOTIIFED. PT NOW HIGH SUICIDE RISK. 1:1 SITTER AT BEDSIDE. BELONGINGS REMOVED FROM ROOM BY BEN ADAMS.
--- NOTE | 2022-07-08 20:53 | NUR ---
ASSUMED CARE. AOX3, DEPRESSED, REPORTS SUICIAL INTENTIONS WITH PLAN ANDS MEANS TO FOLLOW THROUGH. "I CAN'T HERE IN THE HOSPITAL, IF HOME I HAVE MY MEDS". STATES SHE HAS HAD A PLAN FOR SOME TIME, TAKING ALL OF HER PILLS IS HER CHOICE. DOES SEE A COUNCELOR BUT HAS NOT MADE IT TO AN APPOINTMENT IN WEEKS. CACHECTIC, FRAIL APPEARING. STATES SHE IS HUNGRY. SPOKE WITH RESIDENT AND GOT ORDER FOR ADA DIET. BS 332, GAVE 8 UNITS SLIDING SCALE. FOOD GIVEN, PATIENT EATING WITH NO PROBLEMS. SITTER IN ROOM AND CAMERA ON. PALE, COOL TO TOUCH, NO SKIN BREAKDOWN. PROLASPSE RECTUM, LIQUID STOOL, ATTENDS IN PLACE. LS CLEAR, HR SINUS 93, DENIES ANY CHEST PAIN. TOOK ALL MEDS, MILD NAUSEA, ZOFRAN GIVEN. MEDICATED FOR PAIN. WILL CONTINUE TO MONITOR. CALL LIGHT IN REACH.
--- NOTE | 2022-07-09 06:54 | NUR ---
SHIFT SUMMARY: AOX3, WITHDRAWN, DEPRESSED. CONTINUES TO BE HIGH ON SUCIDE SCALE. 1:1 SITTING AND CAMERA MONITORING IN PLACE. HAS REMAINED COOPERATIVE AND PLEASANT TONIGHT. MILD PAIN AND DISCOMFORT. LS REMAIN CLEAR SATS >90% ON RA. SINUS ON MONITOR WITH RATE IN THE 60'S, SOFT BP WITH MAP >65. SMALL ANGUIANO BM THIS SHIFT. VERY LITTLE URINE OUTPUT, AND 1 SATURATED BED. URINE WAS DARK CLOUDY, FOUL ODOR. BLOOD SUGARS HAVE BEEN 179, 1880, 192. WITH HELD ONE DOSE OF INSULIN AT MIDNIGHT THE PATIENT REPORTS THAT SHE DROPS EASILY. RECHECKED EARLY AND NOTICED IT WAS STABLE. GAVE NEXT DOSE ACCORDING TO EMAR. NO OTHER CHANGES TO REPORT CALL LIGHT IN REACH.
[2022-07-09 07:42] LABS: BASOPHILS ABSOLUTE AUTO 0.02 K/mm3 (0.00-0.23); BASOPHILS PERCENT AUTO 1 % (0-2); EOSINOPHILS ABSOLUTE AUTO 0.14 K/mm3 (0.00-0.68); EOSINOPHILS PERCENT AUTO 5 % (0-6); Hematocrit 28.6 % (33.0-51.0); Hemoglobin 9.4 g/dL (11.5-16.0); IMMATURE GRAN ABSOLUTE AUTO 0.01 K/mm3 (0.00-0.10); IMMATURE GRAN PERCENT AUTO 0 % (0-1); LYMPHOCYTES ABSOLUTE AUTO 0.65 K/mm3 (0.84-5.20); LYMPHOCYTES PERCENT AUTO 25 % (21-46); MONOCYTES ABSOLUTE AUTO 0.26 K/mm3 (0.16-1.47); MONOCYTES PERCENT AUTO 10 % (4-13); Mean Corpuscular HGB 24.7 pg (26.0-34.0); Mean Corpuscular HGB Conc 32.9 g/dL (31.5-36.5); Mean Corpuscular Volume 75 fL (80-100); Mean Platelet Volume 11.1 fL (9.1-12.4); NEUTROPHILS ABSOLUTE AUTO 1.49 K/mm3 (1.96-9.15); NEUTROPHILS PERCENT AUTO 58 % (41-73); Platelet Count 57 K/mm3 (150-400); RDW Coefficient Variation 15.9 % (11.7-14.2); RDW Standard Deviation 42.5 fL (35.1-46.3); Red Blood Cell Count 3.81 M/mm3 (3.80-5.20); White Blood Cell Count 2.57 K/mm3 (4.00-11.30)
[2022-07-09 07:59] LABS: Magnesium, Blood 2.1 mg/dL (1.6-2.4)
[2022-07-09 08:07] LABS: Albumin, Blood 1.9 g/dL (3.4-5.0); Albumin/Globulin Ratio 0.7 (0.8-1.8); Bilirubin, Total 0.2 mg/dL (0.1-1.0); Bun/Creatinine Ratio 58.1 (12.0-20.0); Calcium, Blood 7.2 mg/dL (8.5-10.1); Creatinine, Blood 0.41 mg/dL (0.40-1.00); Globulin, Blood 2.8 g/dL (2.2-4.0); Potassium, Blood 3.7 mmol/L (3.5-5.5); Total Protein, Blood 4.7 g/dL (6.4-8.2)
[2022-07-09 14:49] LABS: Calcium, Blood 7.3 mg/dL (8.5-10.1); Creatinine, Blood 0.38 mg/dL (0.40-1.00); Potassium, Blood 4.2 mmol/L (3.5-5.5)
--- NOTE | 2022-07-09 17:05 | NUR ---
SHIFT SUMMARY PT REMAINS ALERT AND ORIENTED. PT LETHARGIC MOST OF SHIFT. VS STABLE. O2 SATS REMAIN ABOVE 90% ON RA. HR NSR. PT HAS COMPLAINED OF NAUSEA AND ABD PAIN AT TIMES THIS SHIFT. PT HAD MULTIPLE BM. PT CONTINUES TO STATE THAT SHE HAS SUICIDAL THOUGHTS AND REMAINS HIGH RISK. 1:1 SITTER AT BEDSIDE ALL SHIFT AND CAMERA MONITORING. NS INFUSING PER ORDERS. WILL CONTINUE TO MONITOR AND REPORT TO ONCOMING RN
[2022-07-10 03:52] LABS: BASOPHILS ABSOLUTE AUTO 0.02 K/mm3 (0.00-0.23); BASOPHILS PERCENT AUTO 1 % (0-2); EOSINOPHILS ABSOLUTE AUTO 0.11 K/mm3 (0.00-0.68); EOSINOPHILS PERCENT AUTO 4 % (0-6); Hematocrit 27.5 % (33.0-51.0); Hemoglobin 9.1 g/dL (11.5-16.0); IMMATURE GRAN ABSOLUTE AUTO 0.02 K/mm3 (0.00-0.10); IMMATURE GRAN PERCENT AUTO 1 % (0-1); LYMPHOCYTES ABSOLUTE AUTO 0.64 K/mm3 (0.84-5.20); LYMPHOCYTES PERCENT AUTO 23 % (21-46); MONOCYTES ABSOLUTE AUTO 0.28 K/mm3 (0.16-1.47); MONOCYTES PERCENT AUTO 10 % (4-13); Mean Corpuscular HGB 24.9 pg (26.0-34.0); Mean Corpuscular HGB Conc 33.1 g/dL (31.5-36.5); Mean Corpuscular Volume 75 fL (80-100); NEUTROPHILS ABSOLUTE AUTO 1.66 K/mm3 (1.96-9.15); NEUTROPHILS PERCENT AUTO 61 % (41-73); RDW Standard Deviation 42.8 fL (35.1-46.3); Red Blood Cell Count 3.65 M/mm3 (3.80-5.20); White Blood Cell Count 2.73 K/mm3 (4.00-11.30)
[2022-07-10 04:04] LABS: Bun/Creatinine Ratio 44.7 (12.0-20.0); Creatinine, Blood 0.36 mg/dL (0.40-1.00); Phosphorus, Blood 2.3 mg/dL (2.5-4.9); Potassium, Blood 3.5 mmol/L (3.5-5.5)
[2022-07-10 04:06] LABS: Platelet Count 49 K/mm3 (150-400)
--- NOTE | 2022-07-10 04:36 | NUR ---
SHIFT SUMMARY NO ACUTE CHANGES THS SHIFT. REMAINS ON HIGH SI PRECAUTIONS, 1:[address] PT AXO, BUT LETHARGIC AT TIMES. VSS. PT NOT MAKNG ANY ATTEMPTS TO HARM SELF BT STATES SHE WOULD IF SHE WERE TO BE RELEASED. PT ATE SNACKS T/O NIGHT BUT SLEPT FOR MAJORITY OF SHIFT.
--- NOTE | 2022-07-10 18:53 | NUR ---
HIGH SI RISK HAS BEEN DROPPED BY DR GRAYSON. PLAN IS TO TRANSFER TO IN-PT PSYCH FACILITY. PT REPORTS FEELING OF SI. SITTER IS D/C. CAMERA IS ON. PT REPORTS INTERMITTENT ABD PAIN, NEW ORDERS PLACED FOR PYRIDIUM FOR BLADDER PAIN. PT ABLE TO URINATE WELL T/O THE DAY. SHE IS ABLE TO EAT MOST IF HER MEAL TRAYS PLUS EATING SNACKS T/O THE DAY, SHE HAS REQUIRED INSULIN COVERAGE, AND HAS HAD CHANGES TO INSULIN DOSING. PT IS ALERT, SHE IS OREIENTED TO PLACE, SELF. SHE IS FORGETFUL, SLEEPY T/O THE DAY BUT WAKES EASILY TO VERBAL STIMULI.
[2022-07-11 05:32] LABS: Hemoglobin 9.4 g/dL (11.5-16.0)
[2022-07-11 05:57] LABS: Bun/Creatinine Ratio 39.3 (12.0-20.0); Calcium, Blood 7.9 mg/dL (8.5-10.1); Creatinine, Blood 0.36 mg/dL (0.40-1.00); Magnesium, Blood 2.4 mg/dL (1.6-2.4); Phosphorus, Blood 2.6 mg/dL (2.5-4.9); Potassium, Blood 3.9 mmol/L (3.5-5.5)
--- NOTE | 2022-07-11 06:37 | NUR ---
SHIFT SUMMARY PT ALERT AND ORIENTED. LOW SI RISK. STATES SHE IS DEPRESSED BUT MAKES NO ATTEMPT TO GET OUT OF BED OR HARM SELF. AFEBRILE. BP STABLE. HR 90-100'S. ON RA SATS OVER 91%. X1 ASSIST TO AMBULATE. ASLEEP MOST OF NIGHT W/ CENTRAL MONITORING WATCHING. IN BED W/ CALL ALARM AT SIDE, WILL CONTINUE TO MONITOR UNTIL REPORT GIVEN TO ONCOMING RN
--- NOTE | 2022-07-11 15:14 | NUR ---
PT HAS BEEN UP TO BATHROOM WITH USE OF WALKER 1 PERSON ASSIST, PT WITH A SLOW GAIT, AND REQUIRES REIDREICTION. PT WITH FREQUENT BMs THIS AM THAT WERE PEANUT BUTTER CONSISTENCY. PT A/O X2, IT IS DIFFICULT TO ESTABLISH A GOOD BASELINE FOR PT SHE IS VERY FLAT AND BECOMES TEARFUL WHEN ASKED MANY QUESTIONS. PT REPORTS SI BUT DOES NOT REPORT A PLAN, PT SEEMS MOSTLY DEPRESSED RELATED TO HER LIVING CONDITIONS THAT PERTAIN TO HER LIVING IN A "[place]IL[place]". SHE HAS A VERY GOOD APPETITE TODAY BUT DOES REFUSE TO EAT ANY PROTEIN BASED FOODS FOR BREAKFAST, HER AFTERNOON BLOOD SUGAR WAS HIGH AND SHE WAS AGAIN EDUCATED ABOUT MEAL CHOICES FOR HER LUNCH AND NO SNACKS WERE PROVIDED, PT BECAME TEARFUL THAT PUDDING AND COCOA WERE NOT PROVIDED TO HER DESPITE KNOWING THAT HER BLOOD SUGAR WAS IN THE HIGH 300s. PT DOES ALLOW THIS RN TO ORDER HER SOME [employer] PATTIES FOR PROTEIN AND COTTAGE CHEESE WITH LUNCH. TO SPENDS MOST OF HER DAY ON HER CELL PHONE SHE DOES NOT ENGAGE WITH STAFF A GREAT DEAL T/O THE DAY. PT WAS MADE MEDICAL STATUS WITHOUT TELEMETRY THIS MORNING DURING MORNING ROUNDS BY DR HEALY. PT DID WORK WITH PHYSICAL THERAPY TODAY. PT CALLS APPROPRIATELY ONLY FOR FOOD OR WATER NEEDS, SHE TOILETS IN BED MOST OF THE TIME AND THEN CALLS. PT T/O THE DAY DOES NOT SEEN TO BE VERY MOTIVATED OR ENGAGED IN HER CARE. THE PLAN REMAINS TO SEEK IN PATIENT PSYCH TREATMENT.
--- NOTE | 2022-07-11 17:59 | NUR ---
CALLED DR HEALY- PT INSULIN DOSES WERE CHANGED PRIOR TO MEAL TRAY ARRIVAL. ORDER RECIEVED TO GIVE THE NEW DOSE OF INSULIN NOW IN SIXTO OF THE PRIOR ORDERS THAT ARE DC'D. SPOKE ABOUT PAIN MANAGEMENT THE PT HAS REQUESTED PAIN MEDICATION AND PER DR GRAYSON'S NOTE SHE HAS A NO NARCOTIC PAIN MED CONTRACT. RECIEVED ORDER FOR TYLENOL 650MG Q8.
--- NOTE | 2022-07-11 18:26 | NUR ---
SHIFT SUMMARY- PT TRANSFERED TO MEDICAL FLOOR LATE IN THE DAY, HAS BEEN PLEASENT AND COOPERATIVE WITH CARE THUS FAR. TYLENOL ORDERED Q8 FOR PAIN. PT IS CURRENTLY SITTING UP IN BED, CALL LIGHT IN REACH, EATING HER DINNER ON THE PHONE WITH HER DAUGHTER. NO CURRENT S&S OF DISTRESS. CALLED PHARMACY FOR 1800 DOSE OF PYRIDIUM. WILL CTM AND PASS ON TO NIGHT RN IN REPORT.
[2022-07-12 04:55] LABS: BASOPHILS PERCENT AUTO 0 % (0-2); EOSINOPHILS PERCENT AUTO 4 % (0-6); Hematocrit 28.6 % (33.0-51.0); IMMATURE GRAN ABSOLUTE AUTO 0.01 K/mm3 (0.00-0.10); IMMATURE GRAN PERCENT AUTO 0 % (0-1); LYMPHOCYTES ABSOLUTE AUTO 0.59 K/mm3 (0.84-5.20); LYMPHOCYTES PERCENT AUTO 25 % (21-46); MONOCYTES ABSOLUTE AUTO 0.31 K/mm3 (0.16-1.47); MONOCYTES PERCENT AUTO 13 % (4-13); Mean Corpuscular HGB 24.4 pg (26.0-34.0); Mean Corpuscular HGB Conc 31.5 g/dL (31.5-36.5); Mean Corpuscular Volume 78 fL (80-100); NEUTROPHILS ABSOLUTE AUTO 1.38 K/mm3 (1.96-9.15); NEUTROPHILS PERCENT AUTO 58 % (41-73); Platelet Count 53 K/mm3 (150-400); RDW Coefficient Variation 16.5 % (11.7-14.2); RDW Standard Deviation 44.4 fL (35.1-46.3); Red Blood Cell Count 3.69 M/mm3 (3.80-5.20); White Blood Cell Count 2.39 K/mm3 (4.00-11.30)
--- NOTE | 2022-07-12 05:03 | NUR ---
SHIFT SUMMARY: Pt A/Ox4 and call light appropriate. Overnight pt slept well throughout the night. she did have c/o pain and became frustrated with fha underwriter when she could not recieve narcotics. Pt this shift has no active plan on harming herself but still states when she goes home she might. Steve SCHMITZ has been aware of these statements and ultimately has decided no need for a sitter or futher suicide precautions. Licensing Director did frequent safety checks to ensure pt was safe.
[2022-07-12 05:13] LABS: Bun/Creatinine Ratio 35.8 (12.0-20.0); Calcium, Blood 7.6 mg/dL (8.5-10.1); Creatinine, Blood 0.39 mg/dL (0.40-1.00); Magnesium, Blood 2.4 mg/dL (1.6-2.4); Phosphorus, Blood 3.3 mg/dL (2.5-4.9); Potassium, Blood 3.9 mmol/L (3.5-5.5)
--- NOTE | 2022-07-12 07:51 | NUR ---
ASSUMED CARE OF PT- PT WOKE THIS MORNING FOR ASSESSMENT, AND EXPRESSED CONCERN THAT SHE COULD NOT SPEAK WELL HER WORDS WERE SLURRED. 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 PT HAS GOOD TOUNG CONTROL AND FOLLOWS COMMANDS WITH (SEEMINGLY) LITTLE THOUGHT NEEDED. PT ABDOMEN IS ROUND AND FIRM SHE STATES TENDERNESS WHEN GAIT BELT WAS LOOSLY APPLIED FOR AMBULATION TO THE BATHROOM. PT AMBULATED TO BATHROOM WITH JERKY MOVEMENTS BUT SELF DIRECTED. LARGE, INCONTINENT, PEANUT BUTTER CONSISTENCY STOOL WAS NOTED IN ATTENDS AND ORANGE URINE WAS PRODUCED. (PT IS ON PYRIDIUM TID). PT WAS ASSISTED BACK TO BED AND SPEECH SEEMED A LITTLE CLEARER AFTER THE INTERACTION. NO NOTED DEFICITE AT THIS TIME. WILL CONTINUE TO MONITOR AND SPEAK TO DR ON MORNING ROUNDS. PT CURRENTLY BACK IN BED NO S&S OF DISTRESS NOTED WILL CTM.
--- NOTE | 2022-07-12 16:44 | NUR ---
DAYSHIFT SUMMARY Patient transferred to SCU unit, assumed care of patient at 1130. CBG at lunch 253, SSI & meal insulin administred. Patient resting in bed comfortably, calls appropriately for help. Steady gait when ambulating to , staff 1 person assist. Patient c/o chronic back pain, Lidocaine patch applied to upper back, Tylenol given for pain, patient reports PRN not effective. Patient did not voice any feels of SI. CBG at dinner 296, SSI given. No acute changes to patient status this shift, awaiting discharge planning.
--- NOTE | 2022-07-13 04:55 | NUR ---
ROOF CEMENT AND PAINT MAKER HELPER SUMMARY: A&Ox4. FLAT AFFECT. COOPERATIVE WITH CARE. C/O PAIN. WEARING ATTENDS, BUT STILL AMBULATING TO BATHROOM FOR VOIDING AND STOOLING. URINE IS DARK ORANGE SECONDARY TO PYRIDIUM SHE IS TAKING. GIVEN PRN APAP LAST NIGHT AND PT SLEPT T/O THE NIGHT. GLUCOSE LAST NIGHT 359 AND RECEIVED 30u GLARGINE. SLEPT T/O THE NIGHT. VSS. WILL REPORT TO LIUDMILA ADAMS.
--- NOTE | 2022-07-14 04:14 | NUR ---
SHIFT SUMMARY Pt AOX4, flat effect, vss, cooperative with care. C/O pain, refuse PRN APAP, states it upsets her stomach. States DrKina refuses to give her baclofen and has had twitchy and crampy muscles all day. I did not observe any muscle twitching. Encouraged PO fluids to help alleviate muscle cramps. Pt slept well t/o the night after evening med pass. Plan is to D/C to inpt psych, awaiting placement.
[2022-07-14 05:17] LABS: BASOPHILS ABSOLUTE AUTO 0.01 K/mm3 (0.00-0.23); BASOPHILS PERCENT AUTO 0 % (0-2); EOSINOPHILS ABSOLUTE AUTO 0.09 K/mm3 (0.00-0.68); EOSINOPHILS PERCENT AUTO 4 % (0-6); Hematocrit 27.5 % (33.0-51.0); Hemoglobin 9.1 g/dL (11.5-16.0); IMMATURE GRAN ABSOLUTE AUTO 0.01 K/mm3 (0.00-0.10); IMMATURE GRAN PERCENT AUTO 0 % (0-1); LYMPHOCYTES ABSOLUTE AUTO 0.47 K/mm3 (0.84-5.20); LYMPHOCYTES PERCENT AUTO 21 % (21-46); MONOCYTES PERCENT AUTO 13 % (4-13); Mean Corpuscular HGB 25.1 pg (26.0-34.0); Mean Corpuscular HGB Conc 33.1 g/dL (31.5-36.5); Mean Corpuscular Volume 76 fL (80-100); Mean Platelet Volume 10.2 fL (9.1-12.4); NEUTROPHILS PERCENT AUTO 62 % (41-73); Platelet Count 79 K/mm3 (150-400); RDW Coefficient Variation 16.6 % (11.7-14.2); RDW Standard Deviation 45.1 fL (35.1-46.3); Red Blood Cell Count 3.62 M/mm3 (3.80-5.20); White Blood Cell Count 2.28 K/mm3 (4.00-11.30)
[2022-07-14 05:50] LABS: Albumin, Blood 1.9 g/dL (3.4-5.0); Albumin/Globulin Ratio 0.6 (0.8-1.8); Bilirubin, Total 0.2 mg/dL (0.1-1.0); Bun/Creatinine Ratio 24.8 (12.0-20.0); Calcium, Blood 7.7 mg/dL (8.5-10.1); Creatinine, Blood 0.44 mg/dL (0.40-1.00); Potassium, Blood 4.5 mmol/L (3.5-5.5); Total Protein, Blood 4.9 g/dL (6.4-8.2)
[2022-07-14 11:23] LABS: SARS-Cov-2 (COVID-19) Antigen Negative (NEGATIVE)
[2022-07-14] MEDS ORDERED: LIDO700A20 TOP (16:58)
[2022-07-14] MEDS ORDERED: Pyridium100 MG PO (16:59)
[2022-07-14] MEDS ORDERED: B-1100 M1 PO (17:00)
--- NOTE | 2022-07-14 17:27 | NUR ---
SHIFT SUMMARY NO ACUTE CHANGES DURING SHIFT CHANGE. PT ALERT AND ORIENTED, CALLS APPROPRIATELY, SBA IN ROOM. PT TO BE TRANSFERED THIS EVENING TO [facility], INPATIENT FACILITY. WILL CONTINUE TO MONITOR. CALL LIGHT WITHIN REACH.
--- NOTE | 2022-07-14 20:18 | NUR ---
PT [facility] ARRIVED AT 2009 TO TRANSPORT PT T/[facility] VIA SECURE CAR. PT WAS GIVEN NIGHT MEDS/INSULIN PRIOR TO LEAVING. ASSESSMENT WAS WNL. REMOVED IV IN RT FOREARM.
== END 2022-07-14 20:22 | DRG 871 ==
LOC: ER 12:26 → PCU 12:27 → MEDS 07-09 16:13 → PCU 07-09 16:14 → MEDS 07-11 08:49 → PCU 07-11 09:54 → MEDS 07-11 16:41
PROVIDERS: Emergency Medicine; Family Medicine; Nurse Practitioner Acute Care; ADMIT Hospitalist
DX: A41.51 Sepsis due to Escherichia coli [E. coli] (principal); E43 Unspecified severe protein-calorie malnutrition; F33.2 Major depressive disorder, recurrent severe without psychotic features; Z68.1 Body mass index [BMI] 19.9 or less, adult; N12 Tubulo-interstitial nephritis, not specified as acute or chronic; F11.20 Opioid dependence, uncomplicated; R45.851 Suicidal ideations; G89.29 Other chronic pain; K21.9 Gastro-esophageal reflux disease without esophagitis; F41.8 Other specified anxiety disorders; E11.65 Type 2 diabetes mellitus with hyperglycemia; I10 Essential (primary) hypertension; K74.60 Unspecified cirrhosis of liver; K86.89 Other specified diseases of pancreas; Z20.822 Contact with and (suspected) exposure to COVID-19; K31.84 Gastroparesis; E88.09 Other disorders of plasma-protein metabolism, not elsewhere classified; D69.6 Thrombocytopenia, unspecified; E11.43 Type 2 diabetes mellitus with diabetic autonomic (poly)neuropathy; Z98.890 Other specified postprocedural states; Z95.0 Presence of cardiac pacemaker; Z90.49 Acquired absence of other specified parts of digestive tract; Z93.3 Colostomy status; Z88.0 Allergy status to penicillin; Z88.2 Allergy status to sulfonamides; Z79.4 Long term (current) use of insulin; Z88.1 Allergy status to other antibiotic agents; Z91.040 Latex allergy status; Z88.8 Allergy status to other drugs, medicaments and biological substances; Z79.899 Other long term (current) drug therapy; Z79.01 Long term (current) use of anticoagulants; Z90.710 Acquired absence of both cervix and uterus; Z87.19 Personal history of other diseases of the digestive system; Z91.14 Patient's other noncompliance with medication regimen
CPT/HCPCS: 0241U; 36415; 80048; 80053; 81001; 82010; 82947; 83605; 83690; 83735; 83930; 84100; 85014; 85018; 85025; 87040; 87077; 87086; 87186; 87426; 96365; 96375; 96376; 97110; 97116; 97162; 97166; 97530; 97535; 99285-25; A9270; C9803; G0378; J0696; J1650; J1815; J2405; J7030; J7040; J7120

== ENCOUNTER 2022-08-10 04:45 | Inpatient (IN) | payer OTHER ==
[~2022-08-10] VITALS: Ht 165.1 cm; Wt 36.8 kg
[~2022-08-10 04:45] MED LIST changes: +B-1100 M1 PO; +LIDO700A20 TOP; +Pyridium100 MG PO
[2022-08-10 05:12] LABS: BASOPHILS ABSOLUTE AUTO 0.02 K/mm3 (0.00-0.23); BASOPHILS PERCENT AUTO 0 % (0-2); EOSINOPHILS ABSOLUTE AUTO 0.03 K/mm3 (0.00-0.68); EOSINOPHILS PERCENT AUTO 1 % (0-6); Hematocrit 38.4 % (33.0-51.0); Hemoglobin 12.7 g/dL (11.5-16.0); IMMATURE GRAN ABSOLUTE AUTO 0.02 K/mm3 (0.00-0.10); IMMATURE GRAN PERCENT AUTO 0 % (0-1); LYMPHOCYTES ABSOLUTE AUTO 0.55 K/mm3 (0.84-5.20); LYMPHOCYTES PERCENT AUTO 9 % (21-46); MONOCYTES ABSOLUTE AUTO 0.28 K/mm3 (0.16-1.47); MONOCYTES PERCENT AUTO 5 % (4-13); Mean Corpuscular HGB 25.1 pg (26.0-34.0); Mean Corpuscular HGB Conc 33.1 g/dL (31.5-36.5); Mean Corpuscular Volume 76 fL (80-100); Mean Platelet Volume 10.9 fL (9.1-12.4); NEUTROPHILS ABSOLUTE AUTO 5.04 K/mm3 (1.96-9.15); NEUTROPHILS PERCENT AUTO 85 % (41-73); Platelet Count 91 K/mm3 (150-400); RDW Coefficient Variation 16.1 % (11.7-14.2); RDW Standard Deviation 43.8 fL (35.1-46.3); Red Blood Cell Count 5.05 M/mm3 (3.80-5.20); White Blood Cell Count 5.94 K/mm3 (4.00-11.30)
[2022-08-10 05:41] LABS: Beta-hydroxybutyrate 7.6 mg/dL (0.2-2.8)
[2022-08-10 05:48] LABS: Albumin, Blood 2.8 g/dL (3.4-5.0); Albumin/Globulin Ratio 0.7 (0.8-1.8); Bilirubin, Total 0.5 mg/dL (0.1-1.0); Bun/Creatinine Ratio 57.8 (12.0-20.0); Calcium, Blood 8.9 mg/dL (8.5-10.1); Creatinine, Blood 0.47 mg/dL (0.40-1.00); Globulin, Blood 4.3 g/dL (2.2-4.0); Total Protein, Blood 7.1 g/dL (6.4-8.2)
[2022-08-10 06:40] LABS: Source, Urine Clean Catch
[2022-08-10 07:35] LABS: Appearance, Urine Hazy (Clear); Bilirubin, Urine Neg (Neg); Blood, Urine 3+ (Neg); Color, Urine Yellow (P-Yellow); Glucose Qualitative, Urine 4+ (Neg); Ketones, Urine Neg (Neg); Leukocyte Esterase, Urine Neg (Neg); Nitrite, Urine Neg (Neg); Protein, Urine 3+ (Neg); Specific Gravity, Urine 1.015 (1.003-1.022); Urobilinogen, Urine NORM (Normal)
[2022-08-10 07:37] LABS: Squamous Epithelial Cells Few /hpf (Few); White Blood Cells, Urine 0-2 /hpf (0-5)
[2022-08-10 07:38] LABS: Amorphous Mod (0-Heavy); Bacteria Few /hpf
[2022-08-10 08:03] LABS: U Amphetamine Screen Not Detected; U Barbituate Screen Not Detected; U Benzodiazapine Screen Not Detected; U Buprenorphine Screen Not Detected; U Cannabinoids Screen Not Detected; U Cocaine Screen Not Detected; U Methadone Screen Not Detected; U Methamphetamine Screen Not Detected; U Opiates Screen Not Detected; U Oxycodone Screen DETECTED; U Phencyclidine Screen Not Detected; U Propoxyphene Screen Not Detected
[2022-08-10 08:47] LABS: Glucose, Blood 560 mg/dL (70-99)
[2022-08-10 08:51] LABS: Acetaminophen, Random <2.0 ug/mL (10.0-30.0); Salicylate 2.3 mg/dL (2.8-20.0)
[2022-08-10 12:43] LABS: Source, Urine Foley catheter
--- NOTE | 2022-08-10 12:53 | NUR ---
PT ADMITTED TO ICU 16 AT 1118 FOR HHS. PT CURLED IN POSITION, MOANS, MUNOZ, DOES NOT FOLLOW COMMANDS, DOES OPEN EYES TO VOICE. DR BEAVERS CALLED UPON ADMIT FOR FURTHER ORDERS. LR AT 200CC/HR. INSULIN GTT AT 4UNITS/HR. 16F GARZON TEMP PROBE PLACED W/O DIFFICULTY. SMALL AMT OF YELLOW URINE OUTPUT. PT HAS COME SATURATED IN URINE. PT BATHED. UA SENT. TEMP 100.2. RESP PANEL SENT. LONG ACTING GIVEN AND INSULIN OFF PER DR BEAVERS. POWERGLIDE PLACED TO SANDY. BRUISING TO FEET, OTHERWISE SKIN INTACT. PT SEVERLY CACHECTIC.
[2022-08-10 12:58] LABS: Appearance, Urine Hazy (Clear); Bilirubin, Urine Neg (Neg); Blood, Urine 4+ (Neg); Color, Urine Yellow (P-Yellow); Glucose Qualitative, Urine 4+ (Neg); Ketones, Urine Neg (Neg); Leukocyte Esterase, Urine Neg (Neg); Nitrite, Urine Neg (Neg); Protein, Urine 3+ (Neg); Specific Gravity, Urine 1.015 (1.003-1.022); Urobilinogen, Urine NORM (Normal)
[2022-08-10 13:04] LABS: Bun/Creatinine Ratio 57.9 (12.0-20.0); Calcium, Blood 8.3 mg/dL (8.5-10.1); Creatinine, Blood 0.47 mg/dL (0.40-1.00); Potassium, Blood 3.5 mmol/L (3.5-5.5)
[2022-08-10 13:37] LABS: Hyaline Casts 0-2 /lpf (0-2)
[2022-08-10 13:38] LABS: Bacteria Few /hpf; Squamous Epithelial Cells Not Seen /hpf (Few); White Blood Cells, Urine 0-2 /hpf (0-5)
[2022-08-10 14:05] LABS: Adenovirus Not Detected (NOT DETECT); Bordetella pertussis Not Detected (NOT DETECT); Chlamydophila pneumoniae Not Detected (NOT DETECT); Coronavirus 229E Not Detected (NOT DETECT); Coronavirus HKU1 Not Detected (NOT DETECT); Coronavirus NL63 Not Detected (NOT DETECT); Coronavirus OC43 Not Detected (NOT DETECT); Human Metapneumovirus Not Detected (NOT DETECT); Human Rhinovirus/Enterovirus Not Detected (NOT DETECT); Influenza A/2009-H1 Not Detected (NOT DETECT); Influenza A/H1 Not Detected (NOT DETECT); Influenza A/H3 Not Detected (NOT DETECT); Influenza B Not Detected (NOT DETECT); Mycoplasma pneumoniae Not Detected (NOT DETECT); Parainfluenza Virus 1 Not Detected (NOT DETECT); Parainfluenza Virus 2 Not Detected (NOT DETECT); Parainfluenza Virus 3 Not Detected (NOT DETECT); Parainfluenza Virus 4 Not Detected (NOT DETECT); Respiratory Syncytial Virus Not Detected (NOT DETECT); SARS-Cov-2 (COVID-19), BioFire Not Detected (NOT DETECT)
--- NOTE | 2022-08-10 18:00 | NUR ---
INSULIN REMAINS OFF, LR AT 200CC/HR. BS STABLE, PT ON SLIDING SCALE COVERAGE. PT REMAINS NPO D/T AMS. NEURO EXAM REMAINS UNCHANGED. PT AROUSES TO VOICE BUT DOES NOT FOLLOW COMMANDS, DOES NOT SPEAK, ONLY MOANS. PT HAS BEEN INCONTINENT SEVERAL TIMES OF STOOL. PT'S CHILDREN AT BEDSIDE. DAUGHTER WHOM LIVES WITH PT UNSURE OF MEDICATIONS AND WILL BRING IN A LIST TOMORROW.
[2022-08-10 19:26] LABS: Bun/Creatinine Ratio 64.7 (12.0-20.0); Calcium, Blood 8.2 mg/dL (8.5-10.1); Creatinine, Blood 0.42 mg/dL (0.40-1.00); Potassium, Blood 3.4 mmol/L (3.5-5.5)
--- NOTE | 2022-08-10 20:10 | NUR ---
PATIENT SLEEPING, OPENS EYES TO STIMULI, WHEN ASKED QUESTIONS PATIENT MOANS, BUT NOT USING WORDS. MOVING ALL EXTREMITIES, BUT NOT ALWAYS TO DIRECTIONS. INSULIN DRIP REMAINS OFF. DOCTOR ANALILIA NOTIFIED OF CHEM RESULTS AND GIVEN UPDATE. IV FLUIDS CHANGED TO D5 1/2NS AND KCL 40 MEQ IV ORDERED. WILL MONITOR GLUCOSE CLOSELY AND IF REMAINS STABLE PLAN TO CHANGE TO MED NO TELE STATUS.
--- NOTE | 2022-08-11 00:56 | NUR ---
DOCTOR YARIEL GIVEN UPDATE AND NOTIFIED OF CONTINUED LOW GLUCOSE. D5 1/2NS INCREASED TO 125 CC/HR AND PLAN TO GIVE GLUCAGON. PLAN TO KEEP PATIENT ICU STATUS AT THIS TIME.
--- NOTE | 2022-08-11 05:10 | NUR ---
PATIENT MORE ALERT, YET CONTINUES TO BE NONVERBAL. NODING HEAD YES WHEN ASKED IF SHE WAS COMFORTABLE, ASSISTING WITH REPOSITIONING. HAVING FREQUENT BM'S THAT ARE GETTING LOOSER NIGHT HAS PROGRESSED.
[2022-08-11 05:52] LABS: BASOPHILS ABSOLUTE AUTO 0.02 K/mm3 (0.00-0.23); BASOPHILS PERCENT AUTO 0 % (0-2); EOSINOPHILS ABSOLUTE AUTO 0.13 K/mm3 (0.00-0.68); EOSINOPHILS PERCENT AUTO 2 % (0-6); Hematocrit 30.9 % (33.0-51.0); Hemoglobin 10.2 g/dL (11.5-16.0); IMMATURE GRAN ABSOLUTE AUTO 0.02 K/mm3 (0.00-0.10); IMMATURE GRAN PERCENT AUTO 0 % (0-1); LYMPHOCYTES ABSOLUTE AUTO 1.05 K/mm3 (0.84-5.20); LYMPHOCYTES PERCENT AUTO 12 % (21-46); MONOCYTES ABSOLUTE AUTO 0.59 K/mm3 (0.16-1.47); MONOCYTES PERCENT AUTO 7 % (4-13); Mean Corpuscular HGB 25.1 pg (26.0-34.0); Mean Corpuscular Volume 76 fL (80-100); Mean Platelet Volume 10.2 fL (9.1-12.4); NEUTROPHILS ABSOLUTE AUTO 6.82 K/mm3 (1.96-9.15); NEUTROPHILS PERCENT AUTO 79 % (41-73); Platelet Count 81 K/mm3 (150-400); RDW Coefficient Variation 16.8 % (11.7-14.2); RDW Standard Deviation 45.7 fL (35.1-46.3); Red Blood Cell Count 4.06 M/mm3 (3.80-5.20); White Blood Cell Count 8.63 K/mm3 (4.00-11.30)
[2022-08-11 06:05] LABS: Albumin, Blood 2.1 g/dL (3.4-5.0); Albumin/Globulin Ratio 0.7 (0.8-1.8); Bilirubin, Total 0.5 mg/dL (0.1-1.0); Bun/Creatinine Ratio 65.8 (12.0-20.0); Calcium, Blood 7.6 mg/dL (8.5-10.1); Creatinine, Blood 0.38 mg/dL (0.40-1.00); Globulin, Blood 3.1 g/dL (2.2-4.0); Potassium, Blood 3.4 mmol/L (3.5-5.5); Total Protein, Blood 5.2 g/dL (6.4-8.2)
--- NOTE | 2022-08-11 06:57 | NUR ---
SUMMARY PATIENT HAVING LOW GLUCOSE T/O NIGHT. D5 1/ NC @ 125 CC/HR INFUSING. MONITORING CBG Q2HR T/O NIGHT. PATIENT MORE AWAKE NIGHT PROGRESSED, ASSISTING WITH REPOSITIONING AND NODDING YES AND NO TO QUESTIONS. CONTINUES TO BE NONVERBAL. PATIENT HAVING FREQUENT BM T/O NIGHT GETTING SOFTER NIGHT PROGRESSED.
--- NOTE | 2022-08-11 09:00 | NUR ---
ASSUMED CARE / DR HEALY: REPORT RECEIVED FROM MIRELA Gaxiola RN. ASSUMED CARE OF THIS PT AT APPROX 0700. ON ASSESSMENT, THE PT IS RESTING QUIETLY & AWAKENS TO VERBAL STIMULUS. SHE IS SOFT SPOKEN & RELUCTANT TO ANSWER QUESTIONS AT TIMES. APPEARS MALNOURISHED & IS NOT MOTIVATED TO CARE FOR SELF OR ASSIST W/ ADLs. ABLE TO SIT UP & SAFELY TAKE PO MEDS THIS AM. LS CLEAR, PT ON RA W/ O2 SATS > 92%. MONITOR SHOWS SR W/ HR 80s, BP STABLE. PT HAVING SOFT/ MUCOID INCONTINENT STLS. GARZON PATENT/ DRAINING YELLOW URINE. BED BATH COMPLETED THIS AM. SKIN OVERALL FRAGILE, ECCYMOTIC. Q2H REPOSITIONING TO MAINTAIN SKIN INTEGRITY. DR HEALY AT BEDSIDE THIS AM TO EVAL PT. HE HAS DISCUSSED POC W/ THIS PT & POSSIBLE BARRIERS THAT THE PT MAY BE EXPERIENCING THAT PREVENT HER FROM GETTING/ USING HER INSULIN APPROPRIATELY. GLARGINE ORDERS PLACED AT LOWER DOSE, THIS RN CONFIRMS THAT PROVIDER WOULD LIKE THE PT TO RECIEVE GLARGINE W/ D5 1/2 NS CONTINUING TO INFUSE FOR BORDERLINE HYPOGLYCEMIA THAT HAS BEEN IMPROVING. HE STS TO PLEASE GIVE GLARGINE & CONTINUE TO MONITOR CBGs. STATUS CHANGED TO MEDICAL W/ NO TELE. ORDERS FOR PHYSICAL & OCCUPATIONAL THERAPIES PLACED. PSYCHIATRY CONSULT ALSO ORDERED R/T PT's HX DEPRESSION & INPATIENT PSYCH PLACEMENT. WILL CONTINUE TO MONITOR & UPDATE NEEDED.
--- NOTE | 2022-08-11 12:43 | NUR ---
DR BEAVERS: CALL TO PROVIDER REGARDING PT's NPO STATUS. THE PT HAS WORKED W/ PHYSICAL/ OCCUPATIONAL THERAPIES & IS NOW EXPRESSING DESIRE TO EAT. ADA DIET ORDERED & CBG CHECKS/ CORRECTIVE SCALE INSULIN COVERAGE HAVE BEEN CHANGED TO AC&HS. NO OTHER CHANGES AT THIS TIME.
--- NOTE | 2022-08-11 13:20 | NUR ---
Assumed care of patient. Pt sitting up in chair, A/O x 4. Denies pain at this time. Seems withdrawn. LS clear. HR reg. BT positive but hypoactive. Sharp cath draining dark yellow urine with appearnace of sediment. IVF running per orders. Pt Denies needs at this time. Call light in reach. Will continue to monitor.
--- NOTE | 2022-08-11 14:40 | NUR ---
Report given to BRYAN Holt. Pt to be transfered to room 304 via w/c. Stable at time of transfer.
--- NOTE | 2022-08-11 16:18 | NUR ---
TRANSFER NOTE PATIENT TRANSFERRED UP FROM ICU. ALERT, WITHDRAWN. ABLE TO SBA PIVOT TO BED. GARZON PATENT AND DRAINING. IV FLUID RUNNING. OBTAINED REPORT FROM PNEUMATIC TOOL OPERATOR. PATIENT ARRIVED AT 1530.
--- NOTE | 2022-08-11 20:14 | NUR ---
SHIFT SUMMARY PATIENT TRANSFERRED TO MEDICAL FLOOR FROM ICU. ALERT AND ORIENTED. WITHDRAWN AFFECT. SBA TO TRANSFER TO BED. IV FLUID RUNNING. GARZON PATENT AND DRAINING. PATIENT RESTED IN BED THROUGH EVENING AND DINNER. DC'D IV FLUID. GARZON REMOVED. PATIENT TOLERATED ADA DINNER, COVERED CHEMBG PER SLIDING SCALE. REPROT GIVEN TO CUSTOMS COMPLIANCE SPECIALIST RN.
--- NOTE | 2022-08-12 00:40 | NUR ---
08/11/222144 PT SITTING ON EDGE OF BED. REPORTS A HEADACHE AND NAUSEA, WILL GIVE MEDS AND EVAL FOR EFFECT. BS WAS 213. NO OTHER APPARENT SIGNS OF DISTRESS. CALL LIGHT IS IN REACH.
--- NOTE | 2022-08-12 01:10 | NUR ---
0000 PT LYING IN BED, EYES CLOSED, APPEARS TO BE RESTING. BREATHING IS EVEN, UNLABORED. NO APPARENT SIGNS OF DISTRESS. CALL LIGHT IS IN REACH.
--- NOTE | 2022-08-12 02:07 | NUR ---
PT LYING IN BED, EYES CLOSED, APPEARS TO BE RESTING. BREATHING IS EVEN, UNLABORED. NO APPARENT SIGNS OF DISTRESS. CALL LIGHT IS IN REACH.
[2022-08-12] MEDS ORDERED: CREON DR 24,001 EACH PO ×2 (02:25→02:26)
[2022-08-12] MEDS ORDERED: GABAPENTIN600 MG PO (02:27)
[2022-08-12] MEDS ORDERED: TOUJEO SOL300 UNIT/2 SC (02:30)
[2022-08-12] MEDS ORDERED: VITAMIN D5000 UNIT PO (02:31)
[2022-08-12 05:03] LABS: Albumin/Globulin Ratio 0.6 (0.8-1.8); Bilirubin, Total 0.4 mg/dL (0.1-1.0); Bun/Creatinine Ratio 36.8 (12.0-20.0); Calcium, Blood 7.2 mg/dL (8.5-10.1); Creatinine, Blood 0.57 mg/dL (0.40-1.00); Globulin, Blood 3.2 g/dL (2.2-4.0); Potassium, Blood 3.5 mmol/L (3.5-5.5); Total Protein, Blood 5.2 g/dL (6.4-8.2)
--- NOTE | 2022-08-12 05:17 | NUR ---
PT IS AAO X 4, REPORTED HEADACHE, GOT TYLENOL. REPORTED NAUSEA, GOT ZOFRAN. LAS BS WAS 213. PT IS INCONTINENT.
--- NOTE | 2022-08-12 05:17 | NUR ---
0400 PT LYING IN BED, EYES CLOSED, APPEARS TO BE RESTING. WAKES EASILY TO VERBAL STIMULI. NO APPARENT SIGNS OF DISTRESS. CALL LIGHT IS IN REACH.
--- NOTE | 2022-08-12 05:39 | NUR ---
PT LYING IN BED, EYES CLOSED, APPEARS TO BE RESTING.BREATHING IS EVEN, UNLABORE. NO APPARENT SIGNS OF DISTRESS. CALL LIGHT IS IN REACH. NO OTHER CHANGES THIS SHIFT.
--- NOTE | 2022-08-12 17:08 | NUR ---
DISCHARGE NOTE- PT WAS GIVEN VERBAL AND WRITTEN DISCHARGE INSTRUCTIONS AND ACKNOWLEDGED UNDERSTANDING OF THEM. 2IV'S AND PG DC'D AT THE TIME OF DISCHARGE TEACHING. PT IS DRESSED IN PAPER SCRUBS SHE HAD NO CLEAN CLOTHES. PT SITTING AT THE EOB AWAITING HER TRANSPORT.
== END 2022-08-12 17:38 | disposition home health service (06) | DRG 637 ==
LOC: ER 04:45 → ERHOLD 04:46 → MEDS 07:21 → ERHOLD 07:21 → ICUW 11:21 → MEDS 08-11 15:06
PROVIDERS: Emergency Medicine; Family Medicine; ADMIT Internal Medicine
DX: E11.01 Type 2 diabetes mellitus with hyperosmolarity with coma (principal); G93.41 Metabolic encephalopathy; E46 Unspecified protein-calorie malnutrition; F33.3 Major depressive disorder, recurrent, severe with psychotic symptoms; G93.40 Encephalopathy, unspecified; Z68.1 Body mass index [BMI] 19.9 or less, adult; E87.20 Acidosis, unspecified; E87.0 Hyperosmolality and hypernatremia; Z20.822 Contact with and (suspected) exposure to COVID-19; Z28.21 Immunization not carried out because of patient refusal; E78.5 Hyperlipidemia, unspecified; I10 Essential (primary) hypertension; K31.84 Gastroparesis; J45.20 Mild intermittent asthma, uncomplicated; G43.909 Migraine, unspecified, not intractable, without status migrainosus; E11.40 Type 2 diabetes mellitus with diabetic neuropathy, unspecified; E86.0 Dehydration; I48.0 Paroxysmal atrial fibrillation; D69.6 Thrombocytopenia, unspecified; E11.43 Type 2 diabetes mellitus with diabetic autonomic (poly)neuropathy; K74.60 Unspecified cirrhosis of liver; K86.89 Other specified diseases of pancreas; G89.29 Other chronic pain; Z91.14 Patient's other noncompliance with medication regimen; Z87.01 Personal history of pneumonia (recurrent); Z90.710 Acquired absence of both cervix and uterus; Z90.722 Acquired absence of ovaries, bilateral; Z90.49 Acquired absence of other specified parts of digestive tract; Z93.0 Tracheostomy status; Z95.0 Presence of cardiac pacemaker; Z98.890 Other specified postprocedural states; Z88.0 Allergy status to penicillin; Z88.1 Allergy status to other antibiotic agents; Z88.2 Allergy status to sulfonamides; Z88.6 Allergy status to analgesic agent; Z91.018 Allergy to other foods; Z88.8 Allergy status to other drugs, medicaments and biological substances; Z79.4 Long term (current) use of insulin; Z79.899 Other long term (current) drug therapy
CPT/HCPCS: 0202U; 36415; 51702; 70450; 71045; 80048; 80053; 81001; 82010; 82140; 82550; 82947; 83605; 83930; 85025; 96361; 96374; 97110; 97116; 97162; 97165; 97530; 97535; 99291-25; A9270; C1751; G0480; J1610; J1815; J2060; J2405; J3480; J7030; J7042; J7120; P9612

== ENCOUNTER 2022-10-26 13:30 | Emergency (ER) | payer OTHER ==
[~2022-10-26] VITALS: Ht 170.2 cm; Wt 49.9 kg
[~2022-10-26 13:30] MED LIST changes: +CREON DR 24,001 EACH PO; +TOUJEO SOL300 UNIT/2 SC; +VITAMIN D5000 UNIT PO
[2022-10-26 19:52] LABS: BASOPHILS ABSOLUTE AUTO 0.03 K/mm3 (0.00-0.23); BASOPHILS PERCENT AUTO 0 % (0-2); EOSINOPHILS ABSOLUTE AUTO 0.17 K/mm3 (0.00-0.68); EOSINOPHILS PERCENT AUTO 2 % (0-6); Hemoglobin 10.1 g/dL (11.5-16.0); IMMATURE GRAN ABSOLUTE AUTO 0.07 K/mm3 (0.00-0.10); IMMATURE GRAN PERCENT AUTO 1 % (0-1); LYMPHOCYTES ABSOLUTE AUTO 1.35 K/mm3 (0.84-5.20); LYMPHOCYTES PERCENT AUTO 15 % (21-46); MONOCYTES PERCENT AUTO 6 % (4-13); Mean Corpuscular HGB 25.2 pg (26.0-34.0); Mean Corpuscular HGB Conc 32.6 g/dL (31.5-36.5); Mean Corpuscular Volume 77 fL (80-100); Mean Platelet Volume 9.4 fL (9.1-12.4); NEUTROPHILS ABSOLUTE AUTO 6.86 K/mm3 (1.96-9.15); NEUTROPHILS PERCENT AUTO 76 % (41-73); Platelet Count 186 K/mm3 (150-400); RDW Coefficient Variation 13.1 % (11.7-14.2); Red Blood Cell Count 4.01 M/mm3 (3.80-5.20); White Blood Cell Count 8.98 K/mm3 (4.00-11.30)
[2022-10-26 20:13] LABS: Albumin, Blood 1.6 g/dL (3.4-5.0); Albumin/Globulin Ratio 0.3 (0.8-1.8); Bilirubin, Total 0.2 mg/dL (0.1-1.0); Bun/Creatinine Ratio 49.5 (12.0-20.0); Calcium, Blood 8.1 mg/dL (8.5-10.1); Creatinine, Blood 0.38 mg/dL (0.40-1.00); Globulin, Blood 4.6 g/dL (2.2-4.0); Potassium, Blood 4.8 mmol/L (3.5-5.5); Total Protein, Blood 6.2 g/dL (6.4-8.2)
[2022-10-26 21:40] LABS: Base Excess Venous 3.5 mmol/L; Bicarbonate Venous 27.2 mmol/L (24.0-30.0); PCO2 Venous 41.9 mmHg (38-42); pH Blood Venous 7.43 (7.34-7.37)
[2022-10-26] MEDS ORDERED: DOXY100 PO (22:40)
[2022-10-26] MEDS ORDERED: ONDA4ODT MM (22:40)
[2022-10-26] MEDS ORDERED: PRED20 PO (22:52)
== END 2022-10-26 23:52 | disposition home or self-care (01) ==
LOC: ER 13:30
PROVIDERS: Student in an Organized Health Care Education/Training Program
DX: J18.9 Pneumonia, unspecified organism (principal); E11.9 Type 2 diabetes mellitus without complications; I10 Essential (primary) hypertension; E78.5 Hyperlipidemia, unspecified; Z88.0 Allergy status to penicillin; Z88.2 Allergy status to sulfonamides; Z91.040 Latex allergy status; Z88.5 Allergy status to narcotic agent; Z91.018 Allergy to other foods; Z79.4 Long term (current) use of insulin; Z79.899 Other long term (current) drug therapy
CPT/HCPCS: 36415; 71046; 80053; 82803; 83605; 85025; 93005; 93010; 94640; 94664; 96374; 99283-25; A9270; J2405; J7512

== ENCOUNTER 2023-02-13 11:58 | Emergency (ER) | payer OTHER ==
[~2023-02-13] VITALS: Ht 165.1 cm; Wt 45.4 kg
[~2023-02-13 11:58] MED LIST changes: +PRED20 PO
[2023-02-13 15:14] VITALS: BP 131/72
== END 2023-02-13 15:59 | disposition home or self-care (01) ==
LOC: ER 11:58
DX: S82.102A Unspecified fracture of upper end of left tibia, initial encounter for closed fracture (principal); S82.832A Other fracture of upper and lower end of left fibula, initial encounter for closed fracture; W18.30XA Fall on same level, unspecified, initial encounter; Y93.01 Activity, walking, marching and hiking; Z88.0 Allergy status to penicillin; Z88.1 Allergy status to other antibiotic agents; Z88.2 Allergy status to sulfonamides; Z91.040 Latex allergy status; Z88.8 Allergy status to other drugs, medicaments and biological substances; Z91.018 Allergy to other foods; Z79.4 Long term (current) use of insulin; Z79.899 Other long term (current) drug therapy; E11.9 Type 2 diabetes mellitus without complications; E78.5 Hyperlipidemia, unspecified; J45.20 Mild intermittent asthma, uncomplicated; I48.0 Paroxysmal atrial fibrillation; Z79.01 Long term (current) use of anticoagulants; G43.909 Migraine, unspecified, not intractable, without status migrainosus; Z86.718 Personal history of other venous thrombosis and embolism; Z90.710 Acquired absence of both cervix and uterus; Z90.49 Acquired absence of other specified parts of digestive tract; Z95.0 Presence of cardiac pacemaker
CPT/HCPCS: 29505; 73502; 73562-LT; 73600; 99284-25

== ENCOUNTER 2023-04-28 06:03 | Emergency (ER) | payer OTHER ==
[~2023-04-28] VITALS: Ht 165.1 cm; Wt 63.5 kg
[2023-04-28 06:50] LABS: BASOPHILS ABSOLUTE AUTO 0.01 K/mm3 (0.00-0.23); BASOPHILS PERCENT AUTO 0 % (0-2); EOSINOPHILS ABSOLUTE AUTO 0.23 K/mm3 (0.00-0.68); EOSINOPHILS PERCENT AUTO 7 % (0-6); Hematocrit 27.7 % (33.0-51.0); Hemoglobin 8.2 g/dL (11.5-16.0); IMMATURE GRAN ABSOLUTE AUTO 0.01 K/mm3 (0.00-0.10); IMMATURE GRAN PERCENT AUTO 0 % (0-1); LYMPHOCYTES ABSOLUTE AUTO 0.83 K/mm3 (0.84-5.20); LYMPHOCYTES PERCENT AUTO 24 % (21-46); MONOCYTES ABSOLUTE AUTO 0.36 K/mm3 (0.16-1.47); MONOCYTES PERCENT AUTO 10 % (4-13); Mean Corpuscular HGB 21.1 pg (26.0-34.0); Mean Corpuscular HGB Conc 29.6 g/dL (31.5-36.5); Mean Corpuscular Volume 71 fL (80-100); Mean Platelet Volume 10.5 fL (9.1-12.4); NEUTROPHILS ABSOLUTE AUTO 2.04 K/mm3 (1.96-9.15); NEUTROPHILS PERCENT AUTO 59 % (41-73); Platelet Count 154 K/mm3 (150-400); RDW Coefficient Variation 16.9 % (11.7-14.2); RDW Standard Deviation 43.5 fL (35.1-46.3); Red Blood Cell Count 3.88 M/mm3 (3.80-5.20); White Blood Cell Count 3.48 K/mm3 (4.00-11.30)
[2023-04-28 07:06] LABS: Bun/Creatinine Ratio 55.8 (12.0-20.0); Calcium, Blood 8.5 mg/dL (8.5-10.1); Creatinine, Blood 1.13 mg/dL (0.40-1.00); Magnesium, Blood 2.8 mg/dL (1.6-2.4); Potassium, Blood 4.8 mmol/L (3.5-5.5)
[2023-04-28 08:04] LABS: International Normalized Ratio 1.07; Prothrombin Time Results 11.2 Sec (9.7-11.5)
[2023-04-28] MEDS ORDERED: OXYC5 PO (09:07)
[2023-04-28] MEDS ORDERED: IBUP400 PO (09:07)
[2023-04-28] MEDS ORDERED: ACET500 PO (09:07)
[2023-04-28] MEDS ORDERED: NARCAN4 M1 (09:07)
[2023-04-28] MEDS ORDERED: MORP15ER PO (09:07)
[2023-04-28 11:42] VITALS: BP 106/75
== END 2023-04-28 12:40 | disposition home or self-care (01) ==
LOC: ER 06:03
PROVIDERS: Student in an Organized Health Care Education/Training Program
DX: S72.402A Unspecified fracture of lower end of left femur, initial encounter for closed fracture (principal); N17.9 Acute kidney failure, unspecified; I10 Essential (primary) hypertension; E11.43 Type 2 diabetes mellitus with diabetic autonomic (poly)neuropathy; K31.84 Gastroparesis; E78.5 Hyperlipidemia, unspecified; J45.909 Unspecified asthma, uncomplicated; Z86.718 Personal history of other venous thrombosis and embolism; Z85.41 Personal history of malignant neoplasm of cervix uteri; Z88.0 Allergy status to penicillin; Z88.2 Allergy status to sulfonamides; Z88.1 Allergy status to other antibiotic agents; Z88.8 Allergy status to other drugs, medicaments and biological substances; Z91.048 Other nonmedicinal substance allergy status; Z91.040 Latex allergy status; Z88.3 Allergy status to other anti-infective agents; Z88.6 Allergy status to analgesic agent; Z91.018 Allergy to other foods; Z79.4 Long term (current) use of insulin; Z79.52 Long term (current) use of systemic steroids; W01.10XA Fall on same level from slipping, tripping and stumbling with subsequent striking against unspecified object, initial encounter; Y92.002 Bathroom of unspecified non-institutional (private) residence as the place of occurrence of the external cause
CPT/HCPCS: 29505; 73562-LT; 80048; 83735; 85025; 85610; 85730; 93005; 93010; 96374-59; 96375-59; 99284-25; A9270; J1885; J3010; J7030